=== PATIENT | female | born 1960 | race Caucasian/White ===

== ENCOUNTER 2023-09-25 18:50 | Emergency (ER) | payer OTHER, SELFPAY ==
[2023-09-25 18:54] VITALS: BP 133/88
[2023-09-25 19:31] VITALS: BP 145/89
[2023-09-25 19:38] LABS: % Basophils 0.2 % (0-2); % Eosinophils 0.5 % (0-6); % Immature Granulocytes 0.2 % (0-0.5); % Lymphocytes 20.4 % (20.5-51.1); % Monocytes 3.9 % (1.7-9.3); % Neutrophils 74.8 % (42.2-75.2); Absolute Eosinophils 0.1 10^3/uL (0-0.7); Absolute Lymphocytes 2.5 10^3/uL (1.2-3.4); Absolute Monocytes 0.5 10^3/uL (0.1-0.6); Absolute Neutrophils 9.3 10^3/uL (1.4-6.5); Hematocrit 41.3 % (37.0-47.0); Hemoglobin 14.6 g/dL (12.0-16.0); Mean Corp Hgb Conc. 35.4 g/dL (33.0-37.0); Mean Corpuscular Volume 87.7 fL (81.0-99.0); Mean Platelet Volume 10.5 fL (7.4-10.4); Nucleated Red Blood Cells % 0 %; Platelet Count 360 10^3/uL (130-400); Red Blood Cell Count 4.71 10^6/uL (4.20-5.40); Red Cell Dist. Width 11.9 % (11.5-14.5); White Blood Cell Count 12.4 10^3/uL (4.8-10.8)
--- NOTE | 2023-09-25 19:40 | ED.GENMED ---
History of Present Illness
General
Chief Complaint: Generalized Pain
Source: patient, records and spouse
Exam Limitations: none
Time Seen by Provider: 09/25/23 19:05
Nursing documentation reviewed up to this point in time: agreed with
Travel History
Have you had any contact with someone who has COVID-19?: No
Do you have any symptoms of coronavirus? Fever > 100 degrees, chills, cough, shortness of breath, sore throat, loss of taste or smell, muscle aches, or headache?: No
History of Present Illness
History of Present Illness:
63-year-old female with a past medical history as documented who presents to the emergency department coming by her for evaluation of multiple complaints�her chief complaint is upper back pain. Patient sara was admitted to this hospital
08/29/2023 until 09/20 with acute appendicitis�had laparoscopic appendectomy as well as a ventral hernia repair with Dr. Alegria on 08/29/2023. She was discharged on ciprofloxacin and Flagyl to complete an 8-day course and she completed this course as
prescribed. She says that during this recent admission she was having pain in her upper back that she was told was likely referred pain from intra-abdominal infection. She says that since leaving the hospital although her abdominal pain is
starting to improve she says that her back pain is worsening. She says pain is located in the scapular region worse on the left. She says it is a constant dull pain sometimes sharp and stabbing particular with certain movements. She says she has
had multiple associated symptoms�she still has some persistent postoperative abdominal pain. She has had some increasing shortness of breath she says since the operation. She says she has persistent nausea. She has had chills. She says that she
has noticed some mild dysuria. She says that she was seen by her primary physician who scheduled her for an outpatient CT abdomen/pelvis to make sure that she did not have any residual infection/postoperative complication�she says that she had this
done at [facility] recently but she did not hear about any results. She says with her symptoms worsening and no clear plan she came to the emergency room tonight.
Past History
Past History
ED Past Medical History: Fibromyalgia and Other (migraine/MS ); Negative IDDM
Social History
Tobacco: Non-smoker
Alcohol: None
Living: with family
Review of Systems
Review of Systems
All Other Systems: ROS reviewed and negative except as documented in HPI and ROS
Constitutional: Reports fatigue and chills; Denies fever
Respiratory: Reports trouble breathing; Denies cough
Cardiac: Denies chest pain, diaphoresis or palpitations
ABD/GI: Reports abdominal pain and nausea; Denies vomiting or diarrhea
: Reports dysuria; Denies frequency or flank pain
Musculoskeletal: Reports back pain; Denies neck pain
Neurological: Denies dizzy, headache, weakness or numbness
Phy Exam
Physical Exam
Physical Exam:
General: Awake, alert, oriented x3; no acute distress
Head: Normocephalic, atraumatic
Eyes: Conjunctiva normal, sclera anicteric
Throat: Airway intact, handling secretions
Neck: Trachea midline, supple without meningismus
Lungs: Clear to auscultation bilaterally, no wheezing, rales, rhonchi
Heart: Regular rate and rhythm, no murmurs, gallops, or rubs
Abd: Soft, non distended, mildly tender suprapubic region; well-healed laparoscopic incisions
Back: Patient has some reproducible tenderness left paraspinal region in the upper thoracic (intrascapular) region
Neuro: Cranial nerves grossly intact, speech fluid
Skin: no rash
Extremities: No edema in extremities, equal pulses in all extremities
Scores
Heart Failure Risk
Heart Failure Risk Score: Not Applicable
Heart Score for Chest Pain Patients
STEMI patient?: Not applicable
Withdrawal Assessment of Alcohol
Withdrawal Assessment Completed?: Not applicable
Course
Orders/Labs/Results
Orders:
Orders
09/25/23 19:06
Test Result ONCE
09/25/23 19:24
CMP [Comprehensive Metabolic Panel] Urgent
Complete Blood Count/With Diff Urgent
HCG, Serum Qualitative Screen Urgent
Lactic Acid Urgent
09/25/23 19:39
Electrocardiogram (*1) Urgent
Reason for Study: Shortness of Breath
EKG- Treatment ONCE
CR Chest - 2 Views Urgent
Comment:
Reason For Exam: scapular pain
09/25/23 19:48
HYDROmorphone [Dilaudid] 0.5 mg IV NOW STA
Ondansetron Injectable [Zofran] 4 mg IV NOW STA
09/25/23 20:25
Lipase Urgent
Troponin I Urgent
Urinalysis Reflex To Culture Urgent
Date Specimen was Collected: 09/25/23
Time Specimen was Collected: 20:18
Urine Microscopic Reflex Cult Urgent
Urine Culture Urgent
EDUARDO Source: U
Specimen Description:
Date Specimen was Collected: 09/25/23
Time Specimen was Collected: 20:18
09/25/23 20:54
CT Pe/abd/pel W Urgent
Reason For Exam: left scapular pain s/p appendectomy with abscess
Abnormal Lab Results
09/25/23 09/25/23
19:24 20:25
WBC 12.4 H 10^3/uL
(4.8-10.8)
MPV 10.5 H fL
(7.4-10.4)
Absolute Neuts (auto) 9.3 H 10^3/uL
(1.4-6.5)
Lymphocytes % 20.4 L %
(20.5-51.1)
Carbon Dioxide 21 L mmol/L
(22-30)
BUN 21 H mg/dl
(7-17)
Glucose 115 H mg/dl
(70-99)
Lactic Acid 2.1 H mmol/L
(0.7-2.0)
Calcium 10.5 H mg/dl
(8.4-10.2)
Ur Occult Blood Reflex Trace A
(Negative)
Leukocyte Esterase Rfl Trace A
(Negative)
Urine Bacteria (Reflex) Many A
(Negative)
09/25/23 19:24
09/25/23 19:24
Vital Signs
Initial and Last Documented VS:
Initial Vital Signs
Temp Pulse Resp BP Pulse Ox
36.1 C 74 24 133/88 98
09/25/23 18:54 09/25/23 18:54 09/25/23 18:54 09/25/23 18:54 09/25/23 18:54
Last Documented Vital Signs
Temp Pulse Resp BP Pulse Ox
36.1 C 59 18 122/82 95
09/25/23 18:54 09/25/23 22:00 09/25/23 22:00 09/25/23 22:00 09/25/23 22:00
MDM/Problems Addressed
Differential Diagnosis Includes:
Musculoskeletal back pain, pneumonia, pulmonary embolism, somewhat less likely be referred pain from intra-abdominal source with improving abdominal pain
MDM/Problems Addressed:
63-year-old female who was 3 weeks postop from laparoscopic appendectomy presents for evaluation of persistent left scapular pain. She has multiple other symptoms including persistent but improving abdominal discomforts, occasional chills, nausea
is also reporting some shortness of breath. She is mildly tachypneic but has otherwise normal vitals here. Physical exam as above. She apparently had outpatient CT abdomen/pelvis at [facility] to evaluate for any postoperative
infection/complication�will call to [facility] to try to obtain results. Will place an IV check labs including CBC, CMP, lipase. Check an hCG. Check urinalysis. Check EKG and troponin. Check a chest x-ray. Will treat pain and nausea.
Monitor closely reassess after the above. Pulmonary embolism in the differential diagnosis given her recent surgery although somewhat less likely�she says that the scapula pain actually preceded the surgery�d-dimer somewhat limited utility with
recent surgery; clinical suspicion for PE low at this point but would consider CTA if rest of workup nondiagnostic to completely rule this diagnosis out.
Labs reviewed: CBC shows slight leukocytosis at 12.4. Her CMP shows no clinically significant abnormalities. Troponin negative x 1. Call placed to [facility] but unfortunately they were unable to transmit results of CT after hours. Chest x-ray
reviewed by me shows no pneumonia or pneumothorax or other acute pathology. At this point I think she should be ruled out for PE we will proceed with CTA to rule this out. Will also CT her abdomen pelvis to rule out any postoperative collection.
Monitor closely reassess after the above.
CTA negative for pulmonary embolism or other acute pathology, CT of the abdomen pelvis no acute pathology noted. Urinalysis no signs of infection--shows some bacteria but many squamous cells suggesting contamination and no significant pyuria, no
nitrites. I had a long discussion with the patient that the findings�at this point patient with extensive workup for upper back pain negative for any emergent pathology as she does have reproducible tenderness I wonder if this may simply be
musculoskeletal pain. Will prescribe some pain control�advised to take Tylenol/Motrin first and will provide short course of opiates for pain control. Remaining symptoms could be from some persistent postoperative nausea and perhaps even some
deconditioning contributing to her dyspnea. She is focused on her urinary symptoms as well; urinalysis is essentially equivocal for infection she does have a slight leukocytosis and with symptoms cover with some antibiotics. Regardless she has
remained here with reassuring vital signs. I think she is stable for discharge at this point in time no clear indication for patient. Her symptoms have improved with treatment. She feels comfortable with this plan. Spoke to her about return
precautions, follow-up plan with her primary physician. All questions answered.
Chronic conditions affecting care:
MS
*Radiology
Radiology exam reviewed: radiology read reviewed
*Pulse Oximetry
Patient hypoxic: no
*Critical Care Note
Total Time (30-74mins, 75-104mins- exclusive of procedures): Not Applicable
Data Reviewed
Review of Other/Old Records Reveals: Labs, Records, Operative Reports and Discharge Summary
Source: patient, records and spouse
Patient Management
Social determinants of health affecting care: Strong social support
ED Attending Note
-
Portions of this chart may have been created with voice recognition software.� Occasional wrong word or��sound alike� substitutions may have occurred due to the inherent limitations of voice recognition software.
Discharge Plan
Departure
Patient Disposition: Home (Routine Discharge)
Date of Disposition: 09/25/23
Time of Disposition: 22:36
Patient with high blood pressure during this ER visit?: No
Discharge Problem:
Back pain, UTI (urinary tract infection)
Instructions: Urinary Tract Infection, Adult (DC), Upper Back Pain ED
Prescriptions:
New
nitrofurantoin monohyd/m-cryst [Macrobid] 100 mg capsule
100 mg PO Q12H 5 Days Qty: 10 0RF
hydromorphone [Dilaudid] 2 mg tablet
2 mg PO Q6H PRN (Reason: Pain) Qty: 14 0RF
No Action
donepezil 5 mg Tablet
5 mg PO HS
Hold Instructions: Resume on 09/11/23. DO NOT TAKE THIS MEDICATION WHILE YOU ARE TAKING CIPROFLOXACIN ANTIBIOTICS. DISCUSS WITH YOUR PRIMARY CARE PHYSICIAN REGARDING IF AND WHEN TO RESUME THIS MEDICATION.
Patient Comments:
08/29/2023, patient states that although this medication was filled on 01/25/2023 for a 90-day supply, she only started taking this medication about 5 weeks ago.
diltiazem HCl [DILT-XR] 120 mg Capsule,Ext.Rel 24h Degradable
120 mg PO HS
Hold Instructions: Resume on 09/04/23. Resume on 09/04/23. Resume only after discussing with your primary care physician about when to resume this medication.
rizatriptan 10 mg Tablet
10 mg PO .ASDIRECTD
Rx Instructions:
08/29/2023, take 1 tab at onset of headache; if no relief may repeat 1 tab after at least 2 hrs; max = 3 tabs/24 hr.
ascorbic acid (vitamin C) [Vitamin C] 500 mg Tablet
500 mg PO DAILY
Excedrin Migraine 250-250-65 mg Tablet
2 tab PO DAILYPRN PRN (Reason: migraine)
Hold Instructions: Resume on 09/14/23. Review with your primary care provider regarding when you should resume this medication.
vitamin D3-vitamin K2
1 tab PO DAILY
Referrals:
Domniick Aldana, [Family Provider] - Follow up in 2-3 days
Activity Restrictions/Additional Instructions:
Thank you for visiting the Emergency Department at [facility].
1. Please schedule a follow up appointment as directed. Call first thing tomorrow morning to make an appointment.
2. If indicated, please take your medications as instructed and indicated on discharge paperwork.
3. If any of your symptoms do not improve, or persist, or become more severe within 6-12 hours, please return to the emergency department for further care.
4. Please return to the emergency department if you develop a headache, neck pain/stiffness, fever greater than 100.4F, chest pain, shortness of breath, persistent nausea, vomiting, slurred speech, difficulty walking, numbness/tingling, weakness,
signs of infection or any other symptoms that are worrisome to you.
Please call [phone] if you have any questions.
Interventions
Interventions:
*Risk Screen - Suicide Last Done: 09/25/23 18:54
*Neglect/Abuse Screening Last Done: 09/25/23 18:54
[2023-09-25 19:52] LABS: Lactic Acid 2.1 mmol/L (0.7-2.0)
[2023-09-25 19:55] LABS: HCG, Serum Qualitative Screen Negative
[2023-09-25 19:57] LABS: ALT (SGPT) 25 U/L (0-35); AST (SGOT) 29 U/L (14-36); Albumin 4.6 g/dl (3.5-5.0); Alkaline Phosphatase 61 U/L (38-126); Blood Urea Nitrogen 21 mg/dl (7-17); Calcium 10.5 mg/dl (8.4-10.2); Carbon Dioxide 21 mmol/L (22-30); Chloride 103 mmol/L (98-107); Glucose 115 mg/dl (70-99); Potassium 4.2 mmol/L (3.5-5.1); Sodium 139 mmol/L (135-145); Total Protein 7.4 g/dl (6.3-8.2); eGFR > 60.00
[2023-09-25 20:00] VITALS: BP 146/77
[2023-09-25] MEDS: ZOFRAN 4 MG IV (20:20)
[2023-09-25] MEDS: DILAUDID 0.5 MG IV (20:20)
[2023-09-25 20:34] LABS: Urine Albumin Negative (Neg - Trace); Urine Bilirubin Negative (Negative); Urine Character Clear (Clear); Urine Color Yellow; Urine Glucose Negative (Negative); Urine Ketone Negative (Negative); Urine Leukocyte Trace (Negative); Urine Nitrite Negative (Negative); Urine Occult Blood Trace (Negative); Urine Specific Gravity 1.025 (<1.030); Urine Urobilinogen Negative (Neg - 1+)
[2023-09-25 20:41] LABS: Urine Squamous Cell 21-25 /LPF (Few)
[2023-09-25 20:42] LABS: Urine Bacteria Many (Negative); Urine Calcium Oxalate Crystals Present; Urine Red Blood Cell 0-2 /HPF (0-2)
[2023-09-25 20:57] LABS: Troponin I < 0.012 ng/ml
[2023-09-25 20:59] LABS: Lipase 126 U/L (23-300)
[2023-09-25 21:51] VITALS: BP 125/77
[2023-09-25 22:00] VITALS: BP 122/82
[2023-09-25 22:50] VITALS: BP 134/82
[2023-09-25] MEDS: ZOFRAN ODT (ORALLY DISINTEGRATING) 4 MG PO (23:37)
== END 2023-09-26 00:07 | disposition home or self-care (01) ==
LOC: EMR 18:50
PROVIDERS: Emergency Medicine; EMERGENCY PHYSICIAN Emergency Medicine; FAMILY PHYSICIAN Family Medicine
DX: N39.0 Urinary tract infection, site not specified (principal); M54.9 Dorsalgia, unspecified
CPT/HCPCS: 99285; 96374; 96375; 71046; 71275; 74177; 80053; 81003; 81015; 83605; 83690; 84484; 84703; 85025; 87086; 93005; Q9967

== ENCOUNTER 2024-05-14 06:49 | Inpatient (IN) | payer OTHER, SELFPAY ==
[2024-05-13] VITALS (12 sets, daily range): BP systolic 139–170; BP diastolic 78–93; BMI 24.3; BMI 23.8
--- NOTE | 2024-05-13 16:16 | ED.GENMED ---
History of Present Illness
General
Chief Complaint: Headache
Source: patient and family
Exam Limitations: none
Time Seen by Provider: 05/13/24 15:26
History of Present Illness
History of Present Illness:
64-year-old female sudden onset of disequilibrium lightheadedness at about 9 AM in bed. She then tried to call her but was unable to speak and had difficulty with words for 2 hours. That has resolved. She transiently had some shortness of
breath with this but stated it might have been from her being anxious. She denies chest pain no unusual severe headache. Symptoms have essentially resolved at this time. History of MS. Never had the symptoms with her MS
Past History
Past History
ED Past Medical History: Fibromyalgia and Other (migraine/MS ); Negative IDDM
Social History
Tobacco: Non-smoker
Alcohol: None
Living: with family
Phy Exam
Physical Exam
Physical Exam:
GENERAL: Alert and oriented in no apparent distress
EYE: Orbits normal.
NECK: Supple, no carotid bruit
ENT: Pharynx without erythema
CARDIAC: Regular rate and rhythm without any obvious murmurs.
LUNGS: Clear breath sounds,normal
ABDOMEN: Soft, without focal tenderness or distention
NEUROLOGICAL: Alert and oriented , speech normal. Cranial nerves II through XII intact. Pqtrgt-en-gqic normal. No drift. Good lower extremity strength. [id number] normal.
SKIN: Warm and dry, no rash or lesion, no discoloration, skin intact.
MUSCULOSKELETAL: No edema,no deformity.Good color
PSYCH: Normal and appropriate interaction.
Course
Orders/Labs/Results
Orders:
Orders
05/13/24 14:44
Electrocardiogram (*1) Urgent
Reason for Study: Chest Pain
EKG- Treatment ONCE
05/13/24 Dinner
Cholesterol Lowering
At Your Request: Full Participation
Does patient need a safe tray?: No
Cholesterol Lowering: Sodium, 2 Gram
05/13/24 16:08
CT Head W/o Iv Contrast Urgent
Comment:
Reason For Exam: Disequilibrium/transient aphasia
Cardiac Monitoring- Treatment ONCE
IV Insert/Care/Rem.- Treatment PRN
Pulse Ox/cont/shift [RESP] Stat
Quantity: 1
05/13/24 16:15
Basic Metabolic Panel Urgent
Complete Blood Count/With Diff Urgent
05/13/24 18:22
Admit/Transfer Patient As Directed
Co-Sign Provider:
Level of Care: Observation services
Assign to:: Telemetry
Physician / Group: tierney siegel
Diagnosis: dysEquilibrium, expressive aphasia concern CVA/TIA
Reason for Telemetry: CVA/TIA
Date to Stop Telemetry: 05/16/24
Time to Stop Telemetry: 11:00
Reason for Hospitalization: dysEquilibrium, expressive aphasia concern CVA/TIA
Code Status As Directed
Resuscitation Status: Full Code
05/13/24 18:26
PRN Pain Medication Management As Directed
May give lesser potent ordered pain med per pt: Yes
preference::
Protocol:: Medication orders for pain may be administered in a
manner that supports deferring to patient preference
when the pt is:
- Requesting an ordered lesser potent pain medication.
Least to most potent pain medications are defined
as: acetaminophen < NSAID < tramadol < opioids
(morphine, oxycodone, hydromorphone).
- Requesting a lesser dose of the same medication IF
ORDERED.
- Requesting a less intrusive route of administration
if both routes are prescribed by the provider (PO <
IV).
05/13/24 18:29
NEUROLOGY CONSULT Routine
Consulting Provider: Ruben Scott
Was physician already notified: Yes
Reason for consult: Expressive aphasia, disequilibrium
05/13/24 20:22
Acetaminophen [Tylenol] 650 mg PO Q4HPRN PRN
Calcium 200mg(Ca. Carb. 500mg) [Tums Chewable Tablet] 200 mg PO BIDPRN PRN
05/13/24 20:22
Activity As Directed
Activity Level: As Tolerated
Orthostatic Vital Signs As Directed
Orthostatic VS Frequency: Daily
Pneumatic Compression Sleeves As Directed
Type: Knee high
Vital Signs As Directed
Frequency: Per unit guidelines
Ot Eval And Treat Routine
Pt Eval And Treat Routine
Activity Level: As Tolerated
DX Deep Vein Thrombosis Video Routine
05/13/24 22:00
Diltiazem Extended Release [Cardizem Cd] 120 mg PO HS
05/14/24 06:00
Echo 2D MMode Color/Doppler IN AM
Reason for Study: cva tia
Basic Metabolic Panel IN AM
Cardiovascular Evaluation IN AM
Complete Blood Count/With Diff IN AM
Hgba1c [Glycohemoglobin (HgbA1c)] IN AM
Brain W/O & With Contrast MR [MR Brain W/o & With Contrast] IN AM
Comment:
Reason For Exam: expressive aphasia hx ms
OK for patient to be off Cardiac Monitoring for MRI: Yes
Recent pill cam endoscopy?: No
Pacemaker/Defibrillator?: No
MR Cervical Spine Without & W IN AM
Comment:
Reason For Exam: Disequilibrium, history MS
OK for patient to be off Cardiac Monitoring for MRI: Yes
Recent pill cam endoscopy?: No
Pacemaker/Defibrillator?: No
05/14/24 08:00
Ascorbic Acid [Vitamin C] 500 mg PO DAILY
Cholecalciferol (Vitamin D3) [VITAMIN D3 (cholecalciferol)] 50 mcg PO DAILY
Valsartan [Diovan] 80 mg PO DAILY
05/16/24 11:00
DC Protocol for Telemetry ONCE
Abnormal Lab Results
05/13/24
16:15
Abs Immat Gran (auto) 0.1 H 10^3/uL
(0-0.05)
Absolute Neuts (auto) 8.2 H 10^3/uL
(1.4-6.5)
Immature Gran % 0.6 H %
(0-0.5)
Neutrophils % 80.5 H %
(42.2-75.2)
Lymphocytes % 14.5 L %
(20.5-51.1)
Glucose 111 H mg/dl
(70-99)
Calcium 10.7 H mg/dl
(8.4-10.2)
05/13/24 16:15
05/13/24 16:15
Vital Signs
Initial and Last Documented VS:
Initial Vital Signs
Temp Pulse Resp BP Pulse Ox
97.7 F 73 18 170/93 99
05/13/24 14:52 05/13/24 14:52 05/13/24 14:52 05/13/24 14:52 05/13/24 14:52
Last Documented Vital Signs
Temp Pulse Resp BP Pulse Ox
97.9 F 63 18 162/91 96
05/13/24 20:35 05/13/24 20:35 05/13/24 20:35 05/13/24 20:35 05/13/24 20:35
MDM/Problems Addressed
Differential Diagnosis Includes:
Patient with prolonged disequilibrium and 2 hours of expressive aphasia by history. History of MS. Neurologic exam stable. Workup in progress.
*Pulse Oximetry
Patient hypoxic: no
*EKG
Interpreted by ED Provider?: Yes
Interpretation: normal
Comparison EKG: no comparison EKG present
Heart Rate: 66
Rate: normal
Rhythm: sinus
Toutle: normal axis
Interval: normal interval
QRS Pattern: normal QRS
Ischemia: no ischemia
*Critical Care Note
Total Time (30-74mins, 75-104mins- exclusive of procedures): Not Applicable
Data Reviewed
Review of Other/Old Records Reveals: Labs, Records and Testing
ED Attending Note
-
Portions of this chart may have been created with voice recognition software.� Occasional wrong word or��sound alike� substitutions may have occurred due to the inherent limitations of voice recognition software.
Discharge Plan
Departure
Patient Disposition: Admit
Date of Disposition: 05/13/24
Time of Disposition: 17:53
Presentation/result/management discussed w/ accepting MD/DO: Neurology
Discharge Problem:
Disequilibrium/expressive aphasia, History of MS
Interventions
Interventions:
*Risk Screen - Suicide Last Done: 05/13/24 15:26
*General Assessment Last Done: 05/13/24 15:26
*Neglect/Abuse Screening Last Done: 05/13/24 15:26
*ED COVID-19 Vaccine History Last Done: 05/13/24 21:08
*Nursing Disposition Last Done: 05/13/24 20:19
ED- Neurological Assessment Last Done: 05/13/24 15:26
Discharge Date and Time
Discharge Date/Time: 05/13/24 20:19
[2024-05-13 16:23] LABS: % Basophils 0.4 % (0-2); % Eosinophils 0.2 % (0-6); % Immature Granulocytes 0.6 % (0-0.5); % Lymphocytes 14.5 % (20.5-51.1); % Monocytes 3.8 % (1.7-9.3); % Neutrophils 80.5 % (42.2-75.2); Absolute Immature Granulocytes 0.1 10^3/uL (0-0.05); Absolute Lymphocytes 1.5 10^3/uL (1.2-3.4); Absolute Monocytes 0.4 10^3/uL (0.1-0.6); Absolute Neutrophils 8.2 10^3/uL (1.4-6.5); Mean Corp Hgb Conc. 35.7 g/dL (33.0-37.0); Mean Corpuscular Hgb 30.1 pg (27.0-31.0); Mean Corpuscular Volume 84.3 fL (81.0-99.0); Mean Platelet Volume 10.4 fL (7.4-10.4); Nucleated Red Blood Cells % 0 %; Platelet Count 376 10^3/uL (130-400); Red Blood Cell Count 4.98 10^6/uL (4.20-5.40); White Blood Cell Count 10.2 10^3/uL (4.8-10.8)
[2024-05-13 16:39] LABS: Blood Urea Nitrogen 16 mg/dl (7-17); Calcium 10.7 mg/dl (8.4-10.2); Carbon Dioxide 23 mmol/L (22-30); Chloride 105 mmol/L (98-107); Estimated Creatinine Clearance 82 ml/min; Glucose 111 mg/dl (70-99); Potassium 4.7 mmol/L (3.5-5.1); Sodium 145 mmol/L (135-145); eGFR > 60.00
--- NOTE | 2024-05-13 18:10 | HPS.HSE ---
Addendum entered and electronically signed by Tal Wong MD 05/13/24 18:33:
Add on : MRI Brain and Cx spine w/wo IV contrast
Addendum entered and electronically signed by Tal Wong MD 05/13/24 18:29:
check ortho VSS
Original Note:
Family Physician
-
Family Physician: Dominick Aldana
Chief Complaint
-
loss balance lightheadedness
History of Present Illness
HPI
64F HX MS/ Migraine , Fibromyalgia pw abrupt onset of loss balance lightheadedness at about 9 AM in bed.
- associate with difficult to speak and had difficulty finding words for 2 hours- it has resolved.
- report transient SoB
- HX MS but never had the symptoms with her MS
ROS
denies chest pain no unusual severe headache.
Medical History
Past Medical History
Past Medical History: Reports Other (Fibromyalgia and Other (migraine/MS ))
Past Surgical History: Reports None
Social History
Tobacco: Former Smoker (> 40 pack years total. She quit on Day.)
Alcohol: None
Drug: None
Family History
Family History: Not pertinent
Allergies / Home Medications
Allergies reflects when Allergies were last updated in [facility].
Home Medications with original date entered in [facility]
Allergy/Medication List:
Allergies
Allergy/AdvReac Type Severity Reaction Status Date / Time
Cephalosporins Allergy Unknown Verified 05/13/24 14:51
penicillin G Allergy Unknown Verified 05/13/24 14:51
Penicillins Allergy Unknown Verified 05/13/24 14:51
prochlorperazine Allergy Unknown Verified 05/13/24 14:51
[From Compazine]
Home Medications
ascorbic acid (vitamin C) 500 mg tablet (Vitamin C) 500 mg PO DAILY Supplement 08/29/23
diltiazem HCl 120 mg capsule,extended release 24 hr, controlled (DILT-XR) 120 mg PO HS Blood Pressure 08/29/23
calcium carbonate (Tums) 200 mg PO BIDPRN PRN stomach issues 05/13/24
cholecalciferol (vitamin D3) 50 mcg (2,000 unit) tablet (Vitamin D3) 50 mcg PO DAILY 05/13/24
omega 9-lnx-liv-fish oil 1,000 mg (120 mg-180 mg) capsule (Fish Oil) 1 cap PO DAILY 05/13/24
valsartan 80 mg tablet 80 mg PO DAILY 05/13/24
Review of Systems
-
Constitutional: Reports No Symptoms
EENT: Reports No Symptoms
Respiratory: Reports No Symptoms
Cardiac: Reports No Symptoms
Abdomen/GI: Reports No Symptoms
: Reports No Symptoms
Musculoskeletal: Reports No Symptoms
Skin: Reports No Symptoms
Neurological: Reports Dizzy
Endocrine: Reports No Symptoms
Hematologic/Lymphatic: Reports No Symptoms
Psych: Reports No Symptoms
Physical Exam
Vital Signs
Vital Signs
Temp Pulse Resp BP Pulse Ox
97.7 F 62 17 157/87 97
05/13/24 14:52 05/13/24 17:15 05/13/24 17:15 05/13/24 17:00 05/13/24 17:15
Physical Exam
General: Well Developed, Well Nourished and No Apparent Distress
HEENT: NormoCephalic, Moist mucous membranes and Atraumatic
Respiratory: Clear
Cardiac: S1/S2 and Regular Rhythm; No Murmur or Rub
GI: Soft, Non Tender, Non Distended and Normal Bowel Sounds; No Organomegaly
Rectal: Deferred by Provider
Musculoskeletal: No Clubbing, No Cyanosis and No Edema
Skin: No Rash
Neuro: AO x 3 and Nonfocal/grossly intact
Laboratory Results
-
05/13/24 16:15
05/13/24 16:15
Data Reviewed
-
CT Scan: Report Reviewed by me
Lab Data: Labs Reviewed by me
Old Records: Reviewed
Impression/Plan
-
Reviewed VS: afebrile BP 155/87 HR 62 RR 17 POx 97
Data
unremarkable CBC
unremarkable CMP
Ca 10.7
EKG
NORMAL SINUS RHYTHM
NORMAL ECG
WHEN COMPARED WITH ECG OF 25-SEP-2023 20:16,
NO SIGNIFICANT CHANGE WAS FOUND
Confirmed by MD CHRIS, QUAN Monroy ([id number]) on 05/13/2024 4:17:58 PM
HCT: 1 cm calcified right frontal meningioma Mild diffuse cortical and cerebellar atrophy
Prior hospitalist admission: Date of Admission: 08/29/23 - Date of Discharge: 08/31/23
ASSESSMENT & PLAN
Evaluation for transient difficult to speak and had difficulty finding words for 2 hour
R/O TIA/CVA vs. MS flare
HX Brain stem bleed per patient
HX hypertriglyceridemia
- NEG HCT for acute ICH
- start baby ASA
- Brain MRI in AM
- ECHO
- lipids
- A1 C
- Neuro consult
Benign Hypertension
- Stable.
- cont. PO Diltiazem
Multiple Sclerosis
Recent HX Lt optic neuritis
HX MS 13 yrs ago POS MRI and Tx with high dose steroids
- Stable. Patient notes that she has been off of maintenance medications for years.
- She takes occasional steroid courses for acute symptoms, but none in some time.
- Follow for any changes.
- She follows with Dr Leanna Cosby ( [facility])
HCT POS 1 cm calcified right frontal meningioma
DVT Px: SCD
Code: Full
Obs TLM
--- NOTE | 2024-05-13 19:41 | CON.NEURO4 ---
Consultation - Neurology 4
-
CONSULTING PHYSICIAN: Ruben Scott MD(Neurology)
REFERRING PHYSICIAN: Hospitalist
DICTATED BY: Ruben Scott MD
DATE/TIME OF REQUEST: 05/13/2024
DATE/TIME OF CONSULTATION: 05/13/2024
Reason for Consultation: Headaches
History of Present Illness:
This is a 64 year old right handed female who has presented to the hospital with (chief complaint) of headaches lightheaded ness and speech impediment. She gives a h/o MS(not on medication) stopped Copaxone, fibromyalgia, anxiety d/o, migraines
who had been in her USOH till this morning.
She had sudden onset of lightheadedness at 9 AM while in bed. She tried to call her but was unable to speak and had difficulty finding words for 2 hours. That has resolved. She transiently had some shortness of breath with this but
stated it might have been from her being anxious. She says her head feels heavy and tight and has light sensitivity.
She also states Cardiology informed her in the past that she has valvular heart disease and arrhythmia but no pain or palpitations now
She denies chest pain. Symptoms have essentially resolved at this time. History of MS. Never had the symptoms with her MS. Blurred vision OS. Left sided numbness and shooting pain down her spine. No heat intolerance.
At the time of my exam pat has a headache.
Past Medical History: As above
Surgical History: NC
Family History: NC
Social History: lives at home with family quit smoking
Allergies: PCN, Cephalosporin, Compazine
Home Medications: Addendum
Review of Symptoms:
Patient denies any fever, headache, chest pain, shortness of breath, GI or symptoms.
�Per the HPI.�All systems are reviewed negative except above.
�-
Vital Signs:
The patient has a Temp 36.5 C Pulse 62 Resp 17 BP 157/87 PulseOx 97
Physical Exam:
The patient is afebrile, heart sounds S1 and S2 are (regular / irregular), and chest is clear to auscultation bilaterally.
- If not clear, describe.
Neurologic Examination:
The patient is awake, alert and oriented x 3. She) is able to follow commands and answer questions appropriately. Speech is fluent without aphasia or dysarthria.
On cranial nerve assessment, pupils are 3 mm bilateral, round and reactive to light and accommodation. Visual walls are full. Extraocular movements are intact. Facial sensations are intact and bilaterally symmetrical, there is no facial asymmetry.
Hearing is intact bilaterally to normal conversation volume. Tongue palate and uvula are midline. Sternocleidomastoid strengths are full bilaterally.
Motor strengths are 5/5 bilateral upper and lower extremities on medical research [place] scale. There is no drift or involuntary movement noted.
Deep tendon reflexes are 2+ bilateral upper and lower extremities and Babinski is absent bilaterally.
Sensations of pain, touch, temperature and vibration are intact and bilaterally symmetrical. There was no extinction noted on double simultaneous stimulation. Coordination is intact by finger to nose bilaterally. Rombergs Negative GAit WNL
Lab Results: See addendum
Neuro Imaging: CT head: Minimal atrophy. Minimal white matter changes. Normal ventricles
Impression:
(Mrs.) MELANI SMITH is a 64 year old F who has presented to the hospital with (symptoms/chief complaint) of headaches lightheadedness and slurred speech that has resolved
Differentials for the patient's presentation include:
1. Migraine
2. TIA
3. MS exacerbation
4. Anxiety d/o
Patient has the following risk factors for their symptoms:
IV Tenecteplase/IAT candidacy
Recommendations:
1. MRI Brain with/without Pérez
2. MRI C-Spine with/without Pérez
3. IV Depakote 500mg x1
4. Amitriptyline
5. Ecasa 81
6. B12
Discussed patient care with: Hospitalist
Allergies
-
Allergies
Allergy/AdvReac Type Severity Reaction Status Date / Time
Cephalosporins Allergy Unknown Verified 05/13/24 14:51
penicillin G Allergy Unknown Verified 05/13/24 14:51
Penicillins Allergy Unknown Verified 05/13/24 14:51
prochlorperazine Allergy Unknown Verified 05/13/24 14:51
[From Compazine]
Vital Signs and Labs
-
Vital Signs and Labs:
Vital Signs
Temp Pulse Resp BP Pulse Ox
36.5 C 62 17 157/87 97
05/13/24 14:52 05/13/24 17:15 05/13/24 17:15 05/13/24 17:00 05/13/24 17:15
Lab Results
05/13/24 16:15
05/13/24 16:15
Sodium 145 mmol/L (135-145) 05/13/24 16:15
Potassium 4.7 mmol/L (3.5-5.1) 05/13/24 16:15
BUN 16 mg/dl (7-17) 05/13/24 16:15
Glucose 111 mg/dl (70-99) H 05/13/24 16:15
Calcium 10.7 mg/dl (8.4-10.2) H 05/13/24 16:15
Medications
-
Home Medications
�Medication �Instructions �Recorded
ascorbic acid (vitamin C) 500 mg 500 mg PO DAILY Supplement 08/29/23
tablet (Vitamin C)
diltiazem HCl 120 mg 120 mg PO HS Blood Pressure 08/29/23
capsule,extended release 24 hr,
controlled (DILT-XR)
calcium carbonate (Tums) 200 mg PO BIDPRN PRN stomach issues 05/13/24
cholecalciferol (vitamin D3) 50 50 mcg PO DAILY 05/13/24
mcg (2,000 unit) tablet (Vitamin
D3)
omega 9-vae-gam-fish oil 1,000 mg 1 cap PO DAILY 05/13/24
(120 mg-180 mg) capsule (Fish Oil)
valsartan 80 mg tablet 80 mg PO DAILY 05/13/24
--- NOTE | 2024-05-13 20:44 | PTCARENOTE ---
Pt admitted to 410-2 from ED. Spouse and daughter at bedside. AAOx3, ROMERO. pt c/o 03/06 headache located at temples. bp elevated (162/91 on admit), will re check. Pt ordered amitriptyline but refusing to take due to risk for anxiety as this is listed
as a possible side effect. Pt given tylenol and ice pack for head as requested. Call mcgrath within reach.
[2024-05-13] MEDS: CARDIZEM CD 120 MG PO (21:00)
[2024-05-13] MEDS: TYLENOL 650 MG PO (21:03)
[2024-05-14] VITALS (8 sets, daily range): BP systolic 112–168; BP diastolic 70–100; PULSE 53–84; O2SAT 98
[2024-05-14 01:47] LABS: Vitamin B12 318 pg/ml (239-931)
[2024-05-14 08:00] LABS: % Basophils 0.2 % (0-2); % Eosinophils 1.1 % (0-6); % Immature Granulocytes 0.4 % (0-0.5); % Lymphocytes 26.9 % (20.5-51.1); % Neutrophils 64.4 % (42.2-75.2); Absolute Eosinophils 0.1 10^3/uL (0-0.7); Absolute Lymphocytes 2.3 10^3/uL (1.2-3.4); Absolute Monocytes 0.6 10^3/uL (0.1-0.6); Absolute Neutrophils 5.4 10^3/uL (1.4-6.5); Hematocrit 40.7 % (37.0-47.0); Hemoglobin 14.3 g/dL (12.0-16.0); Mean Corp Hgb Conc. 35.1 g/dL (33.0-37.0); Mean Corpuscular Hgb 29.7 pg (27.0-31.0); Mean Corpuscular Volume 84.4 fL (81.0-99.0); Mean Platelet Volume 10.1 fL (7.4-10.4); Nucleated Red Blood Cells % 0 %; Platelet Count 344 10^3/uL (130-400); Red Blood Cell Count 4.82 10^6/uL (4.20-5.40); Red Cell Dist. Width 11.9 % (11.5-14.5); White Blood Cell Count 8.4 10^3/uL (4.8-10.8)
[2024-05-14 08:27] LABS: Blood Urea Nitrogen 15 mg/dl (7-17); Calcium 10.2 mg/dl (8.4-10.2); Carbon Dioxide 24 mmol/L (22-30); Chloride 105 mmol/L (98-107); Estimated Creatinine Clearance 82 ml/min; Glucose 101 mg/dl (70-99); HDL Cholesterol 46 mg/dl; LDL Cholesterol, Calculated 123 mg/dl; Potassium 4.6 mmol/L (3.5-5.1); Sodium 141 mmol/L (135-145); Total Cholesterol 202 mg/dl (50-199); Triglyceride 167 mg/dl (10-149); Very Low Density Lipoprotein 33 mg/dl (0-30); eGFR > 60.00
[2024-05-14] MEDS: DIOVAN 80 MG PO (08:30)
[2024-05-14] MEDS: VITAMIN C 500 MG PO (08:30)
[2024-05-14] MEDS: VITAMIN D3 (cholecalciferol) 50 MCG PO (08:30)
[2024-05-14 09:18] LABS: Hepatitis C Antibody Negative (Negative)
[2024-05-14 09:29] LABS: Glycohemoglobin (HgbA1c) 5.4 % (4.0-5.6)
--- NOTE | 2024-05-14 09:55 | W.PN.HOSP.TC ---
Today's Communication/Plan
-
Will order
IVF
IV PPI
PRN IV Dilaudid & IV Zofran
Stool sample
Urine sample
Liver function test
Lipase
Consult GI and f/w recommendations.
Assessment / Plan
Assessment / Plan
Physical Exam
General: Well Developed, Well Nourished and No Apparent Distress, in discomfort from nausea
HEENT: NormoCephalic, Moist mucous membranes and Atraumatic
Respiratory: Clear
Cardiac: S1/S2 and Regular Rhythm; No Murmur or Rub
GI: Soft, mild epigastric Tenderness, also right lower side. Normal Bowel Sounds; No Organomegaly
Rectal: no bleeding
Musculoskeletal: No Clubbing, No Cyanosis and No Edema
Skin: No Rash
Neuro: AO x 3 and followed commands
Psych: calm, pleasant.
# An episode of nausea, dizziness with transient difficulty to speak, finding words for 2 hour
R/O TIA/CVA vs. MS flare
MRI studies did not show active disease
I d/w neurologist, no active disease
Probably Gastroenteritis, gastritis, will also rule out UTI
Will do supportive care with IVF, IV PPI, IV Dilaudid with IV Zofran
Will try to obtain urine and stool specimen
Will order liver function test
Also order Lipase
Will ask GI to evaluate
Hold Aspirin with hx of gastritis
#Benign Hypertension
- Her blood pressure reading are acceptable. I will adjust her medications if necessary. Discomfort can also elevate her blood pressure
- cont. PO Diltiazem & Valsartan
Multiple Sclerosis
Recent HX Lt optic neuritis
HX MS 13 yrs ago POS MRI and Tx with high dose steroids
- Patient notes that she has been off of maintenance medications for years.
- She takes occasional steroid courses for acute symptoms, but none in some time.
- Follow for any changes.
- She follows with Dr Leanna Cosby ( [facility])
HCT POS 1 cm calcified right frontal meningioma
DVT Px: SCD
Total time spent to see the patient, examine the patient on the floor, review data and lab results, discuss treatment plan with patient, nursing staff around 55 minutes
Anticipated Discharge: 24 - 48 hours
Subjective/Interval History
-
Date of Service: May 14, 2024
Complains of nausea, epigastric discomfort
Objective Data
-
Labs:
Laboratory Results
05/14/24
07:39
WBC 8.4
Hgb 14.3
Hct 40.7
Plt Count 344
Sodium 141
Potassium 4.6
Chloride 105
Carbon Dioxide 24
BUN 15
Creatinine 0.7
Glucose 101 H
Calcium 10.2
Vital Signs:
Vital Signs
Temp Pulse Resp BP Pulse Ox
98.3 F 62 12 122/80 96
05/14/24 07:25 05/14/24 08:30 05/14/24 07:25 05/14/24 08:30 05/14/24 07:25
I&O
05/13/24 05/14/24 05/15/24
06:59 06:59 06:59
Intake Total 0 / 0
Balance 0 / 0
[2024-05-14] MEDS: TUMS CHEWABLE TABLET 200 MG PO (10:24)
--- NOTE | 2024-05-14 12:18 | CON.GI ---
Addendum entered and electronically signed by Eva Curtis DO 05/14/24 15:09:
Patient seen and examined independently of ARTURO. I agree with her note with my additions below.
Maribel is a 64-year-old female with untreated MS, fibromyalgia, anxiety and migraines who was recently at [facility] for treatment of hypertension. GI is being asked to see her for epigastric pain nausea and regurgitation. She came to the hospital
because of headache, lightheadedness, difficulty with speech on 05/13/2024 and was seen by neurology and underwent brain MRI.
Neurology is differential included a TIA, migraine, MS exacerbation and anxiety disorder.
Currently she is lying flat with an ice pack over her head and has just received Dilaudid for both the headache and the abdominal pain. She states the left upper abdominal pain is gnawing in character and started last when she was at [facility]. She says it is constant roughly 6 out of 10. Does not radiate. Is not exacerbated by anything but does improve if she holds pressure over the area. There is some associated nausea with decreased appetite. Also states if she tries to eat
or drink she gets significant acidic regurgitation which is new over the past 3 weeks. She is not on any acid medication as an outpatient. She did have an EGD back in 2019 at [facility] that was subjectively negative. Normally she moves her
bowels every other day but yesterday had 5 pasty brown stools. She has chronic intermittent dysphagia to liquids and solids and sounds more like oropharyngeal dysphagia feels like she has to swallow hard to get things down. She does take Excedrin
Migraine on a regular basis. Not on a PPI.
On exam she is not tender on palpation. Her bowel sounds are hypoactive although she did just received Dilaudid. She has no extremity edema and no rash.
#Epigastric gnawing sensation with acidic regurgitation -- etiology PUD vs gastritis vs gastroparesis vs MS involvement neuropathy vs esophagitis
-- start ppi (started today, 05/14/24)
-- zofran for nausea
-- no pain with palpation and normal LFTs
-- will get an UGI series tomorrow am
-- avoid NSAIDs - takes excedrin 2-3 times a week
Original Note:
Consultation
-
Date/Time Consultation Requested: 05/14/24 1200
Date/Time Consultation Performed: 05/14/24 1220
Requesting Provider: Alber Pires MD
Performing Provider: ARTURO Espino
Reason for Consultation: epigastric pain
Medical History
Chief Complaint / HPI
Chief Complaint: nausea, epigastric pain, difficulty with speech on admission
History of Present Illness:
Pt is a 64yo presents with hx MS, fibromyalgia, anxiety, migraines with admission in August with acute appendicitis with lap appe and drainage of abscess with repair of umbilical hernia. She has had some RLQ pain and back pain since that time.
She then developed HTN and 'hugs' with her MS with feeling of tightness and chest pain. She was seen at [place] several days prior to admission with treatment of HTN. she pw presents to 05/13 with headache, lightheadedness, and
difficultly with speech. She has been seen by neurology with completed MRI brain with noted 10mm meningioma in right paramedian and frontal region and DDD on cervial spine with etiology of speech difficulty from migraine, TIA, MS vs anxiety.
Asked to see as she also has some complaints of epigastric pain with increased belching.
She otherwise admits to occasional dysphagia, GERD, nausea and even small volume of emesis of water she had ingested. She complaints of epigastric pain but also some chronic RLQ pain since her surgery in August. She denies issue with
constipation, bloating or fullness but did have diarrhea prior to admission without rectal bleeding. Hx EGD prior to covid with ? gastritis and 'redness in stomach', Colonoscopy 5 + years ago with polyps. She denies NSAID use. She also relates hx
pelvic floor dysfunction with current physical therapy.
Past Medical History
Past Medical History: Fibromyalgia, Psychiatric (anxiety) and Other (MS, migraines )
Past Surgical History: Appendectomy (with abscess with drainage 08/2023 ) and Other (umbilical hernia repair 08/2023 )
Social History
Tobacco: Former Smoker
Alcohol: None
Drug: Marijuana
Personal:
Living: With Family
Employment: Retired
Family History
Family History: Other (mother with hx SIBO)
Allergies / Home Medications
Allergy/AdvReac Type Severity Reaction Status Date / Time
Cephalosporins Allergy Unknown Verified 05/13/24 14:51
penicillin G Allergy Unknown Verified 05/13/24 14:51
Penicillins Allergy Unknown Verified 05/13/24 14:51
prochlorperazine Allergy Unknown Verified 05/13/24 14:51
[From Compazine]
�Medication �Instructions �Recorded
ascorbic acid (vitamin C) 500 mg 500 mg PO DAILY Supplement 08/29/23
tablet (Vitamin C)
diltiazem HCl 120 mg 120 mg PO HS Blood Pressure 08/29/23
capsule,extended release 24 hr,
controlled (DILT-XR)
calcium carbonate (Tums) 200 mg PO BIDPRN PRN stomach issues 05/13/24
cholecalciferol (vitamin D3) 50 50 mcg PO DAILY Supplement 05/13/24
mcg (2,000 unit) tablet (Vitamin
D3)
omega 1-wlg-cdl-fish oil 1,000 mg 1 cap PO DAILY High Cholesterol 05/13/24
(120 mg-180 mg) capsule (Fish Oil)
valsartan 80 mg tablet 80 mg PO DAILY Blood Pressure 05/13/24
Review of Systems
-
History Source: Patient and Family
Constitutional: Reports Other (sweats )
EENT: Reports No Symptoms
Respiratory: Reports Trouble Breathing
Cardiac: Reports Chest Pain (with 'hugs' at [place])
Abdomen/GI: Reports Abdominal Pain, Nausea, Vomiting and Diarrhea
: Reports Frequency
Musculoskeletal: Reports Other (weakness with MS)
Skin: Reports No Symptoms
Neurological: Reports Weakness
Endocrine: Reports No Symptoms
Hematologic/Lymphatic: Reports No Symptoms
Vital Signs
Temp Pulse Resp BP Pulse Ox
97.6 F 65 16 156/82 99
05/14/24 11:10 05/14/24 11:10 05/14/24 11:10 05/14/24 11:10 05/14/24 11:10
Physical Exam
Exam
General: Well Developed, Well Nourished and No Apparent Distress
HEENT: Normocephalic and Anicteric
Respiratory: Clear
Cardiac: Regular Rhythm
GI: Soft, Non Distended and Tender (epigastric tenderness )
Musculoskeletal: No Clubbing and No Cyanosis
Skin: Warm and Dry
Neuro: Awake, Alert and AO x 3
Psych: Calm
Results
WBC 8.4 10^3/uL (4.8-10.8) 05/14/24 07:39
Hgb 14.3 g/dL (12.0-16.0) 05/14/24 07:39
Hct 40.7 % (37.0-47.0) 05/14/24 07:39
MCV 84.4 fL (81.0-99.0) 05/14/24 07:39
Plt Count 344 10^3/uL (130-400) 05/14/24 07:39
Absolute Neuts (auto) 5.4 10^3/uL (1.4-6.5) 05/14/24 07:39
Sodium 141 mmol/L (135-145) 05/14/24 07:39
Potassium 4.6 mmol/L (3.5-5.1) 05/14/24 07:39
Chloride 105 mmol/L (98-107) 05/14/24 07:39
Carbon Dioxide 24 mmol/L (22-30) 05/14/24 07:39
BUN 15 mg/dl (7-17) 05/14/24 07:39
Creatinine 0.7 mg/dL (0.6-1.0) 05/14/24 07:39
Calcium 10.2 mg/dl (8.4-10.2) 05/14/24 07:39
Total Bilirubin Cancelled 05/14/24 11:52
AST Cancelled 05/14/24 11:52
ALT Cancelled 05/14/24 11:52
Alkaline Phosphatase Cancelled 05/14/24 11:52
Hepatitis C Antibody Negative (Negative) 05/14/24 07:39
Diagnostic Image Results:
Prior GI Procedures:
EGD: EGD prior to covid with ? gastritis and 'redness in stomach'
Colonoscopy: 5 + years ago with polyps. [facility]
Assessment / Plan
-
Pt is a 64yo presents with hx MS, fibromyalgia, anxiety, migraines with admission in August with acute appendicitis with lap appe and drainage of abscess with repair of umbilical hernia. She has had some RLQ pain and back pain since that time.
She then developed HTN and 'hugs' with her MS with feeling of tightness and chest pain. She was seen at [facility] [place] several days prior to admission with treatment of HTN. she now presents to 05/13 with headache, lightheadedness, and
difficultly with speech. She has been seen by neurology with completed MRI brain with noted 10mm meningioma in right paramedian and frontal region and DDD on cervical spine with etiology of speech difficulty from migraine, TIA, MS vs anxiety.
Asked to see as she also has some complaints of epigastric pain with increased belching.
-epigastric pain with belching
-nausea
-headaches with dizziness with speech difficulty on admission
-recent admission to [facility] with HTN and labile BP and 'hugs' with chest pain with hx MS
-ongoing RLQ and back pain since surgery in August
-frequent urination
-diarrhea prior to admission
other medical problems:
-meningioma noted on MR brain
-hx appe with drainage of abscess/umbilical hernia repair 08/2023
-fibromyalgia
-anxiety
-migraines
PLAN:
etiology of epigastric pain related to MS 'hugs' vs gastritis vs other
will review with Dr.. Curtis for EGD vs consider UGI as patient was noted with recent neurologic issue
no recently completed imaging with normal LFT's and lipase can consider CT
cont diet as tolerated
NSAID avoidance
s/p 1 dose of PPI without improvement and declined famotidine
stool cx pending with recent diarrhea
-
-
Thank you for consultation and allowing me to participate in the patient's care. Please call the sanitation truck driver GI physician during the after hours with any questions or concerns.
[2024-05-14] MEDS: NSS 1000 IV (12:22)
[2024-05-14] MEDS: NSS (PRESERVATIVE FREE) 10 ML IV (12:39)
[2024-05-14] MEDS: PROTONIX IV 40 MG IV (12:40)
[2024-05-14] MEDS: ZOFRAN 4 MG IV ×2 (12:40→18:44)
[2024-05-14] MEDS: DILAUDID 0.5 MG IV ×2 (12:41→18:43)
[2024-05-14 12:46] LABS: Urine Albumin Negative (Neg - Trace); Urine Bilirubin Negative (Negative); Urine Character Clear (Clear); Urine Color Yellow; Urine Glucose Negative (Negative); Urine Ketone Negative (Negative); Urine Leukocyte Negative (Negative); Urine Nitrite Negative (Negative); Urine Occult Blood Negative (Negative); Urine Urobilinogen Negative (Neg - 1+)
[2024-05-14 12:48] LABS: ALT (SGPT) 19 U/L (0-35); AST (SGOT) 21 U/L (14-36); Albumin 4.6 g/dl (3.5-5.0); Alkaline Phosphatase 70 U/L (38-126); Direct Bilirubin 0.2 mg/dl (0.0-0.4); Total Protein 7.1 g/dl (6.3-8.2)
[2024-05-14 13:33] LABS: Lipase 95 U/L (23-300)
--- NOTE | 2024-05-14 17:09 | CM ---
CM met with Maribel today to provide AD and complete IA. Maribel lives with her SO/ (unclear, as she stated both) in a 2 story home with 2 entry steps. Bed and bath are on the 2nd floor. 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
PT/OT evals completed with recommendation for home care services.
Plan: CM to follow to discuss home care services and determine if there are other needs for which Maribel could use resources.
Pharmacy: [facility] [place]
PCP: Dr. Aldana
[2024-05-14] MEDS: CARDIZEM CD 120 MG PO (21:03)
--- NOTE | 2024-05-14 21:44 | W.PN.NEURO.1 ---
Today's Communication / Plan
-
GI evaluation.
Stop NIHSS assessment
Pat will follow up with her private Neurologist as OP
Neurology to sign off
Neuro Assessment/Plan
Assessment
64 yr. old lady with h/o migraines, multiple sclerosis in remission who refused MS therapy. MRI brain reveals white matter changes bilaterally with most disease supratentorial and minimal disease infratentorial. MRI C-Spine reveals DJD without white
matter lesions
Plan
Pat refuses MS therapy and migraine therapy. She has h/o marijuana use
Subjective/Objective
Subjective Data
Date of Service: May 14, 2024
Pat c/o abd pain. Has h/o appendectomy for appendicitis with abscess. Also had hernia repair.
Objective Data
Vital Signs
Temp Pulse Resp BP Pulse Ox
36.4 C 62 18 116/71 96
05/14/24 19:44 05/14/24 21:03 05/14/24 19:44 05/14/24 21:03 05/14/24 19:44
Lab Results
05/14/24 07:39
05/14/24 07:39
Sodium 141 mmol/L (135-145) 05/14/24 07:39
Potassium 4.6 mmol/L (3.5-5.1) 05/14/24 07:39
BUN 15 mg/dl (7-17) 05/14/24 07:39
Glucose 101 mg/dl (70-99) H 05/14/24 07:39
Calcium 10.2 mg/dl (8.4-10.2) 05/14/24 07:39
LDL Cholesterol, Calc 123 mg/dl 05/14/24 07:39
Vitamin B12 318 pg/ml (239-931) 05/13/24 16:15
Patient Allergies
Cephalosporins Allergy (Verified 05/13/24 14:51)
Unknown
penicillin G Allergy (Verified 05/13/24 14:51)
Unknown
Penicillins Allergy (Verified 05/13/24 14:51)
Unknown
prochlorperazine [From Compazine] Allergy (Verified 05/13/24 14:51)
Unknown
Physical Exam
-
General: Well Developed, Well Nourished and Comfortable
Eyes: Able to visualize OU, Unremarkable, Round OU, [place] Conjunctivae and No Ptosis
HEENT: Normocephalic, Atraumatic, Anicteric and Moist Mucous Membranes
Neck: No Bruits Bilaterally and Full Range of Motion
Respiratory: Clear to Auscultation
Cardiac: Regular Rhythm and No Murmur
GI: Normal Bowel Sounds
Skin: Unremarkable
Extremities: No Clubbing, No Cyanosis and No Edema
Psych: Anxious
Extended Neurological Exam
Mood & Affect: Mood Unremarkable and Anxious
Attention Span & Concentration: Awake, Alert, No Difficulty with 2 Step Request and No Problem with Right/Left Differentiation
Memory: Unremarkable, Able to Recall, Recalls Objects and Recalls Short Term
Tremor: Hand Tremor Absent and Head Tremor Absent
Involuntary Movement: None
Speech: Quality Unremarkable and Quantity Unremarkable
Cranial Nerve II: Left Eye: Pupillary Reactivity Unremarkable, Pupillary Size Unremarkable and Visual Mcgregor Grossly Intact
Cranial Nerve II: Right Eye: Pupillary Reactivity Unremarkable, Pupillary Size Unremarkable and Visual Mcgregor Grossly Intact
Cranial Nerves III, IV, : Extraocular Movement: Extraocular Movement Full in all Directions, No Ptosis and Grossly Intact
Cranial Nerve V: Facial Sensation: Facial Sensation Unremarkable to Cold and Intact to Light Touch
Cranial Nerve VII: Facial Symmetry: Normal Facial Symmetry
Cranial Nerve VIII: Hearing: Unremarkable Hearing to Normal Conversational Volume
Cranial Nerves IX, X: Palate Movement: Palate Elevation Symmetric
Cranial Nerve XI: Shoulder Shrug: Unremarkable
Muscle Strength, Overall: Full Throughout
Muscle Bulk & Tone: Bulk Unremarkable and Tone Unremarkable
Pronator Drift: No Drift in Upper Extremities and No Drift in Lower Extremities
Deep Tendon Reflexes: Trace Throughout
Cold Sensation: Unremarkable
Vibration Sensation: Unremarkable
Touch Sensation: Unremarkable
Coordination: Dghqzd-[id number]-chquez Testing Unremarkable
Babinski Sign: Absent Bilaterally
Gait & Station: Up from Seated Without Problem, Up from Lying with Difficulty and Romberg Test Negative
Modified [place] Score (MRS)
-
Modified [place] Scale (mRS): No significant disability. Able to carry out usual activities.
Score: 1
Data Reviewed
-
MRI Head: Report Reviewed and Image Reviewed
MRI Cervical Spine: Report Reviewed and Image Reviewed
[2024-05-15] VITALS (7 sets, daily range): BP systolic 120–156; BP diastolic 66–97; PULSE 54–77
[2024-05-15] MEDS: NSS 1000 IV (00:39)
--- NOTE | 2024-05-15 03:05 | DOWNTIME ---
There was a [employer] Downtime on 05/15/2024 from 0100 to 05/15/2024 at 0300. Downtime documentation of patient's care, including medication administrations, has been reconciled in the electronic record per guidelines. Refer to the
patient's paper chart under the miscellaneous tab to see printed paper medication records and downtime forms.
[2024-05-15 07:33] LABS: Hematocrit 39.9 % (37.0-47.0); Hemoglobin 13.7 g/dL (12.0-16.0); Mean Corp Hgb Conc. 34.3 g/dL (33.0-37.0); Mean Corpuscular Hgb 30.5 pg (27.0-31.0); Mean Corpuscular Volume 88.9 fL (81.0-99.0); Mean Platelet Volume 9.9 fL (7.4-10.4); Platelet Count 305 10^3/uL (130-400); Red Blood Cell Count 4.49 10^6/uL (4.20-5.40); Red Cell Dist. Width 12.2 % (11.5-14.5); White Blood Cell Count 10.3 10^3/uL (4.8-10.8)
[2024-05-15 08:12] LABS: ALT (SGPT) 18 U/L (0-35); AST (SGOT) 19 U/L (14-36); Albumin 4.2 g/dl (3.5-5.0); Alkaline Phosphatase 64 U/L (38-126); Blood Urea Nitrogen 19 mg/dl (7-17); Calcium 9.6 mg/dl (8.4-10.2); Carbon Dioxide 27 mmol/L (22-30); Chloride 105 mmol/L (98-107); Estimated Creatinine Clearance 64 ml/min; Glucose 99 mg/dl (70-99); Potassium 4.7 mmol/L (3.5-5.1); Sodium 143 mmol/L (135-145); Total Protein 6.4 g/dl (6.3-8.2); eGFR > 60.00
[2024-05-15] MEDS: PROTONIX IV 40 MG IV (08:13)
[2024-05-15] MEDS: NSS (PRESERVATIVE FREE) 10 ML IV (08:13)
[2024-05-15] MEDS: DILAUDID 0.5 MG IV (08:22)
[2024-05-15] MEDS: ZOFRAN 4 MG IV (08:23)
--- NOTE | 2024-05-15 09:35 | W.PN.HOSP.TC ---
Today's Communication/Plan
-
c/w supportive care
IV Dilaudid and Zofran for Migraine
PRN Fioricet
CT abdomen
Assessment / Plan
Assessment / Plan
Physical Exam
General: Well Developed, Well Nourished and No Apparent Distress, in discomfort from nausea
HEENT: NormoCephalic, Moist mucous membranes and Atraumatic
Respiratory: Clear
Cardiac: S1/S2 and Regular Rhythm; No Murmur or Rub
GI: Soft, mild epigastric Tenderness, also right lower side. Normal Bowel Sounds; No Organomegaly
Rectal: no bleeding
Musculoskeletal: No Clubbing, No Cyanosis and No Edema
Skin: No Rash
Neuro: AO x 3 and followed commands
Psych: calm, pleasant.
# Migraine attack
Recurrent with visual changes
Per pt, she responds well to Dilaudid and Zofran in past, wants to try them first.
Will add PRN Fioricet in past
# An episode of nausea, dizziness with transient difficulty to speak, finding words for 2 hour, seems to be c/w Migraine
MRI studies ( without contrast- pt intolerant to contrast) did not show active disease
I d/w neurologist, no active disease
# Also symptoms of nausea,epigastric discomfort
Probably Gastroenteritis, gastritis,
Urine is clean
LFT is normal. Lipase is normal
CBC is normal UTI
c/w supportive care with IVF, IV PPI, IV Dilaudid with IV Zofran
Will ask GI to evaluate
Hold Aspirin with hx of gastritis
#Benign Hypertension
- Her blood pressure reading are acceptable. I will adjust her medications if necessary. Discomfort can also elevate her blood pressure
- cont. PO Diltiazem & Valsartan
Multiple Sclerosis
Recent HX Lt optic neuritis
HX MS 13 yrs ago POS MRI and Tx with high dose steroids
- Patient notes that she has been off of maintenance medications for years.
- She takes occasional steroid courses for acute symptoms, but none in some time.
- Follow for any changes.
- She follows with Dr Leanna Cosby ( [facility]) . I updated her over the phone.
HCT POS 1 cm calcified right frontal meningioma
DVT Px: SCD
Total time spent to see the patient, examine the patient on the floor, review data and lab results, discuss treatment plan with patient, nursing staff around 55 minutes
Anticipated Discharge: Within 24 hours
Subjective/Interval History
-
Date of Service: May 15, 2024
She has migraine this morning
No chest pain
Objective Data
-
Labs:
Laboratory Results
05/15/24
07:14
WBC 10.3
Hgb 13.7
Hct 39.9
Plt Count 305
Sodium 143
Potassium 4.7
Chloride 105
Carbon Dioxide 27
BUN 19 H
Creatinine 0.9
Glucose 99
Calcium 9.6
Total Bilirubin 1.0
AST 19
ALT 18
Alkaline Phosphatase 64
Vital Signs:
Vital Signs
Temp Pulse Resp BP Pulse Ox
98.1 F 58 14 137/82 96
05/15/24 07:00 05/15/24 07:00 05/15/24 07:00 05/15/24 07:00 05/15/24 07:00
I&O
05/14/24 05/15/24 05/16/24
06:59 06:59 06:59
Intake Total 0 / 0 240 / 240
Output Total 400 / 400
Balance 0 / 0 -160 / -160
[2024-05-15] MEDS: OMNIPAQUE 50 ML PO (09:54)
--- NOTE | 2024-05-15 12:03 | W.PN.GI.CBS2 ---
Today's Communication / Plan
-
-- awaiting imaging
Assessment / Plan
-
Pt is a 64yo presents with hx MS, fibromyalgia, anxiety, migraines with admission in August with acute appendicitis with lap appe and drainage of abscess with repair of umbilical hernia. She has had some RLQ pain and back pain since that time.
She then developed HTN and 'hugs' with her MS with feeling of tightness and chest pain. She was seen at [facility] several days prior to admission with treatment of HTN. she now presents to 05/13 with headache, lightheadedness, and
difficultly with speech. She has been seen by neurology with completed MRI brain with noted 10mm meningioma in right paramedian and frontal region and DDD on cervical spine with etiology of speech difficulty from migraine, TIA, MS vs anxiety.
Asked to see as she also has some complaints of epigastric pain with increased belching.
-epigastric pain with belching
-nausea
-headaches with dizziness with speech difficulty on admission
-recent admission to [facility] with HTN and labile BP and 'hugs' with chest pain with hx MS
-ongoing RLQ and back pain since surgery in August
-frequent urination
-diarrhea prior to admission
other medical problems:
-meningioma noted on MR brain
-hx appe with drainage of abscess/umbilical hernia repair 08/2023
-fibromyalgia
-anxiety
-migraines
PLAN:
etiology of epigastric pain related to MS 'hugs' vs gastritis vs other
will review with Dr.. Curtis for EGD vs consider UGI as patient was noted with recent neurologic issue
no recently completed imaging with normal LFT's and lipase can consider CT
cont diet as tolerated
NSAID avoidance
s/p 1 dose of PPI without improvement and declined famotidine
stool cx pending with recent diarrhea
05/15/24
#Epigastric gnawing sensation with acidic regurgitation -- some improvement after starting ppi. etiology PUD vs gastritis vs gastroparesis vs MS involvement neuropathy vs esophagitis
-- start ppi (started, 05/14/24)
-- zofran for nausea
-- no pain with palpation and normal LFTs
-- awaiting CT
-- avoid NSAIDs - takes excedrin 2-3 times a week
Total Time Spent with Patient (in minutes): 15
Subjective
Subjective
Date of Service: May 15, 2024
Patient states she has central vision loss that occurs during a migraine. Hospitalist aware. Her epigastric discomfort did improve last night but not resolved. She was able to eat. Said it returned this morning. No significant bowel movements.
Objective
Data Reviewed
Laboratory Data:
Laboratory Results
05/15/24 07:14
05/15/24 07:14
Laboratory Results
Total Bilirubin 1.0 mg/dl (0.2-1.3) 05/15/24 07:14
AST 19 U/L (14-36) 05/15/24 07:14
ALT 18 U/L (0-35) 05/15/24 07:14
Alkaline Phosphatase 64 U/L (38-126) 05/15/24 07:14
Lipase Cancelled 05/14/24 12:19
Vital Signs and I&O:
Vital Signs
Temp Pulse Resp BP Pulse Ox
98 F 54 20 156/95 98
05/15/24 11:24 05/15/24 11:24 05/15/24 11:24 05/15/24 11:24 05/15/24 11:24
I&O
05/14/24 05/15/24 05/16/24
06:59 06:59 06:59
Intake Total 0 / 0 240 / 240
Output Total 400 / 400
Balance 0 / 0 -160 / -160
Physical Exam
Physical Exam
HEENT: Anicteric
Cardiology: Normal Sinus Rhythm
GI: Soft and Non Tender
Extremities: No Edema
Neuro: Non Focal
--- NOTE | 2024-05-15 12:57 | CM ---
CM attempted to see Maribel earlier today, however she was off the unit. Her sister was in the room at the time of my visit and brought up concerns about test results and is concerned about infection and also stated that Maribel has lost her vision
today. CM to notify ELLIOTT Scott of concerns voiced by Maribel's sister.
Plan: CM will continue to follow to coordinate discharge needs as indicated by continued hospitalization and identified needs.
[2024-05-15] MEDS: VITAMIN D3 (cholecalciferol) 50 MCG PO (17:35)
[2024-05-15] MEDS: DIOVAN 80 MG PO (17:36)
[2024-05-15] MEDS: VITAMIN C 500 MG PO (17:36)
[2024-05-15] MEDS: CARDIZEM CD 120 MG PO (21:43)
[2024-05-16] VITALS (8 sets, daily range): BP systolic 115–155; BP diastolic 68–88; PULSE 59–61; O2SAT 97–98
[2024-05-16] MEDS: NSS (PRESERVATIVE FREE) 10 ML IV (08:30)
[2024-05-16] MEDS: VITAMIN D3 (cholecalciferol) 50 MCG PO (08:30)
[2024-05-16] MEDS: VITAMIN C 500 MG PO (08:30)
[2024-05-16] MEDS: PROTONIX IV 40 MG IV (08:31)
[2024-05-16] MEDS: DIOVAN 80 MG PO (08:38)
--- NOTE | 2024-05-16 09:32 | W.PN.GI.CBS2 ---
Today's Communication / Plan
-
-- N.p.o. after midnight for EGD tomorrow
Assessment / Plan
-
Pt is a 64yo presents with hx MS, fibromyalgia, anxiety, migraines with admission in August with acute appendicitis with lap appe and drainage of abscess with repair of umbilical hernia. She has had some RLQ pain and back pain since that time.
She then developed HTN and 'hugs' with her MS with feeling of tightness and chest pain. She was seen at [place] several days prior to admission with treatment of HTN. she now presents to 05/13 with headache, lightheadedness, and
difficultly with speech. She has been seen by neurology with completed MRI brain with noted 10mm meningioma in right paramedian and frontal region and DDD on cervical spine with etiology of speech difficulty from migraine, TIA, MS vs anxiety.
Asked to see as she also has some complaints of epigastric pain with increased belching.
-epigastric pain with belching
-nausea
-headaches with dizziness with speech difficulty on admission
-recent admission to [place] with HTN and labile BP and 'hugs' with chest pain with hx MS
-ongoing RLQ and back pain since surgery in August
-frequent urination
-diarrhea prior to admission
other medical problems:
-meningioma noted on MR brain
-hx appe with drainage of abscess/umbilical hernia repair 08/2023
-fibromyalgia
-anxiety
-migraines
PLAN:
etiology of epigastric pain related to MS 'hugs' vs gastritis vs other
will review with Dr.. Curtis for EGD vs consider UGI as patient was noted with recent neurologic issue
no recently completed imaging with normal LFT's and lipase can consider CT
cont diet as tolerated
NSAID avoidance
s/p 1 dose of PPI without improvement and declined famotidine
stool cx pending with recent diarrhea
05/15/24
#Epigastric gnawing sensation with acidic regurgitation -- some improvement after starting ppi. etiology PUD vs gastritis vs gastroparesis vs MS involvement neuropathy vs esophagitis
-- start ppi (started, 05/14/24)
-- zofran for nausea
-- no pain with palpation and normal LFTs
-- awaiting CT
-- avoid NSAIDs - takes excedrin 2-3 times a week
05/16/24 -CT abdomen was unrevealing for any source for her symptoms
-- Only 10% improvement after starting PPI
-- Will proceed to EGD tomorrow although somewhat low yield.
-- Questionable dysmotility considering her urge to swallow hard to get liquids down -if EGD is unrevealing consider outpatient esophageal manometry and pH impedance testing
- -NPO after midnight
Total Time Spent with Patient (in minutes): 15
Subjective
Subjective
Date of Service: May 16, 2024
Patient states 10% improvement from yesterday. Still has improvement with pressure in the epigastric area. Still has acidic regurgitation. Tolerated to have a bagel this morning. Had a brown soft bowel movement this morning
Objective
Data Reviewed
Laboratory Data:
Laboratory Results
05/15/24 07:14
05/15/24 07:14
Laboratory Results
Total Bilirubin 1.0 mg/dl (0.2-1.3) 05/15/24 07:14
AST 19 U/L (14-36) 05/15/24 07:14
ALT 18 U/L (0-35) 05/15/24 07:14
Alkaline Phosphatase 64 U/L (38-126) 05/15/24 07:14
Lipase Cancelled 05/14/24 12:19
Vital Signs and I&O:
Vital Signs
Temp Pulse Resp BP Pulse Ox
97.6 F 54 18 136/78 94
05/16/24 07:35 05/16/24 07:35 05/16/24 07:35 05/16/24 08:38 05/16/24 07:35
I&O
05/15/24 05/16/24 05/17/24
06:59 06:59 06:59
Intake Total 240 / 240 960 / 960
Output Total 400 / 400
Balance -160 / -160 960 / 960
Physical Exam
Physical Exam
HEENT: Anicteric
Cardiology: Normal Sinus Rhythm
GI: Soft and Non Tender
Extremities: No Edema
Neuro: Non Focal
--- NOTE | 2024-05-16 09:36 | W.PN.HOSP.TC ---
Today's Communication/Plan
-
Plan for GD on Monday
c/w PRN Dilaudid and Zofran
Assessment / Plan
Assessment / Plan
Physical Exam
General: Well Developed, Well Nourished and No Apparent Distress, in discomfort from nausea
HEENT: NormoCephalic, Moist mucous membranes and Atraumatic
Respiratory: Clear
Cardiac: S1/S2 and Regular Rhythm; No Murmur or Rub
GI: Soft, mild epigastric Tenderness, also right lower side. Normal Bowel Sounds; No Organomegaly
Rectal: no bleeding
Musculoskeletal: No Clubbing, No Cyanosis and No Edema
Skin: No Rash
Neuro: AO x 3 and followed commands
Psych: calm, pleasant.
# Epigastric discomfort
Probably Gastroenteritis, gastritis,
Urine is clean
LFT is normal. Lipase is normal
CBC is normal UTI
CT abdomen and pelvis no active disease.
s/p supportive care with IVF, IV PPI, IV Dilaudid with IV Zofran
No Aspirin with hx of gastritis
d/w GI today, will do EGD Monday
Appreciate help
# Migraine attack
Recurrent with visual changes
Per pt, she responds well to Dilaudid and Zofran in past.
# An episode of nausea, dizziness with transient difficulty to speak, finding words for 2 hour, seems to be c/w Migraine
MRI studies ( without contrast- pt intolerant to contrast) did not show active disease
I d/w neurologist, no active disease
#Benign Hypertension
- Her blood pressure reading are acceptable. I will adjust her medications if necessary. Discomfort can also elevate her blood pressure
- cont. PO Diltiazem & Valsartan
Multiple Sclerosis
Recent HX Lt optic neuritis
HX MS 13 yrs ago POS MRI and Tx with high dose steroids
- Patient notes that she has been off of maintenance medications for years.
- She takes occasional steroid courses for acute symptoms, but none in some time.
- Follow for any changes.
- She follows with Dr Leanna Cosby ( [facility]) . I updated her over the phone.
HCT POS 1 cm calcified right frontal meningioma
DVT Px: SCD
Total time spent to see the patient, examine the patient on the floor, review data and lab results, discuss treatment plan with patient, nursing staff around 55 minutes
Anticipated Discharge: 24 - 48 hours
Subjective/Interval History
-
Date of Service: May 16, 2024
No chest pain
No sob
Objective Data
-
Vital Signs:
Vital Signs
Temp Pulse Resp BP Pulse Ox
97.6 F 54 18 136/78 94
05/16/24 07:35 05/16/24 07:35 05/16/24 07:35 05/16/24 08:38 05/16/24 07:35
I&O
05/15/24 05/16/24 05/17/24
06:59 06:59 06:59
Intake Total 240 / 240 960 / 960
Output Total 400 / 400
Balance -160 / -160 960 / 960
[2024-05-16] MEDS: ZOFRAN 4 MG IV (10:26)
[2024-05-16] MEDS: CARDIZEM CD 120 MG PO (21:21)
[2024-05-17] VITALS (11 sets, daily range): BP systolic 96–142; BP diastolic 65–79
[2024-05-17] MEDS: NSS (PRESERVATIVE FREE) 10 ML IV (07:59)
[2024-05-17] MEDS: PROTONIX IV 40 MG IV (08:00)
[2024-05-17] MEDS: DIOVAN 80 MG PO (10:08)
[2024-05-17] MEDS: VITAMIN D3 (cholecalciferol) 50 MCG PO (10:08)
[2024-05-17] MEDS: VITAMIN C 500 MG PO (10:08)
--- NOTE | 2024-05-17 12:16 | W.PN.HOSP.TC ---
Today's Communication/Plan
-
Trial of meclizine
Chest x ray
Assessment / Plan
Assessment / Plan
Physical Exam
General: Well Developed, Well Nourished and No Apparent Distress, in discomfort from nausea
HEENT: NormoCephalic, Moist mucous membranes and Atraumatic
Respiratory: Clear
Cardiac: S1/S2 and Regular Rhythm; No Murmur or Rub
GI: Soft, mild epigastric Tenderness, also right lower side. Normal Bowel Sounds; No Organomegaly
Rectal: no bleeding
Musculoskeletal: No Clubbing, No Cyanosis and No Edema
Skin: No Rash
Neuro: AO x 3 and followed commands
Psych: calm, pleasant.
# Epigastric discomfort
s/p EGD that did not show an etiology. GI felt possible central component to her nausea.
Urine is clean
LFT is normal. Lipase is normal
CBC is normal UTI
CT abdomen and pelvis no active disease.
s/p supportive care with IVF, IV PPI, IV Dilaudid with IV Zofran
No Aspirin with hx of gastritis
I d/w pt, she will try Meclizine
Appreciate help
# Patient reported that breathing deeply gives her dizziness
CT A/P did not show problems in her lung bases other than some mild dependent subsegmental atelectasis, will do chest x ray 2 views to take a look at her lungs. No hypoxia
# Migraine attack
Recurrent with visual changes
Per pt, she responds well to Dilaudid and Zofran in past.
# An episode of nausea, dizziness with transient difficulty to speak, finding words for 2 hour, seems to be c/w Migraine
MRI studies ( without contrast- pt intolerant to contrast) did not show active disease
I d/w neurologist, no active disease
#Benign Hypertension
- Her blood pressure reading are acceptable. I will adjust her medications if necessary. Discomfort can also elevate her blood pressure
- cont. PO Diltiazem & Valsartan
Multiple Sclerosis
Recent HX Lt optic neuritis
HX MS 13 yrs ago POS MRI and Tx with high dose steroids
- Patient notes that she has been off of maintenance medications for years.
- She takes occasional steroid courses for acute symptoms, but none in some time.
- Follow for any changes.
- She follows with Dr Leanna Cosby ( [facility]) . I updated her over the phone.
HCT POS 1 cm calcified right frontal meningioma
DVT Px: SCD
Total time spent to see the patient, examine the patient on the floor, review data and lab results, discuss treatment plan with patient, nursing staff around 55 minutes
Anticipated Discharge: Within 24 hours
Subjective/Interval History
-
Date of Service: May 17, 2024
No chest pain
Still dizzy upon standing
Objective Data
-
Vital Signs:
Vital Signs
Temp Pulse Resp BP Pulse Ox
98.1 F 65 16 141/73 98
05/17/24 11:30 05/17/24 11:30 05/17/24 11:30 05/17/24 11:30 05/17/24 11:30
I&O
05/16/24 05/17/24 05/18/24
06:59 06:59 06:59
Intake Total 960 / 960 960 / 960 50 / 50
Balance 960 / 960 960 / 960 50 / 50
[2024-05-17] MEDS: ANTIVERT 12.5 MG PO (13:08)
--- NOTE | 2024-05-17 15:37 | PTCARENOTE ---
Received patient this am AAOx3. Pt NPO for EGD. Pt complained of epigastric discomfort. IV Protonix given as ordered. Report given to GI Unit and Patient sent to GI. 0930 Received patient from GI S/P Endoscopy. VSS AAOX3. Pt tolerated diet.
Made patient comfortable. Cont to assess patient status.
[2024-05-17] MEDS: ANTIVERT 25 MG PO (18:47)
[2024-05-17] MEDS: CARDIZEM CD 120 MG PO (21:25)
[2024-05-17] MEDS: ZOFRAN 4 MG IV (23:36)
[2024-05-17] MEDS: DILAUDID 0.5 MG IV (23:37)
[2024-05-18 03:30] VITALS: BP 97/64
[2024-05-18 07:15] VITALS: BP 122/61
[2024-05-18] MEDS: PROTONIX IV 40 MG IV (08:41)
[2024-05-18] MEDS: NSS (PRESERVATIVE FREE) 10 ML IV (08:41)
[2024-05-18] MEDS: VITAMIN D3 (cholecalciferol) 50 MCG PO (08:42)
[2024-05-18] MEDS: VITAMIN C 500 MG PO (08:42)
[2024-05-18] MEDS: ANTIVERT 25 MG PO (08:42)
[2024-05-18] MEDS: DIOVAN 80 MG PO (08:42)
--- NOTE | 2024-05-18 08:51 | W.PN.HOSP.TC ---
Today's Communication/Plan
-
Discharge
Assessment / Plan
Assessment / Plan
Physical Exam
General: Well Developed, Well Nourished and No Apparent Distress, in discomfort from nausea
HEENT: NormoCephalic, Moist mucous membranes and Atraumatic
Respiratory: Clear
Cardiac: S1/S2 and Regular Rhythm; No Murmur or Rub
GI: Soft, mild epigastric Tenderness, also right lower side. Normal Bowel Sounds; No Organomegaly
Rectal: no bleeding
Musculoskeletal: No Clubbing, No Cyanosis and No Edema
Skin: No Rash
Neuro: AO x 3 and followed commands
Psych: calm, pleasant.
# Epigastric discomfort, Dizziness, nausea
Possible started as gastroenteritis that triggered vertigo, her symptoms now c/w benign positional vertigo after ruling out other diagnoses.
Brain images did not show acute findings
s/p EGD that did not show an etiology. GI felt possible central component to her nausea.
Urine is clean
LFT is normal. Lipase is normal
CBC is normal UTI
CT abdomen and pelvis no active disease.
s/p supportive care with IVF, IV PPI, IV Dilaudid with IV Zofran
No Aspirin with hx of gastritis
I d/w pt, Trial of meclizine seemed to help slightly. Will recommend to do 3 day course treatment then as needed, she will make a sooner appointment with her neurologist.
No fever
No leukocytosis
Blood culture is clean
Chest x ray , no active disease, no hypoxia
No orthostatic hypotension
Seen by neurology and GI, appreciate help.
# Migraine attack
Recurrent with visual changes
She take Ubrelvy at home
Per pt, she responds well to Dilaudid and Zofran in past.
#Benign Hypertension
- Her blood pressure reading are acceptable. I did not need to make adjustments.
- cont. PO Diltiazem & Valsartan
Multiple Sclerosis
Recent HX Lt optic neuritis
HX MS 13 yrs ago POS MRI and Tx with high dose steroids
- Patient notes that she has been off of maintenance medications for years.
- She takes occasional steroid courses for acute symptoms, but none in some time.
- She follows with Dr Leanna Cosby ( [facility]) . I updated her over the phone.
HCT POS 1 cm calcified right frontal meningioma
DVT Px: SCD
Total discharge time spent to see the patient, examine the patient on the floor, review data and lab results, discuss discharge plan with patient, nursing staff around 65 minutes
Anticipated Discharge: Today
Subjective/Interval History
-
Date of Service: May 18, 2024
She is feeling better
less dizzy
Eating slightly better today
Objective Data
-
Vital Signs:
Vital Signs
Temp Pulse Resp BP Pulse Ox
97.9 F 54 16 122/61 99
05/18/24 07:15 05/18/24 07:15 05/18/24 07:15 05/18/24 07:15 05/18/24 07:15
I&O
05/17/24 05/18/24 05/19/24
06:59 06:59 06:59
Intake Total 960 / 960 890 / 890
Balance 960 / 960 890 / 890
--- NOTE | 2024-05-18 09:33 | W.PN.GI.CBS2 ---
Today's Communication / Plan
-
Please see assessment and plan for details.
Assessment / Plan
-
1. Nausea/abdominal pain: Likely some central component to her symptoms, with otherwise negative CT scan and endoscopy with only mild erythema. At this point has been tolerating diet with no significant symptoms. Would continue PPI daily for now,
follow-up on pathology results. She is okay to DC from GI standpoint. Will sign off for now, please go back with any further questions.
Subjective
Subjective
Date of Service: May 18, 2024
Patient feeling okay, no significant GI symptoms, overall feels improved.
Objective
Data Reviewed
Laboratory Data:
Laboratory Results
05/15/24 07:14
05/15/24 07:14
Laboratory Results
Total Bilirubin 1.0 mg/dl (0.2-1.3) 05/15/24 07:14
AST 19 U/L (14-36) 05/15/24 07:14
ALT 18 U/L (0-35) 05/15/24 07:14
Alkaline Phosphatase 64 U/L (38-126) 05/15/24 07:14
Lipase Cancelled 05/14/24 12:19
Vital Signs and I&O:
Vital Signs
Temp Pulse Resp BP Pulse Ox
97.9 F 54 16 122/61 99
05/18/24 07:15 05/18/24 07:15 05/18/24 07:15 05/18/24 07:15 05/18/24 07:15
I&O
05/17/24 05/18/24 05/19/24
06:59 06:59 06:59
Intake Total 960 / 960 890 / 890
Balance 960 / 960 890 / 890
Physical Exam
Physical Exam
General: NAD
Abdomen: normal bowel sounds, soft, no tenderness, no masses or bruits, no ascites
--- NOTE | 2024-05-18 09:52 | CM ---
Patient with Hx MS with Dx Epigastric discomfort/Dizziness/nausea, Migraine attack. PT recommends HH. OT; home no needs.
Spoke with patient who was preparing for d/c. The patient states she is no longer having any visual problems and feels ready for d/c home today. Offered VN for PT or script for outpatient PT and patient declined both, saying she prefers to follow
up with her doctors first. A family member will provide transport home today.
Plan home today.
[2024-05-18 11:20] VITALS: BP 95/63
--- NOTE | 2024-05-18 11:30 | W.DCSUMMARY ---
Discharge Summary
Discharge Data
Date of Admission: 05/14/24
Date of Discharge: 05/18/24
-
Pending Results: No
Hospital Course
64 years old female who presented with history of headaches, visual disturbances and speech disturbances. Patient also reported epigastric discomfort with nausea. She reported history of diarrhea at home. Patient has history of multiple sclerosis
and was not on specific medications at the time of presentation. She was evaluated by neurologist. She had imaging studies including MRI of the brain that did not show acute findings. Neurology recommended treatment for migraine. Patient wanted
to try Dilaudid and Zofran because they worked for her symptoms in the past and was not comfortable starting the new medications. Patient wanted to discuss that with her primary neurologist. Headaches improved but she continued to have
gastrointestinal symptoms. She was evaluated by gastroenterology. Scan of the abdomen and pelvis did not show acute findings. She underwent upper endoscopy that showed mild erythema but no source of discomfort was found. Motion Graphics Designer
recommended to take Protonix. Patient did not have fever, leukocytosis. Liver function test and lipase were normal. Blood culture did not show any growth. She did not have signs of active infection. She did not have active diarrhea in the
hospital. She did not have orthostatic hypotension. She was noted to have dizziness especially upon movement. Benign positional vertigo was suspected. She was started on meclizine with good improvement. She was advised to continue meclizine and
follow-up with her neurologist. She did not have hearing impairment. She did not have vomiting. Patient tolerated diet. She remained hemodynamically stable. Primary neurologist Dr. Cosby was updated. Patient was discharged home to follow-up
with her doctors in a stable condition.
Discharge Plan
-
Patient Disposition: Home (Routine Discharge)
Discharge Diagnosis/Procedures: You presented with vertigo, visual changes and gastrointestinal symptoms. You are seen by neurologist and callisthenics instructor. You had imaging studies and blood work. You had upper GI endoscopy. Your symptoms
improved with supportive care for symptomatic treatment. You received meclizine, Protonix, Dilaudid and Zofran. No source of infection found. Please follow-up with your primary care doctor and the primary neurologist. Use meclizine 3 times a day
for 3 days then as needed. Use Protonix for one month.
Use Dilaudid and Zofran only as needed.
-Vertigo/likely benign positional vertigo
-Migraine
-Multiple sclerosis
-Primary hypertension
Diet: As tolerated
Referrals:
Leanna Cosby MD [Non-Admitting Privileges] - in two to four weeks
Dominick Aldana DO [Family Provider] - in one to two weeks
Yfn Najera DO [Active] - in one month
Prescriptions:
New
meclizine 25 mg Tablet
25 mg PO Q8 Qty: 20 0RF
pantoprazole [Protonix] 40 mg tablet,delayed release (DR/EC)
40 mg PO DAILY Qty: 30 0RF
hydromorphone [Dilaudid] 2 mg tablet
2 mg PO Q6H PRN (Reason: severe pain) Qty: 10 0RF
ondansetron HCl 4 mg tablet
4 mg PO Q8H PRN (Reason: nausea and vomiting) Qty: 10 0RF
Continued
diltiazem HCl [DILT-XR] 120 mg Capsule,Ext.Rel 24h Degradable
120 mg PO HS
ascorbic acid (vitamin C) [Vitamin C] 500 mg Tablet
500 mg PO DAILY
valsartan 80 mg Tablet
80 mg PO DAILY
calcium carbonate [Tums] 200 mg calcium (500 mg) Tablet,Chewable
200 mg PO BIDPRN PRN (Reason: stomach issues)
cholecalciferol (vitamin D3) [Vitamin D3] 50 mcg (2,000 unit) Tablet
50 mcg PO DAILY
omega 1-dnz-nwe-fish oil [Fish Oil] 1,000 (120-180) mg Capsule
1 cap PO DAILY
Discharge Orders:
Discharge Patient (As Directed); Ordered 05/18/24
Ordered By: Alber Pires
Discharge Date and Time
Discharge Date/Time: 05/18/24 12:21
Print Language: [place] ISLANDER
== END 2024-05-18 12:21 | disposition home or self-care (01) | DRG 149 ==
LOC: 4 EAST ACU 06:49
PROVIDERS: Clinical Nurse Specialist Family Health; Internal Medicine Gastroenterology; ADMITTING PHYSICIAN Internal Medicine; ATTENDING PHYSICIAN Internal Medicine; CONSULT PHYSICIAN Psychiatry & Neurology Neurology; EMERGENCY PHYSICIAN Emergency Medicine; FAMILY PHYSICIAN Family Medicine; OTHER PHYSICIAN Internal Medicine
PROC: 0DB78ZX Excision of Stomach, Pylorus, Via Natural or Artificial Opening Endoscopic, Diagnostic (ICD-10-PCS; 2024-05-17)
DX: H81.10 Benign paroxysmal vertigo, unspecified ear (principal); G43.909 Migraine, unspecified, not intractable, without status migrainosus; K31.89 Other diseases of stomach and duodenum; I10 Essential (primary) hypertension; G35 Multiple sclerosis; D32.0 Benign neoplasm of cerebral meninges; F41.9 Anxiety disorder, unspecified; K21.9 Gastro-esophageal reflux disease without esophagitis; M79.7 Fibromyalgia; Z87.891 Personal history of nicotine dependence; Z88.0 Allergy status to penicillin; Z88.1 Allergy status to other antibiotic agents; Z79.899 Other long term (current) drug therapy
CPT/HCPCS: 88305; 70450; 70551; 71046; 72141; 74177; 80048; 80053; 80061; 81003; 82248; 82607; 83036; 83690; 85025; 85027; 86803; 87040; 87045; 87046; 87070; 87427; 88342; 93005; 93306; 97163; 97167; 97530; 97535; 99285; 99406; Q9967

== ENCOUNTER 2024-07-27 11:19 | Emergency (ER) | payer OTHER, SELFPAY ==
[2024-07-27 11:23] VITALS: BP 114/72
--- NOTE | 2024-07-27 12:10 | ED.GENMED ---
History of Present Illness
General
Chief Complaint: Fall
Source: patient
Exam Limitations: none
Time Seen by Provider: 07/27/24 11:36
Nursing documentation reviewed up to this point in time: agreed with
History of Present Illness
History of Present Illness:
64-year-old female presenting to the emergency department today with concerns of right groin pain right knee and foot pain after a fall 1 week ago. Ongoing discomfort since has been able to ambulate denies numbness weakness any head pain neck pain
or any head trauma.
Past History
Past History
ED Past Medical History: Fibromyalgia and Other (migraine/MS ); Negative IDDM
Social History
Tobacco: Non-smoker
Alcohol: None
Living: with family
Review of Systems
Review of Systems
Allergies reviewed?: Yes
All Other Systems: ROS reviewed and negative except as documented in HPI and ROS
Phy Exam
Physical Exam
Physical Exam:
GENERAL: Alert , in no apparent distress
EYE: pupils equal and reactive
NECK: Supple, no significant adenopathy.
ENT: o/p clr, mmm.
CARDIAC: Regular rate and rhythm .
LUNGS: Clear breath sounds bilaterally, no acute respiratory distress, no wheezes/rales/rhonchi
ABDOMEN: Soft, without focal tenderness, no r/g, no cvat
NEUROLOGICAL: Alert and oriented, no focal neuro deficits
SKIN: Warm and dry, skin intact.
MUSCULOSKELETAL: Increased discomfort with abduction of the right hip mild pain below the right anterior knee and the top of the foot at the forefoot no edema, well perfused.
PSYCH: Normal and appropriate interaction.
Course
Orders/Labs/Results
Orders:
Orders
07/27/24 12:00
CR Foot - Right Min 3 Views Urgent
Comment:
Reason For Exam: foot pain after fall
CR Knee- Right 4 Or More View* Urgent
Comment:
Reason For Exam: knee pain
07/27/24 13:58
Isaiah Wrap Right-Treatment ONCE
07/27/24 14:01
Lyme Progressive Urgent
Vital Signs
Initial and Last Documented VS:
Initial Vital Signs
Temp Pulse Resp BP Pulse Ox
97.8 F 62 18 114/72 98
07/27/24 11:23 07/27/24 11:23 07/27/24 11:23 07/27/24 11:23 07/27/24 11:23
Last Documented Vital Signs
Temp Pulse Resp BP Pulse Ox
97.8 F 62 18 114/72 98
07/27/24 11:23 07/27/24 11:23 07/27/24 11:23 07/27/24 11:23 07/27/24 11:23
MDM/Problems Addressed
MDM/Problems Addressed:
64-year-old female presenting to the emergency department with right groin and right knee and right foot pain after a fall 1 week ago. Here she has some reproducible pain to those areas. X-rays without evidence of acute abnormalities likely soft
tissue injuries otherwise stable for discharge return precautions given. Patient did request a Lyme test that she has had some vague fatigue over the past few months. Lyme test was sent but otherwise will follow-up with the primary care doctor for
ongoing assessment of this.
*Critical Care Note
Total Time (30-74mins, 75-104mins- exclusive of procedures): Not Applicable
ED Attending Note
-
Portions of this chart may have been created with voice recognition software.� Occasional wrong word or��sound alike� substitutions may have occurred due to the inherent limitations of voice recognition software.
Discharge Plan
Departure
Patient Disposition: Home (Routine Discharge)
Date of Disposition: 07/27/24
Time of Disposition: 14:19
Patient with high blood pressure during this ER visit?: No
Condition: Good
Covid-19: Not Applicable
Discharge Problem:
Sprain and strain
Instructions: Preventing falls in adults
Prescriptions:
New
meloxicam 15 mg tablet
15 mg PO DAILY Qty: 14 0RF
No Action
diltiazem HCl [DILT-XR] 120 mg Capsule,Ext.Rel 24h Degradable
120 mg PO HS
ascorbic acid (vitamin C) [Vitamin C] 500 mg Tablet
500 mg PO DAILY
valsartan 80 mg Tablet
80 mg PO DAILY
calcium carbonate [Tums] 200 mg calcium (500 mg) Tablet,Chewable
200 mg PO BIDPRN PRN (Reason: stomach issues)
cholecalciferol (vitamin D3) [Vitamin D3] 50 mcg (2,000 unit) Tablet
50 mcg PO DAILY
omega 1-fle-rwa-fish oil [Fish Oil] 1,000 (120-180) mg Capsule
1 cap PO DAILY
meclizine 25 mg Tablet
25 mg PO Q8 Qty: 20 0RF
pantoprazole [Protonix] 40 mg tablet,delayed release (DR/EC)
40 mg PO DAILY Qty: 30 0RF
hydromorphone [Dilaudid] 2 mg tablet
2 mg PO Q6H PRN (Reason: severe pain) Qty: 10 0RF
ondansetron HCl 4 mg tablet
4 mg PO Q8H PRN (Reason: nausea and vomiting) Qty: 10 0RF
Referrals:
Dominick Aldana DO [Family Provider] -
Activity Restrictions/Additional Instructions:
You came to the emergency department today with concerns of right sided discomfort. Here you had x-rays without emergent findings. Please take meloxicam once daily and follow-up closely with your primary care doctor. Return to the emergency
department any worsening, new or concerning symptoms.
Interventions
Interventions:
*Risk Screen - Suicide Last Done: 07/27/24 11:23
*General Assessment Last Done: 07/27/24 11:23
ED- Fall Risk Assessment Last Done: 07/27/24 11:28
*ED COVID-19 Vaccine History Last Done: 07/27/24 11:23
ED-Musculoskeletal Assessment Last Done: 07/27/24 11:28
ED- Neurological Assessment Last Done: 07/27/24 11:28
Discharge Date and Time
Print Language: ANGUILLAN
[2024-07-29 15:40] LABS: Lyme Antibody Screen, EIA Negative (Negative)
== END 2024-07-27 14:56 | disposition home or self-care (01) ==
LOC: EMR 11:19
PROVIDERS: Physician Assistant; EMERGENCY PHYSICIAN Student in an Organized Health Care Education/Training Program; FAMILY PHYSICIAN Family Medicine
DX: S83.91XA Sprain of unspecified site of right knee, initial encounter (principal); S93.601A Unspecified sprain of right foot, initial encounter; W19.XXXA Unspecified fall, initial encounter; R53.83 Other fatigue; M79.7 Fibromyalgia; G35 Multiple sclerosis; G43.909 Migraine, unspecified, not intractable, without status migrainosus
CPT/HCPCS: 99283; 73564; 73630; 86618

== ENCOUNTER 2024-08-28 10:08 | Emergency (ER) | payer OTHER, SELFPAY ==
[2024-08-28 10:11] VITALS: BP 146/93
--- NOTE | 2024-08-28 11:26 | ED.GENMED ---
History of Present Illness
General
Chief Complaint: Musculo-Skeletal Complaint
Time Seen by Provider: 08/28/24 11:17
History of Present Illness
History of Present Illness:
TIME OF INITIAL ENCOUNTER: 11:30 AM
HPI: Patient presents due to neck pain. This started 2 days ago while she was watching TV overnight. The pain is more so in the posterior lateral aspect of the right side of the neck however is now radiating up to the head. She googled her
symptoms and was concerned 'of a blood clot'. She states that she had an episode of aphasia in the past that was unexplained.
EXAM:
GENERAL: Well appearing but appears somewhat uncomfortable
NECK: There is no midline tenderness however there is markedly decreased active range of motion into extension and rotation at the cervical spine, there is moderate to severe paraspinal tenderness; there is no tenderness or pain at the anterolateral
neck
HEENT: Moist oral mucosa
NEUROLOGIC: Excellent strength all extremities, no obvious coordination deficits, no dysarthria, NIHSS equals 0
PSYCHIATRIC: Appropriate mental status, normal insight and judgement
EXTREMITIES: Nontender, no edema, moves all extremities equally
SKIN: No rash, no lesions
NUMBER AND COMPLEXITY OF PROBLEMS ADDRESSED AT THE ENCOUNTER
� Chronic conditions affecting care: MS, history of calcified meningioma, records also indicate that she had been on Copaxone which was stopped and she also has a history of fibromyalgia as well as migraine
� Acute Exacerbation and/or Progression of Chronic Illness: This is an acute problem
� Differential Diagnosis includes: Cervical strain, trapezius strain, migraine headache, tension headache, no evidence for CVA based or 'blood clot' on physical examination
AMOUNT AND/OR COMPLEXITY OF DATA TO BE REVIEWED AND ANALYZED
� I performed an independent evaluation of and my interpretation is:
EKG:
CT:
X-rays:
Laboratory Studies:
Other:
� Review of other/old records: MRI of the C-spine April 2024 showed no focal demyelinating plaque but degenerative disc disease was noted. The patient was admitted in April 2024 with 'headaches visual disturbances and
speech disturbance'
� Clinical information was obtained by an independent historian: I spoke to at bedside
� Prescriptions/Medications Considered but not given: The patient has tried baclofen without success�will hold off on any further 'muscle relaxants'
� Further testing considered but not performed: No indication for imaging at this time as there has been no direct trauma and no CVA type of symptoms
RISK OF COMPLICATIONS AND/OR MORBIDITY OR MORTALITY OF PATIENT MANAGEMENT
� Social determinants of health affecting care: Lives at home
� Discussion with other providers:
� Escalation of care including admission/observation vs risk of discharge considered: I had long discussion with patient upon arrival regarding her request for narcotic use. We ultimately did agree to give a one-time dose of IV
Dilaudid as this has helped her in the past. I have also given her Toradol.
ANY OTHER UPDATES:
2 PM: I reassessed patient�she overall feels improved after IV meds given. She requests prescription for Toradol in addition to the Dilaudid orally. I also strongly recommended nonmedication type of analgesia including moist heating pads.
Past History
Past History
ED Past Medical History: Fibromyalgia and Other (migraine/MS ); Negative IDDM
Social History
Tobacco: Non-smoker
Alcohol: None
Living: with family
Phy Exam
Physical Exam
Physical Exam:
See HPI
Course
Orders/Labs/Results
Orders:
Orders
08/28/24 12:18
HYDROmorphone [Dilaudid] 1 mg IV NOW STA
Ketorolac [Toradol] 15 mg IV NOW STA
Ondansetron Injectable [Zofran] 4 mg IV NOW STA
Vital Signs
Initial and Last Documented VS:
Initial Vital Signs
Temp Pulse Resp BP Pulse Ox
36.4 C 80 18 146/93 100
08/28/24 10:11 08/28/24 10:11 08/28/24 10:11 08/28/24 10:11 08/28/24 10:11
Last Documented Vital Signs
Temp Pulse Resp BP Pulse Ox
36.4 C 80 16 140/72 99
08/28/24 10:11 08/28/24 13:22 08/28/24 13:22 08/28/24 13:22 08/28/24 13:22
*Critical Care Note
Total Time (30-74mins, 75-104mins- exclusive of procedures): Not Applicable
ED Attending Note
-
Portions of this chart may have been created with voice recognition software.� Occasional wrong word or��sound alike� substitutions may have occurred due to the inherent limitations of voice recognition software.
Discharge Plan
Departure
Patient Disposition: Home (Routine Discharge)
Date of Disposition: 08/28/24
Time of Disposition: 13:43
Patient with high blood pressure during this ER visit?: Yes
Discharge Problem:
Cervical paraspinal muscle spasm
Instructions: Muscle Strain (DC)
Prescriptions:
New
ketorolac 10 mg tablet
10 mg PO Q8H PRN (Reason: Pain) Qty: 12 0RF
Rx Instructions:
maximum total duration of 5 days from all oral, intranasal, or parenteral formulations
hydromorphone [Dilaudid] 2 mg tablet
2 mg PO Q12H PRN (Reason: Pain) Qty: 14 0RF
No Action
diltiazem HCl [DILT-XR] 120 mg Capsule,Ext.Rel 24h Degradable
120 mg PO HS
ascorbic acid (vitamin C) [Vitamin C] 500 mg Tablet
500 mg PO DAILY
valsartan 80 mg Tablet
80 mg PO DAILY
calcium carbonate [Tums] 200 mg calcium (500 mg) Tablet,Chewable
200 mg PO BIDPRN PRN (Reason: stomach issues)
cholecalciferol (vitamin D3) [Vitamin D3] 50 mcg (2,000 unit) Tablet
50 mcg PO DAILY
omega 8-svl-ryl-fish oil [Fish Oil] 1,000 (120-180) mg Capsule
1 cap PO DAILY
meclizine 25 mg Tablet
25 mg PO Q8 Qty: 20 0RF
pantoprazole [Protonix] 40 mg tablet,delayed release (DR/EC)
40 mg PO DAILY Qty: 30 0RF
hydromorphone [Dilaudid] 2 mg tablet
2 mg PO Q6H PRN (Reason: severe pain) Qty: 10 0RF
ondansetron HCl 4 mg tablet
4 mg PO Q8H PRN (Reason: nausea and vomiting) Qty: 10 0RF
meloxicam 15 mg tablet
15 mg PO DAILY Qty: 14 0RF
Referrals:
Dominick Aldana, [Family Provider] -
Activity Restrictions/Additional Instructions:
I am sending the prescriptions to the [facility] pharmacy at [address] in [place]. I am sending a prescription for Toradol (an NSAID) as well as the Dilaudid. If you take Dilaudid I recommend to take something like MiraLAX now prevent constipation.
Try to limit the use of narcotics. I strongly recommend heating pad as well preferably a moist heating pad. If you are unable to get the Toradol filled, I recommend 3-4 utvo-omu-kxszaft ibuprofen (Motrin) every 8 hours with food for a few days
instead�you cannot take ibuprofen and Toradol at the same time. Return here if worse.
Interventions
Interventions:
*Risk Screen - Suicide Last Done: 08/28/24 10:11
*General Assessment Last Done: 08/28/24 10:11
*Neglect/Abuse Screening Last Done: 08/28/24 10:11
ED- Fall Risk Assessment Last Done: 08/28/24 10:57
*Nursing Disposition Last Done: 08/28/24 13:48
ED-Musculoskeletal Assessment Last Done: 08/28/24 10:57
Discharge Date and Time
Print Language: [place]
[2024-08-28] MEDS: ZOFRAN 4 MG IV (12:49)
[2024-08-28] MEDS: DILAUDID 1 MG IV (12:49)
[2024-08-28] MEDS: TORADOL 15 MG IV (12:50)
[2024-08-28 13:22] VITALS: BP 140/72
== END 2024-08-28 16:04 | disposition home or self-care (01) ==
LOC: EMR 10:08
PROVIDERS: EMERGENCY PHYSICIAN Emergency Medicine; FAMILY PHYSICIAN Family Medicine
DX: M54.2 Cervicalgia (principal); M62.838 Other muscle spasm; R51.9 Headache, unspecified; R03.0 Elevated blood-pressure reading, without diagnosis of hypertension; M50.30 Other cervical disc degeneration, unspecified cervical region; M79.7 Fibromyalgia; G35 Multiple sclerosis; Z88.3 Allergy status to other anti-infective agents; Z88.0 Allergy status to penicillin; Z88.8 Allergy status to other drugs, medicaments and biological substances
CPT/HCPCS: 99284; 96374; 96375 ×2

== ENCOUNTER 2024-10-04 18:09 | Emergency (ER) | payer OTHER, SELFPAY ==
[2024-10-04 18:11] VITALS: BP 171/100
--- NOTE | 2024-10-04 19:07 | ED.GENMED ---
History of Present Illness
General
Chief Complaint: Musculo-Skeletal Complaint
Source: patient
Exam Limitations: none
Time Seen by Provider: 10/04/24 18:55
History of Present Illness
History of Present Illness:
See MDM
Past History
Past History
ED Past Medical History: Fibromyalgia and Other (migraine/MS ); Negative IDDM
ED Past Surgical History: Appendectomy
Social History
Tobacco: Non-smoker
Alcohol: None
Living: with family
Phy Exam
Physical Exam
Physical Exam:
See MDM
Course
Orders/Labs/Results
Orders:
Orders
10/04/24 19:05
0.9% Sodium Chloride 1000 ml [Nss] 1,000 ml IV BOLUS
HYDROmorphone [Dilaudid] 1 mg IV NOW STA
Ondansetron Injectable [Zofran] 4 mg IV NOW STA
10/04/24 19:06
CT Abd/pelvis W Iv Cont Urgent
Comment:
Reason For Exam: back pain, lower mid abd pain
10/04/24 20:07
Complete Blood Count/With Diff Urgent
Comprehensive Metabolic Panel Urgent
Lipase Urgent
10/04/24 20:48
Urinalysis Reflex To Culture Urgent
Date Specimen was Collected: 10/04/24
Time Specimen was Collected: 20:42
10/04/24 22:26
diazePAM [Valium Injection] 5 mg IV NOW STA
Abnormal Lab Results
10/04/24
20:07
Absolute Monos (auto) 0.7 H 10^3/uL
(0.1-0.6)
Glucose 101 H mg/dl
(70-99)
10/04/24 20:07
10/04/24 20:07
Vital Signs
Initial and Last Documented VS:
Initial Vital Signs
Temp Pulse Resp BP Pulse Ox
98.1 F 81 16 171/100 100
10/04/24 18:11 10/04/24 18:11 10/04/24 18:11 10/04/24 18:11 10/04/24 18:11
Last Documented Vital Signs
Temp Pulse Resp BP Pulse Ox
97.4 F 60 20 122/85 98
10/04/24 20:10 10/04/24 20:10 10/04/24 20:10 10/04/24 20:10 10/04/24 20:10
MDM/Problems Addressed
Differential Diagnosis Includes:
HPI and MDM Narrative:
64-year-old female presenting with multiple complaints. Her biggest issue is mid left-sided back pain. Patient believes this is referred pain. She states she had similar back pain last year and was diagnosed with a ruptured appendicitis. Patient
noted the back pain a few days ago but denies any increase of heavy lifting. She has pain medicine and muscle relaxants at home and they are not helping. Patient also complains of lower abdominal bloating and pain. Patient states she has had
these issues ever since her appendicitis. She was placed on vaginal Valium and was supposed to be doing her vaginal exercises. The exercises and the Valium have decreased her urinary incontinence. She stopped both of these few months ago.
Patient now has recurrence of the bloating and trouble holding her urine. However, in regards to the back pain, she denies radiation down her legs or rectal numbness.
Patient also complains of trouble swallowing. She states she had trouble swallowing last night. This has since resolved. She is unsure if this could be an MS flare.
Given her multitude of complaints and her prior history, will obtain CT abdomen/pelvis. Patient is mildly dry. Will give IV fluids. She is protecting her airway and swallowing her secretions. Will give IV fluids and dose of Dilaudid.
Physical exam
General: Mildly uncomfortable in bed.
HEENT: protecting airway. Dry mucous membranes. Swallowing without difficulty
Neck: supple
CV: No evidence of cyanosis. Regular rate and rhythm
Resp: No accessory muscle use
Abd: Non-distended. Very mild suprapubic tenderness. No rebound
Back: Tenderness to palpation of left parathoracic muscle spasm. No rash or midline tenderness
Extremities: No deformities. No leg edema or tenderness
Neuro: alert. Moving all 4 extremities
Psych: Normal affect
Skin: Intact
Problems Addressed including Acute and Chronic Conditions affecting care:
1. Back pain
Acuity: acute
Prognosis: stable
Details: Will give dose of Dilaudid since treatment at home is not helping. Will obtain CT abdomen/pelvis given her prior history
2. Dehydration
Acuity: acute
Prognosis: stable
Details: Will give IV fluids
3. Abdominal pain
Acuity: acute
Prognosis: stable
Details: CT pending. Will obtain urinalysis as well
Updates
CT negative for acute pathology. I did discuss constipation. Patient still having pain despite Dilaudid. Given that her symptoms are likely narrow down to muscle spasm, patient given dose of IV Valium
After prolonged observation, patient feeling much better. She is ambulating on her own and feels comfortable going home
Differential Diagnosis (but not limited to): Urinary tract, pyelonephritis, muscle spasm
Testing considered: EKG
Drug therapy (if applicable): OTC meds, please see d/c instruction regarding Rx drugs
Amount and/or Complexity of Data Reviewed
Clinical info obtained from: Patient
External data reviewed: Prior records indicate history of appendicitis requiring appendectomy. At that time, patient was having similar back pain
Labs I independently reviewed (but not limited to): WBC normal
Radiology: The CT scan was personally and independently reviewed. In addition, official CT report reviewed.
Pulse Ox: not hypoxic
EKG independently reviewed: N/A
Periodontist: N/A
Critical Care: N/A
Risk of Complication:
Social Determinants of health: Good social support
Discussed with other providers: N/A
Escalation of Care includes Admit/Obs: After being observed in the Emergency Department, pt stable for discharge.
Occasional wrong word or 'sound a like' substitutions may have occurred due to the inherent limitations of voice recognition software. Read the chart carefully and recognize, using context, where substitutions have occurred.
*Critical Care Note
Total Time (30-74mins, 75-104mins- exclusive of procedures): Not Applicable
ED Attending Note
-
Portions of this chart may have been created with voice recognition software.� Occasional wrong word or��sound alike� substitutions may have occurred due to the inherent limitations of voice recognition software.
Discharge Plan
Departure
Patient Disposition: Home (Routine Discharge)
Date of Disposition: 10/04/24
Time of Disposition: 23:46
Patient with high blood pressure during this ER visit?: No
Discharge Problem:
Muscle spasm of back
Instructions: Back Pain
Prescriptions:
No Action
diltiazem HCl [DILT-XR] 120 mg Capsule,Ext.Rel 24h Degradable
120 mg PO HS
ascorbic acid (vitamin C) [Vitamin C] 500 mg Tablet
500 mg PO DAILY
valsartan 80 mg Tablet
80 mg PO DAILY
calcium carbonate [Tums] 200 mg calcium (500 mg) Tablet,Chewable
200 mg PO BIDPRN PRN (Reason: stomach issues)
cholecalciferol (vitamin D3) [Vitamin D3] 50 mcg (2,000 unit) Tablet
50 mcg PO DAILY
omega 7-ynm-xyl-fish oil [Fish Oil] 1,000 (120-180) mg Capsule
1 cap PO DAILY
meclizine 25 mg Tablet
25 mg PO Q8 Qty: 20 0RF
pantoprazole [Protonix] 40 mg tablet,delayed release (DR/EC)
40 mg PO DAILY Qty: 30 0RF
hydromorphone [Dilaudid] 2 mg tablet
2 mg PO Q6H PRN (Reason: severe pain) Qty: 10 0RF
ondansetron HCl 4 mg tablet
4 mg PO Q8H PRN (Reason: nausea and vomiting) Qty: 10 0RF
meloxicam 15 mg tablet
15 mg PO DAILY Qty: 14 0RF
ketorolac 10 mg tablet
10 mg PO Q8H PRN (Reason: Pain) Qty: 12 0RF
Rx Instructions:
maximum total duration of 5 days from all oral, intranasal, or parenteral formulations
hydromorphone [Dilaudid] 2 mg tablet
2 mg PO Q12H PRN (Reason: Pain) Qty: 14 0RF
hydromorphone [Dilaudid] 2 mg tablet
2 mg PO Q6H PRN (Reason: Pain) 3 Days Qty: 6 0RF
hydromorphone [Dilaudid] 4 mg tablet
2 mg PO Q6H PRN (Reason: Pain) 3 Days Qty: 4 0RF
Referrals:
UNKNOWN - PT DOES,NOT KNOW [Family Provider] -
Activity Restrictions/Additional Instructions:
Please return for any worsening symptoms.
You may return at any time if you have further concerns.
Please follow up with your doctor at the first available appointment, preferably this week.
Thank you for choosing [facility].
Interventions
Interventions:
*Risk Screen - Suicide Last Done: 10/04/24 18:11
*General Assessment Last Done: 10/04/24 20:33
*Neglect/Abuse Screening Last Done: 10/04/24 18:11
ED- Fall Risk Assessment Last Done: 10/04/24 20:34
*ED COVID-19 Vaccine History Last Done: 10/04/24 20:33
ED-Musculoskeletal Assessment Last Done: 10/04/24 20:31
Discharge Date and Time
Print Language: KAZAKH
[2024-10-04 20:10] VITALS: BP 122/85
[2024-10-04] MEDS: DILAUDID 1 MG IV (20:16)
[2024-10-04] MEDS: ZOFRAN 4 MG IV (20:17)
[2024-10-04] MEDS: NSS 1000 IV (20:17)
[2024-10-04 20:20] LABS: % Basophils 0.3 % (0-2); % Eosinophils 1.9 % (0-6); % Immature Granulocytes 0.4 % (0-0.5); % Lymphocytes 31.4 % (20.5-51.1); % Monocytes 7.2 % (1.7-9.3); % Neutrophils 58.8 % (42.2-75.2); Absolute Eosinophils 0.2 10^3/uL (0-0.7); Absolute Lymphocytes 3.1 10^3/uL (1.2-3.4); Absolute Monocytes 0.7 10^3/uL (0.1-0.6); Absolute Neutrophils 5.7 10^3/uL (1.4-6.5); Hematocrit 39.6 % (37.0-47.0); Mean Corp Hgb Conc. 35.4 g/dL (33.0-37.0); Mean Corpuscular Hgb 30.2 pg (27.0-31.0); Mean Corpuscular Volume 85.3 fL (81.0-99.0); Mean Platelet Volume 9.9 fL (7.4-10.4); Nucleated Red Blood Cells % 0 %; Platelet Count 315 10^3/uL (130-400); Red Blood Cell Count 4.64 10^6/uL (4.20-5.40); Red Cell Dist. Width 12.2 % (11.5-14.5); White Blood Cell Count 9.7 10^3/uL (4.8-10.8)
[2024-10-04 20:50] LABS: ALT (SGPT) 24 U/L (0-35); AST (SGOT) 26 U/L (14-36); Albumin 4.5 g/dl (3.5-5.0); Alkaline Phosphatase 72 U/L (38-126); Blood Urea Nitrogen 17 mg/dl (7-17); Calcium 9.9 mg/dl (8.4-10.2); Carbon Dioxide 25 mmol/L (22-30); Chloride 103 mmol/L (98-107); Glucose 101 mg/dl (70-99); Lipase 126 U/L (23-300); Potassium 4.6 mmol/L (3.5-5.1); Sodium 136 mmol/L (135-145); Total Bilirubin 0.5 mg/dl (0.2-1.3); Total Protein 7.1 g/dl (6.3-8.2); eGFR > 60.00
[2024-10-04 21:14] LABS: Urine Albumin Negative (Neg - Trace); Urine Bilirubin Negative (Negative); Urine Character Clear (Clear); Urine Color Yellow; Urine Glucose Negative (Negative); Urine Ketone Negative (Negative); Urine Leukocyte Negative (Negative); Urine Nitrite Negative (Negative); Urine Occult Blood Negative (Negative); Urine Specific Gravity 1.015 (<1.030); Urine Urobilinogen Negative (Neg - 1+)
[2024-10-04] MEDS: VALIUM INJECTION 5 MG IV (22:31)
[2024-10-05 00:13] VITALS: BP 148/87
== END 2024-10-05 00:16 | disposition home or self-care (01) ==
LOC: EMR 18:09
PROVIDERS: EMERGENCY PHYSICIAN Student in an Organized Health Care Education/Training Program
DX: M62.830 Muscle spasm of back (principal)
CPT/HCPCS: 99285; 96374; 96375 ×2; 96361; 74177; 80053; 81003; 83690; 85025; Q9967

== ENCOUNTER 2024-11-21 16:48 | Emergency (ER) | payer OTHER, SELFPAY ==
[2024-11-21 16:53] VITALS: BP 186/107
[2024-11-21 17:20] LABS: % Basophils 0.4 % (0-2); % Eosinophils 1.4 % (0-6); % Immature Granulocytes 0.4 % (0-0.5); % Lymphocytes 31.8 % (20.5-51.1); % Monocytes 7.3 % (1.7-9.3); % Neutrophils 58.7 % (42.2-75.2); Absolute Eosinophils 0.1 10^3/uL (0-0.7); Absolute Monocytes 0.7 10^3/uL (0.1-0.6); Absolute Neutrophils 5.6 10^3/uL (1.4-6.5); Hematocrit 41.3 % (37.0-47.0); Hemoglobin 14.5 g/dL (12.0-16.0); Mean Corp Hgb Conc. 35.1 g/dL (33.0-37.0); Mean Corpuscular Hgb 30.1 pg (27.0-31.0); Mean Corpuscular Volume 85.9 fL (81.0-99.0); Mean Platelet Volume 9.5 fL (7.4-10.4); Nucleated Red Blood Cells % 0 %; Platelet Count 359 10^3/uL (130-400); Red Blood Cell Count 4.81 10^6/uL (4.20-5.40); White Blood Cell Count 9.6 10^3/uL (4.8-10.8)
[2024-11-21 17:37] LABS: ALT (SGPT) 22 U/L (0-35); AST (SGOT) 22 U/L (14-36); Albumin 5.1 g/dl (3.5-5.0); Alkaline Phosphatase 81 U/L (38-126); Blood Urea Nitrogen 18 mg/dl (7-17); Calcium 10.3 mg/dl (8.4-10.2); Carbon Dioxide 26 mmol/L (22-30); Chloride 105 mmol/L (98-107); Glucose 95 mg/dl (70-99); Potassium 4.2 mmol/L (3.5-5.1); Sodium 141 mmol/L (135-145); Total Bilirubin 0.9 mg/dl (0.2-1.3); Total Protein 7.8 g/dl (6.3-8.2); eGFR > 60.00
[2024-11-21 17:38] LABS: Lipase 130 U/L (23-300)
[2024-11-21 17:45] LABS: Troponin I 0.014 ng/ml
[2024-11-21 18:34] VITALS: BP 143/93
[2024-11-21 18:39] VITALS: BMI 24.8
--- NOTE | 2024-11-21 19:26 | ED.GENMED ---
History of Present Illness
General
Chief Complaint: Blood Pressure Problem
Time Seen by Provider: 11/21/24 18:41
History of Present Illness
History of Present Illness:
64-year-old female presents to the emergency department for evaluation of frequent headaches and elevated blood pressures. She is also concerned that she may have a hiatal hernia due to increasing indigestion and acid reflux. She also notes she
has been constipated for the past 2 weeks. Blood pressure was reportedly greater than 200/100 at home, she is on 80 mg of valsartan and 120 mg of long-acting diltiazem daily. She has been compliant with her medications. She reports that she takes
her blood pressure several times daily. In regards to her GI symptoms she is planning to see gastroenterology as an outpatient in 2 weeks.
Past History
Past History
ED Past Medical History: Fibromyalgia and Other (migraine/MS ); Negative IDDM
ED Past Surgical History: Appendectomy
Social History
Tobacco: Non-smoker
Alcohol: None
Living: with family
Review of Systems
Review of Systems
Allergies reviewed?: Yes
All Other Systems: ROS reviewed and negative except as documented in HPI and ROS
Phy Exam
Physical Exam
Physical Exam:
GEN: Well appearing, NAD, WDWN
HEENT: Oral mucosa moist, no scleral icterus
Cardiac: Regular rate and rhythm, no murmurs
Lung: No respiratory distress, no tachypnea, lungs clear to auscultation bilaterally
Abdomen: Soft, mild suprapubic tenderness, no rigidity
MSK: No gross deformity or injuries
Skin: Good color, no pallor or jaundice, no rashes
Neuro: AO x3, moves all extremities freely
Psych: Calm, cooperative
Course
Orders/Labs/Results
Orders:
Orders
11/21/24 16:59
EKG [Electrocardiogram (*1)] Urgent
Reason for Study: Hypertension, Benign
11/21/24 17:00
EKG- Treatment ONCE
11/21/24 17:11
Complete Blood Count/With Diff Urgent
Comprehensive Metabolic Panel Urgent
Lipase Urgent
Troponin I Urgent
11/21/24 18:54
CR Chest - 2 Views Urgent
Comment:
Reason For Exam: chest pain
11/21/24 19:39
Magnesium Citrate [Citroma] 300 ml .ROUTE .STK-MED ONE
11/21/24 19:53
Magnesium Citrate [Citroma] 300 ml PO ONCE ONE
Abnormal Lab Results
11/21/24
17:11
Absolute Monos (auto) 0.7 H 10^3/uL
(0.1-0.6)
BUN 18 H mg/dl
(7-17)
Calcium 10.3 H mg/dl
(8.4-10.2)
Albumin 5.1 H g/dl
(3.5-5.0)
11/21/24 17:11
11/21/24 17:11
Vital Signs
Initial and Last Documented VS:
Initial Vital Signs
Temp Pulse Resp BP Pulse Ox
98.2 F 93 18 186/107 98
11/21/24 16:53 11/21/24 16:53 11/21/24 16:53 11/21/24 16:53 11/21/24 16:53
Last Documented Vital Signs
Temp Pulse Resp BP Pulse Ox
98.2 F 66 17 143/93 98
11/21/24 16:53 11/21/24 18:35 11/21/24 18:35 11/21/24 18:34 11/21/24 20:37
MDM/Problems Addressed
MDM/Problems Addressed:
Patient has a myriad of complaints, most notably she is quite fixated on her blood pressure. While she is hypertensive in the emergency department it did gradually downtrend without being medicated. Certainly given the reports of persistently
elevated blood pressure readings for greater than 2 weeks it would be reasonable to titrate her BP meds thus we will have her start doubling her dose of valsartan but maintaining the same dose of diltiazem. She was also provided with magnesium
citrate for her constipation as she has not had bowel movements in quite a long time and has failed essentially all [id number]-[id number] medications. She has no signs of bowel obstruction on exam or by history. She will follow-up as an outpatient with
GI regarding her GERD symptoms
*Critical Care Note
Total Time (30-74mins, 75-104mins- exclusive of procedures): Not Applicable
ED Attending Note
-
Portions of this chart may have been created with voice recognition software.� Occasional wrong word or��sound alike� substitutions may have occurred due to the inherent limitations of voice recognition software.
Discharge Plan
Departure
Patient Disposition: Home (Routine Discharge)
Date of Disposition: 11/21/24
Time of Disposition: 19:26
Patient with high blood pressure during this ER visit?: No
Discharge Problem:
Gastroesophageal reflux
Instructions: Acid Reflux, Adult and Adolescent ED, Soft diet
Prescriptions:
New
pantoprazole 40 mg tablet,delayed release (DR/EC)
40 mg PO DAILY 14 Days Qty: 14 0RF
sucralfate [Carafate] 100 mg/mL suspension
10 ml PO AC Qty: 200 0RF
No Action
diltiazem HCl [DILT-XR] 120 mg Capsule,Ext.Rel 24h Degradable
120 mg PO HS
ascorbic acid (vitamin C) [Vitamin C] 500 mg Tablet
500 mg PO DAILY
valsartan 80 mg Tablet
80 mg PO DAILY
calcium carbonate [Tums] 200 mg calcium (500 mg) Tablet,Chewable
200 mg PO BIDPRN PRN (Reason: stomach issues)
cholecalciferol (vitamin D3) [Vitamin D3] 50 mcg (2,000 unit) Tablet
50 mcg PO DAILY
omega [id number]-fish oil [Fish Oil] 1,000 (120-180) mg Capsule
1 cap PO DAILY
meclizine 25 mg Tablet
25 mg PO Q8 Qty: 20 0RF
pantoprazole [Protonix] 40 mg tablet,delayed release (DR/EC)
40 mg PO DAILY Qty: 30 0RF
hydromorphone [Dilaudid] 2 mg tablet
2 mg PO Q6H PRN (Reason: severe pain) Qty: 10 0RF
ondansetron HCl 4 mg tablet
4 mg PO Q8H PRN (Reason: nausea and vomiting) Qty: 10 0RF
meloxicam 15 mg tablet
15 mg PO DAILY Qty: 14 0RF
ketorolac 10 mg tablet
10 mg PO Q8H PRN (Reason: Pain) Qty: 12 0RF
Rx Instructions:
maximum total duration of 5 days from all oral, intranasal, or parenteral formulations
hydromorphone [Dilaudid] 2 mg tablet
2 mg PO Q12H PRN (Reason: Pain) Qty: 14 0RF
hydromorphone [Dilaudid] 2 mg tablet
2 mg PO Q6H PRN (Reason: Pain) 3 Days Qty: 6 0RF
hydromorphone [Dilaudid] 4 mg tablet
2 mg PO Q6H PRN (Reason: Pain) 3 Days Qty: 4 0RF
Referrals:
Dominick Aldana DO [Family Provider] -
Activity Restrictions/Additional Instructions:
Contacted primary care physician to discuss adjustments to your blood pressure regimen
Increase your valsartan to 160mg once daily (two pills)
Increase fluids while using magnesium citrate
Soft diet for 3-5 days
Interventions
Interventions:
*Risk Screen - Suicide Last Done: 11/21/24 16:53
*General Assessment Last Done: 11/21/24 16:53
*Neglect/Abuse Screening Last Done: 11/21/24 20:37
*ED- Fall Risk Assessment Last Done: 11/21/24 20:37
*ED COVID-19 Vaccine History Last Done: 11/21/24 16:53
*Nursing Disposition Last Done: 11/21/24 20:37
ED- Cardiac Assessment Last Done: 11/21/24 19:51
ED- Neurological Assessment Last Done: 11/21/24 19:51
ED- Pulmonary Assessment Last Done: 11/21/24 19:51
Discharge Date and Time
Discharge Date/Time: 11/21/24 20:25
Print Language: WELSH
[2024-11-21] MEDS: CITROMA 300 ML PO (19:53)
== END 2024-11-21 20:25 | disposition home or self-care (01) ==
LOC: EMR 16:48
PROVIDERS: Student in an Organized Health Care Education/Training Program; EMERGENCY PHYSICIAN Emergency Medicine; FAMILY PHYSICIAN Family Medicine
DX: K21.9 Gastro-esophageal reflux disease without esophagitis (principal); I10 Essential (primary) hypertension; K59.00 Constipation, unspecified; Z79.899 Other long term (current) drug therapy
CPT/HCPCS: 99285; 71046; 80053; 83690; 84484; 85025; 93005

== ENCOUNTER 2025-04-11 02:13 | Inpatient (IN) | payer MEDICARE, OTHER, SELFPAY ==
[2025-04-10 19:27] VITALS: BP 108/69
[2025-04-10 20:01] LABS: Urine Character Clear (Clear)
[2025-04-10 20:03] LABS: Hematocrit 37.2 % (37.0-47.0); Hemoglobin 12.7 g/dL (12.0-16.0); Mean Corp Hgb Conc. 34.1 g/dL (33.0-37.0); Mean Corpuscular Volume 88.2 fL (81.0-99.0); Nucleated Red Blood Cells % 0 %; Platelet Count 340 10^3/uL (130-400); Red Cell Dist. Width 12.2 % (11.5-14.5)
[2025-04-10 20:12] LABS: Urine Squamous Cell 21-25 /LPF (Few)
[2025-04-10 20:22] LABS: ALT (SGPT) 17 U/L (0-35); AST (SGOT) 20 U/L (14-36); Albumin 5.0 g/dl (3.5-5.0); Alkaline Phosphatase 54 U/L (38-126); Blood Urea Nitrogen 29 mg/dl (7-17); Calcium 10.2 mg/dl (8.4-10.2); Carbon Dioxide 25 mmol/L (22-30); Chloride 104 mmol/L (98-107); Glucose 105 mg/dl (70-99); Potassium 4.3 mmol/L (3.5-5.1); Sodium 138 mmol/L (135-145); Total Protein 7.5 g/dl (6.3-8.2); eGFR 55.76
[2025-04-10 20:35] LABS: Troponin I < 0.012 ng/ml
[2025-04-11] VITALS (10 sets, daily range): BP systolic 106–149; BP diastolic 66–90; PULSE 64–88; BMI 24.2; BMI 23.8
--- NOTE | 2025-04-11 00:56 | ED.GENMED ---
History of Present Illness
General
Chief Complaint: Fall
Source: patient
Exam Limitations: none
Time Seen by Provider: 04/11/25 00:08
Nursing documentation reviewed up to this point in time: agreed with
History of Present Illness
History of Present Illness:
see MDM
Past History
Past History
ED Past Medical History: Fibromyalgia and Other (migraine/MS ); Negative IDDM
ED Past Surgical History: Appendectomy
Social History
Tobacco: Non-smoker
Alcohol: None
Living: with family
Review of Systems
Review of Systems
Allergies reviewed?: Yes
All Other Systems: Not applicable
Phy Exam
Physical Exam
Physical Exam:
GENERAL: Alert , in no apparent distress, comfortable at rest
HEAD: NCAT
NECK: no midline tenderness, active ROM intact, no paraspinal muscle tenderness;
CARDIAC: Regular rate and rhythm, no edema
LUNGS: Clear breath sounds bilaterally, no acute respiratory distress, no wheezes/rales/rhonchi
ABDOMEN: Soft, without focal tenderness, no r/g, no cvat, normal bowel sounds, nondistended
RECTAL: slightly weak tone but present; sensation was intact;
BLADDER SCAN NORMAL 1 ML PVR
NEUROLOGICAL: Alert and oriented, no focal neuro deficits, CN intact, 5/5 UE strength 4+ LLE strenght, 5/5 RLE strength; hyperreflexic 3+ b/l UE;, sensation intact, ambulation on own, seems a little off balance when she turns
SKIN: Warm and dry,
back: R cva tenderness
PSYCH: Normal and appropriate interaction.
Course
Orders/Labs/Results
Orders:
Orders
04/10/25 19:43
Electrocardiogram (*1) Urgent
Reason for Study: Other
Other Reason for Exam: Respiratory Distress
EKG- Treatment ONCE
04/10/25 19:47
Complete Blood Count/With Diff Urgent
Troponin I Urgent
04/10/25 19:50
Comprehensive Metabolic Panel Urgent
Urinalysis Reflex To Culture Urgent
Date Specimen was Collected: 04/10/25
Time Specimen was Collected: 19:44
Urine Microscopic Reflex Cult Urgent
Urine Culture Urgent
EDUARDO Source: U
Specimen Description:
Date Specimen was Collected: 04/10/25
Time Specimen was Collected: 19:44
04/10/25 20:[address] [CT Head W/o Iv Contrast] Urgent
Comment:
Reason For Exam: dizziness
04/11/25 00:48
CT Abd/pel Without Iv Or Oral Urgent
Comment: pt refused iv contrast
Reason For Exam: R flank pain, uti
0.9% Sodium Chloride 1000 ml [Nss] 1,000 ml IV BOLUS
04/11/25 00:53
LevoFLOXacin 750 MG/150 ML [Levaquin] 750 mg in 150 ml IV NOW
04/11/25 01:30
Lactic Acid Urgent
Blood Culture Q30M
EDUARDO Source: Blood/Venous
Specimen Description:
Blood Culture Q30M
EDUARDO Source: Blood/Venous
Specimen Description:
04/11/25 01:45
Acetaminophen [Tylenol] 650 mg PO NOW STA
Metoclopramide [Reglan] 10 mg IV NOW STA
04/11/25 01:50
Admit/Transfer Patient As Directed
Co-Sign Provider:
Level of Care: Inpatient admission
Assign to:: Medical/Surgical
Physician / Group: Yuan
Diagnosis: UTI
Reason for Hospitalization: weakness
Expected length of stay greater than two midnights?: Yes
ELOS- Estimated Length of Stay in days: 2
I certify the patient meets the requirements for IP care: Yes
PRN Pain Medication Management As Directed
May give lesser potent ordered pain med per pt: Yes
preference::
Protocol:: Medication orders for pain may be administered in a
manner that supports deferring to patient preference
when the pt is:
- Requesting an ordered lesser potent pain medication.
Least to most potent pain medications are defined
as: acetaminophen < NSAID < tramadol < opioids
(morphine, oxycodone, hydromorphone).
- Requesting a lesser dose of the same medication IF
ORDERED.
- Requesting a less intrusive route of administration
if both routes are prescribed by the provider (PO <
IV).
04/11/25 01:52
Code Status As Directed
Resuscitation Status: Full Code
04/11/25 02:18
Acetaminophen [Tylenol] 650 mg PO Q4HPRN PRN
Bisacodyl [Dulcolax] 10 mg RECTAL [id number] PRN
Docusate W/Senna [Senokot-S] 1 tablet PO BIDPRN PRN
Meclizine [Antivert] 25 mg PO Q8HPRN PRN
Metoclopramide [Reglan] 10 mg IV Q6HPRN PRN
Polyethylene Glycol Powder [Miralax] 17 grams PO DAILYPRN PRN
Tizanidine [Zanaflex] 4 mg PO HS PRN
04/11/25 02:18
Consult Notification Routine
Specialty to Notify: Neurology
NEUROLOGY CONSULT Routine
Consulting Provider: Roberto Puentes
Was physician already notified: No
Reason for consult: multiple sensory and motor complaints, ms exacerbation
MR Cervical Spine Without Routine
Comment:
Reason For Exam: eval ms lesions
Recent pill cam endoscopy?: No
MRI Brain [MR Brain Without Contrast] Routine
Comment:
Reason For Exam: eval MS plaques
Recent pill cam endoscopy?: No
Activity As Directed
Activity Level: With Assistance
Orthostatic Vital Signs As Directed
Orthostatic VS Frequency: Daily
Vital Signs As Directed
Frequency: Per unit guidelines
Pt Eval And Treat Routine
Activity Level: With Assistance
DX Deep Vein Thrombosis Video Routine
04/11/25 05:39
Basic Metabolic Panel IN AM
Cardiovascular Evaluation IN AM
Complete Blood Count/No Diff IN AM
ESR [Erythrocyte Sed Rate] IN AM
Magnesium IN AM
TSH IN AM
Vitamin B12 IN AM
04/11/25 Breakfast
Regular
At Your Request: Full Participation
04/11/25 08:00
Hydrochlorothiazide [Oretic] 12.5 mg PO DAILY
Valsartan [Diovan] 160 mg PO BID
04/11/25 18:00
Enoxaparin Sodium [Lovenox] 40 mg SC QPM
04/11/25 22:00
Diltiazem Extended Release [Cardizem Cd] 120 mg PO HS
04/12/25 01:00
LevoFLOXacin 750 MG/150 ML [Levaquin] 750 mg in 150 ml IV Q24H
Abnormal Lab Results
04/10/25 04/10/25
19:47 19:50
Absolute Monos (auto) 0.9 H 10^3/uL
(0.1-0.6)
BUN 29 H mg/dl
(7-17)
Creatinine 1.1 H mg/dL
(0.6-1.0)
Glucose 105 H mg/dl
(70-99)
Ur Occult Blood Reflex 1+ A
(Negative)
Urine Nitrite (Reflex) Positive A
(Negative)
Urine Bilirubin 3+ A
(Negative)
Urine Urobilinogen 3+ A
(Neg - 1+)
Urine RBC 3-6 A /HPF
(0-2)
Urine WBC (Reflex) 11-15 A /HPF
(0-5)
Urine Bacteria (Reflex) Many A
(Negative)
Urine Albumin (Reflex) 3+ A
(Neg - Trace)
04/10/25 19:47
04/10/25 19:50
Vital Signs
Initial and Last Documented VS:
Initial Vital Signs
Temp Pulse Resp BP Pulse Ox
36.5 C 76 16 108/69 95
04/10/25 19:27 04/10/25 19:27 04/10/25 19:27 04/10/25 19:27 04/10/25 19:27
Last Documented Vital Signs
Temp Pulse Resp BP Pulse Ox
36.5 C 55 18 124/82 98
04/10/25 19:27 04/11/25 00:17 04/11/25 00:17 04/11/25 03:35 04/11/25 03:34
MDM/Problems Addressed
Differential Diagnosis Includes:
see MDM
MDM/Problems Addressed:
Note:
CHIEF COMPLAINT(S)
- Frequent falls, worsening over the past month
- Weakness and dizziness
- Urinary tract infection with burning sensation
- Headache described as a tight sensation inside the head
- Nausea and vomiting
HISTORY OF PRESENT ILLNESS
The patient is a 65-year-old female with a long-standing history of multiple sclerosis (MS) for approximately 45 years. She reports frequent falls over the past month, describing increasing weakness and dizziness. She notes that her legs become
weak, leading her to fall, particularly at home where she can wait it out for a minute before being able to get up. This is an exacerbation of her usual MS symptoms, though the falls have become more frequent in the last month.
The patient also reports a sensation that feels like her brain is being squeezed, associated with difficulties in speaking, remembering, and driving, which have worsened over the last two days but started deteriorating about a month ago.
Additionally, the patient has been experiencing nausea and vomiting for about a year.
For the past three weeks, she has had burning during urination, which led to a diagnosis of a urinary tract infection (UTI). Her UTI symptoms seemed to improve with antibiotics prescribed by her family doctor over the phone, but more severe symptoms
returned two days ago, prompting her current visit. She is currently on a second course of antibiotics.
PAST MEDICAL AND SURGICAL HISTORY
- Multiple sclerosis for approximately 45 years
- Appendectomy approximately eight months ago with pneumonia due to ruptured appendix
CHRONIC MEDICAL CONDITIONS SIGNIFICANTLY AFFECTING CARE
- Multiple sclerosis
- Hypertension, previously reported as high
MEDICATIONS
- Metoprolol (antihypertensive medication, dosage discussed by patient but not explicitly stated)
- Valsartan (antihypertensive medication, dosage discussed by patient but not explicitly stated)
- Recent antibiotics for UTI (exact type and dosage are unclear)
REVIEW OF SYSTEMS
- Neurological: Frequent falls, weakness, dizziness, described as feeling like fainting, headache with pressure-like sensation
- Genitourinary: Burning sensation during urination; feeling of incomplete emptying
- Gastrointestinal: Nausea and vomiting
- Musculoskeletal: Weakness noted in arms and legs
PHYSICAL EXAM
- Neurological: Weakness observed in legs; difficulty speaking; potential cranial nerve involvement suggested by dizziness on movement
- Genitourinary: Patient reports difficulty in feeling the need to urinate and burning sensation; bladder retention suspected
- Nursing notes reviewed and vital signs reviewed.
PROBLEM LIST
- Acute: Worsening MS symptoms, UTI, possible kidney involvement, possible kidney stone
- Chronic: Multiple sclerosis, Hypertension
PLAN
- Continue antibiotic treatment for UTI after reassessment of current prescription efficacy
- Belief is that steroids may be needed for MS exacerbation
- Consideration for hospital admission for continued observation and treatment, potential need for neuro consult
- Perform a computed tomography scan to rule out kidney stone
- Administer intravenous antibiotics and take blood cultures
- Obtain previous MRI records to assess for MS flare and involve neurology consult if needed
The Differential Diagnosis includes, in no particular order and is not limited to:
- Multiple Sclerosis exacerbation
- Urinary tract infection
- Renal colic due to kidney stones
- Vestibular neuritis or other causes of inner ear dizziness
- Medication side effects
- Orthostatic hypotension
- Cervical spinal stenosis
- Neurogenic bladder secondary to MS
- Stroke, given sudden onset neurological symptoms
- Complex regional pain syndrome impacting sensation and movement
65 y/o F
complex case
MS untreated
was on meds years ago but stopped
has neurologist judi
recent falls, weak legs, weak arms
had outpatient MRIs last week at outpatient center without results
also with UTI 3 weeks ago,leroy hubbard in macrobid by PCP
completed course, thoguht she was bettter but now the past 3 days dysuria, dec frequency, R back pain
no fever/vomiting but chills
worsening falling episdoes which brought her here
she is slightly weak 4+ LLE compared to RLE
rectal tone is present
she is not retaining
do not think cauda equina
concern she probably has spinal lesions from MS and needs treatment; will need to obtain MRI results from last week but at this hour, cannot
she also has UTI and failed macrobid and was placed back on macrobid
she has R flank tendneress
will ctap to r/o obstructive uropathy, eval pyelo
due to allergies, wlil treat with levaquin
cultures ordered
*Pulse Oximetry
SaO2: 98
Oxygen Mode of Delivery: Room air
Patient hypoxic: no (98)
*Critical Care Note
Total Time (30-74mins, 75-104mins- exclusive of procedures): Not Applicable
ED Attending Note
-
Portions of this chart may have been created with voice recognition software.� Occasional wrong word or��sound alike� substitutions may have occurred due to the inherent limitations of voice recognition software.
Discharge Plan
Departure
Patient Disposition: Admit
Date of Disposition: 04/11/25
Time of Disposition: 00:54
Admit to: Med/Surg
Presentation/result/management discussed w/ accepting MD/DO: Hospitalist
Condition: Fair
Covid-19: Not Applicable
Discharge Problem:
UTI (urinary tract infection), Failure of outpatient treatment, Falls, Multiple sclerosis
Interventions
Interventions:
*Risk Screen - Suicide Last Done: 04/10/25 19:26
*General Assessment Last Done: 04/10/25 19:27
*Neglect/Abuse Screening Last Done: 04/10/25 19:27
*ED- Fall Risk Assessment Last Done: 04/10/25 19:27
*ED COVID-19 Vaccine History Last Done: 04/10/25 19:27
*Nursing Disposition Last Done: 04/11/25 04:03
ED-Musculoskeletal Assessment Last Done: 04/11/25 00:13
ED- Neurological Assessment Last Done: 04/11/25 00:13
ED-Skin Assessment Last Done: 04/11/25 00:13
--- NOTE | 2025-04-11 01:12 | HPS.HSE ---
Family Physician
-
Family Physician: Dominick Aldana
Chief Complaint
-
Fall
History of Present Illness
This is a 65-year-old female with past medical history notable for hypertension, GERD, MS, migraine headache presenting to the emergency department following a fall at home.
Patient reported that she was walking up a flight of stairs when she became very dizzy and then fell because her legs gave way. She said that it felt that there was numbness in her lower extremities as well as tingling. She felt a sensation of
being about to pass out but she did not. She lowered herself to the ground and then EMS was called. There was no loss of consciousness she denied having any palpitations. She denied any nausea vomiting diaphoresis chest pain etc. Denies any
prior syncopal episodes.
She reports she is been having ongoing treatment for urinary tract infection. She reports severe dysuria when urinating impulsively without urination. She reports frequency and incontinence. She was on nitrofurantoin about 3 weeks ago for similar
symptoms. Appeared to improve only to return with more severity recently for which she has again started on nitrofurantoin with Pyridium as needed. She denies flank pain. She denies having fevers or chills.
Patient reports that over the last several weeks she has had multiple neurological symptoms including headache, numbness tingling in her bilateral upper extremities and now more recently numbness tingling in the lower extremities as well as
weakness and intermittent falls where legs does give way. She states that she stopped taking medications multiple sclerosis several years ago because she felt they were not effective. He had a recent MRI of the C-spine to investigate lesions. She
denies any new medications otherwise. She denies having any fevers or chills. She denies flank pain.
She reports persistent bilateral squeezing headaches without any exacerbating or relieving factors. She reports intermittent episodes of vertigo when she looks horizontally but also dizziness with any tilting of the head/neck. Denies diplopia.
Reports more recent difficulties with memory stating he has intermittent difficulty with recollection during talking which makes conversation difficult but denies expressive aphasia or dysarthria.
Patient has a history of hypertension but denies prior history of CVA or hyperlipidemia
In the emergency department she was afebrile, blood pressure was 110/70 with a pulse of 55 and she was satting 98% on room air. ECG shows a normal sinus rhythm at a rate of [address] or T wave changes.
Troponin was negative. CBC was unremarkable, electrolytes BUN and creatinine were in the normal range. UA was positive but contaminated. CT of the head shows a stable hemangioma compared to prior no acute intracranial process.
Medical History
Past Medical History
Past Medical History: Reports HTN and Other (Fibromyalgia and Other (migraine/MS ))
Additional Past Medical History:
Multiple sclerosis
Past Surgical History: Reports Appendectomy and Other (Umbilical hernia repair)
Social History
Tobacco: Former Smoker (> 40 pack years total. She quit on Day.)
Alcohol: None
Drug: None
Family History
Family History: Not pertinent
Allergies / Home Medications
Allergies reflects when Allergies were last updated in [facility].
Home Medications with original date entered in [facility]
Allergy/Medication List:
Allergies
Allergy/AdvReac Type Severity Reaction Status Date / Time
Cephalosporins Allergy Unknown Verified 05/13/24 14:51
penicillin G Allergy Unknown Verified 05/13/24 14:51
Penicillins Allergy Unknown Verified 05/13/24 14:51
prochlorperazine Allergy Unknown Verified 05/13/24 14:51
[From Compazine]
Home Medications
ascorbic acid (vitamin C) 500 mg tablet (Vitamin C) 500 mg PO DAILY Supplement 08/29/23
diltiazem HCl 120 mg capsule,extended release 24 hr, controlled (DILT-XR) 120 mg PO HS Blood Pressure 08/29/23
valsartan 80 mg tablet 80 mg PO twice daily
Hydrochlorothiazide 12.5 mg tablet, 12.5 mg p.o. daily
Tizanidine 4 mg tablets, 4 mg p.o. at bedtime as needed for spasm
Review of Systems
-
Constitutional: Reports No Symptoms
EENT: Reports No Symptoms
Respiratory: Reports No Symptoms
Cardiac: Reports No Symptoms
Abdomen/GI: Reports No Symptoms
: Reports Dysuria, Frequency and Incontinence
Musculoskeletal: Reports No Symptoms
Skin: Reports No Symptoms
Neurological: Reports Dizzy, Headache, Weakness and Numbness
Endocrine: Reports No Symptoms
Hematologic/Lymphatic: Reports No Symptoms
Psych: Reports No Symptoms
Physical Exam
Vital Signs
Vital Signs
Temp Pulse Resp BP Pulse Ox
97.7 F 55 18 108/69 98
04/10/25 19:27 04/11/25 00:17 04/11/25 00:17 04/10/25 19:27 04/11/25 00:58
Physical Exam
General: Well Developed, Well Nourished and No Apparent Distress
HEENT: NormoCephalic, Moist mucous membranes and Atraumatic
Respiratory: Clear
Cardiac: S1/S2 and Regular Rhythm; No Murmur or Rub
GI: Soft, Non Tender, Non Distended and Normal Bowel Sounds; No Organomegaly
Rectal: Deferred by Provider
Musculoskeletal: No Clubbing, No Cyanosis and No Edema
Skin: No Rash
Neuro: AO x 3 and Nonfocal/grossly intact
Hematologic/Lymphatic: No Lymphadenopathy
Psych: Calm
Laboratory Results
-
04/10/25 19:47
04/10/25 19:50
Laboratory Results
Total Bilirubin 1.1 mg/dl (0.2-1.3) 04/10/25 19:50
AST 20 U/L (14-36) 04/10/25 19:50
ALT 17 U/L (0-35) 04/10/25 19:50
Alkaline Phosphatase 54 U/L (38-126) 04/10/25 19:50
Troponin I < 0.012 ng/ml 04/10/25 19:47
Data Reviewed
-
CT Scan: Report Reviewed by me
Medical Tests (Nuc Med, Echo, EKG etc): Image Personally Visualized and interpreted
Lab Data: Labs Reviewed by me
Old Records: Reviewed
Impression/Plan
-
IMPRESSION:
65-year-old with history of multiple sclerosis presenting to the emergency department with dysuria, incontinence, frequency, headache, bilateral paresthesias and numbness in the upper and lower extremities as well as weakness in the lower extremity
on history. She also reports headache, memory difficulty as well as dizziness/vertigo without nausea vomiting. She has had episodes of treatment for dysuria with nitrofurantoin x 2 over the last 3 weeks. She is currently on nitrofurantoin with
persistent dysuria. Stopped disease modifying medications for MS several years ago. CT of the head is negative. She is nonseptic appearing, UA is positive but appears contaminated.
PLAN:
Neuro -suspect possible MS exacerbation given multi focal deficits with sensory deficits in the upper and lower extremities, weakness in the lower extremity, dizziness/vertigo. 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
exacerbated by a urinary tract infection. CT of the head is nonacute and neurological exam shows no focal deficits.
- Admit to MedSurg
- Check inflammatory panel
- MRI brain and C-spine
- Neurochecks every 6
- Check TSH, B12 and folate
- Neurology consultation
- PT consult
Dizziness -possibly related to MS versus peripheral vertigo/M�ni�re's. No hearing difficulties and no tinnitus
- MRI as above
- prn meclziine
- antemetics and pain control
UTI -frequency, incontinence and dysuria, failure of outpatient nitrofurantoin
- UA appears contaminated, sending for a urine culture
- We will continue with IV Levaquin for now
- Continue Pyridium as needed
HTN
- continue valsartan, hctz and dilitazem
- orthostatics
DVT PPX - lovenox sq
Code status - Full Code
[2025-04-11] MEDS: NSS 1000 IV (01:26)
[2025-04-11] MEDS: LEVAQUIN 150 IV (01:37)
[2025-04-11] MEDS: TYLENOL 650 MG PO ×2 (02:09→20:08)
[2025-04-11 05:58] LABS: Hematocrit 35.4 % (37.0-47.0); Hemoglobin 12.1 g/dL (12.0-16.0); Mean Corp Hgb Conc. 34.2 g/dL (33.0-37.0); Mean Corpuscular Volume 88.1 fL (81.0-99.0); Platelet Count 278 10^3/uL (130-400); Red Cell Dist. Width 12.3 % (11.5-14.5)
[2025-04-11 06:19] LABS: Blood Urea Nitrogen 24 mg/dl (7-17); Calcium 8.8 mg/dl (8.4-10.2); Carbon Dioxide 25 mmol/L (22-30); Chloride 108 mmol/L (98-107); Estimated Creatinine Clearance 63 ml/min; Glucose 96 mg/dl (70-99); HDL Cholesterol 42 mg/dl; LDL Cholesterol, Calculated 104 mg/dl; Magnesium 2.0 mg/dl (1.6-2.3); Potassium 4.3 mmol/L (3.5-5.1); Sodium 140 mmol/L (135-145); Very Low Density Lipoprotein 17 mg/dl (0-30); eGFR > 60.00
[2025-04-11 06:49] LABS: TSH 1.20 uIU/ml (0.47-4.68)
[2025-04-11 07:09] LABS: Vitamin B12 338 pg/ml (239-931)
[2025-04-11] MEDS: DIOVAN 160 MG PO ×2 (08:28→20:09)
[2025-04-11] MEDS: ORETIC 12.5 MG PO (08:28)
--- NOTE | 2025-04-11 08:33 | CON.NEURO4 ---
Documented by User: Dawn Kunz NP 04/11/25 11:00
Consultation - Neurology 4
-
CONSULTING PHYSICIAN: Roberto Puentes MD
REFERRING PHYSICIAN: Hospitalists/Dr. Bolden
DICTATED BY: ARTURO Sharif
DATE/TIME OF REQUEST: 04/11/25
DATE/TIME OF CONSULTATION: 04/11/25
Reason for Consultation: Weakness, falls
History of Present Illness:
This is a 65-year-old right-handed female who has presented to the hospital with report of dizziness, bilateral leg weakness, and falls. Patient has been evaluated by our inpatient Neurology service several times in the past.
From my previous evaluation on 08/30/23:
''This is a 63-year-old right-handed female with a PMH of multiple sclerosis, migraine with aura, and HTN who has presented to the hospital on 08/28/23 with report of abrupt onset abdominal pain starting on 08/27/23. She was found to have acute
perforated appendicitis and umbilical hernia and she underwent laparoscopic appendectomy, drainage of intraabdominal abscess, and primary repair of umbilical hernia on 08/29/23. Patient has a history of MS and migraine with aura and is currently
followed by neurology Dr. Leanna Cosby in [place]. She has been evaluated by our Neurology service Dr. Puentes once in the past in 2013.
From previous evaluation by Dr. Puentes on 11/06/13:
'The patient is a 53-year-old, right-handed woman, who presented to the[facility] today with a self-reported MS exacerbation. The patient's history of
MS fifteen years ago, with symptoms which are currently unclear. The patient
reportedly was experiencing symptoms, which may have not gait dysfunction at
that time. Subsequently, she was provided with Copaxone, Avonex and then has
discontinued the use of medications for the last 8 months, due to skin
concerns. The patient has also been exposed to steroids, the last treatment of
which was two years ago.
Prior to presentation at the hospital today, the patient has been evaluated by
Dr. Raghav Barfield at [facility], Department of
Neurology. He first evaluated the patient several months ago, and re-evaluated
the patient one day ago. The patient was being described by that multiple
sclerosis subspecialist as her having a diffuse form of multiple sclerosis.
Instead, he was suggesting that her pain syndrome was most likely not
secondary to MS in that other etiologies may be playing a role. The patient
also is being described as having greater difficulty in the last four weeks
with gait. However, there is no suggested opinion by Dr. Barfield regarding the
patient's need for a change in her prior treatment of gait. The patient also
describes herself as self catheterizing beginning approximately four years
ago.
The patient reports that she has had a great difficulty with gait in the last
24 hours prompting her to present to the hospital's emergency department. The
hospital emergency departments attending contacted the patient's usual (not
subspecialist) neurologist who suggested that the patient receive a g of Solu-
Medrol to treat a presumed exacerbation.
The patient also reports that she has been experiencing significant headaches
and has been experiencing one currently, which is inducing photophobia.'
Patient reports that prior to her abdominal pain starting on 08/27/23, she was experiencing a RUQ right eye visual disturbance which she describes as a white lightning bolt. Patient endorses a history of migraine with aura starting about 20 years
ago. She has a migraine about every other week associated with visual aura and photo/phonophobia and occasional nausea. Typically her aura presents as a 'hole' in her vision, marbling of her vision, or lightning bolt flashes. Her aura typically
occurs in her left eye. She takes Excedrin migraine for her headaches which usually relieves her symptoms. She was recently prescribed rizatriptan and rimegepant for migraine, she has only tried rizatriptan once so far and reports it was effective.
She has refused daily migraine preventative medications thus far as she does not like to take medications.
She reports that she stopped disease-modifying treatment for MS about 4-5 years ago because she cannot tell a difference between when she is on it and when she stops it, and she would prefer not to take daily medications. Her last MS flare was about
1.5 years ago in the summer and was associated with bilateral leg weakness and left eye vision blurring. She was treated with IV steroids at that time and her symptoms resolved. She ambulates without an assistive device. Her last [facility] MRI imaging was
about two years ago and she notes that she has a stable meningioma. She does endorse several years progressive memory issues. She was started on Aricept for this about one month ago. She reports that it has become so significant that she can't even
read a book due to not being able to remember what happens in the previous chapters.
Currently, she denies any headache, but she is still rarely seeing a white lightning bolt flash in her right eye RUQ. She also endorses mild right eye 'strain' with lateral gaze, but denies any overt eye pain. l She denies any dizziness, vision
loss, nausea, speech/swallow difficulty, weakness, chest pain, palpitations, and shortness of breath. She does report mild surgical site abdominal pain in addition to chronic nightly numbness and an 'itching' sensation in bilateral toes.''
From most recent evaluation by Neurology Dr. Leanna Cosby on 02/27/25:
'The patient presents for an MS follow-up.
She has been experiencing pain in both arms, extending from the shoulder to the fingers, accompanied by numbness. This has been ongoing for the past 6 weeks and occurs regardless of her activity, including driving. She reports a loss of sensation in
her fingers, even when pinched, but still experiences pain. She has not sought physical therapy for this issue. Additionally, she reports frequent falls due to weakness in her left leg, which she believes may be exacerbated by heat exposure. She
spends a significant amount of time outdoors with animals. She describes a sensation of electric shocks throughout her body, particularly in the mornings, and is unsure if this is related to her neck positioning. Fatigue is a significant concern, as
she finds it difficult to get out of bed in the morning and often falls asleep if she sits down for 15 minutes in the afternoon. Her sleep is disrupted by frequent urination at night. She has been taking Valium to help her sleep and manage anxiety,
but only sparingly, having taken it twice in the last month. She reports feeling well upon waking, without any drowsiness. She has not started taking Lexapro.
She has been monitoring her blood pressure at home since her medication was changed. She has noticed that taking Valium the night before significantly lowers her blood pressure, with readings as low as 98/67. However, she has only taken Valium twice
in the past month. Her blood pressure readings have been inconsistent, with a reading of 156/95 at night and 141/85 in the morning. I reviewed her blood pressure roots and they actually do not seem to correlate with Valium usage. Low blood pressure
in the morning seems to correlate with low blood pressure at night regardless of whether she took the Valium.
Constipation has been an issue for several months, with infrequent bowel movements. She has been seeing Dr. Donavon Ng for this issue and has undergone a biopsy, which ruled out cancer. She was prescribed pantoprazole and Linzess but has not
taken them due to concerns about side effects. Instead, she has been taking natural supplements, which have improved her symptoms. She was informed by the health department that she tested positive for Campylobacter and was advised to see her doctor
immediately. She is interested in starting fenbendazole next week and has previously taken ivermectin.'
Today (04/11/25): Patient reports that she has been on antibiotics for a urinary tract infection for several weeks and her dysuria and urgency are still persistent. She completed MRI cervical spine w/ and w/o contrast as an outpatient on 04/08/25 for
her ongoing bilateral leg weakness, bilateral arm numbness, and shock-like sensations, the results of which were unremarkable. Patient notes that she has continued to fall and hit her head yesterday, prompting her to come to the ER for evaluation.
She notes that when she turns her head left or right she developed a dizzy sensation instantly that she describes as spinning. This started 6-8 weeks ago but has become more intense and frequent. She also notes that her left lower extremity keeps
'giving out' on her, although both legs feel weak still. When she falls it can be in any direction. She also notes a 'cramp' sensation in her head that feels different than her typical migraine. She notes that it feels like her brain in being
squeezed in a vice. She reports photophobia but notes that has been chronically daily for years. She has been taking Excedrin for her head discomfort with no relief. She has nausea associated with the dizzy sensation only. She also notes severe
brain fog and word finding difficulty. CT head was obtained on arrival in the ER and is negative for any acute abnormalities.
Past Medical History: Multiple sclerosis, fibromyalgia, migraine with aura, HTN, cognitive impairment, renal calculi, 'leaky heart valve'
Surgical History: Appendectomy, umbilical hernia repair, tonsillectomy
Family History: Reviewed and noncontributory.
Social History: Former smoker. Denies alcohol and illicit drug use.
Allergies: Cephalosporins, ketorolac, penicillins, prochlorperazine.
Home Medications: See below.
Review of Symptoms:
Patient denies any fever, headache, chest pain, shortness of breath, GI or symptoms.
�Per the HPI.�All systems are reviewed negative except above.
Physical Exam:
The patient is afebrile, abdomen is nondistended, breathing is unlabored, skin is warm and dry, no edema.
NIH Stroke Scale:
I performed the NIH stroke scale on the patient on 04/11/25 at 0850 The patient scored 0 points on the NIH stroke scale assessment.
Neurologic Examination:
The patient is awake, alert and oriented x 3. She is able to follow commands and answer questions appropriately. There is no aphasia or dysarthria. On cranial nerve assessment, pupils are 3 mm bilateral, round and reactive to light and
accommodation. Visual mcgregor are full. Extraocular movements are intact. Facial sensations are intact and bilaterally symmetrical, there is no facial asymmetry. Hearing is intact bilaterally to normal conversation volume. Tongue palate and uvula are
midline. Sternocleidomastoid strengths are full bilaterally. Motor strengths are 5/5 bilateral upper and lower extremities on medical research [place] scale. There is no drift or involuntary movement noted. Deep tendon reflexes are 2+ bilateral
upper and lower extremities and Babinski is absent bilaterally. There was no extinction noted on double simultaneous stimulation. Coordination is intact by finger to nose bilaterally.
Lab Results: See below.
Neuro Imaging:
1. 04/10/25: No acute intracranial abnormality.
2. CTA Head/Neck 04/11/25: No acute intracranial abnormality. Unchanged 10 mm calcified meningioma along the right frontal lobe. No large vessel occlusions or dissections. No aneurysms. Moderate mixed plaque within both carotid bulbs and proximal
ICAs. No significant stenosis appreciated.
Differentials for the patient's presentation include:
1. Increased weakness and dizziness; uncertain etiology, possibilities include metabolic disturbance in the setting of UTI, intractable migraine with aura, vs less likely structural brain abnormality.
2. CTA head/neck is negative for significant stenosis and dissection.
3. Vitamin B12 deficiency.
4. History of multiple sclerosis, not on DMT.
Patient has the following risk factors for their symptoms: UTI, hx migraine with aura, MS
Recommendations:
-CTA head/neck obtained/reviewed.
-MRI brain w/ and w/o contrast pending. No role for repeat Cervical spine MRI given last imaging was 3 days ago and was normal.
-PT evaluations.
-Provide rizatriptan 10mg, metoclopramide 10mg x1 for headache.
-Vitamin B12 level is low at 338, initiate cyanocobalamin 1000mcg PO daily.
-Continue home vitamin D3 50mcg PO daily.
-DVT prophylaxis.
-Follow-up with Dr. Cosby as an outpatient.
Discussed patient care with: Dr. Puentes, the patient
Vital Signs and Labs
-
Vital Signs and Labs:
Vital Signs
Temp Pulse Resp BP Pulse Ox
97.7 F 68 16 107/68 98
04/11/25 08:26 04/11/25 08:26 04/11/25 08:26 04/11/25 08:22 04/11/25 08:24
Lab Results
04/11/25 05:39
04/11/25 05:39
Sodium 140 mmol/L (135-145) 04/11/25 05:39
Potassium 4.3 mmol/L (3.5-5.1) 04/11/25 05:39
BUN 24 mg/dl (7-17) H 04/11/25 05:39
Glucose 96 mg/dl (70-99) 04/11/25 05:39
Calcium 8.8 mg/dl (8.4-10.2) 04/11/25 05:39
LDL Cholesterol, Calc 104 mg/dl 04/11/25 05:39
Vitamin B12 338 pg/ml (239-931) 04/11/25 05:39
Medications
-
Medications:
Generic Name Dose Route Start Last Admin
Trade Name Freq PRN Reason Stop Dose Admin
Acetaminophen 650 mg 04/11/25 02:18
Acetaminophen 325 Mg Tablet PO 05/09/25 02:17
Q4HPRN PRN
mild pain/CALDWELL/temp> 100.4F
Bisacodyl 10 mg 04/11/25 02:18
Bisacodyl 10 Mg Rectal Suppository RECTAL 05/09/25 02:17
[id number] PRN
constipation
Cholecalciferol 50 mcg 04/11/25 09:00
Cholecalciferol (Vitamin D3) 50 Mcg Tablet (2,000 Units) PO 05/09/25 08:59
DAILY RHONDA
Cyanocobalamin 1,000 mcg 04/11/25 09:00
Cyanocobalamin 1,000 Mcg Tablet PO 05/09/25 08:59
DAILY RHONDA
Diltiazem HCl 120 mg 04/11/25 22:00
Diltiazem 120 Mg Extended Release (24 H) Capsule PO 05/09/25 21:59
HS RHONDA
Enoxaparin Sodium 40 mg 04/11/25 18:00
Enoxaparin Sodium 40 Mg/0.4 Ml Syringe SC 05/09/25 17:59
QPM RHONDA
Hydrochlorothiazide 12.5 mg 04/11/25 08:00 04/11/25 08:28
Hydrochlorothiazide 12.5 Mg Tablet PO 05/09/25 07:59 12.5 mg
DAILY RHONDA Administration
Levofloxacin/Dextrose 750 mg in 150 mls @ 100 mls/hr 04/12/25 01:00
Levaquin IV
Q24H RHONDA
Meclizine HCl 25 mg 04/11/25 02:18
Meclizine 25 Mg Tablet PO 05/09/25 02:17
Q8HPRN PRN
dizziness
Metoclopramide HCl 10 mg 04/11/25 02:18
Metoclopramide 10 Mg/2 Ml Vial IV 05/09/25 02:17
Q6HPRN PRN
nausea
Polyethylene Glycol 17 grams 04/11/25 02:18
Polyethylene Glycol Powder 17 Grams Packet PO 05/09/25 02:17
DAILYPRN PRN
constipation
Senna/Docusate Sodium 1 tablet 04/11/25 02:18
Docusate W/Senna (April-Colace) Tablet PO 05/09/25 02:17
BIDPRN PRN
constipation
Tizanidine HCl 4 mg 04/11/25 02:18
Tizanidine 4 Mg Tablet PO 05/09/25 02:17
HS PRN
spasm
Valsartan 160 mg 04/11/25 08:00 04/11/25 08:28
Valsartan 160 Mg Tablet PO 05/09/25 07:59 160 mg
BID RHONDA Administration
NIH Stroke Score
Subsequent NIH Scale
Date of Subsequent NIH Scale: 04/11/25
Time of Subsequent NIH Scale: 08:50
NIH Stroke Score
Level of Consciousness: 0 - Alert
LOC Questions: 0-Answers both correctly
LOC Commands: 0-Performs both correctly
Best Horizontal Gaze: 0-Normal
Visual Mcgregor: 0=Normal, no visual loss
Facial Palsy: 0=Normal, symmetrical
Motor - Right Arm: 0=No drift 10 seconds
Motor - Left Arm: 0=No drift 10 seconds
Motor - Right Le-No drift 5 seconds
Motor - Left Le-No drift 5 seconds
Limb Ataxia: 0-Absent
Sensation: 0-Normal
Best Language: 0-No aphasia
Dysarthria: 0-Normal
Extinction and Inattention: 0-No abnormality
NIH Total Score:: 0

Documented by User: Roberto Puentes MD 04/11/25 11:07
NIH Stroke Score
NIH Stroke Score
NIH Total Score:: 0
[2025-04-11] MEDS: VITAMIN B-12 1000 MCG PO (09:52)
[2025-04-11] MEDS: MAXALT MLT (ORALLY DISINTEGRATING) 10 MG PO (09:52)
[2025-04-11] MEDS: VITAMIN D3 (cholecalciferol) 50 MCG PO (09:52)
[2025-04-11] MEDS: REGLAN 10 MG IV (09:59)
--- NOTE | 2025-04-11 11:24 | CM ---
Patient seen bedside w/ significant other in the ED. Initial assessment completed. Patient is a 65-year-old female with past medical history notable for hypertension, GERD, MS, migraine headache presenting to the emergency department following a
fall at home.
Patient resides w/ sig other in a 2STH, 2 steps to enter. Full flight to the second floor where bed and bath are located. Patient is independent w/ ambulation. Patient has a RW, cane and w/c when her MS flares up and uses devices as support.
Independent w/ ADLs. No SNF/HC hx reported. 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
Address, point of contact and insurance verified
PCP: Dominick Aldnaa
Pharmacy: [facility]
Discussed w/ therapy, will rec OP PT for balance, patient has been having multiple falls at home due to her MS. Patient receptive to OP PT, stating that her neurologist gave a referral for it. Discussed w/ hospitalist, will poss d/c today w/ script.
Plan: Home w/ OP PT
--- NOTE | 2025-04-11 14:23 | W.PN.UPDATE ---
Update Note
Progress Note Update
Patient feels somewhat better although headache still persist. Also complaining of urinary symptoms, and has obvious suprapubic tenderness.
Follow-up MRI brain with and without contrast.
PT eval
Rizatriptan
Patient refusing Reglan
Follow-up cultures, urine
Can continue fluoroquinolone for now due to allergy to cephalosporin, penicillins
[2025-04-11] MEDS: ZOFRAN 4 MG IV ×2 (15:48→20:36)
[2025-04-11] MEDS: TUMS CHEWABLE TABLET 200 MG PO (20:08)
[2025-04-11] MEDS: CARDIZEM CD 120 MG PO (20:10)
[2025-04-11] MEDS: NSS (PRESERVATIVE FREE) 10 ML IV (22:26)
[2025-04-11] MEDS: PROTONIX IV 40 MG IV (22:26)
[2025-04-11] MEDS: DILAUDID 0.25 MG IV (22:26)
[2025-04-12] MEDS: LEVAQUIN 150 IV (01:11)
--- NOTE | 2025-04-12 01:30 | W.PN.UPDATE ---
Update Note
Progress Note Update
Pt reports 10/10 abdominal pain with nausea and reflux. Upon assessment patient restless in pain, hypoactive bowel sound, VSS. Rx additional 4mg IV Zofran, 0.25mg IV dilaudid x1, IV protonix.
[2025-04-12 07:05] VITALS: BP 102/60
[2025-04-12] MEDS: NSS (PRESERVATIVE FREE) 10 ML IV (07:44)
[2025-04-12] MEDS: TYLENOL PO (07:45)
[2025-04-12] MEDS: PROTONIX IV 40 MG IV (07:45)
[2025-04-12] MEDS: VITAMIN D3 (cholecalciferol) 50 MCG PO (07:45)
[2025-04-12] MEDS: VITAMIN B-12 1000 MCG PO (07:45)
[2025-04-12 07:53] LABS: Hematocrit 37.6 % (37.0-47.0); Hemoglobin 12.7 g/dL (12.0-16.0); Mean Corp Hgb Conc. 33.8 g/dL (33.0-37.0); Mean Corpuscular Volume 88.1 fL (81.0-99.0); Platelet Count 320 10^3/uL (130-400); Red Cell Dist. Width 12.3 % (11.5-14.5)
[2025-04-12] MEDS: DIOVAN 160 MG PO (08:24)
[2025-04-12] MEDS: ORETIC 12.5 MG PO (08:24)
[2025-04-12] MEDS: TYLENOL 650 MG PO (08:24)
[2025-04-12] MEDS: ZOFRAN 4 MG IV ×2 (08:30→15:26)
[2025-04-12 08:47] LABS: ALT (SGPT) 14 U/L (0-35); AST (SGOT) 17 U/L (14-36); Albumin 4.4 g/dl (3.5-5.0); Alkaline Phosphatase 52 U/L (38-126); Blood Urea Nitrogen 16 mg/dl (7-17); Calcium 9.9 mg/dl (8.4-10.2); Carbon Dioxide 26 mmol/L (22-30); Chloride 105 mmol/L (98-107); Estimated Creatinine Clearance 63 ml/min; Glucose 98 mg/dl (70-99); Magnesium 1.9 mg/dl (1.6-2.3); Potassium 4.4 mmol/L (3.5-5.1); Sodium 141 mmol/L (135-145); Total Protein 6.8 g/dl (6.3-8.2); eGFR > 60.00
[2025-04-12] MEDS: DILAUDID 0.25 MG IV ×2 (09:08→15:26)
[2025-04-12 11:36] VITALS: BP 105/69; BP 111/72; BP 96/68; PULSE 62; PULSE 63
--- NOTE | 2025-04-12 13:11 | W.PN.HOSP.TC ---
Addendum entered and electronically signed by Rashaun Ptee MD 04/12/25 15:00:
[id number]
Original Note:
Today's Communication/Plan
-
F/u Neuro outpt
Assessment / Plan
Assessment / Plan
Physical Exam
General: Well Developed, Well Nourished and Anxious
HEENT: NormoCephalic, Moist mucous membranes and Atraumatic
Respiratory: Clear
Cardiac: S1/S2 and Regular Rhythm; No Murmur or Rub
GI: Soft, Non Tender, Non Distended and Normal Bowel Sounds; No Organomegaly
Rectal: Deferred by Provider
Musculoskeletal: No Clubbing, No Cyanosis and No Edema
Skin: No Rash
Neuro: AO x 3 and Nonfocal/grossly intact
Hematologic/Lymphatic: No Lymphadenopathy
Psych: Calm
65-year-old with history of multiple sclerosis presenting to the emergency department with dysuria, incontinence, frequency, headache, bilateral paresthesias and numbness in the upper and lower extremities as well as weakness in the lower extremity
on history. She also reports headache, memory difficulty as well as dizziness/vertigo without nausea vomiting. She has had episodes of treatment for dysuria with nitrofurantoin x 2 over the last 3 weeks. She is currently on nitrofurantoin with
persistent dysuria. Stopped disease modifying medications for MS several years ago. CT of the head is negative. She is nonseptic appearing, UA is positive but appears contaminated.
PLAN:
Dizziness -suspect possible MS exacerbation given multi focal deficits with sensory deficits in the upper and lower extremities, weakness in the lower extremity, dizziness/vertigo
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
-MR Brain nonacute and neurological exam shows no focal deficits.
-rizatriptan 10mg
- patient cannot tolerate reglan
-cyanocobalamin 1000mcg PO daily
-Continue home vitamin D3 50mcg PO daily.
-UCx negative
#Abdominal pain
-ct a/p negative for acute pathology
-i suspect level of MS and anxiety
-pain control
-abd non distended, non tender
HTN
- continue valsartan, hctz and dilitazem
- orthostatics
DVT PPX - lovenox sq
Code status - Full Code
More than 30 minutes spent in discharge including
Final examination of the patient
Summarizing hospital stay
Instructions for continuing care to all relevant caregivers
Preparation of discharge records, prescriptions, and referral forms
Total time spent (in minutes): 36
Anticipated Discharge: Today
Subjective/Interval History
-
Date of Service: April 12, 2025
abdominal pain, non specific - states worse with reglan and then PPI; abd non tender and non distended
Objective Data
-
Labs:
Laboratory Results
04/12/25
07:09
WBC 7.3
Hgb 12.7
Hct 37.6
Plt Count 320
Sodium 141
Potassium 4.4
Chloride 105
Carbon Dioxide 26
BUN 16
Creatinine 0.9
Glucose 98
Calcium 9.9
Total Bilirubin 1.1
AST 17
ALT 14
Alkaline Phosphatase 52
Vital Signs:
Vital Signs
Temp Pulse Resp BP Pulse Ox
98.3 F 61 16 102/60 97
04/12/25 07:05 04/12/25 07:05 04/12/25 07:05 04/12/25 07:05 04/12/25 07:05
Review of Systems
-
History Source: Patient
All other systems: Not reviewed unless documented
Data Reviewed
-
CT Scan: Report Reviewed by me
MRI: Report Reviewed by me
Labs: Labs Reviewed by me
--- NOTE | 2025-04-12 14:18 | W.PN.NEURO.1 ---
Today's Communication / Plan
-
stable for discharge
Neuro Assessment/Plan
Assessment
brain MRI w/o and w/ contrast imgs rev'd, no stroke. white matter lesions consistent with chronic MS, per report appears stable. no enhancement
CTA head/neck no LVO, no significant stenosis
Performed OMT cervical region, afterwards patient reports dizziness improved, headache persisting 04/06.
Multiple sclerosis not on DMT, follows with neurologist Dr Cosby
stable for discharge
Subjective/Objective
Subjective Data
Date of Service: April 12, 2025
headache 04/06. dizziness with lateral gaze either direction or cervical rotation.
abdominal pain.
Objective Data
Vital Signs
Temp Pulse Resp BP Pulse Ox
36.8 C 61 16 102/60 97
04/12/25 07:05 04/12/25 07:05 04/12/25 07:05 04/12/25 07:05 04/12/25 07:05
Lab Results
04/12/25 07:09
04/12/25 07:09
Sodium 141 mmol/L (135-145) 04/12/25 07:09
Potassium 4.4 mmol/L (3.5-5.1) 04/12/25 07:09
BUN 16 mg/dl (7-17) 04/12/25 07:09
Glucose 98 mg/dl (70-99) 04/12/25 07:09
Calcium 9.9 mg/dl (8.4-10.2) 04/12/25 07:09
LDL Cholesterol, Calc 104 mg/dl 04/11/25 05:39
Vitamin B12 338 pg/ml (239-931) 04/11/25 05:39
Patient Allergies
Cephalosporins Allergy (Verified 04/10/25 19:26)
Unknown
ketorolac (From Toradol) Allergy (Verified 04/10/25 19:26)
Nausea / Vomiting
penicillin G Allergy (Verified 04/10/25 19:26)
Unknown
Penicillins Allergy (Verified 04/10/25 19:26)
Unknown
prochlorperazine (From Compazine) Allergy (Verified 04/11/25 22:25)
causes Anxiety. Patient refuses to take.
Physical Exam
-
AAOx3, speech clear, language intact
VFF, EOMI, face symmetric
full strength b/l UE/LE
cervical rotation decreased to the left
palpated left C3 and right C5 sublxation
[2025-04-12 15:13] VITALS: BP 102/72
--- NOTE | 2025-04-12 15:32 | W.DS.TRANS ---
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
-
Discharge Instructions:
Discharge Diagnosis/Procedures migraine with aura
Diet Low Cholesterol,Low Fat
Blood Work cbc and cmp in 1 week with pcp
Others Tests as per neurology outpt
Instructions:
Stand-Alone Forms:
Changes to Home Medications: Yes
Discharge Medications:
DC Medications w/original date entered in [employer]
omega 2-jnk-cwr-fish oil 1,000 mg (120 mg-180 mg) capsule (Fish Oil) 1 cap PO DAILY High Cholesterol 05/13/24
Dayana 1 cap PO DAILY Supplement 04/11/25
diltiazem HCl 120 mg capsule,extended release 24 hr 120 mg PO DAILY Blood Pressure 04/11/25
hydrochlorothiazide 12.5 mg tablet 12.5 mg PO DAILY Blood Pressure 04/11/25
lysine 1,000 mg tablet 1,000 mg PO DAILY Supplement 04/11/25
magnesium oxide 400 mg PO DAILY Supplement 04/11/25
slippery elm bark 400 mg capsule 400 mg PO DAILY Supplement 04/11/25
tizanidine 4 mg tablet 4 mg PO Q6HPRN PRN spasms 04/11/25
valsartan 160 mg tablet 160 mg PO BID Blood Pressure 04/11/25
vitamin D3 125 mcg (5,000 unit)-vitamin K2 100 mcg capsule 1 cap PO DAILY Supplement 04/11/25
cyanocobalamin (vitamin B-12) 1,000 mcg tablet (Vitamin B-12) 1,000 mcg PO DAILY 30 days #30 tabs 04/12/25
nitrofurantoin macrocrystal 100 mg capsule 100 mg PO BID #1 cap 04/12/25
Home Medication Changes
cyanocobalamin (vitamin B-12) 1,000 mcg tablet (Vitamin B-12) 1,000 mcg PO DAILY 30 days #30 tabs 04/12/25
Pending Results: No
== END 2025-04-12 17:49 | disposition home or self-care (01) | DRG 60 ==
LOC: 4 EAST ACU 02:13
PROVIDERS: Physician Assistant; Student in an Organized Health Care Education/Training Program; ADMITTING PHYSICIAN Internal Medicine; ATTENDING PHYSICIAN Internal Medicine; CONSULT PHYSICIAN Psychiatry & Neurology Neurology; EMERGENCY PHYSICIAN Student in an Organized Health Care Education/Training Program; FAMILY PHYSICIAN Family Medicine
DX: G35 Multiple sclerosis (principal); G43.109 Migraine with aura, not intractable, without status migrainosus; F41.9 Anxiety disorder, unspecified; W19.XXXA Unspecified fall, initial encounter; K21.9 Gastro-esophageal reflux disease without esophagitis; I10 Essential (primary) hypertension; Z87.891 Personal history of nicotine dependence; Z88.1 Allergy status to other antibiotic agents; Z88.0 Allergy status to penicillin; I95.1 Orthostatic hypotension; K59.00 Constipation, unspecified; M79.7 Fibromyalgia; Z90.49 Acquired absence of other specified parts of digestive tract
CPT/HCPCS: 70450; 70496; 70498; 70551; 74176; 80048; 80053; 80061; 81003; 81015; 82607; 83605; 83735; 84443; 84484; 85025; 85027; 85652; 87040; 87086; 93005; 96365; 97163; 99285; Q9967

== ENCOUNTER 2025-05-05 20:54 | Inpatient (IN) | payer MEDICARE, OTHER, SELFPAY ==
[2025-05-02] MEDS: ZOFRAN 4 MG IV ×2 (10:33→14:09)
--- NOTE | 2025-05-02 10:33 | ED.GENMED ---
History of Present Illness
General
Chief Complaint: Abdominal Symptoms
Source: patient
Exam Limitations: none
Time Seen by Provider: 05/02/25 09:58
Nursing documentation reviewed up to this point in time: agreed with
History of Present Illness
History of Present Illness:
Patient with history of multiple sclerosis, recently discharged in the hospital after being treated for abdominal pain and back pain, presents to ED secondary to worsening abdominal pain and left mid back pain over the past 24 hours. Denies fever
or chills. Denies vomiting, although with nausea sensation. Denies diarrhea. Denies weakness. Denies urinary or bowel incontinence. Denies new trauma. Patient was evaluated by her primary neurologist Dr. Cosby, yesterday, who felt that some
of her symptoms were related to her medications. Patient was recommended to obtain MRI as an outpatient.
Past History
Past History
ED Past Medical History: Fibromyalgia and Other (migraine/MS ); Negative IDDM
ED Past Surgical History: Appendectomy
Social History
Tobacco: Non-smoker
Alcohol: None
Living: with family
Review of Systems
Review of Systems
Allergies reviewed?: Yes
All Other Systems: ROS reviewed and negative except as documented in HPI and ROS
Constitutional: Reports no symptoms
Respiratory: Reports no symptoms
Cardiac: Reports no symptoms
ABD/GI: Reports abdominal pain and nausea; Denies vomiting
Musculoskeletal: Reports back pain
Skin: Reports no symptoms
Neurological: Reports no symptoms; Denies dizzy, headache or weakness
Phy Exam
Physical Exam
Physical Exam:
Physical Exam
General: mild painful distress, not acutely ill. afebrile
Head: nc/at. eomi
Neck: supple. normal range of motion.
Heart: s1/s2 regular rate and rhythm
Lungs: no acute respiratory distress. clear bilaterally
Abdomen: normal bowel sounds. not tender. no distention
Back: no midline tenderness
Neuro: alert and oriented x 3. no focal neurological deficits
Skin: no rash
Psychiatric: well kept. interactive and cooperative
Extremities: no edema. no calf tenderness.
Course
Orders/Labs/Results
Orders:
Orders
05/02/25 Breakfast
Clear Liquid
05/02/25 10:23
HYDROmorphone [Dilaudid] 1 mg IV NOW STA
Ondansetron Injectable [Zofran] 4 mg IV NOW STA
05/02/25 10:24
Electrocardiogram (*1) Urgent
Reason for Study: QTc Monitoring
EKG- Treatment ONCE
0.9% Sodium Chloride 500 ml [Nss] 500 ml IV BOLUS
05/02/25 10:31
Complete Blood Count/With Diff Urgent
Comprehensive Metabolic Panel Urgent
Lipase Urgent
05/02/25 11:29
Urinalysis Reflex To Culture Urgent
Date Specimen was Collected: 05/02/25
Time Specimen was Collected: 11:05
US Abdomen Complete/Upper Urgent
Comment:
Reason For Exam: abd pain with elevated LFTs
05/02/25 13:24
HYDROmorphone [Dilaudid] 0.5 mg IV NOW STA
05/02/25 14:00
HYDROmorphone [Dilaudid] 0.5 mg IV NOW STA
Ondansetron Injectable [Zofran] 4 mg IV NOW STA
05/02/25 14:45
STOOL [C difficile Antigen & Toxins] Urgent
EDUARDO Source: Feces/Stool
Specimen Description:
Stool Culture Urgent
EDUARDO Source: Feces/Stool
Specimen Description:
Stool For WBC Urgent
EDUARDO Source: Feces/Stool
Specimen Description:
Famotidine [Pepcid] 20 mg IV NOW STA
05/02/25 14:49
diazePAM [Valium Injection] 2 mg IV NOW STA
05/02/25 15:05
GASTROINTESTINAL CONSULT Routine
Consulting Provider: Eva Curtis
Was physician already notified: Yes
05/02/25 15:10
Admit/Transfer Patient As Directed
Co-Sign Provider:
Level of Care: Observation services
Assign to:: Medical/Surgical
Physician / Group: Neisha
Diagnosis: Abdominal Pain
05/02/25 15:11
PRN Pain Medication Management As Directed
May give lesser potent ordered pain med per pt: Yes
preference::
Protocol:: Medication orders for pain may be administered in a
manner that supports deferring to patient preference
when the pt is:
- Requesting an ordered lesser potent pain medication.
Least to most potent pain medications are defined
as: acetaminophen < NSAID < tramadol < opioids
(morphine, oxycodone, hydromorphone).
- Requesting a lesser dose of the same medication IF
ORDERED.
- Requesting a less intrusive route of administration
if both routes are prescribed by the provider (PO <
IV).
05/02/25 15:13
Code Status As Directed
Resuscitation Status: Full Code
05/02/25 15:14
CT Abd/pel W Iv And Oral Contr Urgent
Comment:
Reason For Exam: Epoigastric Abdominal Pain, Leukocytosis
Iohexol [Omnipaque] See Protocol PO NOW STA
05/02/25 20:24
0.9% Sodium Chloride 1000 ml [Nss] 1,000 ml IV 100 mls/hr
Acetaminophen [Tylenol] 650 mg PO Q4HPRN PRN
Diltiazem Extended Release [Cardizem Cd] 120 mg PO QPM
Famotidine [Pepcid] 20 mg IV Q12
HYDROmorphone [Dilaudid] 0.5 mg IV Q3HPRN PRN
Ondansetron Injectable [Zofran] 4 mg IV Q6HPRN PRN
Valsartan [Diovan] 160 mg PO BID
diazePAM [Valium Injection] 2 mg IV Q6HPRN PRN
05/02/25 20:24
Activity As Directed
Activity Level: Out of Bed-Early Mobility
With Assistance
I&O [Intake/ Output] As Directed
Frequency: q12h
Pneumatic Compression Sleeves As Directed
Type: Knee high
Vital Signs As Directed
Frequency: Per unit guidelines
Weight As Directed
Frequency: Daily
DX Deep Vein Thrombosis Video Routine
Abnormal Lab Results
05/02/25 05/02/25
10:31 11:29
WBC 16.2 H 10^3/uL
(4.8-10.8)
Abs Immat Gran (auto) 0.1 H 10^3/uL
(0-0.05)
Absolute Neuts (auto) 12.7 H 10^3/uL
(1.4-6.5)
Absolute Monos (auto) 1.1 H 10^3/uL
(0.1-0.6)
Neutrophils % 78.4 H %
(42.2-75.2)
Lymphocytes % 14.0 L %
(20.5-51.1)
Carbon Dioxide 18 L mmol/L
(22-30)
BUN 25 H mg/dl
(7-17)
Glucose 120 H mg/dl
(70-99)
Calcium 11.2 H mg/dl
(8.4-10.2)
Total Bilirubin 1.4 H mg/dl
(0.2-1.3)
Total Protein 8.3 H g/dl
(6.3-8.2)
Albumin 5.3 H g/dl
(3.5-5.0)
Urine Ketones 1+ A
(Negative)
05/02/25 10:31
05/02/25 10:31
Vital Signs
Initial and Last Documented VS:
Initial Vital Signs
Temp Pulse Resp Pulse Ox
97.5 F 98 24 100
05/02/25 09:52 05/02/25 09:52 05/02/25 09:52 05/02/25 09:52
Last Documented Vital Signs
Temp Pulse Resp BP Pulse Ox
97.9 F 65 20 139/81 98
05/04/25 07:50 05/04/25 07:50 05/04/25 07:50 05/04/25 07:50 05/03/25 23:47
MDM/Problems Addressed
MDM/Problems Addressed:
Fatty infiltration noted on US abdomen, which patient is aware of. Patient reports having received unremarkable upper endoscopy in October 2024 with GI physician at [facility]. Patient had been recommended to obtain HIDA scan as an outpatient.
Discussed with on-call GI physician, Dr. Curtis, who does not feel that repeat upper endoscopy will be helpful at this time. However, does agree with that patient may benefit from obtaining HIDA scan with [facility]. Patient to be reassessed afterwards.
Patient with ongoing, recurrent abdominal pain, requiring additional pain medication. Secondary to narcotics administered, unable to obtain HIDA scan at this time. As such, patient will be admitted to the hospital service for further evaluation
and treatment, including symptomatic treatment, along with consideration to obtain HIDA scan as an inpatient.
*Pulse Oximetry
SaO2: 100
Oxygen Mode of Delivery: Room air
Patient hypoxic: no
*EKG
Interpreted by ED Provider?: Yes
EKG Intrepretation Date: 05/02/25
Heart Rate: 69
Rate: normal
Rhythm: sinus
Nicholls: normal axis
Interval: normal interval
*Critical Care Note
Total Time (30-74mins, 75-104mins- exclusive of procedures): Not Applicable
ED Attending Note
-
Portions of this chart may have been created with voice recognition software.� Occasional wrong word or��sound alike� substitutions may have occurred due to the inherent limitations of voice recognition software.
Discharge Plan
Departure
Patient Disposition: Admit
Date of Disposition: 05/02/25
Time of Disposition: 14:02
Admit to: Med/Surg
Presentation/result/management discussed w/ accepting MD/DO: Hospitalist
Discharge Problem:
Intractable abdominal pain
Interventions
Interventions:
*Risk Screen - Suicide Last Done: 05/02/25 09:52
*General Assessment Last Done: 05/02/25 10:30
*Neglect/Abuse Screening Last Done: 05/02/25 09:52
*ED COVID-19 Vaccine History Last Done: 05/02/25 10:30
*Nursing Disposition Last Done: 05/02/25 20:19
IE-Rmnynq-Xhpkejkphw Assessment Last Done: 05/02/25 10:30
Discharge Date and Time
Discharge Date/Time: 05/02/25 20:19
[2025-05-02] MEDS: NSS 500 IV (10:34)
[2025-05-02] MEDS: DILAUDID 1 MG IV (10:34)
[2025-05-02 10:38] LABS: Hematocrit 41.8 % (37.0-47.0); Hemoglobin 14.8 g/dL (12.0-16.0); Mean Corp Hgb Conc. 35.4 g/dL (33.0-37.0); Mean Corpuscular Volume 86.2 fL (81.0-99.0); Nucleated Red Blood Cells % 0 %; Platelet Count 398 10^3/uL (130-400); Red Cell Dist. Width 12.1 % (11.5-14.5)
[2025-05-02 11:00] VITALS: BP 124/83
[2025-05-02 11:09] LABS: AST (SGOT) 22 U/L (14-36); Albumin 5.3 g/dl (3.5-5.0); Alkaline Phosphatase 68 U/L (38-126); Blood Urea Nitrogen 25 mg/dl (7-17); Calcium 11.2 mg/dl (8.4-10.2); Carbon Dioxide 18 mmol/L (22-30); Chloride 106 mmol/L (98-107); Glucose 120 mg/dl (70-99); Lipase 146 U/L (23-300); Potassium 4.5 mmol/L (3.5-5.1); Sodium 138 mmol/L (135-145); Total Protein 8.3 g/dl (6.3-8.2); eGFR > 60.00
[2025-05-02 11:31] LABS: ALT (SGPT) 21 U/L (0-35)
[2025-05-02 12:04] LABS: Urine Character Clear (Clear)
[2025-05-02 13:00] VITALS: BP 135/80
[2025-05-02] MEDS: DILAUDID 0.5 MG IV ×2 (13:28→14:08)
[2025-05-02 14:00] VITALS: BP 130/68
--- NOTE | 2025-05-02 14:10 | HPS.HSE ---
Addendum entered and electronically signed by Juwan Driver MD 05/02/25 18:25:
This is an addendum to H&P written by Miladys Espinoza on 05/02/2025. �Patient seen and examined independently with PA.
65-year-old female past medical history of multiple sclerosis, fibromyalgia, anxiety, hypertension, appendicitis status post laparoscopic appendectomy and drainage of abscess with repair of umbilical hernia in August 2023, presenting for worsening
epigastric/right upper quadrant abdominal pain and left mid back pain. �No fevers or chills. �Has nausea but no vomiting. �No diarrhea. 15 pound weight loss.� Patient seen by her primary neurologist Dr. Cosby.
Patient was recently admitted from 04/11 to 04/12 for dizziness and vomiting, intermittent dysuria, headache and abdominal pain attributed to multiple sclerosis and migraine. �CT abdomen pelvis at that time was unremarkable.
She underwent EGD in October or 2024 at [place] which only showed gastric erythema.�
She was previously admitted in April 2024 for epigastric pain attributed to gastritis versus gastroparesis versus ulcer and started on Protonix.
Vital signs normal.
Labs show leukocytosis.
Abdominal ultrasound shows no acute intra-abdominal process. �Increased hepatic echogenicity most consistent with mild fatty infiltration.
Unclear etiology of symptoms could be gastritis/PUD vs other causes such as biliary dyskinesia.� Patient refusing Protonix so giving Pepcid. Dilaudid for pain. GI was consulted. HIDA scan to be considered although cannot be performed inpatient.
Check CT abdomen pelvis with IV and oral contrast since last scan done without contrast.�
Original Note:
Family Physician
-
Family Physician: Dominick Aldana
Chief Complaint
-
Abdominal Pain
History of Present Illness
Patient is a 65 y/o female past medical history of multiple sclerosis, fibromyalgia and hypertension who presents with abdominal pain. Patient reports several prior episodes of abdominal pain but state this is the most severe episode. She
describes severe epigastric and right upper quadrant pain. She reports associated nausea with increased belching with sometimes sour taste in her mouth. She denies any vomiting. She reports diarrhea that started last night which she describes as
mostly liquids that is yellow in color. She denies any bloody diarrhea. She denies any fevers. Reviewed upper endoscopy from [facility] 2024 with moderate erythematous gastric mucosa.
Medical History
Past Medical History
Past Medical History: Reports Other
Additional Past Medical History:
Multiple Sclerosis
Fibromyalgia
Anxiety
Hypertension
Past Surgical History: Reports Other
Additional Past Surgical History:
Appendectomy with Drainage Intraabdominal Abscess
Umbilical Hernia Repair with [facility]
Social History
Tobacco: Former Smoker
Alcohol: None
Drug: Other (Denies Marijuana use)
Family History
Family History: Not pertinent
Allergies / Home Medications
Allergies reflects when Allergies were last updated in [employer].
Home Medications with original date entered in [employer]
Allergy/Medication List:
Allergies
Allergy/AdvReac Type Severity Reaction Status Date / Time
ketorolac (From Toradol) Allergy Nausea / Verified 05/02/25 09:56
Vomiting
penicillin G Allergy Unknown - Verified 05/02/25 14:18
as a child
prochlorperazine (From Allergy causes Verified 05/02/25 09:56
Compazine) Anxiety.
Patient
refuses to
take.
Home Medications
Dayana 1 cap PO DAILY Supplement 04/11/25
diltiazem HCl 120 mg capsule,extended release 24 hr 120 mg PO QPM Blood Pressure 04/11/25
hydrochlorothiazide 12.5 mg tablet 12.5 mg PO DAILY Blood Pressure 04/11/25
lysine 1,000 mg tablet 1,000 mg PO DAILY Supplement 04/11/25
magnesium oxide 400 mg PO DAILY Supplement 04/11/25
slippery elm bark 400 mg capsule 400 mg PO DAILY Supplement 04/11/25
tizanidine 4 mg tablet 4 mg PO Q6HPRN PRN spasms 04/11/25
valsartan 160 mg tablet 160 mg PO BID Blood Pressure 04/11/25
vitamin D3 125 mcg (5,000 unit)-vitamin K2 100 mcg capsule 1 cap PO DAILY Supplement 04/11/25
cyanocobalamin (vitamin B-12) 1,000 mcg tablet (Vitamin B-12) 1,000 mcg PO DAILY 30 days #30 tabs 04/12/25
[place] 1,800 mg PO DAILY 05/02/25
Tocotrienol 125 mg PO DAILY 05/02/25
ascorbic acid (vitamin C) 500 mg tablet (Vitamin C) 500 mg PO DAILY 05/02/25
ascorbic acid 30 mg-collagen, hydrolyzed 833.3 mg tablet (Collagen Skin Renewal) 1 tab PO DAILY 05/02/25
calcium carbonate (Tums) 200 mg PO BIDPRN PRN gerd 05/02/25
coQ10 (ubiquinol) 100 mg capsule 100 mg PO DAILY 05/02/25
diazepam 10 mg tablet (Valium) 10 mg PO DAILYPRN PRN anxiety 05/02/25
marshmallow root 480 mg capsule 960 mg PO DAILY 05/02/25
ondansetron 4 mg disintegrating tablet 4 mg PO Q8HPRN PRN nausea and vomiting 05/02/25
turmeric 400 mg capsule 400 mg PO DAILY 05/02/25
Review of Systems
-
History Source: Patient
A 12 point ROS was completed and negative except as noted: Yes
Constitutional: Denies Fever
Respiratory: Denies Cough or Trouble Breathing
Cardiac: Denies Chest Pain or Palpitations
Abdomen/GI: Reports See HPI
Physical Exam
Vital Signs
Vital Signs
Temp Pulse Resp BP Pulse Ox
97.5 F 74 16 135/80 98
05/02/25 09:52 05/02/25 13:00 05/02/25 13:00 05/02/25 13:00 05/02/25 13:00
Physical Exam
General: Well Developed, Well Nourished and Pain
HEENT: NormoCephalic, Anicteric and Atraumatic
Respiratory: Clear and Non Labored Respirations
Cardiac: S1/S2 and Regular Rhythm
GI: Soft and Tender (Epigastric and Right Upper Quadrant)
Rectal: Deferred by Provider
Musculoskeletal: No Clubbing, No Cyanosis and No Edema
Skin: Warm and Dry
Neuro: Awake, Alert, Oriented and Nonfocal/grossly intact
Psych: Anxious
Laboratory Results
-
05/02/25 10:31
05/02/25 10:31
Laboratory Results
Total Bilirubin 1.4 mg/dl (0.2-1.3) H 05/02/25 10:31
AST 22 U/L (14-36) 05/02/25 10:31
ALT 21 U/L (0-35) 05/02/25 10:31
Alkaline Phosphatase 68 U/L (38-126) 05/02/25 10:31
Lipase 146 U/L (23-300) 05/02/25 10:31
Data Reviewed
-
Ultrasound: Report Reviewed by me
Lab Data: Labs Reviewed by me
Old Records: Reviewed
Impression/Plan
-
Abdominal Pain, unclear etiology possible component of gastritis
-Consult GI
-Patient refused trail of Protonix, but agreeable to Pepcid - Start Pepcid 20mg IV q12h
-Prior CT scan was without contrast - Check Abd/Pelvis CT with IV and Oral Contrast
-Allow clear liquids
Essential Hypertension
-Hold HCTZ
-Continue diltiazem and valsartan
Multiple Sclerosis
-Patient follows with Dr. Cosby with [facility]
Anxiety
-Continue Valium PRN
DVT proph: SCDs
Code Status: Full Code
[2025-05-02] MEDS: VALIUM INJECTION 2 MG IV (14:58)
[2025-05-02] MEDS: PEPCID 20 MG IV (14:58)
[2025-05-02] MEDS: OMNIPAQUE 50 ML PO (15:22)
--- NOTE | 2025-05-02 15:53 | CON.GI ---
Addendum entered and electronically signed by Eva Curtis DO 05/02/25 18:36:
Patient seen and examined independently of the [employer]UMP[employer]ER. I agree with her note with my additions below
Maribel is a 65-year-old female with history of MS, fibromyalgia, anxiety, chronic back pain and spasms who takes Tizanidine. Sounds like she has multiple sensitivities with various medications. She comes in with progressive worsening of epigastric
pain that she describes as squeezing over the last month. Nothing specific exacerbates it. Not affected by food, movement. It coexist with significant nausea but no vomiting. When it is significant she feels like her mouth gets exceptionally
dry. She also has chronic back pain and spasms with regular use of Tizanidine. States she is lost about 12 pounds in the past 3 weeks. No significant dysphagia to liquids or solids more of a sensation of dry mouth where she cannot swallow it
down. She does have some constipation and passing small balls of stool however prior to admission last night she had loose greenish-yellow stool. There was also question of an MS flare recently and she has had them in the past were she has had to
be in a wheelchair as well as visual changes. She does take Excedrin and no significant NSAIDs.
She is somewhat vague with her timeline but it sounds like she had similar symptoms in the spring and last year. Here at [place] she had an endoscopy inpatient with Dr. Negron in April 2024 was unremarkable. More recently in December 2024 she
had an endoscopy and a colonoscopy with Dr. Ng in [place]. Sounds like some mild gastritis and she was prescribed a PPI which she would not take. She has a list of medications that she has sensitivities to. Patient is asking about pain
medication regimen feels her abdominal pain was 10 out of 10 prior to admission.
Objectively her white count was 16.2, total bilirubin 1.3 otherwise normal LFTs and lipase. Ultrasound with no findings to explain her pain. CT scan was done without IV or oral contrast back on December 10, 2024 when she was here with right flank
pain and dizziness that did not show any concerning findings.
# Epigastric pain -unclear etiology -musculoskeletal versus medication induced versus ischemic versus constipation versus small bowel pathology
-- Patient has had 2 endoscopies within the last 12 months with no revealing findings, also lipase normal
-- Agree with better imaging with IV and oral contrast
-- On exam she did not have any significant pain when palpating her spine
-- The tizanidine has significant dry mouth features of more than 50% as a side effect which may be contributing to some of her symptoms
-- Patient is unwilling to take a PPI because she read the side effect profile but will take an H2 katelyn
-- Her outpatient GI suggested HIDA scan, but will see what the CT scan shows first
-- Will likely need bowel regimen in the setting of [id number] narcotics
-- Clear liquids
Original Note:
Consultation
-
Date/Time Consultation Requested: 05/02/25 1500
Date/Time Consultation Performed: 05/02/25 1545
Requesting Provider: Miladys Mejia PA-C
Performing Provider: ARTURO Espino, Eva Curtis DO
Reason for Consultation: abdominal pain
Medical History
Chief Complaint / HPI
History of Present Illness:
Pt is a 65yo presents with onset of with hx MS, fibromyalgia, anxiety, migraines with admission in 2023 with acute appendicitis with lap appe and drainage of abscess with repair of umbilical hernia. She was seen then in 04/2024 with HTN,
headache, speech problems and noted epigastric pain with belching with Excedrin use She has stable CT and EGD with recommended PPI and possible central component of symptoms with also neuro symptoms. She states she has had chronic GI issues for
several years. She did seek outpatient last spring with Dr. Ng and completed EGD and colonoscopy that she recalls erythema in stomach and normal colon. After that was completed she had ? Campylobacter. She related in February she had 2 UTI
with antibiotic use but did not recall what medication she took. In March she was hospitalized as she was concerned for sepsis with dizziness, vertigo, vomiting, with concern for MS exacerbation. She was given Reglan and PPI and felt that
exacerbated her symptoms. She was discharged but now presents with multiple complaint with migratory back pain, epigastric pain worse with dry mouth, nausea, fogginess and belching. Abdominal pain was 10/10 prior to admission. Better with
Dilaudid and no change with movement, BM's or eating. On admission noted with WBC 16,200, bili 1.4 with otherwise normal LFT's and lipase. US with fatty liver renal cyst no other findings.
In addition to above she also admits to regular use Tizanidine, Excedrin 1-2 weekly and multiple supplement. She did also recently start HCTZ and was concerned for side effects and would like to stop. She does have some dysphagia with
liquids and feeling of golf ball in abdomen. + 12 lbs wt loss in 3 weeks. She did have hx constipation with passing hard ball like stools in past but had now had yellow stool prior to admission. She was also concern for MS flare with she can get
with symptoms that have led to decreased mobility and visual changes with need for steroids in past.
.
Past Medical History
Past Medical History: HTN, Psychiatric (anxiety ) and Other (MS, fibromyalgia)
Past Surgical History: Appendectomy (with drainage of abdominal abscess) and Other (umbilical hernia with mesh )
Social History
Tobacco: Non-Smoker
Alcohol: None
Drug: None
Personal:
Living: With Family
Employment: Employed
Family History
Family History: Other (mother with hx SIBO)
Allergies / Home Medications
Allergy/AdvReac Type Severity Reaction Status Date / Time
ketorolac (From Toradol) Allergy Nausea / Verified 05/02/25 09:56
Vomiting
penicillin G Allergy Unknown - Verified 05/02/25 14:18
as a child
prochlorperazine (From Allergy causes Verified 05/02/25 09:56
Compazine) Anxiety.
Patient
refuses to
take.
�Medication �Instructions �Recorded
Dayana 1 cap PO DAILY Supplement 04/11/25
diltiazem HCl 120 mg 120 mg PO QPM Blood Pressure 08/15/25
capsule,extended release 24 hr
hydrochlorothiazide 12.5 mg tablet 12.5 mg PO DAILY Blood Pressure 04/11/25
lysine 1,000 mg tablet 1,000 mg PO DAILY Supplement 04/11/25
magnesium oxide 400 mg PO DAILY Supplement 04/11/25
slippery elm bark 400 mg capsule 400 mg PO DAILY Supplement 04/11/25
tizanidine 4 mg tablet 4 mg PO Q6HPRN PRN spasms 04/11/25
valsartan 160 mg tablet 160 mg PO BID Blood Pressure 04/11/25
vitamin D3 125 mcg (5,000 1 cap PO DAILY Supplement 04/11/25
unit)-vitamin K2 100 mcg capsule
cyanocobalamin (vitamin B-12) 1,000 mcg PO DAILY 30 days #30 tabs 04/12/25
1,000 mcg tablet (Vitamin B-12)
[place] 1,800 mg PO DAILY 05/02/25
Tocotrienol 125 mg PO DAILY 05/02/25
ascorbic acid (vitamin C) 500 mg 500 mg PO DAILY 05/02/25
tablet (Vitamin C)
ascorbic acid 30 mg-collagen, 1 tab PO DAILY 05/02/25
hydrolyzed 833.3 mg tablet
(Collagen Skin Renewal)
calcium carbonate (Tums) 200 mg PO BIDPRN PRN gerd 05/02/25
coQ10 (ubiquinol) 100 mg capsule 100 mg PO DAILY 05/02/25
diazepam 10 mg tablet (Valium) 10 mg PO DAILYPRN PRN anxiety 05/02/25
marshmallow root 480 mg capsule 960 mg PO DAILY 05/02/25
ondansetron 4 mg disintegrating 4 mg PO Q8HPRN PRN nausea and 05/02/25
tablet vomiting
turmeric 400 mg capsule 400 mg PO DAILY 05/02/25
Review of Systems
-
History Source: Patient and Family
Constitutional: Reports Weight Loss and Fatigue
EENT: Reports Other (dry mouth )
Abdomen/GI: Reports Abdominal Pain, Nausea, Diarrhea, Constipated and Other (dysphagia )
: Reports Other (recent UTI)
Musculoskeletal: Reports No Symptoms
Neurological: Reports Dizzy, Headache and Weakness
Endocrine: Reports No Symptoms
Hematologic/Lymphatic: Reports No Symptoms
Vital Signs
Temp Pulse Resp BP Pulse Ox
97.5 F 74 16 135/80 98
05/02/25 09:52 05/02/25 13:00 05/02/25 13:00 05/02/25 13:00 05/02/25 13:00
Physical Exam
Exam
General: Other (in distress with pain )
HEENT: Normocephalic
Respiratory: Clear
Cardiac: Regular Rhythm
GI: Soft, Non Distended and Tender (epigastric pain )
Musculoskeletal: No Clubbing and No Cyanosis
Skin: Warm and Dry
Neuro: Awake, Alert and AO x 3
Psych: Other (anxious but cooperative with pain )
Results
WBC 16.2 10^3/uL (4.8-10.8) H 05/02/25 10:31
Hgb 14.8 g/dL (12.0-16.0) 05/02/25 10:31
Hct 41.8 % (37.0-47.0) 05/02/25 10:31
MCV 86.2 fL (81.0-99.0) 05/02/25 10:31
Plt Count 398 10^3/uL (130-400) 05/02/25 10:31
Absolute Neuts (auto) 12.7 10^3/uL (1.4-6.5) H 05/02/25 10:31
Sodium 138 mmol/L (135-145) 05/02/25 10:31
Potassium 4.5 mmol/L (3.5-5.1) 05/02/25 10:31
Chloride 106 mmol/L (98-107) 05/02/25 10:31
Carbon Dioxide 18 mmol/L (22-30) L 05/02/25 10:31
BUN 25 mg/dl (7-17) H 05/02/25 10:31
Creatinine 0.8 mg/dL (0.6-1.0) 05/02/25 10:31
Calcium 11.2 mg/dl (8.4-10.2) H 05/02/25 10:31
Total Bilirubin 1.4 mg/dl (0.2-1.3) H 05/02/25 10:31
AST 22 U/L (14-36) 05/02/25 10:
ALT 21 U/L (0-35) 05/02/25 10:
Alkaline Phosphatase 68 U/L (38-126) 05/02/25 10:31
Lipase 146 U/L (23-300) 05/02/25 10:31
Diagnostic Image Results:
05/02/25 US abdomen
1. No acute intra-abdominal process identified sonographically.
2. Increased hepatic echogenicity most consistent with mild fatty infiltration.
3. Small right renal cyst without suspicious features.
04/11/25 CT Abd/pel Without Iv Or Oral
1. No acute findings.
2. Incidental findings detailed above -- Mild multilevel disc disease within the lumbar spine.
10/04/24 CT Abd/pelvis W Iv Cont
No CT evidence for an acute process in the abdomen or pelvis. Moderate volume colonic stool.
05/15/24 CT Abd/pel W Iv And Oral Contr
No acute abnormality throughout the abdomen and pelvis.
Subcentimeter low-attenuation right lobe hepatic lesion too small to characterize, unchanged.
Small simple right renal cysts.
Prior appendectomy.
No intestinal obstruction, free air or gross focal pericolonic inflammatory changes.
Prior GI Procedures:
EGD:[facility] 04/2024 - Normal esophagus.
- Erythematous mucosa in the antrum. Biopsied.
- Normal examined duodenum.
bx non specific inflammation, neg H pylori
EGD 12/2024 Dr. Ng- erythema stomach per patient
Colonoscopy: 12/2024 with recalls as normal per patient
Assessment / Plan
-
Pt is a 65yo presents with onset of with hx MS, fibromyalgia, anxiety, migraines with admission in 2023 with acute appendicitis with lap appe and drainage of abscess with repair of umbilical hernia. She was seen then in 04/2024 with HTN,
headache, speech problems and noted epigastric pain with belching with Excedrin use She has stable CT and EGD with recommended PPI and possible central component of symptoms with also neuro symptoms. She states she has had chronic GI issues for
several years. She did seek outpatient last spring with Dr. Ng and completed EGD and colonoscopy that she recalls erythema in stomach and normal colon. After that was completed she had ? Campylobacter. She related in February she had 2 UTI
with antibiotic use but did not recall what medication she took. In March she was hospitalized as she was concerned for sepsis with dizziness, vertigo, vomiting, with concern for MS exacerbation. She was given Reglan and PPI and felt that
exacerbated her symptoms. She was discharged but now presents with multiple complaint with migratory back pain, epigastric pain worse with dry mouth, nausea, fogginess and belching. Abdominal pain was 10/10 prior to admission. Better with
Dilaudid and no change with movement, BM's or eating. On admission noted with WBC 16,200, bili 1.4 with otherwise normal LFT's and lipase. US with fatty liver renal cyst no other findings. In addition to above she also admits to regular use
Tizanidine, Excedrin 1-2 weekly and multiple supplement. She did also recently start HCTZ and was concerned for side effects and would like to stop. She does have some dysphagia with liquids and feeling of golf ball in abdomen. + 12 lbs wt loss in
3 weeks. She did have hx constipation with passing hard ball like stools in past but had now had yellow stool prior to admission. She was also concern for MS flare with she can get with symptoms that have led to decreased mobility and visual
changes with need for steroids in past.
-epigastric pain/belching
-migratory back pain
-dry mouth
-yellow looser stool
-
-leukocytosis
-recent UTI
- hx Campylobacter
other medical problems:
-MS
-hx appe with drainage of abscess/umbilical hernia repair 08/2023
-fibromyalgia
-anxiety
-migraines
PLAN:
etiology of symptoms unclear with multiple GI complaint - abdominal pain, dry mouth, belching, nausea, change in stools, along with neurologic symptoms
possible med side effect with dry mouth-- Tizanidine has 49 % risk of dry mouth along with multiple other symptoms with withdrawal
pt on multiple supplement and side effects difficult to track
plan for repeat CT with IV and oral contrast to exclude other pathology
US stable
check stools studies with recent abx use and prior campylobacter
pain control per hospitalist- reviewed risk of high dose narcotics with patient and resp depression etc
avoid Reglan and Protonix as pt states severe worsening symptoms last admission
pt was agreeable to pepcid
diet as tolerated
update family at bedside
-
-
Thank you for consultation and allowing me to participate in the patient's care. Please call the information technology project manager GI physician during the after hours with any questions or concerns.
[2025-05-02 16:00] VITALS: BP 119/73
--- NOTE | 2025-05-02 18:19 | CM ---
CM reviewed chart and met with pt bedside in ED. Lives with SO in 2 story home, 2 [address], full flight of steps to second floor BR/BA.
Independent in ADLs, personal care and ambulation at baseline, uses RW or cane, has WC for MS flares.
NDIAYE reviewed and signed.
No hx VN or SNF, has script for OP PT/OT but has not scheduled it yet.
PCP: Dominick Aldana
Pharmacy: [facility] [address]
CM will continue to follow for any discharge planning needs.
[2025-05-02 18:54] VITALS: BMI 22.6
[2025-05-02 20:39] VITALS: BP 135/84
[2025-05-02] MEDS: CARDIZEM CD 120 MG PO (21:19)
[2025-05-02] MEDS: PEPCID 40 MG PO (21:19)
[2025-05-02] MEDS: DIOVAN 160 MG PO (21:19)
[2025-05-02] MEDS: NSS 1000 IV (21:20)
[2025-05-02 21:21] VITALS: BMI 22.9
[2025-05-02 23:07] VITALS: BP 137/76
--- NOTE | 2025-05-03 02:40 | PTCARENOTE ---
Patient arrived to unit from ED on stretcher at 2019. Patient ambulated to bed without assist-gait steady. Pt reports hx falls related to MS flares. Pt placed on fall precautions; notified to ring prior to ambulating, AAOx3-Pt is agreeable to this.
Pt reports 4 loose stools yesterday, and 2 loose stools today; placed on enhanced precautions. VSS, NSS @ 100ml/hr started. Notified on plan of care, call mcgrath within reach, bed in lowest position and locked. Pt reports no further needs at this
time.
[2025-05-03 06:00] VITALS: BMI 22.5
[2025-05-03] MEDS: NSS 1000 IV ×2 (06:26→17:47)
[2025-05-03] MEDS: DILAUDID 0.5 MG IV (06:40)
[2025-05-03] MEDS: ZOFRAN 4 MG IV ×2 (06:42→21:12)
[2025-05-03 07:50] VITALS: BP 138/77
--- NOTE | 2025-05-03 08:01 | PTCARENOTE ---
At 0615, pt notified this RN of sudden abdominal discomfort. Pt stated 'the pain feels like a knot in my stomach'. Upon palpation, abd was tight, no palpable mass, but pulsatile sensation coming from midline of abdomen was felt. Patient also
reported increased need to have a BM, patient had a liquid & brown stool. Pt denied worsening of pain with palpation nor tenderness. Nonetheless, patient reported pain was increasing and requested analgesia. See MAR. Patient currently restless,
reports worsening pain. Hand-off report performed with dayshift RN and patient. in room and updated on change. Bed in lowest position and locked, call mcgrath within reach.
--- NOTE | 2025-05-03 08:07 | W.PN.HOSP.TC ---
Today's Communication/Plan
-
See plan
Assessment / Plan
Assessment / Plan
Physical Exam
General: Well Developed, Well Nourished and Pain
HEENT: NormoCephalic, Anicteric and Atraumatic
Respiratory: Clear and Non Labored Respirations
Cardiac: S1/S2 and Regular Rhythm
GI: Soft and Tender (Epigastric and Right Upper Quadrant)
Rectal: Deferred by Provider
Musculoskeletal: No Clubbing, No Cyanosis and No Edema
Skin: Warm and Dry
Neuro: Awake, Alert, Oriented and Nonfocal/grossly intact
Psych: Anxious
Assessment/Plan
65-year-old female with past medical history of multiple sclerosis, fibromyalgia, anxiety, hypertension and appendicitis status post laparoscopic appendectomy and drainage of abscess with repair of umbilical hernia in August 2023, presented for
worsening epigastric/right upper quadrant abdominal pain and left mid back pain. No fevers or chills. Had nausea but no vomiting. No diarrhea. 15 pound weight loss. Patient was seen by her primary neurologist Dr. Cosby. Patient was recently
admitted from 04/11/25 to 04/12/25 for dizziness and vomiting, intermittent dysuria, headache and abdominal pain attributed to multiple sclerosis and migraine. CT abdomen pelvis at that time was unremarkable. She underwent EGD in October or 2024 at
[place] which only showed gastric erythema. She was previously admitted in April 2024 for epigastric pain attributed to gastritis versus gastroparesis versus ulcer and started on Protonix. Vital signs normal. Labs show leukocytosis. Abdominal
ultrasound shows no acute intra-abdominal process. Increased hepatic echogenicity most consistent with mild fatty infiltration. Unclear etiology of symptoms could be gastritis/PUD vs other causes such as biliary dyskinesia. Patient initially
refused Protonix so got Pepcid. Dilaudid for pain. GI was consulted. HIDA scan to be considered although cannot be performed inpatient. Checked CT abdomen pelvis with IV and oral contrast since last scan done without contrast.
Epigastric pain/belching
Migratory back pain
Abdominal Pain, unclear etiology possible component of gastritis
Severe Stomach Distension
-Consult GI
-Patient has had 2 endoscopies within the last 12 months with no revealing findings, also lipase normal
-Abd/Pelvis CT with IV and Oral Contrast -- results noted
-Ultrasound results noted
-Patient initially got NG tube, but then later did not want it, so it was stopped
-No evidence of complete obstruction -- contrast was seen in x-ray further down in the GI tract
-Allow clear liquids
-Bowel regimen in the setting or narcotic pain meds
-Patient declined PPI, so do Pepcid instead
-HIDA scan on 05/05 or 05/06
-Possible EGD on 05/05
-Based on my discussion with Dr. Curtis of GI, possibly a spine/back source? Check MRI of the T and L spine. No need for MRI abdomen at this time, and myself, surgeon Dr. Mcarthur and supervisor international reservations Dr. Curtis are all in agreement with this that no
MRI abdomen needed at this time.
-No AAA on ultrasound and CT
Dry Mouth
-Possibly from Tizanidine
Essential Hypertension
-Hold HCTZ
-Continue diltiazem and valsartan
Multiple Sclerosis
-Patient follows with Dr. Cosby with [facility]
Fibromyalgia
History of appendicitis status post laparoscopic appendectomy and drainage of abscess with repair of umbilical hernia in August 2023
Anxiety
-Continue Valium PRN
DVT prophylaxis: SCDs. Lovenox.
Code Status: Full Code
On 05/03/25, I spoke extensively with patient, patient's and patient's daughter, inside patient's room. I answered all of their questions and concerns to satisfaction. I communicated extensively with supervisor international reservations and surgeon as well.
Anticipated Discharge: > 48 hours
Subjective/Interval History
-
Date of Service: May 03, 2025
Patient was seen and examined. She continued to report abdominal pain.
Objective Data
-
Labs:
Laboratory Results
05/03/25
06:00
WBC Pending
Hgb Pending
Hct Pending
Plt Count Pending
Sodium Pending
Potassium Pending
Chloride Pending
Carbon Dioxide Pending
BUN Pending
Creatinine Pending
Glucose Pending
Calcium Pending
Vital Signs:
Vital Signs
Temp Pulse Resp BP Pulse Ox
97.9 F 69 20 137/76 98
05/02/25 23:07 05/02/25 23:07 05/02/25 23:07 05/02/25 23:07 05/02/25 23:07
I&O
05/02/25 05/03/25 05/04/25
06:59 06:59 06:59
Intake Total 1480 / 1480
Balance 1480 / 1480
[2025-05-03 09:03] LABS: Hematocrit 37.3 % (37.0-47.0); Hemoglobin 12.9 g/dL (12.0-16.0); Mean Corp Hgb Conc. 34.6 g/dL (33.0-37.0); Mean Corpuscular Volume 86.5 fL (81.0-99.0); Platelet Count 349 10^3/uL (130-400); Red Cell Dist. Width 12.3 % (11.5-14.5)
[2025-05-03] MEDS: FLUSH (NSS) 2 FLUSH IV ×2 (09:03→10:36)
[2025-05-03] MEDS: VALIUM INJECTION 2 MG IV (09:03)
[2025-05-03] MEDS: PEPCID 40 MG PO (09:22)
[2025-05-03] MEDS: DIOVAN 160 MG PO ×2 (09:22→19:54)
[2025-05-03] MEDS: DILAUDID 0.25 MG IV (09:23)
--- NOTE | 2025-05-03 09:33 | W.PN.GI.CBS2 ---
Addendum entered and electronically signed by Eva Curtis DO 05/03/25 14:34:
I have spent almost 2 hours with this patient today
X-ray revealed the NG tube in her stomach and contrast through the colon
Her pain is out of proportion to what I am seeing on imaging and I think the anxiety level is exceptional -I gave her 4 mg of IV Valium with no change
Her daughter is at her bedside trying to distract her
She is complaining significantly about the NG tube -surgery will take it out as we discussed
I did ask surgery to come see her because of the amount of pain she is describing
Will take out her NG tube today since she is not obstructed
Likely for HIDA scan Monday or Monday
She had a recent EGD still highly unlikely any finding in her duodenum that would have caused the gastric distention -more likely motility related and she refuses any medications that could potentially help her motility and she is on significant
narcotics which are making things worse
Likely EGD on Monday but will see how she does
Original Note:
Today's Communication / Plan
-
-- NG tube placed at bedside with gastric contents in suction container
-- Check abdominal x-ray to ensure contrast is moving through
-- EGD on Monday
-- Needs pantoprazole IV twice daily
Assessment / Plan
-
Pt is a 65yo presents with onset of with hx MS, fibromyalgia, anxiety, migraines with admission in 2023 with acute appendicitis with lap appe and drainage of abscess with repair of umbilical hernia. She was seen then in 04/2024 with HTN,
headache, speech problems and noted epigastric pain with belching with Excedrin use She has stable CT and EGD with recommended PPI and possible central component of symptoms with also neuro symptoms. She states she has had chronic GI issues for
several years. She did seek outpatient last spring with Dr. Ng and completed EGD and colonoscopy that she recalls erythema in stomach and normal colon. After that was completed she had ? Campylobacter. She related in February she had 2 UTI
with antibiotic use but did not recall what medication she took. In March she was hospitalized as she was concerned for sepsis with dizziness, vertigo, vomiting, with concern for MS exacerbation. She was given Reglan and PPI and felt that
exacerbated her symptoms. She was discharged but now presents with multiple complaint with migratory back pain, epigastric pain worse with dry mouth, nausea, fogginess and belching. Abdominal pain was 10/10 prior to admission. Better with
Dilaudid and no change with movement, BM's or eating. On admission noted with WBC 16,200, bili 1.4 with otherwise normal LFT's and lipase. US with fatty liver renal cyst no other findings. In addition to above she also admits to regular use
Tizanidine, Excedrin 1-2 weekly and multiple supplement. She did also recently start HCTZ and was concerned for side effects and would like to stop. She does have some dysphagia with liquids and feeling of golf ball in abdomen. + 12 lbs wt loss in
3 weeks. She did have hx constipation with passing hard ball like stools in past but had now had yellow stool prior to admission. She was also concern for MS flare with she can get with symptoms that have led to decreased mobility and visual
changes with need for steroids in past.
-epigastric pain/belching
-migratory back pain
-dry mouth
-yellow looser stool
-
-leukocytosis
-recent UTI
- hx Campylobacter
other medical problems:
-MS
-hx appe with drainage of abscess/umbilical hernia repair 08/2023
-fibromyalgia
-anxiety
-migraines
05/02/2025 CT abdomen pelvis with IV and oral contrast,--- hepatic steatosis, gallbladder, bile ducts, pancreas, spleen and adrenals are normal, moderate calcific atherosclerotic plaque in the abdominal aorta with no aneurysm, no lymphadenopathy,
severe distention of the stomach with no abnormal gastric wall thickening or evidence of obstructing soft tissue mass. No abnormal distention or wall thickening in the duodenum or jejunum.
# Epigastric pain -
Severe gastric distention on CT scan, no small bowel distention -gastric outlet obstruction, ulcer, dysmotility
Needs NG tube for decompression and eventual EGD
Reviewed imaging and discussed with radiology. Minimal contrast in the small bowel
NG tube placed at bedside with return of gastric contents in suction container
Will check abdominal x-ray to see if contrast is moving into the small bowel
Patient did have a bowel movement this morning so she is not completely obstructed she also does not have any vomiting
Would highly recommend twice daily PPI IV now that she has an NG tube
Stool studies sent this morning
Pain control
etiology of symptoms unclear with multiple GI complaint - abdominal pain, dry mouth, belching, nausea, change in stools, along with neurologic symptoms
possible med side effect with dry mouth-- Tizanidine has 49 % risk of dry mouth along with multiple other symptoms with withdrawal
pt on multiple supplement and side effects difficult to track
US stable
pain control per hospitalist- reviewed risk of high dose narcotics with patient and resp depression etc
avoid Reglan and Protonix as pt states severe worsening symptoms last admission
pt was agreeable to pepcid
update family at bedside
Subjective
Subjective
Date of Service: May 03, 2025
Patient was relatively pain-free last night then woke up this morning with worsening pain requiring significant amount of Dilaudid. Had diarrhea this morning
Objective
Data Reviewed
Laboratory Data:
Laboratory Results
05/03/25 08:32
Laboratory Results
Magnesium Cancelled 05/03/25 08:16
Total Bilirubin 1.4 mg/dl (0.2-1.3) H 05/02/25 10:31
AST 22 U/L (14-36) 05/02/25 10:31
ALT 21 U/L (0-35) 05/02/25 10:31
Alkaline Phosphatase 68 U/L (38-126) 05/02/25 10:31
Lipase 146 U/L (23-300) 05/02/25 10:31
Vital Signs and I&O:
Vital Signs
Temp Pulse Resp BP Pulse Ox
98.1 F 70 20 138/77 100
05/03/25 07:50 05/03/25 07:50 05/03/25 07:50 05/03/25 07:50 05/03/25 07:50
I&O
05/02/25 05/03/25 05/04/25
06:59 06:59 06:59
Intake Total 1480 / 1480
Balance 1480 / 1480
Physical Exam
Physical Exam
HEENT: Anicteric
GI: Soft, Tender and Normal Bowel Sounds (Decreased)
Extremities: No Edema
Neuro: Non Focal
[2025-05-03 09:39] LABS: Blood Urea Nitrogen 13 mg/dl (7-17); Calcium 10.4 mg/dl (8.4-10.2); Carbon Dioxide 23 mmol/L (22-30); Chloride 109 mmol/L (98-107); Estimated Creatinine Clearance 71 ml/min; Glucose 99 mg/dl (70-99); Magnesium 2.1 mg/dl (1.6-2.3); Potassium 4.3 mmol/L (3.5-5.1); Sodium 142 mmol/L (135-145); eGFR > 60.00
[2025-05-03] MEDS: DILAUDID 1 MG IV (10:35)
[2025-05-03] MEDS: NSS (PRESERVATIVE FREE) 10 ML IV (10:54)
--- NOTE | 2025-05-03 13:06 | CON.GS ---
Addendum entered and electronically signed by Rufus Mcarthur MD 05/03/25 14:26:
I saw and examined the patient independently.
The Grocery Clerk Marking's note was reviewed and I agree with the note, assessment and plan except where noted below.
Comment: This is a 65-year-old female with a history of MS, anxiety, laparoscopic appendectomy with primary local hernia repair for perforated appendicitis in [address] Alegria who presents with ongoing intermittent epigastric pain as described
below, so far workup has been largely negative.
No acute surgical intervention warranted at this time.
Could consider rare pathologies such as biliary dyskinesia or sphincter of Oddi dysfunction. Will plan for an outpatient HIDA scan with EF.
In the meantime the patient's pain has improved and she is willing to have the NG be removed and started on a PPI as well as clears, which I think is reasonable given her x-ray shows resolution of her stomach bubble and passage of contrast into the
colon.
Remainder of care per GI and primary.
Surgery will sign off for now, please call with any questions or concerns.
Original Note:
Medical History
-
Chief Complaint: epigastric pain
History of Present Illness:
Ms Fitzpatrick is a 65 yo female with a h/o MS, anxiety and laparoscopic appendectomy with primary umbilical hernia repair August 29, 2023 ([facility]) for perforated appendicitis who presents with ongoing intermittent epigastric pain. She notes this
discomfort began very infrequently around the time of her appendectomy and has gradually increased in frequency and now become more persistent. She notes associated nausea with belching. Episodes have not been associated with food or fatty meals.
She feels a 'golf ball' sized pain in her epigastrium with throbbing and pressure sensation during episodes. She notes that she has had some constipation recently, passing hard pellets of stool but denies acholic or tarry stools. As of late, she has
passed one soft to loose BM a day. She denies vomiting, hematemesis or hematochezia. She denies fevers and chills.
Last year she does note an episode of norovirus and Campylobacter with self limiting symptoms. Prior EGD in April of 2024 in work up for similar pain to this episode with erythematous mucosa in the antrum. Another EGD as well as colonoscopy was
preformed with Dr Ng in October which she notes had similar findings in the stomach with no significant abnormal findings in the colon. Of note, she was given PPI x1 IV dose on a prior admission and felt it exacerbated her pain at that time. She
has refused PPI's since that time d/t concerns for side effects. She expresses a lot of anxiety with taking new meds in general given concerns regarding side effects.
Past Medical History
Past Medical History: HTN, Psychiatric (anxiety) and Other (fibromyalgia, ms, migraine)
Past Surgical History: Appendectomy (with primary UHR 08/2023)
Social History
Tobacco: Former Smoker
Alcohol: None
Living: With Family
Family History
Family History: Reviewed & Not Pertinent
Allergies / Home Medications
Allergy/AdvReac Type Severity Reaction Status Date / Time
ketorolac (From Toradol) Allergy Nausea / Verified 05/02/25 09:56
Vomiting
penicillin G Allergy Unknown - Verified 05/02/25 14:18
as a child
prochlorperazine (From Allergy causes Verified 05/02/25 09:56
Compazine) Anxiety.
Patient
refuses to
take.
�Medication �Instructions �Recorded �Confirmed �Type
Dayana 1 cap PO DAILY Supplement 04/11/25 05/02/25 History
diltiazem HCl 120 mg 120 mg PO QPM Blood Pressure 04/11/25 05/02/25 History
capsule,extended release 24 hr
hydrochlorothiazide 12.5 mg tablet 12.5 mg PO DAILY Blood Pressure 04/11/25 05/02/25 History
lysine 1,000 mg tablet 1,000 mg PO DAILY Supplement 04/11/25 05/02/25 History
magnesium oxide 400 mg PO DAILY Supplement 04/11/25 05/02/25 History
slippery elm bark 400 mg capsule 400 mg PO DAILY Supplement 04/11/25 05/02/25 History
tizanidine 4 mg tablet 4 mg PO Q6HPRN PRN spasms 04/11/25 05/02/25 History
valsartan 160 mg tablet 160 mg PO BID Blood Pressure 04/11/25 05/02/25 History
vitamin D3 125 mcg (5,000 1 cap PO DAILY Supplement 04/11/25 05/02/25 History
unit)-vitamin K2 100 mcg capsule
cyanocobalamin (vitamin B-12) 1,000 mcg PO DAILY 30 days #30 tabs 04/12/25 05/02/25 Rx
1,000 mcg tablet (Vitamin B-12)
[place] 1,800 mg PO DAILY 05/02/25 05/02/25 History
Tocotrienol 125 mg PO DAILY 05/02/25 05/02/25 History
ascorbic acid (vitamin C) 500 mg 500 mg PO DAILY 05/02/25 05/02/25 History
tablet (Vitamin C)
ascorbic acid 30 mg-collagen, 1 tab PO DAILY 05/02/25 05/02/25 History
hydrolyzed 833.3 mg tablet
(Collagen Skin Renewal)
calcium carbonate (Tums) 200 mg PO BIDPRN PRN gerd 05/02/25 05/02/25 History
coQ10 (ubiquinol) 100 mg capsule 100 mg PO DAILY 05/02/25 05/02/25 History
diazepam 10 mg tablet (Valium) 10 mg PO DAILYPRN PRN anxiety 05/02/25 05/02/25 History
marshmallow root 480 mg capsule 960 mg PO DAILY 05/02/25 05/02/25 History
ondansetron 4 mg disintegrating 4 mg PO Q8HPRN PRN nausea and 05/02/25 05/02/25 History
tablet vomiting
turmeric 400 mg capsule 400 mg PO DAILY 05/02/25 05/02/25 History
Review of Systems
-
History Source: Patient and Family
All other systems: Negative unless noted
A 10 point review of systems was completed, and was negative except as per HPI.
Physical Exam
Vital Signs
Temp Pulse Resp BP Pulse Ox
98.1 F 70 20 138/77 100
05/03/25 07:50 05/03/25 07:50 05/03/25 07:50 05/03/25 07:50 05/03/25 07:50
05/02/25 05/03/25 05/04/25
06:59 06:59 06:59
Actual Weight 67.222 kg
Body Mass Index (BMI) 22.5
Lab Results
05/03/25 08:32
05/03/25 08:32
WBC 8.1 10^3/uL (4.8-10.8) 05/03/25 08:32
Hgb 12.9 g/dL (12.0-16.0) 05/03/25 08:32
Hct 37.3 % (37.0-47.0) 05/03/25 08:32
Plt Count 349 10^3/uL (130-400) 05/03/25 08:32
Abs Immat Gran (auto) 0.1 10^3/uL (0-0.05) H 05/02/25 10:31
Neutrophils % 78.4 % (42.2-75.2) H 05/02/25 10:31
Physical Exam
General: No Apparent Distress and Pain; Negative Comfortable
HEENT: Normocephalic and Moist Mucous Membranes
Respiratory: Non Labored Respirations
GI: Soft, Non Distended and Tender (RUQ and epigastrium)
Skin: Warm and Dry
Neuro: Awake, Alert and AO x 3
Psych: Calm
Data Reviewed
-
CT Scan: Image Personally Visualized and interpreted, Report Reviewed by me, Discussed with Physician, Discussed with Patient and Discussed with Family
Ultrasound: Image Personally Visualized and interpreted, Report Reviewed by me, Discussed with Physician, Discussed with Patient and Discussed with Family
Labs: Labs Reviewed by me, Discussed with Physician, Discussed with Patient and Discussed with Family
Old Records: Reviewed
Assessment / Plan
-
65 yo female with h/o appendectomy 08/2024, MS, anxiety and HTN presenting with recurrent epigastric pain with nausea s/p EGD x2 (May 21 and November 19 with erythematous tissue present, otherwise benign)
US imaging without gallstones, gallbladder distended with fluid without evidence of acute cholecystitis or acute gallbladder pathology, mild hepatic steatosis noted. CT imaging with gastric distention, mild hepatic steatosis diverticulosis without
diverticulitis. No hernias. Unobstructed, as follow up XR demonstrates passage of PO contrast into colon since initial Ct imaging yesterday. NGT placed today for approximately 600ml of blood tinged gastric contents. ?gastroparesis vs gastritis. Does
have oral Dilaudid at home but denies recent use. Stool studies pending. Tender to the RUQ and epigastrium on exam. Nondistended. Afebrile. VSS. Mild leukocytosis on presentation which has since resolved. Bilirubin mildly elevated to 1.4,
transaminases and alk phos normal.
Undergoing GI work up with tentative EGD on Monday. Unclear etiology of symptoms.
Plan:
NGT/Diet as per GI
Declining PPI initially, but may be open to trying it
If GI work up negative, would plan HIDA with [facility] as outpatient to r/o biliary dyskinesia
Surgery to follow peripherally, please call with question's/concerns
[2025-05-03] MEDS: DILAUDID IV ×2 (13:30)
[2025-05-03] MEDS: FLUSH (NSS) IV (13:31)
--- NOTE | 2025-05-03 14:48 | PTCARENOTE ---
Dilaudid 1mg Nilay for pt c/o ngt discomfort. At bedside pt tomas want her hgt out. Dt. Mcarthur at bedside and agreed that she could have it taken out. So Dilaudid never given and wasted with other RN. NGT removed for pt's request. Order
obtained. Will cont to monitor.
--- NOTE | 2025-05-03 14:51 | PTCARENOTE ---
Pt has also refused to take the Protonix Iv medication as well
--- NOTE | 2025-05-03 14:52 | PTCARENOTE ---
I believe the Dilaudid that was given to pt at 10:35 was accidentally wasted in the [facility] instead of the one at 13:30. The one at 10:35 was given that morning. The 13/:30 one was drawn up and then wasted because the pt was then getting the NGT
removed. Will cont to monitor.
[2025-05-03 15:49] VITALS: BP 150/79
[2025-05-03] MEDS: CARDIZEM CD 120 MG PO (17:46)
[2025-05-03] MEDS: VALIUM INJECTION 4 MG IV (19:54)
[2025-05-03] MEDS: LOVENOX SC (20:43)
[2025-05-03 23:02] VITALS: BP 145/82
[2025-05-04] MEDS: NSS 1000 IV (03:25)
[2025-05-04] MEDS: DILAUDID 1 MG IV ×2 (05:54→09:26)
[2025-05-04] MEDS: ZOFRAN 4 MG IV (05:58)
[2025-05-04 06:00] VITALS: BMI 22.8
[2025-05-04] MEDS: PEPCID 40 MG PO (07:01)
[2025-05-04 07:38] LABS: Hematocrit 35.3 % (37.0-47.0); Hemoglobin 12.3 g/dL (12.0-16.0); Mean Corp Hgb Conc. 34.8 g/dL (33.0-37.0); Mean Corpuscular Volume 88.5 fL (81.0-99.0); Platelet Count 334 10^3/uL (130-400); Red Cell Dist. Width 12.2 % (11.5-14.5)
[2025-05-04 07:50] VITALS: BP 139/81
[2025-05-04 08:06] LABS: ALT (SGPT) 16 U/L (0-35); AST (SGOT) 19 U/L (14-36); Albumin 4.3 g/dl (3.5-5.0); Alkaline Phosphatase 51 U/L (38-126); Blood Urea Nitrogen 11 mg/dl (7-17); Calcium 9.7 mg/dl (8.4-10.2); Carbon Dioxide 23 mmol/L (22-30); Chloride 110 mmol/L (98-107); Estimated Creatinine Clearance 71 ml/min; Glucose 90 mg/dl (70-99); Potassium 3.8 mmol/L (3.5-5.1); Sodium 141 mmol/L (135-145); Total Protein 6.7 g/dl (6.3-8.2); eGFR > 60.00
--- NOTE | 2025-05-04 08:30 | PTCARENOTE ---
Earlier this am pt started to c/o of abd pain. When arrived pt was in a full blown rocking herself on bed bod thriving in abd pain.. It appears that she has also a panic attack emotional issue at the time Pt medicated with Diilaudid 1mg
and Vallum, 4mg dose. Pt shortly thereafter was called for her MRI of back. Pt sent down for that. Will cont to monitor.
--- NOTE | 2025-05-04 08:32 | W.PN.HOSP.TC ---
Today's Communication/Plan
-
EGD tomorrow
See plan
Assessment / Plan
Assessment / Plan
Physical Exam
General: Not in acute distress
HEENT: Normocephalic
Respiratory: Clear to Auscultation Bilaterally
Cardiac: S1/S2 and Regular Rhythm
GI: Soft and Tender (Epigastric and Right Upper Quadrant)
Musculoskeletal: No Cyanosis and No Edema
Skin: Warm and Dry
Neuro: Awake, Alert, Oriented and Nonfocal/grossly intact
Psych: Anxious
Assessment/Plan
65-year-old female with past medical history of multiple sclerosis, fibromyalgia, anxiety, hypertension and appendicitis status post laparoscopic appendectomy and drainage of abscess with repair of umbilical hernia in August 2023, presented for
worsening epigastric/right upper quadrant abdominal pain and left mid back pain. No fevers or chills. Had nausea but no vomiting. No diarrhea. 15 pound weight loss. Patient was seen by her primary neurologist Dr. Cosby. Patient was recently
admitted from 04/11/25 to 04/12/25 for dizziness and vomiting, intermittent dysuria, headache and abdominal pain attributed to multiple sclerosis and migraine. CT abdomen pelvis at that time was unremarkable. She underwent EGD in October or 2024 at
[place] which only showed gastric erythema. She was previously admitted in April 2024 for epigastric pain attributed to gastritis versus gastroparesis versus ulcer and started on Protonix. Vital signs normal. Labs show leukocytosis. Abdominal
ultrasound shows no acute intra-abdominal process. Increased hepatic echogenicity most consistent with mild fatty infiltration. Unclear etiology of symptoms could be gastritis/PUD vs other causes such as biliary dyskinesia. Patient initially
refused Protonix so got Pepcid. Dilaudid for pain. GI was consulted. HIDA scan to be considered although cannot be performed inpatient. Checked CT abdomen pelvis with IV and oral contrast since last scan done without contrast.
Epigastric pain/belching
Migratory back pain
Abdominal Pain, unclear etiology possible component of gastritis
Severe Stomach Distension
Severe gastrointestinal dysmotility, potentially from patient's Multiple Sclerosis, but right now from around the clock narcotics
-Consult GI
-Patient has had 2 endoscopies within the last 12 months with no revealing findings, also lipase normal
-Abd/Pelvis CT with IV and Oral Contrast -- results noted
-Ultrasound results noted
-Patient initially got NG tube, but then later did not want it, so it was stopped
-No evidence of complete obstruction -- contrast was seen in x-ray further down in the GI tract
-Allow clear liquids
-Patient refused to take Reglan
-Enema on 05/04/25
-Bowel regimen in the setting or narcotic pain meds
-Patient declined PPI, so doing Pepcid instead
-Possible HIDA scan on 05/05 or 05/06 if EGD is negative
-EGD on 05/05/25
-Follow stool studies
-Based on my discussion with Dr. Curtis of GI, possibly a spine/back source? Check MRI of the T and L spine. No need for MRI abdomen at this time, and myself, surgeon Dr. Mcarthur and barrel lathe operator Dr. Curtis are all in agreement with this that no
MRI abdomen needed at this time: results of MRI T and L spine do not reveal an etiology of patient's abdominal pain
-No AAA on ultrasound and CT
Dry Mouth
-Possibly from Tizanidine
-Patient says it is only associated with her episodes of abdominal pain, and then the dry mouth goes away on the pain goes away
Essential Hypertension
-Hold HCTZ
-Continue diltiazem and valsartan
Multiple Sclerosis
-Patient follows with Dr. Cosby with [facility]
Fibromyalgia
History of appendicitis status post laparoscopic appendectomy and drainage of abscess with repair of umbilical hernia in August 2023
Anxiety
-Continue Valium PRN
DVT prophylaxis: SCDs. Lovenox.
Code Status: Full Code
On 05/03/25, I spoke extensively with patient, patient's and patient's daughter, inside patient's room. I answered all of their questions and concerns to satisfaction. I communicated extensively with barrel lathe operator and surgeon as well.
Anticipated Discharge: > 48 hours
Subjective/Interval History
-
Date of Service: May 04, 2025
Patient was seen and examined. She reported continued abdominal pain episodes and dry mouth during those episodes. Also some loose stool, according to her.
Objective Data
-
Labs:
Laboratory Results
05/04/25
06:36
WBC 8.4
Hgb 12.3
Hct 35.3 L
Plt Count 334
Sodium 141
Potassium 3.8
Chloride 110 H
Carbon Dioxide 23
BUN 11
Creatinine 0.8
Glucose 90
Calcium 9.7
Total Bilirubin 1.4 H
AST 19
ALT 16
Alkaline Phosphatase 51
Vital Signs:
Vital Signs
Temp Pulse Resp BP Pulse Ox
98.5 F 70 17 145/82 98
05/03/25 23:02 05/03/25 23:02 05/03/25 23:02 05/03/25 23:02 05/03/25 23:47
I&O
05/03/25 05/04/25 05/05/25
06:59 06:59 06:59
Intake Total 1480 / 1480 2400 / 2400
Balance 1480 / 1480 2400 / 2400
[2025-05-04 09:04] LABS: GGTP 13 U/L (12-43)
[2025-05-04 09:07] LABS: INR 1.11; PT 14.6 Sec (11.4-14.6)
[2025-05-04] MEDS: DIOVAN 160 MG PO ×2 (09:23→20:09)
[2025-05-04] MEDS: VALIUM INJECTION 4 MG IV (09:25)
[2025-05-04] MEDS: FLUSH (NSS) 2 FLUSH IV ×2 (09:27→18:16)
[2025-05-04 09:49] LABS: LDH 150 U/L (120-246)
--- NOTE | 2025-05-04 12:27 | W.PN.GI.CBS2 ---
Today's Communication / Plan
-
Bisacodyl x 1, enema, EGD tomorrow, diet as tolerated
Assessment / Plan
-
Pt is a 65yo presents with onset of with hx MS, fibromyalgia, anxiety, migraines with admission in 2023 with acute appendicitis with lap appe and drainage of abscess with repair of umbilical hernia. She was seen then in 04/2024 with HTN,
headache, speech problems and noted epigastric pain with belching with Excedrin use She has stable CT and EGD with recommended PPI and possible central component of symptoms with also neuro symptoms. She states she has had chronic GI issues for
several years. She did seek outpatient last spring with Dr. Ng and completed EGD and colonoscopy that she recalls erythema in stomach and normal colon. After that was completed she had ? Campylobacter. She related in February she had 2 UTI
with antibiotic use but did not recall what medication she took. In March she was hospitalized as she was concerned for sepsis with dizziness, vertigo, vomiting, with concern for MS exacerbation. She was given Reglan and PPI and felt that
exacerbated her symptoms. She was discharged but now presents with multiple complaint with migratory back pain, epigastric pain worse with dry mouth, nausea, fogginess and belching. Abdominal pain was 10/10 prior to admission. Better with
Dilaudid and no change with movement, BM's or eating. On admission noted with WBC 16,200, bili 1.4 with otherwise normal LFT's and lipase. US with fatty liver renal cyst no other findings. In addition to above she also admits to regular use
Tizanidine, Excedrin 1-2 weekly and multiple supplement. She did also recently start HCTZ and was concerned for side effects and would like to stop. She does have some dysphagia with liquids and feeling of golf ball in abdomen. + 12 lbs wt loss in
3 weeks. She did have hx constipation with passing hard ball like stools in past but had now had yellow stool prior to admission. She was also concern for MS flare with she can get with symptoms that have led to decreased mobility and visual
changes with need for steroids in past.
-epigastric pain/belching
-migratory back pain
-dry mouth
-yellow looser stool
-
-leukocytosis
-recent UTI
- hx Campylobacter
other medical problems:
-MS
-hx appe with drainage of abscess/umbilical hernia repair 08/2023
-fibromyalgia
-anxiety
-migraines
05/02/2025 CT abdomen pelvis with IV and oral contrast,--- hepatic steatosis, gallbladder, bile ducts, pancreas, spleen and adrenals are normal, moderate calcific atherosclerotic plaque in the abdominal aorta with no aneurysm, no lymphadenopathy,
severe distention of the stomach with no abnormal gastric wall thickening or evidence of obstructing soft tissue mass. No abnormal distention or wall thickening in the duodenum or jejunum.
# Epigastric pain -
Severe gastric distention on CT scan, no small bowel distention -gastric outlet obstruction, ulcer, dysmotility
Overall, her pain is out of proportion to what we are seeing. I do think there is a anxiety component here
She did have significant distention of her stomach. She is not obstructed. I do think she has severe dysmotility, potentially from her MS but right now from around the clock narcotics
We will proceed to endoscopy tomorrow
I think she would benefit from a motility drug but she refuses to take Reglan
Patient states she will take a Dulcolax but if she gets crampy she wants to have the Dilaudid available
We will give her an enema today
Appreciate surgery seeing her
Potential HIDA if negative but I think biliary dyskinesia is less likely
Patient refusing PPI only on once daily famotidine
Stool studies pending, overall patient sounds more on the constipation side and takes a natural remedy to help her go to the bathroom called CHELY
etiology of symptoms unclear with multiple GI complaint - abdominal pain, dry mouth, belching, nausea, change in stools, along with neurologic symptoms
possible med side effect with dry mouth-- Tizanidine has 49 % risk of dry mouth along with multiple other symptoms with withdrawal
pt on multiple supplement and side effects difficult to track
I reviewed multiple images including the MRIs she had on her back today
Subjective
Subjective
Date of Service: May 04, 2025
Patient continues to have morning time supraumbilical pain with a sensation of a knot that only occurs in the morning. Had a small loose stool this morning
Objective
Data Reviewed
Laboratory Data:
Laboratory Results
05/04/25 06:36
05/04/25 06:36
Laboratory Results
PT 14.6 Sec (11.4-14.6) 05/04/25 08:49
INR 1.11 05/04/25 08:49
Magnesium 2.1 mg/dl (1.6-2.3) 05/03/25 08:32
Total Bilirubin 1.4 mg/dl (0.2-1.3) H 05/04/25 06:36
AST 19 U/L (14-36) 05/04/25 06:36
ALT 16 U/L (0-35) 05/04/25 06:36
Alkaline Phosphatase 51 U/L (38-126) 05/04/25 06:36
Lipase 146 U/L (23-300) 05/02/25 10:31
Vital Signs and I&O:
Vital Signs
Temp Pulse Resp BP Pulse Ox
97.9 F 65 20 139/81 100
05/04/25 07:50 05/04/25 07:50 05/04/25 07:50 05/04/25 07:50 05/04/25 08:30
I&O
05/03/25 05/04/25 05/05/25
06:59 06:59 06:59
Intake Total 1480 / 1480 2400 / 2400
Balance 1480 / 1480 2400 / 2400
Physical Exam
Physical Exam
HEENT: Anicteric
GI: Soft and Non Distended
Extremities: No Edema
Neuro: Non Focal
[2025-05-04] MEDS: DULCOLAX 10 MG PO (12:35)
--- NOTE | 2025-05-04 15:30 | PTCARENOTE ---
Pt given tap water enema without difficulty. Instructions provided prior to enema. Will con to monitor.
[2025-05-04 15:40] VITALS: BP 140/78
[2025-05-04] MEDS: LOVENOX 40 MG SC (18:14)
[2025-05-04] MEDS: PROTONIX IV 40 MG IV (18:15)
[2025-05-04] MEDS: NSS (PRESERVATIVE FREE) 10 ML IV (18:15)
[2025-05-04] MEDS: LOVENOX SC (18:20)
[2025-05-04] MEDS: CARDIZEM CD 120 MG PO (21:48)
[2025-05-04 23:33] VITALS: BP 120/77
[2025-05-05] VITALS (9 sets, daily range): BP systolic 107–140; BP diastolic 61–80; BMI 22.4
--- NOTE | 2025-05-05 02:31 | W.PN.UPDATE ---
Update Note
Progress Note Update
pt states last wed her cardizem was increased to 120mg po bid by her style advisor. Will order. Pt vital signs stable
--- NOTE | 2025-05-05 07:19 | PTCARENOTE ---
C. Diff negative on stool sample. Able to come off enhanced isolation precaution per Dawn Broussard, Infection Prevention.
[2025-05-05 07:37] LABS: Hematocrit 35.1 % (37.0-47.0); Hemoglobin 12.3 g/dL (12.0-16.0); Mean Corp Hgb Conc. 35.0 g/dL (33.0-37.0); Mean Corpuscular Volume 88.2 fL (81.0-99.0); Platelet Count 299 10^3/uL (130-400); Red Cell Dist. Width 12.0 % (11.5-14.5)
[2025-05-05 08:02] LABS: Blood Urea Nitrogen 11 mg/dl (7-17); Calcium 9.6 mg/dl (8.4-10.2); Carbon Dioxide 24 mmol/L (22-30); Chloride 107 mmol/L (98-107); Estimated Creatinine Clearance 71 ml/min; Glucose 75 mg/dl (70-99); Potassium 4.2 mmol/L (3.5-5.1); Sodium 140 mmol/L (135-145); eGFR > 60.00
[2025-05-05] MEDS: SUBLIMAZE 50 MCG IV (09:07)
--- NOTE | 2025-05-05 09:20 | W.PN.HOSP.TC ---
Today's Communication/Plan
-
See plan
Assessment / Plan
Assessment / Plan
Physical Exam
General: Not in acute distress
HEENT: Normocephalic
Respiratory: Clear to Auscultation Bilaterally
Cardiac: S1/S2 and Regular Rhythm
GI: Soft and Tender (Epigastric and Right Upper Quadrant)
Musculoskeletal: No Cyanosis and No Edema
Skin: Warm and Dry
Neuro: Awake, Alert, Oriented and Nonfocal/grossly intact
Psych: Anxious
Assessment/Plan
65-year-old female with past medical history of multiple sclerosis, fibromyalgia, anxiety, hypertension and appendicitis status post laparoscopic appendectomy and drainage of abscess with repair of umbilical hernia in August 2023, presented for
worsening epigastric/right upper quadrant abdominal pain and left mid back pain. No fevers or chills. Had nausea but no vomiting. No diarrhea. 15 pound weight loss. Patient was seen by her primary neurologist Dr. Cosby. Patient was recently
admitted from 04/11/25 to 04/12/25 for dizziness and vomiting, intermittent dysuria, headache and abdominal pain attributed to multiple sclerosis and migraine. CT abdomen pelvis at that time was unremarkable. She underwent EGD in October or 2024 at
[facility] which only showed gastric erythema. She was previously admitted in April 2024 for epigastric pain attributed to gastritis versus gastroparesis versus ulcer and started on Protonix. Vital signs normal. Labs show leukocytosis. Abdominal
ultrasound shows no acute intra-abdominal process. Increased hepatic echogenicity most consistent with mild fatty infiltration. Unclear etiology of symptoms could be gastritis/PUD vs other causes such as biliary dyskinesia. Patient initially
refused Protonix so got Pepcid. Dilaudid for pain. GI was consulted. HIDA scan to be considered although cannot be performed inpatient. Checked CT abdomen pelvis with IV and oral contrast since last scan done without contrast.

Epigastric pain/belching
Migratory back pain
Abdominal Pain
Severe Stomach Distension
Severe gastrointestinal dysmotility, potentially from patient's Multiple Sclerosis vs. narcotics vs. other
Small hiatal hernia -- on EGD 05/05/25
LA Grade A esophagitis -- on EGD 05/05/25
Bilious gastric fluid -- on EGD 05/05/25
Bile gastritis, characterized by congestion (edema), erosions and erythema (Biopsied) -- on EGD 05/05/25
Moderately tight pylorus (but able to maneuver through) on EGD 05/05/25
-Patient has had 2 endoscopies within the last 12 months with no revealing findings, also lipase normal
-Abd/Pelvis CT with IV and Oral Contrast -- results noted
-Ultrasound results noted
-Patient initially got NG tube, but then later did not want it, so it was stopped
-No evidence of complete obstruction -- contrast was seen in x-ray further down in the GI tract
-Allow Full Liquids
-Patient refused to take Reglan
-Enema on 05/04/25
-Bowel regimen in the setting or narcotic pain meds
-EGD on 05/05/25 with findings above
-Continue PPI and Carafate ACHS
-Medication changes: stopped patient's Diltiazem, narcotic pain medications
-Per GI: consider outpatient gastric emptying study (off narcotics and no zofran for 72hrs). If patient has gastroparesis, would move forward with endoFLIP of the pylorus if still tight consider dilation vs other. (at [facility],
EndoFLIP is not done)
-Follow stool studies
-Based on my discussion with Dr. Curtis of GI, possibly a spine/back source? Check MRI of the T and L spine. No need for MRI abdomen at this time, and myself, surgeon Dr. Mcarthur and oiler bander Dr. Curtis are all in agreement with this that no
MRI abdomen needed at this time: results of MRI T and L spine do not reveal an etiology of patient's abdominal pain
-No AAA on ultrasound and CT
Dry Mouth
-Possibly from Tizanidine
-Patient says it is only associated with her episodes of abdominal pain, and then the dry mouth goes away on the pain goes away
Essential Hypertension
-Hold HCTZ
-Continue Valsartan
-Patient requested cardiology consult given that outpatient director of curriculum and instruction manages her blood pressure medications and we are stopping Diltiazem as above
-Appreciate cardiology
Multiple Sclerosis
-Patient follows with Dr. Cosby with [facility]
Fibromyalgia
History of appendicitis status post laparoscopic appendectomy and drainage of abscess with repair of umbilical hernia in August 2023
Anxiety
-Continue Valium PRN
DVT prophylaxis: SCDs. Lovenox.
Code Status: Full Code
On 05/03/25, I spoke extensively with patient, patient's and patient's daughter, inside patient's room. I answered all of their questions and concerns to satisfaction. I communicated extensively with oiler bander and surgeon as well.
On 05/05/25, I spoke extensively with patient, patient's , inside patient's room. I answered all of their questions and concerns to satisfaction.
Total time spent on caring for patient today, including but not limited to chart review, communicating with specialists, seeing and examining patient, speaking with patient and her , was 60 minutes.
Anticipated Discharge: 24 - 48 hours
Subjective/Interval History
-
Date of Service: May 05, 2025
Patient was seen and examined. She reported her abdominal pain is better, but worried about having abdominal pain again.
Objective Data
-
Labs:
Laboratory Results
05/05/25
07:11
WBC 7.5
Hgb 12.3
Hct 35.1 L
Plt Count 299
Sodium 140
Potassium 4.2
Chloride 107
Carbon Dioxide 24
BUN 11
Creatinine 0.8
Glucose 75
Calcium 9.6
Vital Signs:
Vital Signs
Temp Pulse Resp BP Pulse Ox
97.1 F 63 20 122/73 97
05/05/25 08:50 05/05/25 09:15 05/05/25 09:15 05/05/25 09:15 05/05/25 09:15
I&O
05/04/25 05/05/25 05/06/25
06:59 06:59 06:59
Intake Total 2400 / 2400 1540 / 1540
Balance 2400 / 2400 1540 / 1540
[2025-05-05] MEDS: DIOVAN 160 MG PO ×2 (10:12→20:35)
[2025-05-05] MEDS: PROTONIX IV 40 MG IV (10:13)
[2025-05-05] MEDS: NSS (PRESERVATIVE FREE) 10 ML IV (10:13)
[2025-05-05] MEDS: CARDIZEM CD PO (11:34)
--- NOTE | 2025-05-05 11:36 | CON.CAR ---
Addendum entered and electronically signed by Justin Garibay MD 05/05/25 16:20:
I saw and examined the patient.
The PASTE WORKER's note was reviewed and I agree with the note.
Comment: 65-year-old female (known to Dr. Tha Doe, her primary creative project manager), with hypertension, moderate aortic regurgitation, multiple sclerosis, fibromyalgia, and anxiety who presented to the emergency department on 05/02/2025 with a chief
complaint of abdominal pain.
- cont valsartan
- monitor BPs
- her symptoms did not necessarily improve off of HCTZ could retry in future
Original Note:
Consultation
Consultation Request
Date/Time Consultation Requested: 05/05/2025 11:30
Date/Time Consultation Performed: 05/05/2025 11:35
Requesting Provider: Dr. Daily
Performing Provider: ARTURO Jj for Dr. Garibay
Reason for Consultation: BP management
Medical History
-
Chief Complaint: Abdominal pain
History of Present Illness:
Maribel Fitzpatrick is a 65-year-old female (known to Dr. Tha Doe, her primary creative project manager), with hypertension, moderate aortic regurgitation, multiple sclerosis, fibromyalgia, and anxiety who presented to the emergency department on 05/02/2025 with
a chief complaint of abdominal pain. She described it as severe epigastric and right upper quadrant pain. She had associated nausea and belching with a sour taste in her mouth. Prior to arrival, she had diarrhea. She was seen by GI. CT scan revealed
severe distention of the stomach without obstruction. She had an endoscopic today. It revealed a small hiatal hernia and diffuse moderate inflammation likely from bile gastritis. She is not interested in a motility agent. The plan is to avoid slow
motility agents including narcotics and calcium channel blockers (she is on diltiazem 120 mg twice daily). She denies chest pain and shortness of breath.
She recently saw her creative project manager. Her HCTZ was stopped due to muscle cramps and back pain. When it was stopped her diltiazem was increased from 120 mg daily to 120 mg twice daily.
Past Medical History
Past Medical History: HTN, Valvular Disease (Aortic regurgitation), Psychiatric (Anxiety) and Other (MS)
Past Surgical History: Appendectomy
Social History
Tobacco: Former Smoker
Alcohol: None
Drug: None
Personal:
Living: With Family
Family History
Family History: Reviewed & Not Pertinent
Allergies / Home Medications
Allergy/AdvReac Type Severity Reaction Status Date / Time
ketorolac (From Toradol) Allergy Nausea / Verified 05/02/25 09:56
Vomiting
penicillin G Allergy Unknown - Verified 05/02/25 14:18
as a child
prochlorperazine (From Allergy causes Verified 05/02/25 09:56
Compazine) Anxiety.
Patient
refuses to
take.
�Medication �Instructions �Recorded �Confirmed �Type
Dayana 1 cap PO DAILY Supplement 04/11/25 05/02/25 History
diltiazem HCl 120 mg 120 mg PO DAILY Blood Pressure 04/11/25 05/03/25 History
capsule,extended release 24 hr
lysine 1,000 mg tablet 1,000 mg PO DAILY Supplement 04/11/25 05/02/25 History
magnesium oxide 400 mg PO DAILY Supplement 04/11/25 05/02/25 History
slippery elm bark 400 mg capsule 400 mg PO DAILY Supplement 04/11/25 05/02/25 History
tizanidine 4 mg tablet 4 mg PO Q6HPRN PRN spasms 04/11/25 05/02/25 History
valsartan 160 mg tablet 160 mg PO BID Blood Pressure 04/11/25 05/02/25 History
vitamin D3 125 mcg (5,000 1 cap PO DAILY Supplement 04/11/25 05/02/25 History
unit)-vitamin K2 100 mcg capsule
cyanocobalamin (vitamin B-12) 1,000 mcg PO DAILY 30 days #30 tabs 04/12/25 05/02/25 Rx
1,000 mcg tablet (Vitamin B-12)
[place] 1,800 mg PO DAILY 05/02/25 05/02/25 History
Tocotrienol 125 mg PO DAILY 05/02/25 05/02/25 History
ascorbic acid (vitamin C) 500 mg 500 mg PO DAILY 05/02/25 05/02/25 History
tablet (Vitamin C)
ascorbic acid 30 mg-collagen, 1 tab PO DAILY 05/02/25 05/02/25 History
hydrolyzed 833.3 mg tablet
(Collagen Skin Renewal)
calcium carbonate (Tums) 200 mg PO BIDPRN PRN gerd 05/02/25 05/02/25 History
coQ10 (ubiquinol) 100 mg capsule 100 mg PO DAILY 05/02/25 05/02/25 History
diazepam 10 mg tablet (Valium) 10 mg PO DAILYPRN PRN anxiety 05/02/25 05/02/25 History
marshmallow root 480 mg capsule 960 mg PO DAILY 05/02/25 05/02/25 History
ondansetron 4 mg disintegrating 4 mg PO Q8HPRN PRN nausea and 05/02/25 05/02/25 History
tablet vomiting
turmeric 400 mg capsule 400 mg PO DAILY 05/02/25 05/02/25 History
Review of Systems
-
History Source: Patient
All other systems: Negative unless noted
Constitutional: Fatigue
EENT: No Symptoms
Respiratory: No Symptoms
Cardiac: No Symptoms
Abdomen/GI: Abdominal Pain and Nausea
: No Symptoms
Musculoskeletal: No Symptoms
Skin: No Symptoms
Neurological: Weakness
Endocrine: No Symptoms
Hematologic/Lymphatic: No Symptoms
Physical Exam
Vital Signs
Temp Pulse Resp BP Pulse Ox
97.7 F 61 15 121/78 95
05/05/25 09:30 05/05/25 09:30 05/05/25 09:30 05/05/25 09:30 05/05/25 09:30
Lab Results
05/05/25 07:11
05/05/25 07:11
Physical Exam
General: Well Developed, Well Nourished, No Apparent Distress and Comfortable
HEENT: Normocephalic, Anicteric and Moist Mucous Membranes
Respiratory: Clear and Non Labored Respirations
Cardiac: S1/S2 and Regular Rhythm
Breast: Deferred by me
GI: Soft, Non Tender, Non Distended and Normal Bowel Sounds
Rectal: Deferred by Provider
Genito-urinary: No Costovertebral Tender
Musculoskeletal: No Clubbing, No Cyanosis and No Edema
Skin: Warm and Dry
Neuro: AO x 3
Hematologic/Lymphatic: No Lymphadenopathy
Psych: Calm
Impression / Plan
-
I/P: 65F with hypertension, moderate aortic regurgitation, multiple sclerosis, fibromyalgia, and anxiety who presented to the emergency department on 05/02/2025 with a chief complaint of abdominal pain.
Primary creative project manager: Dr. Tha Doe, records have been requested
Epigastric pain
-Endo 05/05/2025: Bile gastritis. Recommended stopping slow motility agents (narcotics, CCB, etc.).
Hypertension
- Diltiazem 120 mg p.o. twice daily to be stopped to enhance gastric motility
- Valsartan 160 mg twice daily - BP stable on this, continue
- Intolerances: HCTZ caused muscle cramps
Aortic regurgitation, moderate in 2023
Multiple sclerosis, follows with Dr. Cosby, not currently on any medical therapy
Fibromyalgia
Anxiety, on diazepam as needed
Data Reviewed
-
EKG: Report Reviewed by me
Labs: Labs Reviewed by me
Old Records: Reviewed
[2025-05-05] MEDS: CARAFATE SUSPENSION 1 GM PO ×3 (11:50→22:19)
--- NOTE | 2025-05-05 15:20 | CM ---
Reviewed the chart notes. The patient's diet is full liquid. CM continues to be available to patient/family and is monitoring medical plan for needs at discharge.
Plan: Discharge to home when medically stable. No needs anticipated.
[2025-05-05] MEDS: MYLICON 80 MG PO (20:38)
[2025-05-06 06:00] VITALS: BMI 22.4
[2025-05-06 06:41] LABS: Hematocrit 34.1 % (37.0-47.0); Hemoglobin 12.0 g/dL (12.0-16.0); Mean Corp Hgb Conc. 35.2 g/dL (33.0-37.0); Mean Corpuscular Volume 87.4 fL (81.0-99.0); Platelet Count 293 10^3/uL (130-400); Red Cell Dist. Width 11.9 % (11.5-14.5)
[2025-05-06 07:00] VITALS: BP 148/91
[2025-05-06 07:36] LABS: Blood Urea Nitrogen 15 mg/dl (7-17); Calcium 9.7 mg/dl (8.4-10.2); Carbon Dioxide 27 mmol/L (22-30); Chloride 108 mmol/L (98-107); Estimated Creatinine Clearance 81 ml/min; Glucose 95 mg/dl (70-99); Magnesium 2.1 mg/dl (1.6-2.3); Potassium 4.1 mmol/L (3.5-5.1); Sodium 139 mmol/L (135-145); eGFR > 60.00
--- NOTE | 2025-05-06 07:53 | W.PN.HOSP.TC ---
Today's Communication/Plan
-
Severe pain and anxiety episodes persist
Valium and Gabapentin
See plan
Assessment / Plan
Assessment / Plan
Physical Exam
General: Not in acute distress
HEENT: Normocephalic
Respiratory: Clear to Auscultation Bilaterally
Cardiac: S1/S2 and Regular Rhythm
GI: Soft and Tender (Epigastric and Right Upper Quadrant)
Musculoskeletal: No Cyanosis and No Edema
Skin: Warm and Dry
Neuro: Awake, Alert, Oriented and Nonfocal/grossly intact
Psych: Anxious
Assessment/Plan
65-year-old female with past medical history of multiple sclerosis, fibromyalgia, anxiety, hypertension and appendicitis status post laparoscopic appendectomy and drainage of abscess with repair of umbilical hernia in August 2023, presented for
worsening epigastric/right upper quadrant abdominal pain and left mid back pain. No fevers or chills. Had nausea but no vomiting. No diarrhea. 15 pound weight loss. Patient was seen by her primary neurologist Dr. Cosby. Patient was recently
admitted from 04/11/25 to 04/12/25 for dizziness and vomiting, intermittent dysuria, headache and abdominal pain attributed to multiple sclerosis and migraine. CT abdomen pelvis at that time was unremarkable. She underwent EGD in October or 2024 at
[facility] which only showed gastric erythema. She was previously admitted in April 2024 for epigastric pain attributed to gastritis versus gastroparesis versus ulcer and started on Protonix. Vital signs normal. Labs show leukocytosis. Abdominal
ultrasound shows no acute intra-abdominal process. Increased hepatic echogenicity most consistent with mild fatty infiltration. Unclear etiology of symptoms could be gastritis/PUD vs other causes such as biliary dyskinesia. Patient initially
refused Protonix so got Pepcid. Dilaudid for pain. GI was consulted. HIDA scan to be considered although cannot be performed inpatient. Checked CT abdomen pelvis with IV and oral contrast since last scan done without contrast.

Epigastric pain/belching
Migratory back pain
Abdominal Pain
Severe Stomach Distension
Severe gastrointestinal dysmotility, potentially from patient's Multiple Sclerosis vs. narcotics vs. other
Small hiatal hernia -- on EGD 05/05/25
LA Grade A esophagitis -- on EGD 05/05/25
Bilious gastric fluid -- on EGD 05/05/25
Bile gastritis, characterized by congestion (edema), erosions and erythema (Biopsied) -- on EGD 05/05/25
Moderately tight pylorus (but able to maneuver through) on EGD 05/05/25
-Patient has had 2 endoscopies within the last 12 months with no revealing findings, also lipase normal
-Abd/Pelvis CT with IV and Oral Contrast -- results noted
-Ultrasound results noted
-Patient initially got NG tube, but then later did not want it, so it was stopped
-No evidence of complete obstruction -- contrast was seen in x-ray further down in the GI tract
-Diet advanced to Low Residue Diet
-Patient refused to take Reglan
-Enema on 05/04/25
-Bowel regimen in the setting or narcotic pain meds
-EGD on 05/05/25 with findings above
-Continue PPI and Carafate ACHS
-Medication changes: stopped patient's Diltiazem, narcotic pain medications
-Per GI: consider outpatient gastric emptying study (off narcotics and no zofran for 72hrs). If patient has gastroparesis, would move forward with endoFLIP of the pylorus if still tight consider dilation vs other. (at [facility],
EndoFLIP is not done)
-Follow stool studies, including Ova and Parasites study
-Given pain out of proportion for findings, add porphyria testing; appreciate hematology
-Appreciate GI
-Based on my discussion with Dr. Curtis of GI, possibly a spine/back source? Check MRI of the T and L spine. No need for MRI abdomen at this time, and myself, surgeon Dr. Mcarthur and sap bw developer Dr. Curtis are all in agreement with this that no
MRI abdomen needed at this time: results of MRI T and L spine do not reveal an etiology of patient's abdominal pain
-No AAA on ultrasound and CT
-Unable to do HIDA as [facility] is OP testing
Dry Mouth
-Possibly from Tizanidine
-Patient says it is only associated with her episodes of abdominal pain, and then the dry mouth goes away on the pain goes away
Essential Hypertension
-Hold HCTZ
-Continue Valsartan only for now, which cardiology confirmed
-Patient requested cardiology consult given that outpatient spinning machine operator manages her blood pressure medications and we are stopping Diltiazem as above
-Appreciate cardiology
-Blood pressure and heart rate were high on 05/06/25 given patient's significant anxiety -- improved with Valium
Multiple Sclerosis
-Patient follows with Dr. Cosby with [facility]
Fibromyalgia
-Consulted psychiatry given patient's significant pain and anxiety
-Recommendation is for Valium and Gabapentin, both of which have been started
History of appendicitis status post laparoscopic appendectomy and drainage of abscess with repair of umbilical hernia in August 2023
Anxiety
-Continue Valium PRN -- per psychiatry, patient can take up to 15 mg per day of Valium, 3 mg ativan; appreciate psychiatry
DVT prophylaxis: SCDs. Lovenox.
Code Status: Full Code
On 05/03/25, I spoke extensively with patient, patient's and patient's daughter, inside patient's room. I answered all of their questions and concerns to satisfaction. I communicated extensively with sap bw developer and surgeon as well.
On 05/05/25, I spoke extensively with patient, patient's , inside patient's room. I answered all of their questions and concerns to satisfaction.
Total time spent on caring for patient today, including but not limited to chart review, communicating with specialists, seeing and examining patient, placing orders, documentation and speaking with patient was 55 minutes.
Anticipated Discharge: 24 - 48 hours
Subjective/Interval History
-
Date of Service: May 06, 2025
Patient was seen and examined. She had episodes of significant anxiety and abdominal pain today.
Objective Data
-
Labs:
Laboratory Results
05/06/25
06:24
WBC 7.3
Hgb 12.0
Hct 34.1 L
Plt Count 293
Sodium 139
Potassium 4.1
Chloride 108 H
Carbon Dioxide 27
BUN 15
Creatinine 0.7
Glucose 95
Calcium 9.7
Vital Signs:
Vital Signs
Temp Pulse Resp BP Pulse Ox
98.4 F 53 16 115/61 97
05/05/25 23:28 05/05/25 23:28 05/05/25 23:28 05/05/25 23:28 05/05/25 23:28
I&O
05/05/25 05/06/25 05/07/25
06:59 06:59 06:59
Intake Total 1540 / 1540 440 / 440
Balance 1540 / 1540 440 / 440
[2025-05-06] MEDS: CARAFATE SUSPENSION 1 GM PO ×4 (08:33→21:01)
[2025-05-06] MEDS: DIOVAN 160 MG PO ×2 (08:33→20:54)
[2025-05-06] MEDS: MYLICON 80 MG PO (08:42)
[2025-05-06] MEDS: NSS (PRESERVATIVE FREE) IV (09:45)
[2025-05-06] MEDS: PROTONIX IV IV (09:45)
[2025-05-06] MEDS: PROTONIX 40 MG PO (10:08)
[2025-05-06] MEDS: ULTRAM 50 MG PO (10:13)
[2025-05-06] MEDS: ATIVAN 0.5 MG PO (12:17)
--- NOTE | 2025-05-06 12:47 | W.PN.CD ---
Today's Communication / Plan
-
- Continue Valsartan 160 mg twice daily; blood pressure is fairly controlled.
- No further cardiac recommendations at this time; outpatient follow-up with primary Sales Relationship Manager.
Impression / Plan
-
I/P: 65F with hypertension, moderate aortic regurgitation, multiple sclerosis, fibromyalgia, and anxiety who presented to the emergency department on 05/02/2025 with a chief complaint of abdominal pain.
Primary sap basis architect: Dr. Tha Doe
Epigastric pain
-Endo 05/05/2025: Bile gastritis. Recommended stopping slow motility agents (narcotics, CCB, etc.).
-Management as per primary Hospitalist team.
Hypertension
- Diltiazem 120 mg p.o. twice daily to be stopped to enhance gastric motility
- Continue Valsartan 160 mg twice daily; blood pressure is fairly controlled.
- Intolerances: HCTZ caused muscle cramps
Aortic regurgitation, moderate in 2023
- Outpatient follow-up with primary Sales Relationship Manager.
Multiple sclerosis, follows with Dr. Cosby, not currently on any medical therapy
Fibromyalgia
Anxiety, on diazepam as needed
Physical Exam
Vital Signs/Labs
Vital Signs
Temp Pulse Resp BP Pulse Ox
98.2 F 64 18 148/91 99
05/06/25 07:00 05/06/25 08:33 05/06/25 07:00 05/06/25 08:33 05/06/25 07:00
05/05/25 05/06/25 05/07/25
06:59 06:59 06:59
Actual Weight 66.95 kg 66.723 kg
05/06/25 06:24
05/06/25 06:24
PT 14.6 Sec (11.4-14.6) 05/04/25 08:49
INR 1.11 05/04/25 08:49
Magnesium 2.1 mg/dl (1.6-2.3) 05/06/25 06:24
Physical Exam
Constitutional: No acute distress and Comfortable
EENT: Anicteric
Cardiovascular: Rhythm & rate is regular, Pedal edema is absent, Systolic murmur absent and S1S2 is normal
Respiratory: Respiratory effort normal and Lungs clear to auscul.
GI: Soft
Neuro/Psych: AO x 3
Other: Skin (Warm, dry, intact)
Data Reviewed
-
Date of Service: May 06, 2025
EKG: Report Reviewed by me
Echo: Report Reviewed by me (Sinus rhythm 2023: Normal LVEF; moderate AR.)
Medical Tests (PFT, Pathology etc): Discussed with Physician (Primary Hospitalist) and Discussed with Patient
Labs: Labs Reviewed by me
--- NOTE | 2025-05-06 14:32 | W.PN.GI.CBS2 ---
Addendum entered and electronically signed by Lorene Lima MD 05/06/25 19:36:
I saw and examined the patient.
The MILKING SYSTEM INSTALLER's note was reviewed and I agree with the note.
Patient continues to have intermittent epigastric abdominal pain radiating to the back. Evaluated by psych today. Started on Valium/gabapentin. Unable to do a HIDA inpatient with [facility] as per radiology.
plan
Continue pain management as per medical team/psych
Will continue PPI/Carafate
Patient declines Reglan with increased symptoms in the past
Will recommend neurology evaluation -possible component of MS flareup/autonomic involvement
Patient also would like to speak to general surgery again tomorrow
If abdominal pain persist will get CTA to check GI vasculature
Patient needs outpatient Endoflip versus gastric emptying study
Discussed with patient/patient's family her symptoms can be multifactorial-considering her history of MS/adverse reaction with medication/component of IBS etc.
Will follow
Original Note:
Today's Communication / Plan
-
pt continued with cyclical pain severe with rocking in bed unclear - pain out of proporition for finding
psych and hospitalist try to work on pain regiment -- trying to avoid narcotics with concern for motility issues just
s/p Valium and Gabapentin -just given-- pt also given lorazepam, PPI, simethicone, Carafate, and changed off CCB
pt declines Reglan with increased symptoms in past
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
s/p CT, EGD, spinal imaging , recent MRI brain
s/p bowel regiment
will add porphyria testing as pain out of proportion for findings
s/p surgical eval
unable to do hida as [facility] is OP testing
consider OP endoflip--Susanna Issa, Stephen Jarquin, Erick Rosa, Radha Pack-- providers -- list given to spouse
possible med side effect with dry mouth-- Tizanidine has 49 % risk of dry mouth which pt now off
family updated
Assessment / Plan
-
Pt is a 65yo presents with onset of with hx MS, fibromyalgia, anxiety, migraines with admission in 2023 with acute appendicitis with lap appe and drainage of abscess with repair of umbilical hernia. She was seen then in 04/2024 with HTN,
headache, speech problems and noted epigastric pain with belching with Excedrin use She has stable CT and EGD with recommended PPI and possible central component of symptoms with also neuro symptoms. She states she has had chronic GI issues for
several years. She did seek outpatient last spring with Dr. Ng and completed EGD and colonoscopy that she recalls erythema in stomach and normal colon. After that was completed she had ? Campylobacter. She related in February she had 2 UTI
with antibiotic use but did not recall what medication she took. In March she was hospitalized as she was concerned for sepsis with dizziness, vertigo, vomiting, with concern for MS exacerbation. She was given Reglan and PPI and felt that
exacerbated her symptoms. She was discharged but now presents with multiple complaint with migratory back pain, epigastric pain worse with dry mouth, nausea, fogginess and belching. Abdominal pain was 10/10 prior to admission. Better with
Dilaudid and no change with movement, BM's or eating. On admission noted with WBC 16,200, bili 1.4 with otherwise normal LFT's and lipase. US with fatty liver renal cyst no other findings. In addition to above she also admits to regular use
Tizanidine, Excedrin 1-2 weekly and multiple supplement. She did also recently start HCTZ and was concerned for side effects and would like to stop. She does have some dysphagia with liquids and feeling of golf ball in abdomen. + 12 lbs wt loss in
3 weeks. She did have hx constipation with passing hard ball like stools in past but had now had yellow stool prior to admission. She was also concern for MS flare with she can get with symptoms that have led to decreased mobility and visual
changes with need for steroids in past.
05/02/2025 CT abdomen pelvis with IV and oral contrast,--- hepatic steatosis, gallbladder, bile ducts, pancreas, spleen and adrenals are normal, moderate calcific atherosclerotic plaque in the abdominal aorta with no aneurysm, no lymphadenopathy,
Severe distention of the stomach with no abnormal gastric wall thickening or evidence of obstructing soft tissue mass. No abnormal distention or wall thickening in the duodenum or jejunum.
05/05/25 EGD
- Small hiatal hernia.
- LA Grade A esophagitis with no bleeding likely from the NGTube.
- Bilious gastric fluid. Fluid removed.
- Bile gastritis, characterized by congestion (edema), erosions and
erythema. Biopsied.
- The pylorus was moderately tight but able to maneuver through.
Normal examined duodenum.
bx pending
-severe cyclical abdominal pain
-belching
-tight pylorus on EGD
-gastric distention on CT with tight Pylorus on Ct
-migratory back pain
-dry mouth
-yellow looser stool on admission then constipation
-leukocytosis
-recent UTI
- hx Campylobacter
-farm animal exposure
other medical problems:
-MS
-hx appe with drainage of abscess/umbilical hernia repair 08/2023
-fibromyalgia
-anxiety
-migraines
PLAN:
pt continued with cyclical pain severe with rocking in bed unclear - pain out of proporition for finding
psych and hospitalist try to work on pain regiment -- trying to avoid narcotics with concern for motility issues just
s/p Valium and Gabapentin -just given-- pt also given lorazepam, PPI, simethicone, Carafate, and changed off CCB
pt declines Reglan with increased symptoms in past
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
s/p CT, EGD, spinal imaging , recent MRI brain
s/p bowel regiment
will add porphyria testing as pain out of proportion for findings
s/p surgical eval
unable to do hida as [facility] is OP testing
consider OP endoflip--Susanna Issa, Stephen Jarquin, Erick Rosa, Radha Pack-- providers -- list given to spouse
possible med side effect with dry mouth-- Tizanidine has 49 % risk of dry mouth which pt now off
Subjective
Subjective
Date of Service: May 06, 2025
still with cyclical periods of pain --now severe with recurrent rocking in bed -- 05/05 brown loose stools x 2 but needed enema-- no vomiting
Objective
Data Reviewed
Laboratory Data:
Laboratory Results
05/06/25 06:24
05/06/25 06:24
Laboratory Results
PT 14.6 Sec (11.4-14.6) 05/04/25 08:49
INR 1.11 05/04/25 08:49
Magnesium 2.1 mg/dl (1.6-2.3) 05/06/25 06:24
Total Bilirubin 1.4 mg/dl (0.2-1.3) H 05/04/25 06:36
AST 19 U/L (14-36) 05/04/25 06:36
ALT 16 U/L (0-35) 05/04/25 06:36
Alkaline Phosphatase 51 U/L (38-126) 05/04/25 06:36
Lipase 146 U/L (23-300) 05/02/25 10:31
Vital Signs and I&O:
Vital Signs
Temp Pulse Resp BP Pulse Ox
98.2 F 64 18 148/91 99
05/06/25 07:00 05/06/25 08:33 05/06/25 07:00 05/06/25 08:33 05/06/25 07:00
I&O
05/05/25 05/06/25 05/07/25
06:59 06:59 06:59
Intake Total 1540 / 1540 440 / 440
Balance 1540 / 1540 440 / 440
Physical Exam
Physical Exam
HEENT: Anicteric and Moist mucous membranes
Cardiology: Normal Sinus Rhythm
Pulmonary: Clear
GI: Soft, Non Distended and Other (no guarding or rebound )
Extremities: No Edema
Neuro: Other (+ anxious wtih severe pain and rocking in bed )
--- NOTE | 2025-05-06 14:52 | CS.PSYCHR ---
Consult Summary - Psychiatry
-
pt seen by me today for anxiety and severe abdominal pain
65 yo woman with history of MS, fibromyalgia, s.p ruptured appendicits August 2023, admitted for abdominal pain. States this has been going on since her appendectomy, comes and goes, but when it is bad (like now) she can barely stand it. Does not
want narcotics, though can tolerate diluadid. Says benzos help, cannot understand why she cannot get more when no one is going much for her pain.
Investigations have shown gastritis and esophagits with not much else. Had MRI spine without obvious source.
[place] with , supportive, has close relationship with children and other family.
Past psychiatric history: seen for treatment when going through first divorce. Mother has history of cryptogenic abdominal pain as well, was helped when bacterial overgrowth treated (per mother). MS has led to periods of vision loss and inability to
walk, but has recovered.
On exam pt lying in bed, eyes closed, rubbing abdomen at times. Upset that she has to wait to see doctors, that she is in pain and RNs cannot do anything while waiting for doctor. Has been told that there is a GI test that she might need that is not
done here; will go wherever it takes to get answers. Denies wish to , except when pain is bad. 'I have a great life.' No signs of psychosis, no cognitive impairment. Very much wants to be in control, does not want any medication that makes her
feel loopy.
Impression: adjustment disorder with mixed features, chronic pain due to ?MS.
Would trial gabapentin 100 tid to start, can advance to 200 mg tid or even 300 tid to see if effective control of pain. Continue using benzos, either valium or ativan (shortage0 should be able to take po or IV. While in pain would not try to limit
doses too much--can take up to 15 mg per day of Valium, 3 mg ativan.
If titration of gabapentin not tolerated, can trial cymbalta 20 daily.
[2025-05-06 15:00] VITALS: BP 179/121
[2025-05-06 15:38] VITALS: BP 182/102
[2025-05-06] MEDS: VALIUM 5 MG PO ×2 (16:07→21:01)
[2025-05-06] MEDS: NEURONTIN 100 MG PO ×2 (16:07→21:00)
--- NOTE | 2025-05-06 16:23 | CM ---
Reviewed the chart notes. CM continues to be available to patient/family and is monitoring medical plan for needs at discharge.
Plan: Discharge to home when medically stable. No anticipated needs identified at this time.
[2025-05-06 16:46] VITALS: BP 132/100
[2025-05-06] MEDS: LOVENOX SC (18:23)
[2025-05-06 23:41] VITALS: BP 106/64
[2025-05-07 07:09] LABS: Hematocrit 34.7 % (37.0-47.0); Hemoglobin 12.3 g/dL (12.0-16.0); Mean Corp Hgb Conc. 35.4 g/dL (33.0-37.0); Mean Corpuscular Volume 87.0 fL (81.0-99.0); Platelet Count 321 10^3/uL (130-400); Red Cell Dist. Width 12.2 % (11.5-14.5)
[2025-05-07 07:25] LABS: Blood Urea Nitrogen 16 mg/dl (7-17); Calcium 9.9 mg/dl (8.4-10.2); Carbon Dioxide 28 mmol/L (22-30); Chloride 109 mmol/L (98-107); Estimated Creatinine Clearance 71 ml/min; Glucose 94 mg/dl (70-99); Potassium 4.1 mmol/L (3.5-5.1); Sodium 141 mmol/L (135-145); eGFR > 60.00
--- NOTE | 2025-05-07 07:28 | W.PN.HOSP.TC ---
Today's Communication/Plan
-
Appears to be doing better today, was eating pancakes
Hopefully will continue to do better and be ready for discharge tomorrow
Assessment / Plan
Assessment / Plan
Physical Exam
General: Not in acute distress
HEENT: Normocephalic
Respiratory: Clear to Auscultation Bilaterally
Cardiac: S1/S2 and Regular Rhythm
GI: Soft and Tender (Epigastric and Right Upper Quadrant)
Musculoskeletal: No Cyanosis and No Edema
Skin: Warm and Dry
Neuro: Awake, Alert, Oriented and Nonfocal/grossly intact
Psych: Anxious
Assessment/Plan
65-year-old female with past medical history of multiple sclerosis, fibromyalgia, anxiety, hypertension and appendicitis status post laparoscopic appendectomy and drainage of abscess with repair of umbilical hernia in August 2023, presented for
worsening epigastric/right upper quadrant abdominal pain and left mid back pain. No fevers or chills. Had nausea but no vomiting. No diarrhea. 15 pound weight loss. Patient was seen by her primary neurologist Dr. Cosby. Patient was recently
admitted from 04/11/25 to 04/12/25 for dizziness and vomiting, intermittent dysuria, headache and abdominal pain attributed to multiple sclerosis and migraine. CT abdomen pelvis at that time was unremarkable. She underwent EGD in October or 2024 at
[facility] which only showed gastric erythema. She was previously admitted in April 2024 for epigastric pain attributed to gastritis versus gastroparesis versus ulcer and started on Protonix. Vital signs normal. Labs show leukocytosis. Abdominal
ultrasound shows no acute intra-abdominal process. Increased hepatic echogenicity most consistent with mild fatty infiltration. Unclear etiology of symptoms could be gastritis/PUD vs other causes such as biliary dyskinesia. Patient initially
refused Protonix so got Pepcid. Dilaudid for pain. GI was consulted. HIDA scan to be considered although cannot be performed inpatient. Checked CT abdomen pelvis with IV and oral contrast since last scan done without contrast.

Epigastric pain/belching
Migratory back pain
Abdominal Pain
Severe Stomach Distension
Severe gastrointestinal dysmotility, potentially from patient's Multiple Sclerosis vs. narcotics vs. other
Small hiatal hernia -- on EGD 05/05/25
LA Grade A esophagitis -- on EGD 05/05/25
Bilious gastric fluid -- on EGD 05/05/25
Bile gastritis, characterized by congestion (edema), erosions and erythema (Biopsied) -- on EGD 05/05/25
Moderately tight pylorus (but able to maneuver through) on EGD 05/05/25
-Patient has had 2 endoscopies within the last 12 months with no revealing findings, also lipase normal
-Abd/Pelvis CT with IV and Oral Contrast -- results noted
-Ultrasound results noted
-Patient initially got NG tube, but then later did not want it, so it was stopped
-No evidence of complete obstruction -- contrast was seen in x-ray further down in the GI tract
-Diet advanced to Low Residue Diet
-Patient refused to take Reglan
-Enema on 05/04/25
-Bowel regimen in the setting or narcotic pain meds
-EGD on 05/05/25 with findings above
-Continue PPI and Carafate ACHS
-Medication changes: stopped patient's Diltiazem, narcotic pain medications
-Per GI: consider outpatient gastric emptying study (off narcotics and no zofran for 72hrs). If patient has gastroparesis, would move forward with endoFLIP of the pylorus if still tight consider dilation vs other. (at [place],
EndoFLIP is not done)
-Follow stool studies, including Ova and Parasites study
-Given pain out of proportion for findings, add porphyria testing; communicated via [facility] [employer] on 05/07/[address] Becerril, and after my discussion with him, consult needed only if the porphyria test comes back positive
-Appreciate GI
-Based on my discussion with Dr. Curtis of GI, possibly a spine/back source? Check MRI of the T and L spine. No need for MRI abdomen at this time, and myself, surgeon Dr. Mcarthur and eyelet riveter Dr. Curtis are all in agreement with this that no
MRI abdomen needed at this time: results of MRI T and L spine do not reveal an etiology of patient's abdominal pain
-No AAA on ultrasound and CT
-Unable to do HIDA as [facility] is OP testing
-Appreciate neurology input on 05/07/25 regarding whether abdominal pain can be related to MS --> no concerns as per neurology, no MS concerns, abdominal gastric issues cannot be related to MS
-If worsening symptoms will consider CTA to check GI vasculature
Dry Mouth
-Possibly from Tizanidine
-Patient says it is only associated with her episodes of abdominal pain, and then the dry mouth goes away on the pain goes away
Essential Hypertension
-Stop HCTZ
-Continue Valsartan
-Propranolol added (can help with both anxiety and blood pressure)
-Patient requested cardiology consult given that outpatient coal tram driver manages her blood pressure medications and we are stopping Diltiazem as above
-Appreciate cardiology
-Blood pressure and heart rate were high on 05/06/25 given patient's significant anxiety -- improved with Valium
Multiple Sclerosis
-Patient follows with Dr. Cosby with [facility]
Fibromyalgia
-Consulted psychiatry given patient's significant pain and anxiety
-Recommendation is for Valium and Gabapentin, both of which have been started
-Appreciate psychiatry
History of appendicitis status post laparoscopic appendectomy and drainage of abscess with repair of umbilical hernia in August 2023
Anxiety
-Continue Valium PRN -- per psychiatry, patient can take up to 15 mg per day of Valium, 3 mg ativan; appreciate psychiatry
DVT prophylaxis: SCDs. Lovenox.
Code Status: Full Code
On 05/03/25, I spoke extensively with patient, patient's and patient's daughter, inside patient's room. I answered all of their questions and concerns to satisfaction. I communicated extensively with eyelet riveter and surgeon as well.
On 05/05/25, I spoke extensively with patient, patient's , inside patient's room. I answered all of their questions and concerns to satisfaction.
Anticipated Discharge: Within 24 hours
Subjective/Interval History
-
Date of Service: May 07, 2025
Patient was seen and examined. She reported her abdominal pain was better today, was eating pancakes.
Objective Data
-
Labs:
Laboratory Results
05/07/25
06:39
WBC 7.1
Hgb 12.3
Hct 34.7 L
Plt Count 321
Sodium 141
Potassium 4.1
Chloride 109 H
Carbon Dioxide 28
BUN 16
Creatinine 0.8
Glucose 94
Calcium 9.9
Vital Signs:
Vital Signs
Temp Pulse Resp BP Pulse Ox
98.2 F 74 16 106/64 98
05/06/25 23:41 05/06/25 23:41 05/06/25 23:41 05/06/25 23:41 05/07/25 01:54
I&O
05/06/25 05/07/25 05/08/25
06:59 06:59 06:59
Intake Total 440 / 440 1859
Balance 440 / 440 1859
[2025-05-07 08:16] VITALS: BP 118/78
--- NOTE | 2025-05-07 08:28 | W.PN.CD ---
Today's Communication / Plan
-
- Start Propranolol 20 mg BID and discontinue Diltiazem at discharge.
- Please callwith questions.
Impression / Plan
-
I/P: 65F with hypertension, moderate aortic regurgitation, multiple sclerosis, fibromyalgia, and anxiety who presented to the emergency department on 05/02/2025 with a chief complaint of abdominal pain.
Primary society editor: Dr. Tha Doe
Hypertension
- Elevated yesterday. Off Dilt and continued Valsartan. BP is well controlled now.
- Likely elevated due to adrenergic spike. Will add Propranolol to cope with that.
- Diltiazem 120 mg p.o. twice daily to be stopped to enhance gastric motility
- Continue Valsartan 160 mg twice daily; blood pressure is fairly controlled.
- Intolerances: HCTZ caused muscle cramps
Epigastric pain
-Endo 05/05/2025: Bile gastritis. Recommended stopping slow motility agents (narcotics, CCB, etc.).
-Management as per primary Hospitalist team.
Aortic regurgitation, moderate in 2023
- Outpatient follow-up with primary Senior Sales Operations Manager.
Multiple sclerosis, follows with Dr. Cosby, not currently on any medical therapy
Fibromyalgia
Anxiety, on diazepam as needed
Physical Exam
Vital Signs/Labs
Vital Signs
Temp Pulse Resp BP Pulse Ox
98.2 F 59 18 118/78 97
05/07/25 08:16 05/07/25 08:16 05/07/25 08:16 05/07/25 08:16 05/07/25 08:16
05/06/25 05/07/25 05/08/25
06:59 06:59 06:59
Actual Weight 66.723 kg
05/07/25 06:39
05/07/25 06:39
PT 14.6 Sec (11.4-14.6) 05/04/25 08:49
INR 1.11 05/04/25 08:49
Magnesium 2.1 mg/dl (1.6-2.3) 05/06/25 06:24
Physical Exam
Constitutional: No acute distress and Comfortable
EENT: Anicteric and Moist mucous membranes
Cardiovascular: Rhythm & rate is regular, Pedal edema is absent and JVD pressure is normal
Respiratory: Respiratory effort normal and Lungs clear to auscul.
Neuro/Psych: Alert, AO x 3 and Motor deficits absent
Data Reviewed
-
Date of Service: May 07, 2025
Medical Decision Making: Reviewed Test Results, Test Interpretation and Review of Case with other Provider
EKG: Tracing Personally Visualized and interpreted
Echo: Report Reviewed by me
X-Ray/CT/US/MRI/NUC/PET: Image Personally Visualized and interpreted
Labs: Labs Reviewed by me
Old Records: Reviewed
[2025-05-07] MEDS: PROTONIX 40 MG PO (08:37)
[2025-05-07] MEDS: NEURONTIN 100 MG PO ×3 (08:37→22:02)
[2025-05-07] MEDS: DIOVAN 160 MG PO ×2 (08:37→20:35)
[2025-05-07] MEDS: VALIUM 5 MG PO ×3 (08:37→22:02)
[2025-05-07] MEDS: CARAFATE SUSPENSION 1 GM PO ×4 (08:37→22:02)
--- NOTE | 2025-05-07 10:08 | CON.NEURO4 ---
Addendum entered and electronically signed by Roberto Puentes MD 05/07/25 13:23:
Studies reviewed.
I have personally examined the patient. I reviewed and agree with the QUALITY ASSURANCE ASSOCIATE's Note.
My addenda:
Awake, alert, interactive. No acute distress.
Speech intact.
Follows 2-step requests w/o difficulty. No tremor.
Extra-ocular movements grossly intact.
Facial movements full and symmetric. Hearing intact to normal conversational volume.
Normal UE movements bilaterally.
Neck: full ROM.
Chest: no dyspnea
Heart: no JVD
Ext: (-) Clubbing, (-) Cyanosis, (-) Edema
IMPRESSIONS/RECOMMENDATIONS:
Abrupt onset of abdominal discomfort
Unrelated to multiple sclerosis as multiple sclerosis is not associated with abdominal pain or GI sphincter dysfunction. It can be associated with bladder dysfunction and loss of bowel control, however, which are not present currently
No indication of need for further neurological evaluation, patient recently underwent neuroimaging which did not reveal additional issues
Provide medication for remediation of headache in the form of ondansetron or antiemetic with consideration for the use of rizatriptan in the future
Continue vitamin D replacement
D/W patient
All questions answered.
Patient should follow with her usual outpatient neurologist.
Original Note:
Consultation - Neurology 4
-
CONSULTING PHYSICIAN: Roberto Puentes MD
REFERRING PHYSICIAN: Hospitalists/Dr. Daily
DICTATED BY: ARTURO Sharif
DATE/TIME OF REQUEST: 05/07/25
DATE/TIME OF CONSULTATION: 05/07/25
Reason for Consultation: Weakness, swallowing difficulty
History of Present Illness:
This is a 65-year-old right-handed female who has presented to the hospital on 05/02/25 with report of severe abdominal pain. Patient has been reporting difficulty swallowing, prompting Neurology evaluation. She has been evaluated by our inpatient
Neurology service many times in the past and is followed by Neurology [facility] as an outpatient for multiple sclerosis.
From my previous inpatient evaluation on 04/11/25:
''From my previous evaluation on 08/30/23:
'This is a 63-year-old right-handed female with a PMH of multiple sclerosis, migraine with aura, and HTN who has presented to the hospital on 08/28/23 with report of abrupt onset abdominal pain starting on 08/27/23. She was found to have acute
perforated appendicitis and umbilical hernia and she underwent laparoscopic appendectomy, drainage of intraabdominal abscess, and primary repair of umbilical hernia on 08/29/23. Patient has a history of MS and migraine with aura and is currently
followed by neurology Dr. Leanna Cosby in [place]. She has been evaluated by our Neurology service Dr. Puentes once in the past in 2013.
From previous evaluation by Dr. Puentes on 11/06/13:
'The patient is a 53-year-old, right-handed woman, who presented to the""hospital today with a self-reported MS exacerbation. The patient's history of
MS fifteen years ago, with symptoms which are currently unclear. The patient
reportedly was experiencing symptoms, which may have not gait dysfunction at
that time. Subsequently, she was provided with Copaxone, Avonex and then has
discontinued the use of medications for the last 8 months, due to skin
concerns. The patient has also been exposed to steroids, the last treatment of
which was two years ago.
Prior to presentation at the hospital today, the patient has been evaluated by
Dr. Raghav Barfield at [facility], Department of
Neurology. He first evaluated the patient several months ago, and re-evaluated
the patient one day ago. The patient was being described by that multiple
sclerosis subspecialist as her having a diffuse form of multiple sclerosis.
Instead, he was suggesting that her pain syndrome was most likely not
secondary to MS in that other etiologies may be playing a role. The patient
also is being described as having greater difficulty in the last four weeks
with gait. However, there is no suggested opinion by Dr. Barfield regarding the
patient's need for a change in her prior treatment of gait. The patient also
describes herself as self catheterizing beginning approximately four years
ago.
The patient reports that she has had a great difficulty with gait in the last
24 hours prompting her to present to the hospital's emergency department. The
hospital emergency departments attending contacted the patient's usual (not
subspecialist) neurologist who suggested that the patient receive a g of Solu-
Medrol to treat a presumed exacerbation.
The patient also reports that she has been experiencing significant headaches
and has been experiencing one currently, which is inducing photophobia.'
Patient reports that prior to her abdominal pain starting on 08/27/23, she was experiencing a RUQ right eye visual disturbance which she describes as a white lightning bolt. Patient endorses a history of migraine with aura starting about 20 years
ago. She has a migraine about every other week associated with visual aura and photo/phonophobia and occasional nausea. Typically her aura presents as a 'hole' in her vision, marbling of her vision, or lightning bolt flashes. Her aura typically
occurs in her left eye. She takes Excedrin migraine for her headaches which usually relieves her symptoms. She was recently prescribed rizatriptan and rimegepant for migraine, she has only tried rizatriptan once so far and reports it was effective.
She has refused daily migraine preventative medications thus far as she does not like to take medications.
She reports that she stopped disease-modifying treatment for MS about 4-5 years ago because she cannot tell a difference between when she is on it and when she stops it, and she would prefer not to take daily medications. Her last MS flare was about
1.5 years ago in the summer and was associated with bilateral leg weakness and left eye vision blurring. She was treated with IV steroids at that time and her symptoms resolved. She ambulates without an assistive device. Her last [employer] MRI imaging was
about two years ago and she notes that she has a stable meningioma. She does endorse several years progressive memory issues. She was started on Aricept for this about one month ago. She reports that it has become so significant that she can't even
read a book due to not being able to remember what happens in the previous chapters.
Currently, she denies any headache, but she is still rarely seeing a white lightning bolt flash in her right eye RUQ. She also endorses mild right eye 'strain' with lateral gaze, but denies any overt eye pain. l She denies any dizziness, vision
loss, nausea, speech/swallow difficulty, weakness, chest pain, palpitations, and shortness of breath. She does report mild surgical site abdominal pain in addition to chronic nightly numbness and an 'itching' sensation in bilateral toes.''
From most recent evaluation by Neurology Dr. Leanna Cosby on 02/27/25:
'The patient presents for an MS follow-up.
She has been experiencing pain in both arms, extending from the shoulder to the fingers, accompanied by numbness. This has been ongoing for the past 6 weeks and occurs regardless of her activity, including driving. She reports a loss of sensation in
her fingers, even when pinched, but still experiences pain. She has not sought physical therapy for this issue. Additionally, she reports frequent falls due to weakness in her left leg, which she believes may be exacerbated by heat exposure. She
spends a significant amount of time outdoors with animals. She describes a sensation of electric shocks throughout her body, particularly in the mornings, and is unsure if this is related to her neck positioning. Fatigue is a significant concern, as
she finds it difficult to get out of bed in the morning and often falls asleep if she sits down for 15 minutes in the afternoon. Her sleep is disrupted by frequent urination at night. She has been taking Valium to help her sleep and manage anxiety,
but only sparingly, having taken it twice in the last month. She reports feeling well upon waking, without any drowsiness. She has not started taking Lexapro.
She has been monitoring her blood pressure at home since her medication was changed. She has noticed that taking Valium the night before significantly lowers her blood pressure, with readings as low as 98/67. However, she has only taken Valium twice
in the past month. Her blood pressure readings have been inconsistent, with a reading of 156/95 at night and 141/85 in the morning. I reviewed her blood pressure roots and they actually do not seem to correlate with Valium usage. Low blood pressure
in the morning seems to correlate with low blood pressure at night regardless of whether she took the Valium.
Constipation has been an issue for several months, with infrequent bowel movements. She has been seeing Dr. Donavon Ng for this issue and has undergone a biopsy, which ruled out cancer. She was prescribed pantoprazole and Linzess but has not
taken them due to concerns about side effects. Instead, she has been taking natural supplements, which have improved her symptoms. She was informed by the health department that she tested positive for Campylobacter and was advised to see her doctor
immediately. She is interested in starting fenbendazole next week and has previously taken ivermectin.'
Today (04/11/25): Patient reports that she has been on antibiotics for a urinary tract infection for several weeks and her dysuria and urgency are still persistent. She completed MRI cervical spine w/ and w/o contrast as an outpatient on 04/08/25 for
her ongoing bilateral leg weakness, bilateral arm numbness, and shock-like sensations, the results of which were unremarkable. Patient notes that she has continued to fall and hit her head yesterday, prompting her to come to the ER for evaluation.
She notes that when she turns her head left or right she developed a dizzy sensation instantly that she describes as spinning. This started 6-8 weeks ago but has become more intense and frequent. She also notes that her left lower extremity keeps
'giving out' on her, although both legs feel weak still. When she falls it can be in any direction. She also notes a 'cramp' sensation in her head that feels different than her typical migraine. She notes that it feels like her brain in being
squeezed in a vice. She reports photophobia but notes that has been chronically daily for years. She has been taking Excedrin for her head discomfort with no relief. She has nausea associated with the dizzy sensation only. She also notes severe
brain fog and word finding difficulty. CT head was obtained on arrival in the ER and is negative for any acute abnormalities.''
Today (05/07/25), patient notes that she is feeling mildly improved, she is in bed eating pancakes. Shes notes a general, whole body 2/10 pain, mild dizziness, and a 3/10 headache. She denies photo/phonophobia. She does notes that her esophageal
sphincter doesn't feel like it's working right and is worried that this is related to her multiple sclerosis. She denies any vision changes, speech difficulty, changes in bowel/bladder, and numbness.
Past Medical History: Multiple sclerosis, fibromyalgia, migraine with aura, HTN, cognitive impairment, renal calculi, 'leaky heart valve'
Surgical History: Appendectomy, umbilical hernia repair, tonsillectomy
Family History: Reviewed and noncontributory.
Social History: Former smoker. Denies alcohol and illicit drug use.
Allergies: Cephalosporins, ketorolac, penicillins, prochlorperazine.
Home Medications: See below.
Review of Symptoms:
Patient denies any fever, chest pain, shortness of breath, or symptoms.
�Per the HPI.�All systems are reviewed negative except above.
Physical Exam:
The patient is afebrile, abdomen is nondistended, breathing is unlabored, skin is warm and dry, no edema.
Neurologic Examination:
The patient is awake, alert and oriented x 3. She is able to follow commands and answer questions appropriately. There is no aphasia or dysarthria. On cranial nerve assessment, pupils are 3 mm bilateral, round and reactive to light and
accommodation. Visual walls are full. Extraocular movements are intact. Facial sensations are intact and bilaterally symmetrical, there is no facial asymmetry. Hearing is intact bilaterally to normal conversation volume. Tongue palate and uvula are
midline. Sternocleidomastoid strengths are full bilaterally. Motor strengths are 5/5 bilateral upper and lower extremities on medical research Ravia scale. There is no drift or involuntary movement noted. Deep tendon reflexes are 2+ bilateral
upper and lower extremities and Babinski is absent bilaterally. There was no extinction noted on double simultaneous stimulation. Coordination is intact by finger to nose bilaterally.
Lab Results: See below.
Neuro Imaging:
1. MRI brain 04/11/25: From my previous evaluation on 08/30/23: No acute infarct. Stable leukoaraiosis, suggestive of reported history of multiple sclerosis. Consider further evaluation/follow-up examination with intravenous contrast if indicated.
2. MRI Thoracic spine 05/04/25: No MRI evidence for an acute process in the thoracic spine or lumbar spine. Chronic mild degenerative changes of the thoracolumbar spine. Left posterior disc protrusion at T10-T11 causing mild to moderate left
neuroforaminal stenosis. Smaller disc bulges elsewhere in the thoracic spine and lumbar spine. Mild bilateral neuroforaminal stenoses from L1 through S1.
3. MRI Lumbar spine 05/04/25: No MRI evidence for an acute process in the thoracic spine or lumbar spine. Chronic mild degenerative changes of the thoracolumbar spine. Left posterior disc protrusion at T10-T11 causing mild to moderate left
neuroforaminal stenosis. Smaller disc bulges elsewhere in the thoracic spine and lumbar spine. Mild bilateral neuroforaminal stenoses from L1 through S1.
Differentials for the patient's presentation include:
1. No concern for a multiple sclerosis flare contributing to GI symptoms.
Recommendations:
-Do not see a role for further neurological imaging at this point.
-Provide ondansetron 4mg PRN for headache.
Discussed patient care with: Dr. Puentes, the patient
Vital Signs and Labs
-
Vital Signs and Labs:
Vital Signs
Temp Pulse Resp BP Pulse Ox
98.2 F 59 18 118/78 97
05/07/25 08:16 05/07/25 08:37 05/07/25 08:16 05/07/25 08:37 05/07/25 08:16
Lab Results
05/07/25 06:39
05/07/25 06:39
PT 14.6 Sec (11.4-14.6) 05/04/25 08:49
INR 1.11 05/04/25 08:49
Sodium 141 mmol/L (135-145) 05/07/25 06:39
Potassium 4.1 mmol/L (3.5-5.1) 05/07/25 06:39
BUN 16 mg/dl (7-17) 05/07/25 06:39
Glucose 94 mg/dl (70-99) 05/07/25 06:39
Calcium 9.9 mg/dl (8.4-10.2) 05/07/25 06:39
Medications
-
Active Medications
Generic Name Dose Route Start Last Admin
Trade Name Freq PRN Reason Stop Dose Admin
Acetaminophen 650 mg 05/02/25 20:24
Acetaminophen 325 Mg Tablet PO 05/30/25 20:23
Q4HPRN PRN
mild pain/ fever>100.5F
Diazepam 2 mg 05/06/25 11:54
Diazepam 10 Mg/2 Ml Inj IV 05/30/25 20:23
On Hold: 05/06/25 12:01 Q6HPRN PRN
anxiety
Diazepam 5 mg 05/06/25 15:46 05/07/25 08:37
Diazepam 5 Mg Tablet PO 06/03/25 15:45 5 mg
TIDPRN PRN Administration
anxiety
Enoxaparin Sodium 40 mg 05/03/25 20:00 05/06/25 18:23
Enoxaparin Sodium 40 Mg/0.4 Ml Syringe SC 05/31/25 19:59 Not Given
QPM RHONDA
Gabapentin 100 mg 05/06/25 16:00 05/07/25 08:37
Gabapentin 100 Mg Capsule PO 06/03/25 15:59 100 mg
TID RHONDA Administration
Hydromorphone HCl 1 mg 05/03/25 09:14 05/04/25 09:26
Hydromorphone 1 Mg/Ml Carpuject IV 05/17/25 09:13 1 mg
On Hold: 05/05/25 10:50 Q3HPRN PRN Administration
severe pain
Ondansetron HCl 4 mg 05/02/25 20:24 05/04/25 05:58
Ondansetron 4 Mg/2 Ml Vial IV 05/30/25 20:23 4 mg
On Hold: 05/05/25 10:50 Q6HPRN PRN Administration
NAUSEA/VOMITING
Pantoprazole Sodium 40 mg 05/06/25 10:00 05/07/25 08:37
Pantoprazole 40 Mg Delayed Release Tablet PO 06/03/25 09:59 40 mg
DAILY RHONDA Administration
Propranolol HCl 20 mg 05/07/25 09:00
Propranolol 20 Mg Regular Release Tablet PO 06/04/25 08:59
BID RHONDA
Simethicone 80 mg 05/05/25 20:25 05/06/25 08:42
Simethicone 80 Mg Chewable Tablet PO 06/02/25 20:24 80 mg
QIDPRN PRN Administration
gas pain/bloat
Sodium Chloride 0 flush 05/02/25 21:00 05/04/25 18:16
Sodium Chloride 0.9% (Flush) Syringe IV 05/30/25 20:59 2 flush
PER PROTOCOL RHONDA Administration
Sucralfate 1 gm 05/05/25 11:30 05/07/25 08:37
Sucralfate (Carafate) 1 Gm/10 Ml Cup PO 06/02/25 11:29 1 gm
ACHS RHONDA Administration
Tramadol HCl 50 mg 05/05/25 15:54 05/06/25 10:13
Tramadol Hcl 50 Mg Tablet PO 06/02/25 15:53 50 mg
Q6HPRN PRN Administration
mild to moderate pain
Valsartan 160 mg 05/02/25 20:24 05/07/25 08:37
Valsartan 160 Mg Tablet PO 05/30/25 20:23 160 mg
BID RHONDA Administration
Home Medications
�Medication �Instructions �Recorded
Dayana 1 cap PO DAILY Supplement 04/11/25
diltiazem HCl 120 mg 120 mg PO DAILY Blood Pressure 04/11/25
capsule,extended release 24 hr
lysine 1,000 mg tablet 1,000 mg PO DAILY Supplement 04/11/25
magnesium oxide 400 mg PO DAILY Supplement 04/11/25
slippery elm bark 400 mg capsule 400 mg PO DAILY Supplement 04/11/25
tizanidine 4 mg tablet 4 mg PO Q6HPRN PRN spasms 04/11/25
valsartan 160 mg tablet 160 mg PO BID Blood Pressure 04/11/25
vitamin D3 125 mcg (5,000 1 cap PO DAILY Supplement 04/11/25
unit)-vitamin K2 100 mcg capsule
cyanocobalamin (vitamin B-12) 1,000 mcg PO DAILY 30 days #30 tabs 04/12/25
1,000 mcg tablet (Vitamin B-12)
[place] 1,800 mg PO DAILY Supplement 05/02/25
Tocotrienol 125 mg PO DAILY Supplement 05/02/25
ascorbic acid (vitamin C) 500 mg 500 mg PO DAILY Supplement 05/02/25
tablet (Vitamin C)
ascorbic acid 30 mg-collagen, 1 tab PO DAILY Supplement 05/02/25
hydrolyzed 833.3 mg tablet
(Collagen Skin Renewal)
calcium carbonate (Tums) 200 mg PO BIDPRN PRN gerd 05/02/25
coQ10 (ubiquinol) 100 mg capsule 100 mg PO DAILY Supplement 05/02/25
diazepam 10 mg tablet (Valium) 10 mg PO DAILYPRN PRN anxiety 05/02/25
marshmallow root 480 mg capsule 960 mg PO DAILY Supplement 05/02/25
ondansetron 4 mg disintegrating 4 mg PO Q8HPRN PRN nausea and 05/02/25
tablet vomiting
turmeric 400 mg capsule 400 mg PO DAILY Supplement 05/02/25
[2025-05-07] MEDS: INDERAL 20 MG PO ×2 (10:52→20:26)
--- NOTE | 2025-05-07 12:00 | W.PN.UPDATE ---
Update Note
Progress Note Update
patient seen chart reviewed. discussed with nursing and dr johnson. daughter appeared as well at bedside. patient is feeling better today than yesterday. she apologized for being out of sorts yesterday. i told her that staff do not require her to be
charming and congenial....we understand she is feeling poorly. we talked about the hx of her ms. she is an amazingly active woman given her illness. 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 her four
kids all live on farms and she sees her eight grands regularly. this is a blessing for her. she feels the gabapentin helped so far. she discussed w me her fears about her memory. she believes prevagen helped but it has several warnings re MS. she
took aricept but did not feel it helps. urged discussion w her neurologist. she worries valium will increase her risk for dementia. reassured her that a few doses her and there will not. will see her tomorrow and follow to offer support. no med
changes made
--- NOTE | 2025-05-07 13:56 | CM ---
Reviewed the chart notes and spoke with the patient at the bedside. CM continues to be available to patient/family and is monitoring medical plan for needs at discharge.
Plan: Discharge to home when medically stable. No needs anticipated at this time.
[2025-05-07] MEDS: MYLICON 80 MG PO (15:03)
--- NOTE | 2025-05-07 15:18 | W.PN.GI.CBS2 ---
Today's Communication / Plan
-
Follow-up abdominal x-ray
continue current mx
Assessment / Plan
-
Pt is a 65yo presents with onset of with hx MS, fibromyalgia, anxiety, migraines with admission in 2023 with acute appendicitis with lap appe and drainage of abscess with repair of umbilical hernia. She was seen then in 04/2024 with HTN,
headache, speech problems and noted epigastric pain with belching with Excedrin use She has stable CT and EGD with recommended PPI and possible central component of symptoms with also neuro symptoms. She states she has had chronic GI issues for
several years. She did seek outpatient last spring with Dr. Ng and completed EGD and colonoscopy that she recalls erythema in stomach and normal colon. After that was completed she had ? Campylobacter. She related in February she had 2 UTI
with antibiotic use but did not recall what medication she took. In March she was hospitalized as she was concerned for sepsis with dizziness, vertigo, vomiting, with concern for MS exacerbation. She was given Reglan and PPI and felt that
exacerbated her symptoms. She was discharged but now presents with multiple complaint with migratory back pain, epigastric pain worse with dry mouth, nausea, fogginess and belching. Abdominal pain was 10/10 prior to admission. Better with
Dilaudid and no change with movement, BM's or eating. On admission noted with WBC 16,200, bili 1.4 with otherwise normal LFT's and lipase. US with fatty liver renal cyst no other findings. In addition to above she also admits to regular use
Tizanidine, Excedrin 1-2 weekly and multiple supplement. She did also recently start HCTZ and was concerned for side effects and would like to stop. She does have some dysphagia with liquids and feeling of golf ball in abdomen. + 12 lbs wt loss in
3 weeks. She did have hx constipation with passing hard ball like stools in past but had now had yellow stool prior to admission. She was also concern for MS flare with she can get with symptoms that have led to decreased mobility and visual
changes with need for steroids in past.
05/02/2025 CT abdomen pelvis with IV and oral contrast,--- hepatic steatosis, gallbladder, bile ducts, pancreas, spleen and adrenals are normal, moderate calcific atherosclerotic plaque in the abdominal aorta with no aneurysm, no lymphadenopathy,
Severe distention of the stomach with no abnormal gastric wall thickening or evidence of obstructing soft tissue mass. No abnormal distention or wall thickening in the duodenum or jejunum.
05/05/25 EGD
- Small hiatal hernia.
- LA Grade A esophagitis with no bleeding likely from the NGTube.
- Bilious gastric fluid. Fluid removed.
- Bile gastritis, characterized by congestion (edema), erosions and
erythema. Biopsied.
- The pylorus was moderately tight but able to maneuver through.
Normal examined duodenum.
bx pending
-severe cyclical abdominal pain
-belching
-tight pylorus on EGD
-gastric distention on CT with tight Pylorus on Ct
-migratory back pain
-dry mouth
-yellow looser stool on admission then constipation
-leukocytosis
-recent UTI
- hx Campylobacter
-farm animal exposure
other medical problems:
-MS
-hx appe with drainage of abscess/umbilical hernia repair 08/2023
-fibromyalgia
-anxiety
-migraines
PLAN:
Discussed with patient/patient's family her symptoms can be multifactorial-considering her history of MS/anxiety / adverse reaction with medication/component of IBS / gastroparesis etc.
Patient claims she is feeling somewhat better today. Ate pancake in the morning. Complaining of abdominal bloating. Will order abdominal x-ray
psych and hospitalist try to work on pain regiment -- trying to avoid narcotics with concern for motility issues started on Valium and Gabapentin
Continue PPI, simethicone, Carafate,
pt declines Reglan with increased symptoms in past
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
s/p CT, EGD, spinal imaging , recent MRI brain
porphyria testing was added
s/p surgical eval
unable to do hida / CCK as inpatient. Surgery recommend outpatient testing
s/p neuro eval - unlikley MS flare up
If worsening symptoms will consider CTA to check GI vasculature
consider OP endoflip at [place] --Susanna Issa, Stephen Jarquin, Erick Rosa, Radha Pack-- providers -- list given to spouse
Total Time Spent with Patient (in minutes): 35
Subjective
Subjective
Date of Service: May 07, 2025
Feeling somewhat better today. Ate pancakes in the morning. Denies any nausea or vomiting. Currently complaining of abdominal bloating after meals. No BMs
Objective
Data Reviewed
Laboratory Data:
Laboratory Results
05/07/25 06:39
05/07/25 06:39
Laboratory Results
PT 14.6 Sec (11.4-14.6) 05/04/25 08:49
INR 1.11 05/04/25 08:49
Magnesium 2.1 mg/dl (1.6-2.3) 05/06/25 06:24
Total Bilirubin 1.4 mg/dl (0.2-1.3) H 05/04/25 06:36
AST 19 U/L (14-36) 05/04/25 06:36
ALT 16 U/L (0-35) 05/04/25 06:36
Alkaline Phosphatase 51 U/L (38-126) 05/04/25 06:36
Lipase 146 U/L (23-300) 05/02/25 10:31
Vital Signs and I&O:
Vital Signs
Temp Pulse Resp BP Pulse Ox
98.2 F 66 18 114/77 97
05/07/25 08:16 05/07/25 10:52 05/07/25 08:16 05/07/25 10:52 05/07/25 08:16
I&O
05/06/25 05/07/25 05/08/25
06:59 06:59 06:59
Intake Total 440 / 440 1859
Output Total 300 / 300
Balance 440 / 440 1859 -300 / -300
Physical Exam
Physical Exam
GI: Soft, Distended (Mildly distended) and Tender (Diffuse nonspecific tenderness)
--- NOTE | 2025-05-07 16:05 | W.PN.GS2 ---
Today's Communication / Plan
-
Pls call with ?s
Assessment / Plan
-
65F with intractable epigastric/RUQ pain in setting of MS
AFVSS
Imaging notable for gastric distention
EGD notable for bile gastritis
No evidence of gallstones on any imaging study
Suspect her pain is related to gastroparesis. Other considerations include biliary dyskinesia, though this is less likely given lack of RUQ pain or temoporal connection to PO intake. Vagus nerve dysfunction could explain the xerostomia,
gastroparesis, and constipation, and this could be related to MS. Another possibility is abdominal migraine, she does have migraine headaches which are a/w both MS and abdominal migraine.
I advised pt and that the best next step is the GES rec'ed by GI as an outpt. If GES is dx'ed, treatment may help some of her symptoms. If the study is nondiagnostic, it is not unreasonable to pursue HIDA with [facility], though her symptoms aren't
c/w biliary dyskinesia. It seems there is global GI dysfunction and I suspect this is related to her underlying MS.
No recommendation for surgery at this time. Please call with questions.
Subjective Data
-
Date of Service: May 07, 2025
Pt continues with abd pain, somewhat improved after starting carafate. She asks if HIDA scan will be helpful. She asks if her hx of perforated appendicits and appendectomy could be contributing to her pelvic floor dysfunction, gastroparesis and
constipation. She also c/o xerostomia.
Objective Data
-
Intake and Output
05/06/25 05/07/25 05/08/25
06:59 06:59 06:59
Intake Total 440 / 440 1859
Output Total 300 / 300
Balance 440 / 440 1859 -300 / -300
Intake:
Oral fluids 440 / 440 1859
Output:
Urine, Voided 300 / 300
Other:
Number of approximated MODERATE 2 2
amounts of urine
Vital Signs
Temp Pulse Resp BP Pulse Ox
98.2 F 66 18 114/77 97
05/07/25 08:16 05/07/25 10:52 05/07/25 08:16 05/07/25 10:52 05/07/25 08:16
Lab Results
05/07/25 06:39
05/07/25 06:39
Calcium 9.9 mg/dl (8.4-10.2) 05/07/25 06:39
Magnesium 2.1 mg/dl (1.6-2.3) 05/06/25 06:24
Total Bilirubin 1.4 mg/dl (0.2-1.3) H 05/04/25 06:36
AST 19 U/L (14-36) 05/04/25 06:36
ALT 16 U/L (0-35) 05/04/25 06:36
Alkaline Phosphatase 51 U/L (38-126) 05/04/25 06:36
Total Protein 6.7 g/dl (6.3-8.2) 05/04/25 06:36
Albumin 4.3 g/dl (3.5-5.0) 05/04/25 06:36
Physical Exam
-
Gen: NAD
Abd: soft, ttp to LUQ and epigastrium
[2025-05-07 16:42] VITALS: BP 147/98
[2025-05-07] MEDS: LOVENOX SC (18:12)
[2025-05-07 23:29] VITALS: BP 136/80
[2025-05-08 06:00] VITALS: BMI 22.4
--- NOTE | 2025-05-08 07:31 | W.PN.HOSP.TC ---
Today's Communication/Plan
-
Doing better
Start bowel regimen for constipation
Anticipate will be ready for discharge tomorrow
Assessment / Plan
Assessment / Plan
Physical Exam
General: Not in acute distress
HEENT: Normocephalic
Respiratory: Clear to Auscultation Bilaterally
Cardiac: S1/S2 and Regular Rhythm
GI: Soft and Tender (Epigastric and Right Upper Quadrant)
Musculoskeletal: No Cyanosis and No Edema
Skin: Warm and Dry
Neuro: Awake, Alert, Oriented and Nonfocal/grossly intact
Psych: Anxious
Assessment/Plan
65-year-old female with past medical history of multiple sclerosis, fibromyalgia, anxiety, hypertension and appendicitis status post laparoscopic appendectomy and drainage of abscess with repair of umbilical hernia in August 2023, presented for
worsening epigastric/right upper quadrant abdominal pain and left mid back pain. No fevers or chills. Had nausea but no vomiting. No diarrhea. 15 pound weight loss. Patient was seen by her primary neurologist Dr. Cosby. Patient was recently
admitted from 04/11/25 to 04/12/25 for dizziness and vomiting, intermittent dysuria, headache and abdominal pain attributed to multiple sclerosis and migraine. CT abdomen pelvis at that time was unremarkable. She underwent EGD in October or 2024 at
[place] which only showed gastric erythema. She was previously admitted in April 2024 for epigastric pain attributed to gastritis versus gastroparesis versus ulcer and started on Protonix. Vital signs normal. Labs show leukocytosis. Abdominal
ultrasound shows no acute intra-abdominal process. Increased hepatic echogenicity most consistent with mild fatty infiltration. Unclear etiology of symptoms could be gastritis/PUD vs other causes such as biliary dyskinesia. Patient initially
refused Protonix so got Pepcid. Dilaudid for pain. GI was consulted. HIDA scan to be considered although cannot be performed inpatient. Checked CT abdomen pelvis with IV and oral contrast since last scan done without contrast.

Epigastric pain/belching
Migratory back pain
Abdominal Pain
Severe Stomach Distension
Severe gastrointestinal dysmotility, potentially from patient's Multiple Sclerosis vs. narcotics vs. other
Small hiatal hernia -- on EGD 05/05/25
LA Grade A esophagitis -- on EGD 05/05/25
Bilious gastric fluid -- on EGD 05/05/25
Bile gastritis, characterized by congestion (edema), erosions and erythema (Biopsied) -- on EGD 05/05/25
Moderately tight pylorus (but able to maneuver through) on EGD 05/05/25
-Patient has had 2 endoscopies within the last 12 months with no revealing findings, also lipase normal
-Abd/Pelvis CT with IV and Oral Contrast -- results noted
-Ultrasound results noted
-Patient initially got NG tube, but then later did not want it, so it was stopped
-No evidence of complete obstruction -- contrast was seen in x-ray further down in the GI tract
-Diet advanced to Low Residue Diet
-Patient refused to take Reglan
-Enema on 05/04/25
-Bowel regimen in the setting or narcotic pain meds
-EGD on 05/05/25 with findings above
-Continue PPI and Carafate ACHS
-Medication changes: stopped patient's Diltiazem, narcotic pain medications
-Per GI: consider outpatient gastric emptying study (off narcotics and no zofran for 72hrs). If patient has gastroparesis, would move forward with endoFLIP of the pylorus if still tight consider dilation vs other. (at [place],
EndoFLIP is not done)
-Follow stool studies, including Ova and Parasites study
-Given pain out of proportion for findings, add porphyria testing; communicated via [employer] on 05/07/[address] Becerril, and after my discussion with him, consult needed only if the porphyria test comes back positive
-Appreciate GI
-Based on my discussion with Dr. Curtis of GI, possibly a spine/back source? Check MRI of the T and L spine. No need for MRI abdomen at this time, and myself, surgeon Dr. Mcarthur and technical support associate Dr. Curtis are all in agreement with this that no
MRI abdomen needed at this time: results of MRI T and L spine do not reveal an etiology of patient's abdominal pain
-No AAA on ultrasound and CT
-Unable to do HIDA as [facility]CK is OP testing
-Appreciate neurology input on 05/07/25 regarding whether abdominal pain can be related to MS --> no concerns as per neurology, no MS concerns, abdominal gastric issues cannot be related to MS
-If worsening symptoms will consider CTA to check GI vasculature
Dry Mouth
-Possibly from Tizanidine
-Patient says it is only associated with her episodes of abdominal pain, and then the dry mouth goes away on the pain goes away
Constipation
-Continue Miralax
-Continue Senokot-S
Essential Hypertension
-Stop HCTZ
-Continue Valsartan
-Propranolol added (can help with both anxiety and blood pressure) -- continue at 20 mg BID -- at this dose it is less likely to cause bradycardia, but just prevents tachycardia
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
-Appreciate cardiology
-Blood pressure and heart rate were high on 05/06/25 given patient's significant anxiety -- improved with Valium
Multiple Sclerosis
-Patient follows with Dr. Cosby with [facility]
Fibromyalgia
-Consulted psychiatry given patient's significant pain and anxiety
-Recommendation is for Valium and Gabapentin, both of which have been started
-Appreciate psychiatry
History of appendicitis status post laparoscopic appendectomy and drainage of abscess with repair of umbilical hernia in August 2023
Anxiety
-Continue Valium PRN -- per psychiatry, patient can take up to 15 mg per day of Valium, 3 mg ativan; appreciate psychiatry
DVT prophylaxis: SCDs. Catrachitanox.
Code Status: Full Code
On 05/03/25, I spoke extensively with patient, patient's and patient's daughter, inside patient's room. I answered all of their questions and concerns to satisfaction. I communicated extensively with technical support associate and surgeon as well.
On 05/05/25, I spoke extensively with patient, patient's , inside patient's room. I answered all of their questions and concerns to satisfaction.
Anticipated Discharge: Within 24 hours
Subjective/Interval History
-
Date of Service: May 08, 2025
Patient was seen and examined. She was doing better today, pain is better.
Objective Data
-
Vital Signs:
Vital Signs
Temp Pulse Resp BP Pulse Ox
97.9 F 58 17 136/80 98
05/07/25 23:29 05/07/25 23:29 05/07/25 23:29 05/07/25 23:29 05/08/25 02:34
I&O
05/07/25 05/08/25 05/09/25
06:59 06:59 06:59
Intake Total 1859 / 1859 520 / 520
Output Total 300 / 300
Balance 1859 / 1859 220 / 220
[2025-05-08 08:09] VITALS: BP 111/71
[2025-05-08] MEDS: DIOVAN 160 MG PO ×2 (08:42→20:25)
[2025-05-08] MEDS: NEURONTIN 100 MG PO ×3 (08:42→22:02)
[2025-05-08] MEDS: SENOKOT-S 1 TABLET PO ×2 (08:42→20:26)
[2025-05-08] MEDS: CARAFATE SUSPENSION 1 GM PO ×2 (08:42→12:22)
[2025-05-08] MEDS: MIRALAX 17 GRAMS PO (08:42)
[2025-05-08] MEDS: VALIUM 5 MG PO ×3 (08:42→22:02)
[2025-05-08] MEDS: PROTONIX 40 MG PO (08:42)
[2025-05-08] MEDS: INDERAL 20 MG PO ×2 (08:43→20:27)
[2025-05-08 12:45] VITALS: BP 141/89; PULSE 64; O2SAT 98
[2025-05-08 12:55] LABS: Urine Character Clear (Clear)
[2025-05-08 13:17] VITALS: BP 141/89; PULSE 64; O2SAT 98
--- NOTE | 2025-05-08 13:54 | W.PN.UPDATE ---
Update Note
Progress Note Update
patient seen chart reviewed. discussed with nursing and with dr cook. ms walsh's mother in law this am. she is feeling regretful that she is unable to be with her family during this difficult time. discussed with her recent
recommendations from gi. she had some ? re diet recommended. from the chart it sounds as though low residue recommended. she is normally a very healthy eater...lots of fruits and veggies. suggested to her this will likely not be forever.
she does feel some relief from the gabapentin. feels some abdominal discomfort at this point but it has diminished since admission and she feels like she could live with current pain level. she is in some ways very eager to return home but also
apprehensive that the pain will recur and she will end up back here again.
she is aware that her workup will proceed after dc.
i did not make any changes in her psych meds. she did use valium x3 yesterday. valium not generally associated with slowing gastric emptying. she does use vallium at home on a prn basis for leg cramping.
will see her tomorrow. i understand she may be dc tomorrow.
[2025-05-08 14:16] LABS: Urine White Cell 0-2 /HPF (0-5)
--- NOTE | 2025-05-08 15:35 | CM ---
Reviewed the chart notes and spoke with the patient at the bedside. IMM reviewed. CM continues to be available to patient/family and is monitoring medical plan for needs at discharge.
Plan: Discharge to home when medically stable. No needs.
[2025-05-08 15:52] VITALS: BP 146/95
--- NOTE | 2025-05-08 16:11 | W.PN.GI.CBS2 ---
Today's Communication / Plan
-
Continue current treatment
Add bowel regimen
Assessment / Plan
-
Pt is a 65yo presents with onset of with hx MS, fibromyalgia, anxiety, migraines with admission in 2023 with acute appendicitis with lap appe and drainage of abscess with repair of umbilical hernia. She was seen then in 04/2024 with HTN,
headache, speech problems and noted epigastric pain with belching with Excedrin use She has stable CT and EGD with recommended PPI and possible central component of symptoms with also neuro symptoms. She states she has had chronic GI issues for
several years. She did seek outpatient last spring with Dr. Ng and completed EGD and colonoscopy that she recalls erythema in stomach and normal colon. After that was completed she had ? Campylobacter. She related in February she had 2 UTI
with antibiotic use but did not recall what medication she took. In March she was hospitalized as she was concerned for sepsis with dizziness, vertigo, vomiting, with concern for MS exacerbation. She was given Reglan and PPI and felt that
exacerbated her symptoms. She was discharged but now presents with multiple complaint with migratory back pain, epigastric pain worse with dry mouth, nausea, fogginess and belching. Abdominal pain was 10/10 prior to admission. Better with
Dilaudid and no change with movement, BM's or eating. On admission noted with WBC 16,200, bili 1.4 with otherwise normal LFT's and lipase. US with fatty liver renal cyst no other findings. In addition to above she also admits to regular use
Tizanidine, Excedrin 1-2 weekly and multiple supplement. She did also recently start HCTZ and was concerned for side effects and would like to stop. She does have some dysphagia with liquids and feeling of golf ball in abdomen. + 12 lbs wt loss in
3 weeks. She did have hx constipation with passing hard ball like stools in past but had now had yellow stool prior to admission. She was also concern for MS flare with she can get with symptoms that have led to decreased mobility and visual
changes with need for steroids in past.
05/02/2025 CT abdomen pelvis with IV and oral contrast,--- hepatic steatosis, gallbladder, bile ducts, pancreas, spleen and adrenals are normal, moderate calcific atherosclerotic plaque in the abdominal aorta with no aneurysm, no lymphadenopathy,
Severe distention of the stomach with no abnormal gastric wall thickening or evidence of obstructing soft tissue mass. No abnormal distention or wall thickening in the duodenum or jejunum.
05/05/25 EGD
- Small hiatal hernia.
- LA Grade A esophagitis with no bleeding likely from the NGTube.
- Bilious gastric fluid. Fluid removed.
- Bile gastritis, characterized by congestion (edema), erosions and
erythema. Biopsied.
- The pylorus was moderately tight but able to maneuver through.
Normal examined duodenum.
bx pending
-severe cyclical abdominal pain
-belching
-tight pylorus on EGD
-gastric distention on CT with tight Pylorus on Ct
-migratory back pain
-dry mouth
-yellow looser stool on admission then constipation
-leukocytosis
-recent UTI
- hx Campylobacter
-farm animal exposure
other medical problems:
-MS
-hx appe with drainage of abscess/umbilical hernia repair 08/2023
-fibromyalgia
-anxiety
-migraines
PLAN:
Discussed with patient/patient's family her symptoms can be multifactorial-considering her history of MS/anxiety / adverse reaction with medication/component of IBS / gastroparesis etc.
Patient claims she is feeling somewhat better today. Ate pancake in the morning. Complaining of abdominal bloating. Abdominal x-ray showing stool/air in the bowel without obstruction.
Will advised to start on bowel regimen. Will DC Carafate. Simethicone as needed for abdominal bloating
psych and hospitalist try to work on pain regiment -- trying to avoid narcotics with concern for motility issues started on Valium and Gabapentin . Clinical improvement of pain symptoms
Continue PPI, simethicone
pt declines Reglan with increased symptoms in past
stool studies neg w
s/p CT, EGD, spinal imaging , recent MRI brain
porphyria testing was added - pending
s/p surgical eval
unable to do hida / CCK as inpatient. Surgery recommend outpatient testing
s/p neuro eval - unlikely MS flare up
If worsening symptoms will consider CTA to check GI vasculature
consider OP endoflip at [facility] --Susanna Issa, Stephen Jarquin, Erick Rosa, Radha Pack-- providers -- list given to spouse
Patient expressed she would like to follow-up with Dr. Curtis as outpatient-message sent to the office
No further GI recommendation at this point. Outpatient follow-up. Will sign off
Total Time Spent with Patient (in minutes): 35
Subjective
Subjective
Date of Service: May 08, 2025
Tolerating diet now without any nausea or vomiting. Abdominal pain is better (stable around 3/10). Able to eat macaroni/cheese/pizza today. Complaining of some abdominal bloating. No BM
Objective
Data Reviewed
Laboratory Data:
Laboratory Results
05/07/25 06:39
05/07/25 06:39
Laboratory Results
PT 14.6 Sec (11.4-14.6) 05/04/25 08:49
INR 1.11 05/04/25 08:49
Magnesium 2.1 mg/dl (1.6-2.3) 05/06/25 06:24
Total Bilirubin 1.4 mg/dl (0.2-1.3) H 05/04/25 06:36
AST 19 U/L (14-36) 05/04/25 06:36
ALT 16 U/L (0-35) 05/04/25 06:36
Alkaline Phosphatase 51 U/L (38-126) 05/04/25 06:36
Lipase 146 U/L (23-300) 05/02/25 10:31
Vital Signs and I&O:
Vital Signs
Temp Pulse Resp BP Pulse Ox
98.1 F 87 18 146/95 96
05/08/25 15:52 05/08/25 15:52 05/08/25 15:52 05/08/25 15:52 05/08/25 15:52
I&O
05/07/25 05/08/25 05/09/25
06:59 06:59 06:59
Intake Total 1859 520 / 520
Output Total 300 / 300
Balance 1859 220 / 220
Physical Exam
Physical Exam
GI: Soft and Tender (Epigastric tenderness on deep palpation without rigidity or guarding)
[2025-05-08] MEDS: LOVENOX SC (17:55)
[2025-05-08] MEDS: MYLICON 80 MG PO (20:21)
[2025-05-08 23:30] VITALS: BP 129/80
[2025-05-09 07:55] VITALS: BP 121/76
[2025-05-09] MEDS: NEURONTIN 100 MG PO ×3 (08:50→20:26)
[2025-05-09] MEDS: PROTONIX 40 MG PO (08:50)
[2025-05-09] MEDS: DIOVAN 160 MG PO ×2 (08:50→20:43)
[2025-05-09] MEDS: VALIUM 5 MG PO (08:50)
[2025-05-09] MEDS: MIRALAX 17 GRAMS PO (08:50)
[2025-05-09] MEDS: INDERAL 20 MG PO ×2 (08:50→20:42)
[2025-05-09] MEDS: SENOKOT-S 1 TABLET PO ×2 (08:50→20:44)
--- NOTE | 2025-05-09 08:51 | W.PN.HOSP.TC ---
Today's Communication/Plan
-
Discharge today
Assessment / Plan
Assessment / Plan
Physical Exam
General: Not in acute distress
HEENT: Normocephalic
Respiratory: Clear to Auscultation Bilaterally
Cardiac: S1/S2 and Regular Rhythm
GI: Soft and Mild abdominal tenderness. Positive bowel sounds.
Musculoskeletal: No Cyanosis and No Edema
Skin: Warm and Dry
Neuro: Awake, Alert, Oriented and Nonfocal/grossly intact
Psych: Anxious
Assessment/Plan
65-year-old female with past medical history of multiple sclerosis, fibromyalgia, anxiety, hypertension and appendicitis status post laparoscopic appendectomy and drainage of abscess with repair of umbilical hernia in August 2023, presented for
worsening epigastric/right upper quadrant abdominal pain and left mid back pain. No fevers or chills. Had nausea but no vomiting. No diarrhea. 15 pound weight loss. Patient was seen by her primary neurologist Dr. Cosby. Patient was recently
admitted from 04/11/25 to 04/12/25 for dizziness and vomiting, intermittent dysuria, headache and abdominal pain attributed to multiple sclerosis and migraine. CT abdomen pelvis at that time was unremarkable. She underwent EGD in October or 2024 at
[facility] which only showed gastric erythema. She was previously admitted in April 2024 for epigastric pain attributed to gastritis versus gastroparesis versus ulcer and started on Protonix. Vital signs normal. Labs show leukocytosis. Abdominal
ultrasound shows no acute intra-abdominal process. Increased hepatic echogenicity most consistent with mild fatty infiltration. Unclear etiology of symptoms could be gastritis/PUD vs other causes such as biliary dyskinesia. Patient initially
refused Protonix so got Pepcid. Dilaudid for pain. GI was consulted. HIDA scan to be considered although cannot be performed inpatient. Checked CT abdomen pelvis with IV and oral contrast since last scan done without contrast.

Epigastric pain/belching
Migratory back pain
Abdominal Pain
Severe Stomach Distension
Severe gastrointestinal dysmotility, potentially from patient's Multiple Sclerosis vs. narcotics vs. other
Small hiatal hernia -- on EGD 05/05/25
LA Grade A esophagitis -- on EGD 05/05/25
Bilious gastric fluid -- on EGD 05/05/25
Bile gastritis, characterized by congestion (edema), erosions and erythema (Biopsied) -- on EGD 05/05/25
Moderately tight pylorus (but able to maneuver through) on EGD 05/05/25
-Patient has had 2 endoscopies within the last 12 months with no revealing findings, also lipase normal
-Abd/Pelvis CT with IV and Oral Contrast -- results noted
-Ultrasound results noted
-Patient initially got NG tube, but then later did not want it, so it was stopped
-No evidence of complete obstruction -- contrast was seen in x-ray further down in the GI tract
-Abdominal x-rays on 05/07/25 and 05/09/25 showed no obstruction
-Continue Low Residue Diet
-Patient initially refused to take Reglan (due to 'stomach twisting' reaction), but is now willing to take Reglan 5mg PO AC
-Enema on 05/04/25
-Bowel regimen in the setting of Carafate (which can cause constipation)
-EGD on 05/05/25 with findings above
-Continue Proton Pump Inhibitor PO daily and Sucralfate 1 gram PO TID for 1 month
-Simethicone as needed for abdominal bloating
-Medication changes: stopped patient's Diltiazem, narcotic pain medications
-Per GI: consider outpatient gastric emptying study (off narcotics and no zofran for 72 hrs). If patient has gastroparesis, would move forward with endoFLIP of the pylorus if still tight consider dilation vs
other (at [place], EndoFLIP is not done) -- Endoflip providers include Susanna Issa, Stephen MilkaErick farrar, Radha Pack
-Stool studies, including Ova and Parasites study, were all negative
-Given pain out of proportion for findings, follow-up Porphobilinogen lab test result
-I communicated via [place] [employer] on 05/07/[address] Becerril, and after my discussion with him, consult/outpatient hematology referral needed only if the porphyria test comes back positive
-Appreciate GI
-Based on my discussion with Dr. Curtis of GI, possibly a spine/back source? Check MRI of the T and L spine. No need for MRI abdomen at this time, and myself, surgeon Dr. Mcarthur and rugby league footballer Dr. Curtis are all in agreement with this that no
MRI abdomen needed at this time: results of MRI T and L spine do not reveal an etiology of patient's abdominal pain
-No AAA on ultrasound and CT
-Unable to do HIDA as CCK is OP testing -- HIDA/CCK test can be done as an outpatient
-Appreciate neurology input on 05/07/25 regarding whether abdominal pain can be related to MS --> no concerns as per neurology, no MS concerns, abdominal gastric issues cannot be related to MS
-If worsening symptoms will consider CTA to check GI vasculature
-Outpatient follow-up with rugby league footballer Dr. Curtis
Dry Mouth
-Possibly from Tizanidine
-Patient says it is only associated with her episodes of abdominal pain, and then the dry mouth goes away on the pain goes away
Constipation
-Continue Miralax
-Continue Senokot-S
Essential Hypertension
Muscle Cramps with Hydrochlorothiazide in the past
-Continue Valsartan 160 mg twice daily
-Propranolol added (can help with both anxiety and blood pressure) -- continue Propranolol at 20 mg BID -- at this dose it is less likely to cause bradycardia, but just prevents tachycardia
-Patient requested cardiology consult given that outpatient e commerce director manages her blood pressure medications and we are stopping Diltiazem as above
-Stop Diltiazem
-Appreciate cardiology
-Blood pressure and heart rate were high on 05/06/25 given patient's significant anxiety -- improved with Valium
Multiple Sclerosis
-Patient follows with Dr. Cosby with [facility]
Fibromyalgia
-Consulted psychiatry given patient's significant pain and anxiety
-Recommendation is for Valium and Gabapentin, both of which have been started
-Continue Gabapentin
-Appreciate psychiatry
History of appendicitis status post laparoscopic appendectomy and drainage of abscess with repair of umbilical hernia in August 2023
Anxiety
-Continue Valium PRN -- per psychiatry, patient can take up to 15 mg per day of Valium, 3 mg ativan; appreciate psychiatry
DVT prophylaxis: SCDs. Lovenox.
Code Status: Full Code
On 05/03/25, I spoke extensively with patient, patient's and patient's daughter, inside patient's room. I answered all of their questions and concerns to satisfaction. I communicated extensively with rugby league footballer and surgeon as well.
On 05/05/25, I spoke extensively with patient, patient's , inside patient's room. I answered all of their questions and concerns to satisfaction.
On 05/09/25, I spoke extensively with patient, patient's , inside patient's room. I answered all of their questions and concerns to satisfaction.
Total time spent today on caring for the patient, including chart review, speaking with and examining the patient, documentation, speaking with patient's nurse and communicating with rugby league footballer, was 80 minutes.
More than 30 minutes spent in discharge including
Final examination of the patient
Summarizing hospital stay
Instructions for continuing care to all relevant caregivers
Preparation of discharge records, prescriptions, and referral forms
Total time spent (in minutes): 120
Anticipated Discharge: Today
Subjective/Interval History
-
Date of Service: May 09, 2025
Patient was seen and examined. She reported her abdominal pain is back today after Carafate stopped yesterday (due to concerns of constipation). She is willing to try Reglan today.
Objective Data
-
Vital Signs:
Vital Signs
Temp Pulse Resp BP Pulse Ox
98.0 F 58 18 121/76 98
05/09/25 07:55 05/09/25 08:50 05/09/25 07:55 05/09/25 08:50 05/09/25 07:55
I&O
05/08/25 05/09/25 05/10/25
06:59 06:59 06:59
Intake Total 520 / 520 1040 / 1040
Output Total 300 / 300
Balance 220 / 220 1040 / 1040
[2025-05-09] MEDS: CARAFATE 1 GRAM PO ×4 (11:12→20:44)
[2025-05-09] MEDS: REGLAN 5 MG PO ×2 (11:14→17:21)
--- NOTE | 2025-05-09 12:45 | W.PN.UPDATE ---
Update Note
Progress Note Update
patient seen chart reviewed. discussed with nursing. at bedside. patient was upset that her carafate was dc'ed and she does not understand exactly why. it has since been restarted. she is hopeful that the improvement she did note will
return with restart of carafate and possible another trial of reglan. she is anxious to go home. overall she does feel better but if feaful of the pain escalating again and finding herself back here. she is + about gabapentin as having started the
process of pain relief. she does use some valium here and i expressed concern to her re wd if she does not have it at home but this is something she has used periodically at home and she does have a scrip for it. psych will sign off at this point.
i did tell her that there was room to increase the gabapentin if needed as she is on a low dose.
--- NOTE | 2025-05-09 14:02 | CM ---
Reviewed the chart notes. Per attending for discharge today. CM continues to be available to patient/family and is monitoring medical plan for needs at discharge.
Plan: Discharge to home today with no needs.
[2025-05-09 15:38] VITALS: BP 86/54
[2025-05-09 16:33] LABS: Urine Character Clear (Clear)
[2025-05-09] MEDS: LOVENOX SC (17:23)
--- NOTE | 2025-05-09 18:54 | W.DCSUMMARY ---
Discharge Summary
Discharge Data
Date of Admission: 05/02/25
Date of Discharge: 05/09/25
Total time spent discharging patient (in min): 120
-
Pending Results: Yes
Additional Pending Results:
Discuss your porphobilinogen and pathology results with outpatient doctor and box maker
Hospital Course
65 y/o female with past medical history of multiple sclerosis, fibromyalgia, anxiety, hypertension, appendicitis status post laparoscopic appendectomy and drainage of abscess with repair of umbilical hernia in August 2023, presented for worsening
epigastric/right upper quadrant abdominal pain and left mid back pain, nausea and weight loss. No fevers or chills. Patient was recently admitted from 04/11/25 to 04/12/25 for dizziness and vomiting, intermittent dysuria, headache and abdominal
pain attributed to multiple sclerosis and migraine. CT abdomen pelvis at that time was unremarkable. She underwent EGD in October or 2024 at [facility] which only showed gastric erythema. She was previously admitted in April 2024 for epigastric pain
attributed to gastritis versus gastroparesis versus ulcer and started on Protonix. Abdominal ultrasound showed no acute intra-abdominal process, but increased hepatic echogenicity most consistent with mild fatty infiltration, and no abdominal aortic
aneurysm. CT Abdomen and Pelvis was done and showed severe distension of the stomach. Patient initially received Dilaudid for pain. There was a concern for bowel obstruction, but abdominal x-ray showed contrast (given during CT imaging) through the
colon. Her abdominal pain seemed to be out of proportion compared to physical exam findings. There was a question of whether this was porphyria and therefore porphyria test was ordered. Mesenteric ischemia was unlikely. Patient did not want the
nasogastric tube as it was causing her discomfort, therefore the nasogastric tube was discontinued. General surgery was consulted as well given her significant pain. General surgery said could consider rare pathologies such as biliary dyskinesia or
Sphincter of Oddi dysfunction.
There was a question of whether a back/spine pathology was contributing to her pain, but MRI thoracolumbar spine did not reveal anything that would cause her abdominal pain.
It was noted that patient had a recent EGD and it was thought to still be highly unlikely any finding in her duodenum that would have caused the gastric distention; it was more likely motility related and patient initially refused any medications
that could potentially help her motility, and on top of that she was on significant narcotics which of course would make motility worse. Later patient said she was okay with staying off narcotics. Patient also initially refused Pantoprazole (took
Pepcid instead), but later took Pantoprazole. Patient received enema. EGD was performed on 05/05/25, and it showed esophagitis with no bleeding likely from NG tube, bilious gastric fluid, bile gastritis, characterized by congestion (edema), erosions
and erythema, and a moderately tight pylorus. Patient was recommended Protonix daily and Carafate (given bile salt gastritis) as well. It was also recommended that patient stop taking Cardizem (as Cardizem could also worsen gastrointestinal
motility); patient mentioned a director of public works manages her blood pressure medications (her blood pressure had been in the 200s systolic in the past), and she requested a cardiology consult which was placed. Patient's Cardizem was replaced with
Propranolol (which would be beneficial for both her significant anxiety and also high blood pressure). Patient's pain improved on Pantoprazole and Carafate, and without narcotics -- Dilaudid was held/stopped. Patient would need outpatient gastric
emptying study, and if patient was found to have gastroparesis, then would move forward with endoFLIP of the pylorus if still tight consider dilation vs other (it was noted that at [facility], EndoFLIP is not done). If the gastric emptying study was
negative, then it would not be unreasonable to pursue HIDA with [facility].
Due to continued pain and severe anxiety episodes in the setting of her fibromyalgia and history of multiple sclerosis, psychiatry and neurology were consulted. Patient was started on Valium and Gabapentin (both could be increased outpatient for
better pain control). If Gabapentin were increased and patient could not tolerate it, then patient could be started on Cymbalta. Neurology mentioned that there was no indication of need for further neurological evaluation, patient recently underwent
neuroimaging which did not reveal additional issues, provide medication for remediation of headache in the form of ondansetron or antiemetic with consideration for the use of rizatriptan in the future and continue vitamin D replacement.
Hospitalist spoke extensively with box maker who recommended Reglan for patient's gastrointestinal motility issues. Hospitalist explained Reglan's side effects to the patient. Patient agreed to try Reglan for the time being.
Patient eventually had pain controlled, and she was okay with discharge home. She would follow-up closely with gastroenterology outpatient, in addition to her other physicians. She would need her gastric emptying study set up soon outpatient.
Discharge Plan
-
Patient Disposition: Home (Routine Discharge)
Discharge Diagnosis/Procedures: Mild colonic diverticulosis on CT Imaging
Constipation
Epigastric pain/belching
Migratory back pain
Abdominal Pain
Severe Stomach Distension
Severe gastrointestinal dysmotility, potentially from patient's Multiple Sclerosis vs. narcotics vs. other
Small hiatal hernia -- on EGD 05/05/25
LA Grade A esophagitis -- on EGD 05/05/25
Bilious gastric fluid -- on EGD 05/05/25
Bile gastritis, characterized by congestion (edema), erosions and erythema (Biopsied) -- on EGD 05/05/25
Moderately tight pylorus (but able to maneuver through) on EGD 05/05/25
Dry Mouth - Possibly from Tizanidine versus nerve dysfunction
Constipation
Essential Hypertension
Muscle Cramps with Hydrochlorothiazide in the past
Multiple Sclerosis
Fibromyalgia
History of appendicitis status post laparoscopic appendectomy and drainage of abscess with repair of umbilical hernia in August 2023
Anxiety

Abdominal Ultrasound Results (as per radiologist's report):
'IMPRESSION:
1. No acute intra-abdominal process identified sonographically.
2. Increased hepatic echogenicity most consistent with mild fatty infiltration.
3. Small right renal cyst without suspicious features.'

MRI Thoracic and Lumbar Spine (as per radiologist's report):
THORACIC SPINE:
The thoracic vertebral body heights are maintained. No suspicious marrow lesion. Mild multilevel degenerative disc space narrowing, disc desiccation, and endplate osteophytes. No spondylolisthesis.
The thoracic spinal cord is normal in signal and morphology.
No abnormal postcontrast enhancement.
Left posterior disc protrusion at T10-T11 causing mild to moderate left neuroforaminal stenosis. No spinal canal stenosis. Smaller disc bulges/protrusions noted elsewhere in the thoracic spine without significant sequela.
LUMBAR SPINE:
The lumbar vertebral body heights are maintained. No suspicious marrow lesion. Mild multilevel degenerative disc space narrowing, disc desiccation, endplate osteophytes. Small Schmorl's nodes at the inferior endplates of L2 on L3 and at the superior
endplate of L4. No spondylolisthesis.
The conus medullaris terminates at the L1 level.
No abnormal postcontrast enhancement.
Small disc bulges from L1 through S1 in conjunction with ligamentum flavum hypertrophy contribute to a mild degree of bilateral neuroforaminal stenosis from L1 through S1. No spinal canal stenosis.
1.3 cm right renal cyst.
IMPRESSION:
No MRI evidence for an acute process in the thoracic spine or lumbar spine.
Chronic mild degenerative changes of the thoracolumbar spine. Left posterior disc protrusion at T10-T11 causing mild to moderate left neuroforaminal stenosis. Smaller disc bulges elsewhere in the thoracic spine and lumbar spine. Mild bilateral
neuroforaminal stenoses from L1 through S1.
Condition: Fair
Diet: Low Residue
Activity: As tolerated
Activity Restrictions/Additional Instructions:
If you have any new concerning symptoms, go to he nearest emergency room immediately.
Contact your primary care provider's office and Dr. Curtis's office for refills of your medications.
Hospitalist will let Dr. Curtis know that you are being discharged from the hospital on 05/09/25.
Follow-up on the result of the Porphobilinogen lab test result from the hospital (you can see the result in the patient portal, or by requesting your hospital lab results records after 1.5-2 weeks from discharge from the hospital -- medical records
office can provide them to you). Discuss the result of this test with your primary care provider.
Consider outpatient gastric emptying study. If patient has gastroparesis, would move forward with endoFLIP of the pylorus if still tight consider dilation vs other (at [facility], EndoFLIP is not done) -- Endoflip providers include Susanna Issa,
Stephen Jarquin, Erick Rosa, Radha Pack -- as discussed by box maker.
Instructions: Polyethylene Glycol 3350, Diazepam, Gabapentin, Metoclopramide, Pantoprazole, Propranolol, Docusate and Senna, Simethicone, Sucralfate, Low-fiber diet
Referrals:
Justin Garibay MD [Active, Cardiology]
Referral Note: Please call for a follow-up appointment if you would like to follow with this practice.
Tha Doe DO [Non-Admitting Privileges, Internal Medicine] - in less than 1 week
Referral Note: Hospitalization Follow-Up
Dominick Aldana DO [Family Provider, Family Practice]
Rufus Mcarthur MD [Active, Surgical]
Referral Note: HIDA/CCK test to be done as an outpatient
Eva Curtis DO [Active, Gastroenterology] - in one to two weeks
Referral Note: Hospitalization Follow-Up
Additional Discharge Medication Instructions: Stop taking your home Valium and start taking the Valium being sent to your pharmacy -- call your primary care provider's office on Monday05/12/25 to request refills of the Valium -- you can have
severe withdrawal (including seizures) if you stop Valium completely without tapering the dose.
Gabapentin 100 mg TID is a new medication to help with your pain.
Metoclopramide (Reglan) is a new medication to help with gastrointestinal motility.
Pantoprazole is a new medication that reduces stomach acid and will help with healing of your esophagus and stomach.
Polyethylene glycol and Sennosides-Docusate are new medications to help with constipation and bowel movements.
Propranolol is a new blood pressure medication that helps with blood pressure and anxiety.
Sucralfate also helps with healing of your stomach.
Simethicone is for stomach bloating.
STOP taking your Diltiazem blood pressure medication, and also STOP taking Tizanidine.
STOP taking ondansetron as the Metoclopramide can increase the risk of QT prolongation of medications that can increase the QTc interval on electrocardiogram (please discuss this with your primary care provider).
YOU SHOULD FOLLOW-UP WITH YOUR PRIMARY CARE PROVIDER ON 05/12/25 AND REVIEW YOUR HOSPITAL DISCHARGE PAPERWORK INCLUDING YOUR DIAGNOSES AND HOSPITAL DISCHARGE MEDICATIONS.
Prescriptions:
New
sucralfate 1 gram Tablet
1 g PO AC Qty: 90 1RF
propranolol 20 mg Tablet
20 mg PO BID Qty: 60 1RF
polyethylene glycol 3350 17 gram Powder In Packet
17 g PO DAILY Qty: 100 1RF
simethicone 80 mg Tablet,Chewable
80 mg PO DAILYPRN PRN (Reason: gas pain/bloat) Qty: 20 0RF
gabapentin 100 mg Capsule
100 mg PO TID Qty: 60 0RF
pantoprazole 40 mg Tablet,Delayed Release (Dr/Ec)
40 mg PO DAILY Qty: 30 1RF
metoclopramide HCl 5 mg Tablet
5 mg PO AC Qty: 90 0RF
sennosides-docusate sodium [Senna Plus] 8.6-50 mg Tablet
1 tab PO BID Qty: 60 1RF
diazepam 5 mg Tablet
5 mg PO TIDPRN PRN (Reason: anxiety) 3 Days Qty: 9 0RF
Continued
valsartan 160 mg Tablet
160 mg PO BID
cyanocobalamin (vitamin B-12) [Vitamin B-12] 1,000 mcg Tablet
1,000 mcg PO DAILY 30 Days Qty: 30 0RF
ascorbic acid (vitamin C) [Vitamin C] 500 mg Tablet
500 mg PO DAILY
Held
slippery elm bark 400 mg Capsule
400 mg PO DAILY
Hold Instructions: Resume on 06/06/25. Discuss with your primary care provider to decide whether or not to resume this medication.
lysine 1,000 mg Tablet
1,000 mg PO DAILY
Hold Instructions: Resume on 06/06/25. Discuss with your primary care provider to decide whether or not to resume this medication.
magnesium oxide 400 mg magnesium Tablet
400 mg PO DAILY
Hold Instructions: Resume on 06/06/25. Discuss with your primary care provider to decide whether or not to resume this medication.
vitamin D3-vitamin K2 125 mcg (5,000 unit)-100 mcg Capsule
1 cap PO DAILY
Hold Instructions: Resume on 05/16/25. Discuss with your primary care provider to decide whether or not to resume this medication.
Dayana
1 cap PO DAILY
Hold Instructions: Resume on 06/06/25. Discuss with your primary care provider to decide whether or not to resume this medication.
calcium carbonate [Tums] 200 mg calcium (500 mg) Tablet,Chewable
200 mg PO BIDPRN PRN (Reason: gerd)
Hold Instructions: Resume on 06/06/25. Discuss with your primary care provider to decide whether or not to resume this medication.
coQ10 (ubiquinol) 100 mg Capsule
100 mg PO DAILY
Hold Instructions: Resume on 06/06/25. Discuss with your primary care provider to decide whether or not to resume this medication.
turmeric 400 mg Capsule
400 mg PO DAILY
Hold Instructions: Resume on 06/06/25. Discuss with your primary care provider to decide whether or not to resume this medication.
Collagen Skin Renewal 30-833.3 mg Tablet
1 tab PO DAILY
Hold Instructions: Resume on 06/06/25. Discuss with your primary care provider to decide whether or not to resume this medication.
marshmallow root 480 mg Capsule
960 mg PO DAILY
Hold Instructions: Resume on 06/06/25. Discuss with your primary care provider to decide whether or not to resume this medication.
L[place] Main
1,800 mg PO DAILY
Hold Instructions: Resume on 06/06/25. Discuss with your primary care provider to decide whether or not to resume this medication.
Tocotrienol
125 mg PO DAILY
Hold Instructions: Resume on 06/06/25. Discuss with your primary care provider to decide whether or not to resume this medication.
Discontinued
tizanidine 4 mg Tablet
4 mg PO Q6HPRN PRN (Reason: spasms)
diltiazem HCl 120 mg Capsule,Extended Release 24hr
120 mg PO DAILY
diazepam [Valium] 10 mg Tablet
10 mg PO DAILYPRN PRN (Reason: anxiety)
ondansetron 4 mg tablet,disintegrating
4 mg PO Q8HPRN PRN (Reason: nausea and vomiting)
Discharge Orders:
Discharge Patient (As Directed); Ordered 05/09/25
Ordered By: Kavin Daily
Discharge Date and Time
Discharge Date/Time: 05/09/25 21:13
Print Language: CROATIAN
[2025-05-09 19:17] VITALS: BP 117/74
--- NOTE | 2025-05-09 20:46 | PTCARENOTE ---
Pt complained of pain of old IV site... pain r/t infiltration pt states. This RN had IV team come look, IV team states that pts arm is okay and is healing, and to put heat application when she goes home. Advised ARTURO Dawn ([place]). No new orders, pt
okay to be D/C.
[2025-05-11 15:34] LABS: 24 Hour Urine Total Volume Random mL; Creatinine, Urine per Volume 256 mg/dL; Porphobilinogen, Urine <1.0 umol/L; Porphobilinogen/Creat Ratio 0.0 (0.0-0.2); Urine Collection Length Random hr
== END 2025-05-09 21:13 | disposition home or self-care (01) | DRG 392 ==
LOC: 2 NORTH 20:54
PROVIDERS: Nurse Practitioner Adult Health; ADMITTING PHYSICIAN Hospitalist; ATTENDING PHYSICIAN Hospitalist; CONSULT PHYSICIAN Internal Medicine; CONSULT PHYSICIAN Internal Medicine Cardiovascular Disease; CONSULT PHYSICIAN Psychiatry & Neurology Neurology; CONSULT PHYSICIAN Psychiatry & Neurology Psychiatry; CONSULT PHYSICIAN Surgery; EMERGENCY PHYSICIAN Emergency Medicine; FAMILY PHYSICIAN Family Medicine
PROC: 0DB68ZX Excision of Stomach, Via Natural or Artificial Opening Endoscopic, Diagnostic (ICD-10-PCS; 2025-05-05)
DX: K29.60 Other gastritis without bleeding (principal); K31.84 Gastroparesis; K21.00 Gastro-esophageal reflux disease with esophagitis, without bleeding; K59.00 Constipation, unspecified; K76.0 Fatty (change of) liver, not elsewhere classified; G35 Multiple sclerosis; I10 Essential (primary) hypertension; M79.7 Fibromyalgia; F41.9 Anxiety disorder, unspecified; K44.9 Diaphragmatic hernia without obstruction or gangrene; I35.1 Nonrheumatic aortic (valve) insufficiency; G43.109 Migraine with aura, not intractable, without status migrainosus; G89.29 Other chronic pain; Z88.0 Allergy status to penicillin; Z87.891 Personal history of nicotine dependence; Z90.49 Acquired absence of other specified parts of digestive tract
CPT/HCPCS: 72157; 72158; 74018; 74177; 76700; 80048; 80053; 81003; 81015; 82977; 83615; 83690; 83735; 84110; 85025; 85027; 85610; 87045; 87046; 87324; 87328; 87329; 87427; 87449; 88305; 88342; 89055; 93005; 96361; 96374; 96375; 96376; 97162; 97165; 99285; A9575; Q9967

== ENCOUNTER → 2025-06-12 13:25 | Outpatient (REF) | payer MEDICARE, OTHER, SELFPAY | LOC: RCS 13:25 | PROVIDERS: ATTENDING PHYSICIAN Nurse Practitioner; FAMILY PHYSICIAN Family Medicine | DX: I10 Essential (primary) hypertension (principal); I35.1 Nonrheumatic aortic (valve) insufficiency | CPT/HCPCS: 93306 ==

== ENCOUNTER → 2025-08-04 09:14 | Outpatient (REF) | payer MEDICARE, OTHER, SELFPAY | LOC: MRI 3T 09:14 | PROVIDERS: ATTENDING PHYSICIAN Nurse Practitioner; FAMILY PHYSICIAN Family Medicine | DX: R93.5 Abnormal findings on diagnostic imaging of other abdominal regions, including retroperitoneum (principal); R10.13 Epigastric pain; K31.89 Other diseases of stomach and duodenum | CPT/HCPCS: 72197; 74183; A9585 ==

== ENCOUNTER 2025-08-18 17:27 | Inpatient (IN) | payer MEDICARE, SELFPAY ==
[2025-08-18 08:59] VITALS: BP 150/94
[2025-08-18] MEDS: ZOFRAN 4 MG IV ×2 (09:49→18:38)
[2025-08-18] MEDS: NSS 1000 IV (09:49)
[2025-08-18] MEDS: DILAUDID 1 MG IV (09:50)
[2025-08-18] MEDS: OMNIPAQUE 50 ML PO (09:52)
[2025-08-18 10:08] LABS: Hematocrit 40.8 % (37.0-47.0); Hemoglobin 14.5 g/dL (12.0-16.0); Mean Corp Hgb Conc. 35.5 g/dL (33.0-37.0); Mean Corpuscular Volume 84.1 fL (81.0-99.0); Nucleated Red Blood Cells % 0 %; Platelet Count 367 10^3/uL (130-400); Red Cell Dist. Width 11.9 % (11.5-14.5)
[2025-08-18 10:16] VITALS: BP 147/81
[2025-08-18 10:21] LABS: ALT (SGPT) 15 U/L (0-35); AST (SGOT) 20 U/L (14-36); Albumin 5.0 g/dl (3.5-5.0); Alkaline Phosphatase 60 U/L (38-126); Blood Urea Nitrogen 14 mg/dl (7-17); Calcium 10.5 mg/dl (8.4-10.2); Carbon Dioxide 24 mmol/L (22-30); Chloride 107 mmol/L (98-107); Glucose 104 mg/dl (70-99); Lipase 149 U/L (23-300); Sodium 138 mmol/L (135-145); Total Protein 8.0 g/dl (6.3-8.2); eGFR > 60.00
[2025-08-18 10:29] VITALS: BMI 23.5
[2025-08-18 10:32] LABS: Troponin I < 0.012 ng/ml
--- NOTE | 2025-08-18 10:39 | ED.GENMED ---
History of Present Illness
General
Chief Complaint: Abdominal Pain
Source: patient and spouse
Exam Limitations: none
Time Seen by Provider: 08/18/25 09:10
History of Present Illness
History of Present Illness:
65-year-old female recurrent abdominal pain. This has been an issue for months. The symptoms all seem to have started after her appendix rupture and abscess. Etiology not totally clear at this time. Does have duodenitis by recent MRI. Also
decreased gastric emptying.
Past History
Past History
ED Past Medical History: Fibromyalgia and Other (migraine/MS ); Negative IDDM
ED Past Surgical History: Appendectomy
Social History
Tobacco: Non-smoker
Alcohol: None
Living: with family
Review of Systems
Review of Systems
All Other Systems: Not applicable
Constitutional: Denies fever
Respiratory: Reports no symptoms
Cardiac: Reports no symptoms
: Reports no symptoms
Phy Exam
Physical Exam
Physical Exam:
GENERAL: Alert and oriented. Nontoxic. But sitting up on the edge of the bed appearing uncomfortable
EYE: Orbits normal.
NECK: Supple, no significant adenopathy.
ENT: Pharynx without erythema
CARDIAC: Regular rate and rhythm without any obvious murmurs.
LUNGS: Clear breath sounds,normal
ABDOMEN: Soft, bowel sounds present. No distention. Mild epigastric tenderness. No rebound or guarding no mass or hernia
NEUROLOGICAL: Alert and oriented , grossly non-focal
SKIN: Warm and dry, no rash or lesion, no discoloration, skin intact.
MUSCULOSKELETAL: No edema,no deformity.Good color
PSYCH: Normal and appropriate interaction.
Course
Orders/Labs/Results
Orders:
Orders
08/18/25 09:22
CT Abd/pelvis Angio W/wo Iv Urgent
Comment:
Reason For Exam: Recurring upper abdominal pain. include oral contr
IV Insert/Care/Rem.- Treatment PRN
0.9% Sodium Chloride 1000 ml [Nss] 1,000 ml IV BOLUS
HYDROmorphone [Dilaudid] 1 mg IV NOW STA
Ondansetron Injectable [Zofran] 4 mg IV NOW STA
08/18/25 09:36
Iohexol [Omnipaque] 50 ml .ROUTE .STK-MED ONE
08/18/25 09:38
Iohexol [Omnipaque] See Protocol PO NOW STA
08/18/25 09:55
Complete Blood Count/With Diff Urgent
Comprehensive Metabolic Panel Urgent
Lipase Urgent
Troponin I Urgent
08/18/25 13:52
HYDROmorphone [Dilaudid] 0.5 mg IV NOW STA
Abnormal Lab Results
08/18/25
09:55
WBC 11.3 H 10^3/uL
(4.8-10.8)
Absolute Neuts (auto) 8.6 H 10^3/uL
(1.4-6.5)
Absolute Monos (auto) 0.7 H 10^3/uL
(0.1-0.6)
Neutrophils % 76.3 H %
(42.2-75.2)
Lymphocytes % 15.7 L %
(20.5-51.1)
Glucose 104 H mg/dl
(70-99)
Calcium 10.5 H mg/dl
(8.4-10.2)
Total Bilirubin 1.6 H mg/dl
(0.2-1.3)
08/18/25 09:55
08/18/25 09:55
Vital Signs
Initial and Last Documented VS:
Initial Vital Signs
Pulse Resp BP Pulse Ox
65 18 150/94 100
08/18/25 08:59 08/18/25 08:59 08/18/25 08:59 08/18/25 08:59
Last Documented Vital Signs
Temp Pulse Resp BP Pulse Ox
98.1 F 53 10 119/74 94
08/18/25 10:40 08/18/25 14:15 08/18/25 14:15 08/18/25 12:00 08/18/25 14:15
MDM/Problems Addressed
Differential Diagnosis Includes:
Recurrent and ongoing abdominal pain of unknown etiology. No definitive diagnosis. Recent MRI shows mild duodenitis. Some decreased gastric emptying. Will get a CT angio to totally rule out ischemic bowel which is unlikely. Add oral contrast to
evaluate emptying. Likely will require admission for pain management and further workup
*Radiology
Radiology exam reviewed: radiology read reviewed (Partial gastric outlet obstruction)
*Pulse Oximetry
SaO2: 95
Oxygen Mode of Delivery: Room air
Patient hypoxic: no
*Critical Care Note
Total Time (30-74mins, 75-104mins- exclusive of procedures): Not Applicable
Data Reviewed
Review of Other/Old Records Reveals: Labs, Records, Radiology Studies, Testing and Discharge Summary
Update Note
Update Note:
Suspect what ever is causing this duodenal inflammation is the primary issue with the partial gastric outlet obstruction as a result issue. Warrants inpatient management and workup
ED Attending Note
-
Portions of this chart may have been created with voice recognition software.� Occasional wrong word or��sound alike� substitutions may have occurred due to the inherent limitations of voice recognition software.
Discharge Plan
Departure
Patient Disposition: Admit
Date of Disposition: 08/18/25
Time of Disposition: 13:19
Presentation/result/management discussed w/ accepting MD/DO: Hospitalist
Discharge Problem:
Intractable epigastric pain, duodenitis, Partial gastric outlet obstruction
Prescriptions:
No Action
valsartan 160 mg Tablet
160 mg PO BID
Dayana
1 cap PO PRN PRN (Reason: constipation)
sucralfate 1 gram Tablet
1 g PO AC Qty: 90 1RF
diazepam 5 mg Tablet
5 mg PO TIDPRN PRN (Reason: anxiety) 3 Days Qty: 9 0RF
Patient Comments:
Patient staes she occasionally takes it once a week
metoclopramide HCl 5 mg tablet
5 mg PO AC
pantoprazole 40 mg tablet,delayed release (DR/EC)
40 mg PO DAILY
gabapentin 100 mg capsule
100 mg PO BID
amlodipine 5 mg tablet
5 mg PO DAILY
propranolol 80 mg tablet
80 mg PO BID
cyanocobalamin (vitamin B-12) [Vitamin B-12] 1,000 mcg tablet
1,000 mcg PO DAILY
Referrals:
Dominick Aldana DO [Family Provider, Family Practice]
Interventions
Interventions:
*General Assessment Last Done: 08/18/25 08:59
*Neglect/Abuse Screening Last Done: 08/18/25 08:59
*ED COVID-19 Vaccine History Last Done: 08/18/25 08:59
*ED Influenza Vaccine History Last Done: 08/18/25 08:59
[facility] Risk Assessment Tool Last Done: 08/18/25 10:22
*Risk Screen - Suicide (C-SSRS) Last Done: 08/18/25 08:59
XK-Rzdhoz-[id number] Assessment Last Done: 08/18/25 10:23
Discharge Date and Time
Print Language: MONGOLIAN
[2025-08-18 10:54] LABS: Potassium 4.3 mmol/L (3.5-5.1)
[2025-08-18 11:00] VITALS: BP 132/74
[2025-08-18 12:00] VITALS: BP 119/74
[2025-08-18] MEDS: DILAUDID 0.5 MG IV ×2 (13:59→18:28)
--- NOTE | 2025-08-18 16:08 | HPS.HSE ---
Addendum entered and electronically signed by Rodrick Valdez MD 08/18/25 16:37:
place ngt
Original Note:
Family Physician
-
Family Physician: Dominick Aldana
Chief Complaint
-
abdominal pain
History of Present Illness
65 F hx of MS, gerd, htn who presents with recurrent abdominal pain, epigastric, ongoing for months, resolved and returned over the weekend with worsening, constant, feels like her stomach is going to explode, having bm, but small hard like 'rabbit
poop'. has associated nausea that improves with zofran. states that she feels like her abdomen is full from the contrast. pain improves with Dilaudid.
Medical History
Past Medical History
Past Medical History: Reports GERD, HTN and Other (MS)
Past Surgical History: Reports Other
Additional Past Surgical History:
Appendectomy with Drainage Intraabdominal Abscess
Umbilical Hernia Repair with Mesh
Social History
Alcohol: None
Drug: None
Family History
Family History: Not pertinent
Allergies / Home Medications
Allergies reflects when Allergies were last updated in [facility].
Home Medications with original date entered in [facility]
Allergy/Medication List:
Allergies
Allergy/AdvReac Type Severity Reaction Status Date / Time
ketorolac (From Toradol) Allergy Nausea / Verified 08/18/25 09:01
Vomiting
penicillin G Allergy Unknown - Verified 08/18/25 09:01
as a child
prochlorperazine (From Allergy causes Verified 08/18/25 09:01
Compazine) Anxiety.
Patient
refuses to
take.
Home Medications
Dayana 1 cap PO PRN PRN constipation 04/11/25
Held on 05/09/25. Instructions: Resume on 06/06/25. Discuss with your primary care provider to decide whether or not to resume this medication.
valsartan 160 mg tablet 160 mg PO BID Blood Pressure 04/11/25
diazepam 5 mg tablet 5 mg PO TIDPRN PRN anxiety 3 days #9 tabs 05/09/25
sucralfate 1 gram tablet 1 g PO AC #90 tabs 05/09/25
amlodipine 5 mg tablet 5 mg PO DAILY Blood Pressure 08/18/25
cyanocobalamin (vitamin B-12) 1,000 mcg tablet (Vitamin B-12) 1,000 mcg PO DAILY Supplement 08/18/25
gabapentin 100 mg capsule 100 mg PO BID Pain 08/18/25
metoclopramide HCl 5 mg tablet 5 mg PO AC N/V 08/18/25
pantoprazole 40 mg tablet,delayed release 40 mg PO DAILY Gastrointestinal Issue 08/18/25
propranolol 80 mg tablet 80 mg PO BID Blood Pressure 08/18/25
Review of Systems
-
A 12 point ROS was completed and negative except as noted: Yes
Physical Exam
Vital Signs
Vital Signs
Temp Pulse Resp BP Pulse Ox
98.1 F 56 15 119/74 98
08/18/25 10:40 08/18/25 16:00 08/18/25 16:00 08/18/25 12:00 08/18/25 16:00
Physical Exam
General: Well Developed, Well Nourished and No Apparent Distress
HEENT: NormoCephalic and Anicteric
Respiratory: Clear
Cardiac: S1/S2 and Regular Rhythm
GI: Soft, Non Distended, Normal Bowel Sounds and Tender (epigastric with some fullness)
Musculoskeletal: No Clubbing and No Cyanosis
Skin: Warm and Dry
Neuro: Awake and AO x 3
Psych: Calm
Laboratory Results
-
08/18/25 09:55
08/18/25 09:55
Laboratory Results
Total Bilirubin 1.6 mg/dl (0.2-1.3) H 08/18/25 09:55
AST 20 U/L (14-36) 08/18/25 09:55
ALT 15 U/L (0-35) 08/18/25 09:55
Alkaline Phosphatase 60 U/L (38-126) 08/18/25 09:55
Troponin I < 0.012 ng/ml 08/18/25 09:55
Lipase 149 U/L (23-300) 08/18/25 09:55
Impression/Plan
-
Intractable abdominal pain
-DDX: pud, gastritis/duodenitis, partial GOO
bid iv ppi
npo
ivf - .45
antiemetics
surgery and gi consult
Essential Hypertension
-Hold HCTZ, norvasc and valsartan
Multiple Sclerosis
-Patient follows with Dr. Cosby with [facility]
Anxiety
-Continue Valium PRN
[2025-08-18 17:30] VITALS: BP 128/81
--- NOTE | 2025-08-18 17:31 | CON.GS ---
Consultation
-
Date/Time Consultation Requested: 08/18/2025 4:30 PM
Date/Time Consultation Performed: 08/18/2025 5 PM
Requesting Provider: Dr. Valdez
Performing Provider: Dr. Mcarthur
Reason for Consultation: Duodenitis
Medical History
-
Chief Complaint: Abdominal pain
History of Present Illness:
This is a 65-year-old female with a history of MS, GERD, Laparoscopic appendectomy for appendicitis in 2023 (Dr. Alegria) who presents to our hospital for evaluation of ongoing and worsening epigastric abdominal pain in the setting of similar
symptoms back in April. At that time general surgery was consulted with concern for possible biliary source of her abdominal pain as it was not still is postprandial. At the time and ultrasound showed no stones and a CT scan showed severe
distention of the stomach with oral contrast. She did have an upper endoscopy done on 05/05/[address] Curtis which showed some LA grade a esophagitis, some mild bile gastritis and a moderately tight pylorus. She was discharged and did have an
outpatient MRI enterography which was notable only for some mild duodenitis.
Today she endorses continued epigastric abdominal pain exacerbated by eating with both liquids and solids, food fear, and corresponding weight loss (20 pounds). She states for a brief time 'sauerkraut' helped her/was tolerable but that recently
even that can set off her abdominal pain. She is taking PPI 40 mg daily, as well as Reglan. She endorses occasional chills but no fever. She denies any shortness of breath, vomiting but does have significant nausea with the abdominal pain. She
denies any changes in urinary and bowel habits, jaundice, icterus, acolic stools.
Past Medical History
Past Medical History: Other (MS, reflux, hypertension)
Past Surgical History: Other (Laparoscopic appendectomy, primary umbilical hernia repair (no mesh))
Social History
Tobacco: Non-Smoker
Alcohol: None
Drug: None
Personal:
Living: With Family
Family History
Family History: Reviewed & Not Pertinent
Allergies / Home Medications
Allergy/AdvReac Type Severity Reaction Status Date / Time
ketorolac (From Toradol) Allergy Nausea / Verified 08/18/25 09:01
Vomiting
penicillin G Allergy Unknown - Verified 08/18/25 09:01
as a child
prochlorperazine (From Allergy causes Verified 08/18/25 09:01
Compazine) Anxiety.
Patient
refuses to
take.
�Medication �Instructions �Recorded �Confirmed �Type
Dayana 1 cap PO PRN PRN constipation 04/11/25 08/18/25 History
Held on 05/09/25.
Instructions: Resume on
06/06/25. Discuss with your
primary care provider to
decide whether or not to
resume this medication.
valsartan 160 mg tablet 160 mg PO BID Blood Pressure 04/11/25 08/18/25 History
diazepam 5 mg tablet 5 mg PO TIDPRN PRN anxiety 3 days 05/09/25 08/18/25 Rx
#9 tabs
sucralfate 1 gram tablet 1 g PO AC #90 tabs 05/09/25 08/18/25 Rx
amlodipine 5 mg tablet 5 mg PO DAILY Blood Pressure 08/18/25 08/18/25 History
cyanocobalamin (vitamin B-12) 1,000 mcg PO DAILY Supplement 08/18/25 08/18/25 History
1,000 mcg tablet (Vitamin B-12)
gabapentin 100 mg capsule 100 mg PO BID Pain 08/18/25 08/18/25 History
metoclopramide HCl 5 mg tablet 5 mg PO AC N/V 08/18/25 08/18/25 History
pantoprazole 40 mg tablet,delayed 40 mg PO DAILY Gastrointestinal 08/18/25 08/18/25 History
release Issue
propranolol 80 mg tablet 80 mg PO BID Blood Pressure 08/18/25 08/18/25 History
Review of Systems
-
A 10 point review of systems was completed, and was negative except as per HPI.
Physical Exam
Vital Signs
Temp Pulse Resp BP Pulse Ox
98.1 F 60 11 119/74 99
08/18/25 10:40 08/18/25 17:00 08/18/25 17:00 08/18/25 12:00 08/18/25 17:00
08/17/25 08/18/25 08/19/25
06:59 06:59 06:59
Actual Weight 70 kg
Body Mass Index (BMI) 23.5
Lab Results
08/18/25 09:55
08/18/25 09:55
WBC 11.3 10^3/uL (4.8-10.8) H 08/18/25 09:55
Hgb 14.5 g/dL (12.0-16.0) 08/18/25 09:55
Hct 40.8 % (37.0-47.0) 08/18/25 09:55
Plt Count 367 10^3/uL (130-400) 08/18/25 09:55
Abs Immat Gran (auto) 0.0 10^3/uL (0-0.05) 08/18/25 09:55
Neutrophils % 76.3 % (42.2-75.2) H 08/18/25 09:55
Physical Exam
General: Well Developed
HEENT: Normocephalic
Respiratory: Non Labored Respirations
GI: Soft and Tender (Minimally tender in the epigastrium)
Neuro: Awake and AO x 3
Data Reviewed
-
CT Scan: Image Personally Visualized and interpreted, Report Reviewed by me, Discussed with Physician, Discussed with Patient and Discussed with Family
Total Time Spent with Patient (in minutes): 30
Assessment / Plan
-
This is a 65-year-old female with medical history of a laparoscopic appendectomy, MS, presents with epigastric abdominal pain likely secondary to poor emptying of her stomach i.e. gastroparesis secondary to her MS. She has had 2 EGD biopsies that
are H. pylori negative and without any other acute underlying pathology. She has also been on both PPI and Reglan without significant symptomatic improvement.
No acute surgical intervention warranted but discussed the spectrum of options available after maxing out medical therapy to which she seems to be nearing here. We discussed briefly endoscopic options such as Botox, balloon dilation and endoscopic
myotomy as well as more invasive options such as a surgical pyloroplasty, gastric stimulator.
For now we will continue gastroparesis workup per GI.
Could consider a neurology consult.
N.p.o. for now, IV fluids. Please place NG tube if patient has further nausea or emesis.
Surgery will follow peripherally, please call with any questions or concerns.
I spent 75 minutes in total for the care of this patient today including direct patient care and counseling, reviewing labs, imaging, coordination of care, as well as documentation.
[2025-08-18 18:19] VITALS: BMI 22.7
[2025-08-18] MEDS: 0.45%NACL 1000 IV (18:22)
[2025-08-18] MEDS: NSS (PRESERVATIVE FREE) IV (19:46)
[2025-08-18] MEDS: PROTONIX IV IV (19:46)
[2025-08-18 23:00] VITALS: BP 129/77
[2025-08-19] MEDS: 0.45%NACL 1000 IV ×2 (04:44→19:20)
--- NOTE | 2025-08-19 06:43 | CON.GI ---
Addendum entered and electronically signed by Ashia Burnette MD 08/19/25 13:49:
I saw and examined the patient.
The BODY JOINER's note was reviewed and I agree with the note.
Comment: This is a 65-year-old female with past medical history as listed below, please refer to the very detailed note below for details regarding her prior workup and prior admissions. She has refractory abdominal pain mostly epigastric area with
extensive workup over the past couple of months and does have evidence of possible partial gastric outlet obstruction and was also admitted at [facility] and was recommended outpatient motility testing including gastric emptying scan and Endoflip. She
also had seen Dr. Ng in the past at [place] and had colonoscopy and endoscopy in February and she has had 3 endoscopies here at [facility] and the last endoscopy was with Dr. Curtis in April and was noted to have esophagitis and retained gastric
fluid with a moderately tight pylorus noted. She did have an NG tube placed also during her prior admission. She has nausea but no vomiting and chronic constipation.This admission she refused the NG tube placement and the CT does show distended
stomach. During her prior admission she was also evaluated by psychiatry and neurology. She was also started on gabapentin for chronic pain. She is also been on Reglan.
Assessment and plan epigastric pain with distended stomach with retained fluid and nausea most likely has gastroparesis and probable pyloric stenosis/spasm. She will need outpatient motility workup, recommended for her to follow-up with [facility] she
was admitted there also in the past. She will most likely need a gastric emptying scan as outpatient and also Endoflip and probable Botox or pyloric dilation depending on the workup. Would only use Reglan for short-term. Continue PPI. She did
have porphyria workup also in the past and was negative and she also recently had an MR enterography which showed duodenitis and was otherwise unremarkable. Doubt mesenteric angina since her CTA was also unremarkable. Would consider Motegrity to
help with her chronic constipation symptoms and probable gastroparesis at the time of DC unable to start inpatient nonformulary here. Will also start her on Xifaxan for probable SIBO. Can start clear liquids and advance diet as tolerated since her
repeat obstruction series from today shows improvement and no distention of stomach and no bowel obstruction.
Original Note:
Consultation
-
Date/Time Consultation Requested: 08/18/25 1600
Date/Time Consultation Performed: 08/19/25 0730
Requesting Provider: Rodrick Valdez MD
Performing Provider: ARTURO Espino, Ashia Burnette MD
Reason for Consultation: abdominal pain, abnormal imaging
Medical History
Chief Complaint / HPI
History of Present Illness:
Pt is a 65yo presents with onset of with hx MS, fibromyalgia, anxiety, migraines with admission in 2023 with acute appendicitis with lap appe and drainage of abscess with repair of umbilical hernia. She has had multiple evaluation since that
time with epigastric pain in 2023 with Excedrin use with stable EGD and CT with concern for central component of symptoms. Evaluation with Dr. Ng and completed EGD and colonoscopy that she recalls erythema in stomach and normal colon. After
that was completed she had ? Campylobacter. This past summer she had 2 UTI's then admitted in March with concerned for sepsis with dizziness, vertigo, vomiting, with concern for MS exacerbation. She was given Reglan and PPI and felt that
exacerbated her symptoms. She was seen by GI in April on return admission with multiple complaints including epigastric pain with squeezing sensation. She had been using Tizanidine for back spasms with wt loss and constipation. She had NGT
placed during admission and also completed EGD with Dr. Curtis with small HH, esophagitis with concern for NGT trauma, bile gastritis, with edema, erosions and erythema, but also noted with moderately tight pylorus. She was recommended PPI,
sucralfate and improved motility to avoid narcotics, Calcium channel blockers, t/c GE scan and if + consider endoflip of pylorus. Pt was given List of provider (-Ssuanna Issa, Stephen Jarquin, Erick Rosa, Radha Pack) for evaluation. - Pt
initially declined Reglan at that time with concern for worsening symptoms with use but then began to take with minimal improvement. Porphyria testing was completed with pain out of proportion of symptoms and noted negative. she admits after
admission she then was hospitalized at [facility] in last April. She completed CT a/p, CT PE and CT lumbar spine study and pt was seen by neurology with noted incidental thyoid nodule and thoracic aortic calcification but no other etiology for
symptoms. Pt was started on Gabapentin, flexeril, lidocaine patch, valium and prednisone. she had further GI follow up in June at [facility] and completed MRE with duodenitis.
Pt now returns with continued abdominal pain. She admits to pain on daily basis over last year. She was due for more testing at [facility] but not scheduled (GE scan, vagus nerve study) but pain was intense and unable to wait. She describes pain
as 10/10 in upper abdomen. Improved with dilaudid and difficutly to say what makes pain worse. She also admits to abnormal stools with pebble like stools and looser stools. She has nausea and difficulty with vomiting. She also admits to some
dysphagia with symptoms. she otherwise denies rectal bleeding.
.
Past Medical History
Past Medical History: HTN, Psychiatric (anxiety ) and Other (MS, fibromyalgia)
Past Surgical History: Appendectomy (with drainage of abdominal abscess) and Other (umbilical hernia with mesh )
Social History
Tobacco: Non-Smoker
Alcohol: None
Drug: None
Personal:
Living: With Family
Employment: Retired
Family History
Family History: Other (mother with hx SIBO)
Allergies / Home Medications
Allergy/AdvReac Type Severity Reaction Status Date / Time
ketorolac (From Toradol) Allergy Nausea / Verified 08/18/25 09:01
Vomiting
penicillin G Allergy Unknown - Verified 08/18/25 09:01
as a child
prochlorperazine (From Allergy causes Verified 08/18/25 09:01
Compazine) Anxiety.
Patient
refuses to
take.
�Medication �Instructions �Recorded
Dayana 1 cap PO PRN PRN constipation 04/11/25
Held on 05/09/25.
Instructions: Resume on
06/06/25. Discuss with your
primary care provider to
decide whether or not to
resume this medication.
valsartan 160 mg tablet 160 mg PO BID Blood Pressure 04/11/25
diazepam 5 mg tablet 5 mg PO TIDPRN PRN anxiety 3 days 05/09/25
#9 tabs
sucralfate 1 gram tablet 1 g PO AC #90 tabs 05/09/25
amlodipine 5 mg tablet 5 mg PO DAILY Blood Pressure 08/18/25
cyanocobalamin (vitamin B-12) 1,000 mcg PO DAILY Supplement 08/18/25
1,000 mcg tablet (Vitamin B-12)
gabapentin 100 mg capsule 100 mg PO BID Pain 08/18/25
metoclopramide HCl 5 mg tablet 5 mg PO AC N/V 08/18/25
pantoprazole 40 mg tablet,delayed 40 mg PO DAILY Gastrointestinal 08/18/25
release Issue
propranolol 80 mg tablet 80 mg PO BID Blood Pressure 08/18/25
Review of Systems
-
History Source: Patient
Constitutional: Reports Weight Loss ( 20 lbs ), Fatigue and Other (hot flashes )
EENT: Reports Other (felling of mouth filling up a time with nausea )
Abdomen/GI: Reports Abdominal Pain, Nausea, Constipated and Other (dysphagia )
: Reports Frequency and Urgency
Musculoskeletal: Reports No Symptoms
Neurological: Reports Weakness
Endocrine: Reports No Symptoms
Hematologic/Lymphatic: Reports No Symptoms
Vital Signs
Temp Pulse Resp BP Pulse Ox
98.2 F 54 18 129/77 98
08/18/25 23:00 08/18/25 23:00 08/18/25 23:00 08/18/25 23:00 08/18/25 23:00
Physical Exam
Exam
General: Other (mild distress with pain with rocking and sitting at side of bed )
HEENT: Normocephalic
Respiratory: Clear
Cardiac: Regular Rhythm
GI: Soft, Non Distended and Tender (epigastric pain )
Musculoskeletal: No Clubbing and No Cyanosis
Skin: Warm and Dry
Neuro: Awake, Alert and AO x 3
Psych: Other (cooperative with pain and conversant )
Results
WBC 11.3 10^3/uL (4.8-10.8) H 08/18/25 09:55
Hgb 14.5 g/dL (12.0-16.0) 08/18/25 09:55
Hct 40.8 % (37.0-47.0) 08/18/25 09:55
MCV 84.1 fL (81.0-99.0) 08/18/25 09:55
Plt Count 367 10^3/uL (130-400) 08/18/25 09:55
Absolute Neuts (auto) 8.6 10^3/uL (1.4-6.5) H 08/18/25 09:55
Sodium 138 mmol/L (135-145) 08/18/25 09:55
Potassium 4.3 mmol/L (3.5-5.1) 08/18/25 09:55
Chloride 107 mmol/L (98-107) 08/18/25 09:55
Carbon Dioxide 24 mmol/L (22-30) 08/18/25 09:55
BUN 14 mg/dl (7-17) 08/18/25 09:55
Creatinine 0.8 mg/dL (0.6-1.0) 08/18/25 09:55
Calcium 10.5 mg/dl (8.4-10.2) H 08/18/25 09:55
Total Bilirubin 1.6 mg/dl (0.2-1.3) H 08/18/25 09:55
AST 20 U/L (14-36) 08/18/25 09:55
ALT 15 U/L (0-35) 08/18/25 09:55
Alkaline Phosphatase 60 U/L (38-126) 08/18/25 09:55
Lipase 149 U/L (23-300) 08/18/25 09:55
Diagnostic Image Results:
08/18/25 CT angio with and without contrast
Majority of oral contrast is seen within the stomach with only small volume oral contrast seen in unremarkable proximal small bowel. Cannot exclude partial obstruction at the level of the duodenum (recent history of duodenitis) and cannot exclude
gastric outlet obstruction.
No intestinal obstruction, free air or findings to suggest intestinal pneumatosis.
Subcentimeter low-attenuation right lobe hepatic lesion too small to characterize. Mild diffuse fatty liver again suspected.
08/14/25 MR enterography
Findings suggesting mild duodenitis. No MR evidence of additional inflammatory changes of the bowel.
Moderate diffuse hepatic steatosis.
04/[address] [facility] [address] Abdomen and Pelvis was performed and showed mild mucosal hyperemia of the gastric antrum suggest gastritis. No severe inflammation. No gastric outlet obstruction. Remainder of the GI tract structures appear unremarkable.
Probable hepatic steatosis. ent.
04/2025 [facility] CTPE was performed and negative for pulmonary embolism. CT lumbar spine recon showed no findings to suggest acute traumatic injury to the lumbar spine.
05/09/25 CR Abdomen - 1 View
1. No radiographic evidence for bowel obstruction.
2. Moderate amount of fecal material in the ascending colon.
05/07/25 Abd X Ray Unremarkable abdomen
05/03/25 Abd X ray Nasogastric tube with the tip in the stomach. Contrast material has now passed into the colon. No residual contrast material in the stomach. Nonobstructive bowel gas pattern.
05/02/25 US abdomen
1. No acute intra-abdominal process identified sonographically.
2. Increased hepatic echogenicity most consistent with mild fatty infiltration.
3. Small right renal cyst without suspicious features.
04/11/25 CT Abd/pel Without Iv Or Oral
1. No acute findings.
2. Incidental findings detailed above -- Mild multilevel disc disease within the lumbar spine.
10/04/24 CT Abd/pelvis W Iv Cont
No CT evidence for an acute process in the abdomen or pelvis. Moderate volume colonic stool.
05/15/24 CT Abd/pel W Iv And Oral Contr
No acute abnormality throughout the abdomen and pelvis.
Subcentimeter low-attenuation right lobe hepatic lesion too small to characterize, unchanged.
Small simple right renal cysts.
Prior appendectomy.
No intestinal obstruction, free air or gross focal pericolonic inflammatory changes.
Prior GI Procedures:
EGD:[facility] 04/2024 - Normal esophagus.
- Erythematous mucosa in the antrum. Biopsied.
- Normal examined duodenum.
bx non specific inflammation, neg H pylori
EGD 12/2024 Dr. Ng- erythema stomach per patient
Colonoscopy: 12/2024 with recalls as normal per patient
EGD: 05/05/25 [facility]
- Small hiatal hernia.
- LA Grade A esophagitis with no bleeding likely from the NGTube.
- Bilious gastric fluid. Fluid removed.
- Bile gastritis, characterized by congestion (edema), erosions and
erythema. Biopsied.
- The pylorus was moderately tight but able to maneuver through.
Normal examined duodenum.
Assessment / Plan
-
Pt is a 65yo presents with onset of with hx MS, fibromyalgia, anxiety, migraines with admission in 2023 with acute appendicitis with lap appe and drainage of abscess with repair of umbilical hernia. She has had ongoing upper abdominal pain with
nausea and constipation for last year with multiple admission and testing with multiple EGD/colon, CT, MRE, CTE, spinal imaging, and eval with GI and neurology with continued symptoms and unclear etiology.. She has also had evaluation at [facility]
inpatient but not completed OP follow up. She returns with recurrent abdominal pain improved with Dilaudid.
-ongoing severe upper abdominal pain
-tight pylorus on EGD
-duodenitis noted on recent MRE
-retained contrast in stomach on CTA on admission
- constipation
-leukocytosis- improved
-anxiety
-wt loss
other medical problems:
-MS
-hx appe with drainage of abscess/umbilical hernia repair 08/2023
-fibromyalgia
-migraines
- hx Campylobacter
PLAN:
Etiology of pain related to gastroparesis with some retained contrast in stomach, motility disorder, tight pylorus as noted on prior EGD vs other
cont pain control per hospitalist team
with concern for motility disorder will add Xifaxan with risk of SIBO
hold on EGD as has completed 3 EGD in past year
t/c Motegrity trial on discharge as unable to get here during admission
cont PPI
will resume Carafate
ok for simethicone PRN
check EKG prior to restart of reglan
clear diet then small portions as tolerated
if tolerating clears add supplement daily with wt loss
discussed need for OP follow up at [facility] for further testing with GE scan, vagus nerve study and eval for endoflip
Pt was recommended follow up with Susanna Issa, Stephen Jarquin, Erick Rosa, Radha Pack last admission in April and has not scheduled- reinforced with spouse to complete
updated spouse all questions answered
-
-
Thank you for consultation and allowing me to participate in the patient's care. Please call the construction consultant GI physician during the after hours with any questions or concerns.
[2025-08-19 07:05] VITALS: BP 138/79
[2025-08-19] MEDS: ZOFRAN 4 MG IV (07:27)
[2025-08-19] MEDS: DILAUDID 0.5 MG IV ×3 (07:27→17:36)
[2025-08-19] MEDS: NSS (PRESERVATIVE FREE) IV ×2 (07:35→19:32)
[2025-08-19] MEDS: PROTONIX IV IV ×2 (07:36→19:32)
[2025-08-19 07:58] LABS: Hematocrit 37.4 % (37.0-47.0); Hemoglobin 13.1 g/dL (12.0-16.0); Mean Corp Hgb Conc. 35.0 g/dL (33.0-37.0); Mean Corpuscular Volume 85.0 fL (81.0-99.0); Platelet Count 311 10^3/uL (130-400); Red Cell Dist. Width 12.0 % (11.5-14.5)
[2025-08-19 08:27] LABS: Blood Urea Nitrogen 13 mg/dl (7-17); Calcium 9.3 mg/dl (8.4-10.2); Carbon Dioxide 26 mmol/L (22-30); Chloride 104 mmol/L (98-107); Estimated Creatinine Clearance 71 ml/min; Glucose 82 mg/dl (70-99); Potassium 3.9 mmol/L (3.5-5.1); Sodium 137 mmol/L (135-145); eGFR > 60.00
--- NOTE | 2025-08-19 10:40 | W.PN.HOSP.TC ---
Addendum entered and electronically signed by Rodrick Valdez MD 08/19/25 15:18:
Obstruction series
Oral contrast administered at time of CT of preceding day now seen throughout nondistended large bowel.
GI started CLD, adat slowly if tolerating diet
Original Note:
Today's Communication/Plan
-
Assessment / Plan
Assessment / Plan
Intractable abdominal pain
Ddx: pud, gastritis/duodenitis, partial GOO, gastroparesis vs sibo
bid iv ppi
cld per gi
ivf - .45
antiemetics
analgesics
ekg, if qtc is fine can start reglan
surgery no ngt/no op management
gi start xifaxan, follow up with [facility] for advanced procedures such as flip
-?GE studying
t/c Motegrity trial on discharge as unable to get here during admission
will resume Carafate
ok for simethicone PRN
Essential Hypertension
-Hold HCTZ, norvasc and valsartan
Multiple Sclerosis
-Patient follows with Dr. Cosby with [facility]
Anxiety
-Continue Valium PRN
Anticipated Discharge: > 48 hours
Subjective/Interval History
-
Date of Service: August 19, 2025
seen and examined. still having abdominal pain. without nv. scared to have food but does admit to dry mouth
wants ice chips which she has at bedside
Objective Data
-
Labs:
Laboratory Results
08/19/25
06:55
WBC 7.6
Hgb 13.1
Hct 37.4
Plt Count 311
Sodium 137
Potassium 3.9
Chloride 104
Carbon Dioxide 26
BUN 13
Creatinine 0.8
Glucose 82
Calcium 9.3
Vital Signs:
Vital Signs
Temp Pulse Resp BP Pulse Ox
98 F 64 18 138/79 96
08/19/25 07:05 08/19/25 07:05 08/19/25 07:05 08/19/25 07:05 08/19/25 07:05
I&O
08/18/25 08/19/25 08/20/25
06:59 06:59 06:59
Intake Total 1200 / 1200
Balance 1200 / 1200
Physical Exam
-
General: Well Nourished, No Apparent Distress, Pain and Other (laying in position)
HEENT: Normocephalic, Atraumatic and Moist Mucous Membranes
Respiratory: Clear to Auscultation
Cardiac: Regular Rhythm and S1/S2
GI: Soft, Nondistended, Normal Bowel Sounds and Tender (epigastric)
Musculoskeletal: No Clubbing, No Cyanosis and No Edema
Skin: Warm and Dry
Neuro: Awake and AO x 3
Psych: Calm
--- NOTE | 2025-08-19 11:56 | PTCARENOTE ---
Assumed care of pt from previous nurse. Pt with discomfort to abdomen, Dilaudid provided with positive results. Pt diet advanced to clears, will follow up with how she tolerates. Pt call mcgrath is within reach, pt rings jasmin. will cont to monitor. No
noted n/v
[2025-08-19] MEDS: CARAFATE 1 GRAM PO ×3 (12:41→21:25)
--- NOTE | 2025-08-19 13:58 | CM ---
Initial assessment completed. Patient is a 65 F hx of MS, gerd, htn who presents with recurrent abdominal pain, epigastric, ongoing for months.
Patient resides w/ her significant other in a 2STH, 2 steps to enter. Full flight of stairs to bedroom and bathroom. Patient uses RW, cane to ambulate, and uses w/c for MS flares. Independent w/ ADLs and personal care. Denies SNF/HC hx.
Address, point of contact and insurance verified
PCP: Dominick Aldana
Pharmacy: [facility]
Plan: Home, no needs anticipated
[2025-08-19 15:05] VITALS: BP 126/71
[2025-08-19 16:34] VITALS: BP 165/102
[2025-08-19 16:38] LABS: Glucose - Point of Care 78 mg/dl (70-99)
--- NOTE | 2025-08-19 17:09 | W.PN.UPDATE ---
Update Note
Progress Note Update
Stroke alert was called at 1635 this afternoon when patient reported central vision loss with significant posterior headache. I was immediately available at the bedside.
AFVSS. Systolic blood pressure near 170 mmHg, was normotensive today preceding her headache. NIHSS 1 per nursing
Patient hospitalized with gastroenteritis, developed headache today with subsequent loss of central vision. Photophobia +. States that she did have a previous occurrence of visual loss with previous migraine however that was not recently and she
is unable to recall if headache at that time was similar to this episode.
Neurologic exam completed at the bedside:
- Bilateral central vision loss with reduced peripheral discriminatory capacity
- Remainder of cranial nerves intact
- Muscle motor strength 5/5 to all 4 extremities
- No sensory deficits noted within peripheral dermatomes nor trigeminal dermatomes
- Reflexes intact, WNL
Was taken for stat CT head which was unremarkable, no signs of ICH or transcortical infarction.
Discussed with neurologist at [facility]. Suspicion very high for migraine with aura. No indication for TNK
Plan:
- Order Fioricet 2 tabs now, consider migraine cocktail though patient reluctant with possible ADR to Toradol
- Continue to monitor NIHSS and neurochecks
- Consider MRI brain without contrast if not improving after migraine treatment
Patient's family updated at the bedside
[2025-08-19 17:14] LABS: Hematocrit 38.5 % (37.0-47.0); Hemoglobin 13.6 g/dL (12.0-16.0); Mean Corp Hgb Conc. 35.3 g/dL (33.0-37.0); Mean Corpuscular Volume 84.6 fL (81.0-99.0); Platelet Count 343 10^3/uL (130-400); Red Cell Dist. Width 12.0 % (11.5-14.5)
[2025-08-19 17:20] LABS: APTT 28.4 Sec (23.4-35.0); INR 1.10; PT 14.3 Sec (11.4-14.6)
[2025-08-19 17:21] LABS: ALT (SGPT) 15 U/L (0-35); AST (SGOT) 24 U/L (14-36); Albumin 4.9 g/dl (3.5-5.0); Alkaline Phosphatase 61 U/L (38-126); Blood Urea Nitrogen 15 mg/dl (7-17); Calcium 9.8 mg/dl (8.4-10.2); Carbon Dioxide 22 mmol/L (22-30); Chloride 102 mmol/L (98-107); Estimated Creatinine Clearance 81 ml/min; Glucose 79 mg/dl (70-99); Potassium 4.0 mmol/L (3.5-5.1); Sodium 135 mmol/L (135-145); Total Protein 7.6 g/dl (6.3-8.2); eGFR > 60.00
[2025-08-19] MEDS: XIFAXAN 550 MG PO ×2 (17:35→21:25)
--- NOTE | 2025-08-19 18:19 | PTCARENOTE ---
Stroke alert called for pt due to visual changes, no other deficits noted. NIH 2, pt sent to CT scan, feels this is a migraine, pt requesting excedrin migraine profiled, ordered and profiled. will provide. Pt with no return to baseline at this
time. Ice packs on the back of head, no new orders .will cont to monitor.
[2025-08-19] MEDS: NON-FORMULARY ITEM 1 UNIT PO (18:32)
[2025-08-19] MEDS: PROTONIX IV 40 MG IV (19:36)
[2025-08-19] MEDS: NSS (PRESERVATIVE FREE) 10 ML IV (19:36)
[2025-08-19 23:03] VITALS: BP 128/76
[2025-08-20] MEDS: DILAUDID 0.5 MG IV ×3 (03:52→20:37)
[2025-08-20] MEDS: 0.45%NACL 1000 IV (03:53)
[2025-08-20] MEDS: ZOFRAN 4 MG IV ×2 (03:58→20:37)
[2025-08-20 07:05] VITALS: BP 130/80
[2025-08-20] MEDS: XIFAXAN 550 MG PO ×3 (07:59→22:36)
[2025-08-20] MEDS: CARAFATE 1 GRAM PO ×4 (07:59→22:36)
[2025-08-20] MEDS: PROTONIX IV 40 MG IV ×2 (08:02→20:39)
[2025-08-20] MEDS: NSS (PRESERVATIVE FREE) 10 ML IV ×2 (08:02→20:38)
[2025-08-20 08:22] LABS: Hematocrit 35.1 % (37.0-47.0); Hemoglobin 12.4 g/dL (12.0-16.0); Mean Corp Hgb Conc. 35.3 g/dL (33.0-37.0); Mean Corpuscular Volume 84.6 fL (81.0-99.0); Platelet Count 288 10^3/uL (130-400); Red Cell Dist. Width 12.2 % (11.5-14.5)
[2025-08-20 09:17] LABS: Blood Urea Nitrogen 12 mg/dl (7-17); Calcium 9.4 mg/dl (8.4-10.2); Carbon Dioxide 27 mmol/L (22-30); Chloride 105 mmol/L (98-107); Estimated Creatinine Clearance 71 ml/min; Glucose 91 mg/dl (70-99); Potassium 4.1 mmol/L (3.5-5.1); Sodium 138 mmol/L (135-145); eGFR > 60.00
--- NOTE | 2025-08-20 09:41 | W.PN.GI.CBS2 ---
Addendum entered and electronically signed by ARTURO Mcginnis 08/20/25 11:55:
also discussed holding reglan and narcotics prior to testing
Addendum entered and electronically signed by ARTURO Mcginnis 08/20/25 11:55:
script sent for motegrity to pharmacy on file. Reviewed side effects with patient and spouse and hand out given. Pt will consider if she wants to proceed with treatment. Advised to hold til after GE scan 08/22.
Addendum entered and electronically signed by Ashia Burnette MD 08/20/25 11:15:
Okay to DC home from a GI perspective and follow-up with Dr. Curtis and [facility]. Will sign off and will be available as needed.
Addendum entered and electronically signed by Ashia Burnette MD 08/20/25 11:14:
I saw and examined the patient.
The CAR DROPPER's note was reviewed and I agree with the note.
Comment: Noted events from yesterday she had a stroke alert and had a CT head which was negative and symptoms were thought to be related to migraine with aura and improved with NSAIDs. Her nausea and abdominal pain though have improved and she is
tolerating p.o. intake. Had a lengthy discussion with the patient and her at bedside will get a gastric emptying 4-hour study at [facility] and follow-up with the [facility]. may need Endoflip also and based on the results may need a
Botox or pyloric dilation. In the meantime I told her to eat small frequent meals with low-fat and low residue and protein supplements twice a day. If Motegrity approved could DC the Reglan and hopefully symptoms improve with Motegrity. Continue
Xifaxan for 14 days for possible SIBO.
Addendum entered and electronically signed by ARTURO Mcginnis 08/20/25 10:09:
I sent message though [facility] portal to Dr. Graves and Dr. Rosa to expidite appt.
Original Note:
Today's Communication / Plan
-
Etiology of pain related to gastroparesis with some retained contrast in stomach, motility disorder, tight pylorus as noted on prior EGD vs other, doubt mesenteric angina since her CTA was also unremarkable, neg porpheria work up
cont pain control per hospitalist team
cont Xifaxan with risk of SIBO-- discussed cost may be issue after discharge
holding on EGD as improving and completed several over last year
t/c Motegrity trial on discharge as unable to get here during admission as not on formulary
cont PPI, Carafate, simethicone, and reglan PRN as EKG with stable QTC
advance to low residue diet, discussed small portions, supplement BID
pt given 4 hour GE scan slip to complete OP after discharge at [facility]-- spouse working on set up
s/p neuro and psych eval on prior admissions
discussed need for OP follow up at [facility] for further testing with GE scan, vagus nerve study and eval for endoflip
Pt was recommended follow up with [facility], Stephen Jarquin, Erick Rosa, Radha Pack last admission in April and has not scheduled- -- spouse has attempted to call yesterday
updated pt and spouse all questions answered, will try to reach out to [facility] for expediting work up but most testing is outpatient
updated nursing staff
Assessment / Plan
-
Pt is a 65yo presents with onset of with hx MS, fibromyalgia, anxiety, migraines with admission in 2023 with acute appendicitis with lap appe and drainage of abscess with repair of umbilical hernia. She has had ongoing upper abdominal pain with
nausea and constipation for last year with multiple admission and testing with multiple EGD/colon, CT, MRE, CTE, spinal imaging, and eval with GI and neurology with continued symptoms and unclear etiology.. She has also had evaluation at [facility]
inpatient but not completed OP follow up. She returns with recurrent abdominal pain improved with Dilaudid.
-ongoing severe upper abdominal pain
-tight pylorus on EGD
-duodenitis noted on recent MRE
-retained contrast in stomach on CTA on admission
- constipation
-leukocytosis- improved
-anxiety
-wt loss
other medical problems:
-MS
-hx appe with drainage of abscess/umbilical hernia repair 08/2023
-fibromyalgia
-migraines
- hx Campylobacter
PLAN:
Etiology of pain related to gastroparesis with some retained contrast in stomach, motility disorder, tight pylorus as noted on prior EGD vs other, doubt mesenteric angina since her CTA was also unremarkable, neg porpheria work up
cont pain control per hospitalist team
cont Xifaxan with risk of SIBO-- discussed cost may be issue after discharge
holding on EGD as improving and completed several over last year
t/c Motegrity trial on discharge as unable to get here during admission as not on formulary
cont PPI, Carafate, simethicone, and reglan PRN as EKG with stable QTC
advance to low residue diet, discussed small portions, supplement BID
pt given 4 hour GE scan slip to complete OP after discharge at [facility]-- spouse working on set up
s/p neuro and psych eval on prior admissions
discussed need for OP follow up at [facility] for further testing with GE scan, vagus nerve study and eval for endoflip
Pt was recommended follow up with [facility], Stephen Jarquin, Erick Rosa, Radha Pack last admission in April and has not scheduled- -- spouse has attempted to call yesterday
updated pt and spouse all questions answered, will try to reach out to [facility] for expediting work up but most testing is outpatient
updated nursing staff
Subjective
Subjective
Date of Service: August 20, 2025
Pt with some improvement with abdominal pain and able to take some potato soup overnight-- no stools recorded, s/p stroke alert last PM with visual issues with concern for migraine
Objective
Data Reviewed
Laboratory Data:
Laboratory Results
08/20/25 08:09
08/20/25 08:09
Laboratory Results
PT 14.3 Sec (11.4-14.6) 08/19/25 16:38
INR 1.10 08/19/25 16:38
APTT 28.4 Sec (23.4-35.0) 08/19/25 16:38
Total Bilirubin 1.6 mg/dl (0.2-1.3) H 08/19/25 16:38
AST 24 U/L (14-36) 08/19/25 16:38
ALT 15 U/L (0-35) 08/19/25 16:38
Alkaline Phosphatase 61 U/L (38-126) 08/19/25 16:38
Lipase 149 U/L (23-300) 08/18/25 09:55
Vital Signs and I&O:
Vital Signs
Temp Pulse Resp BP Pulse Ox
98.1 F 64 16 130/80 98
08/20/25 07:05 08/20/25 07:05 08/20/25 07:05 08/20/25 07:05 08/20/25 07:05
I&O
08/19/25 08/20/25 08/21/25
06:59 06:59 06:59
Intake Total 1200 / 1200 2340 / 2340
Balance 1200 / 1200 2340 / 2340
Physical Exam
Physical Exam
HEENT: Anicteric and Moist mucous membranes
Cardiology: Normal Sinus Rhythm
Pulmonary: Clear
GI: Soft, Non Distended and Tender (mild but improved from admission )
Extremities: No Edema
Neuro: Non Focal (minimal anxiety and conversant and cooperative for exam)
--- NOTE | 2025-08-20 11:14 | W.PN.HOSP.TC ---
Today's Communication/Plan
-
monitor vitals
see plan
cw xifaxan
GI for motegrity
monitor sx on diet
Restart propranolol
Patient refusing gabapentin
hopeful dc tomorrow
discussed with spouse
patient has GE study at [facility] monday
Assessment / Plan
Assessment / Plan
General: Well Nourished, No Apparent Distress, Pain and Other (laying in position)
HEENT: Normocephalic, Atraumatic and Moist Mucous Membranes
Respiratory: Clear to Auscultation
Cardiac: Regular Rhythm and S1/S2
GI: Soft, Nondistended, Normal Bowel Sounds and Tender (epigastric)
Musculoskeletal: No Clubbing, No Cyanosis and No Edema
Skin: Warm and Dry
Neuro: Awake and AO x 3
Psych: Calm
Intractable abdominal pain
Ddx: pud, gastritis/duodenitis, partial GOO, gastroparesis vs sibo
bid iv ppi
cld per gi
ivf - .45
antiemetics
analgesics
Motegrity per GI. If does go on Motegrity then will DC Reglan
surgery no ngt/no op management
gi start xifaxan, follow up with [facility] for advanced procedures such as flip
Gastric emptying starting at [facility]
t/c Motegrity trial on discharge as unable to get here during admission
will resume Carafate
ok for simethicone PRN
eat small frequent meals with low-fat and low residue and protein supplements twice a day
Stroke alert called 08/19 for change in vision
CT neg
Appear to be secondary to migraine, now resolved
took axcedrin
Essential Hypertension
-Hold HCTZ, norvasc and valsartan
Restart propranolol
Multiple Sclerosis
-Patient follows with Dr. Cosby with [facility]
Anxiety
-Continue Valium PRN
History of fibromyalgia
History of history of constipation
DVT prophylaxis
lovenox
Full code
I spent a total of 52 minutes with the patient or on the floor. More than 50% of this time involved counseling and coordination of care.
Anticipated Discharge: Within 24 hours
Subjective/Interval History
-
Date of Service: August 20, 2025
still has some discomfort
Objective Data
-
Labs:
Laboratory Results
08/20/25
08:09
WBC 6.0
Hgb 12.4
Hct 35.1 L
Plt Count 288
Sodium 138
Potassium 4.1
Chloride 105
Carbon Dioxide 27
BUN 12
Creatinine 0.8
Glucose 91
Calcium 9.4
Vital Signs:
Vital Signs
Temp Pulse Resp BP Pulse Ox
98.1 F 64 16 130/80 98
08/20/25 07:05 08/20/25 07:05 08/20/25 07:05 08/20/25 07:05 08/20/25 07:05
I&O
08/19/25 08/20/25 08/21/25
06:59 06:59 06:59
Intake Total 1200 / 1200 2340 / 2340
Balance 1200 / 1200 2340 / 2340
--- NOTE | 2025-08-20 12:57 | PTCARENOTE ---
Assumed care of pt from previous nurse. Pt provided dilaudid for pain to abdomen with positive results. Pt diet changed to low residue, will monitor for tolerance. Pt call [facility] is within reach, pt rings jasmin. will cont to monitor.
[2025-08-20 15:05] VITALS: BP 104/56
[2025-08-20] MEDS: FLUSH (NSS) 4 FLUSH IV (20:37)
[2025-08-20] MEDS: INDERAL 80 MG PO (20:40)
[2025-08-20 23:08] VITALS: BP 136/76
[2025-08-21 07:00] VITALS: BP 139/76
[2025-08-21 07:25] LABS: Hematocrit 37.2 % (37.0-47.0); Hemoglobin 13.0 g/dL (12.0-16.0); Mean Corp Hgb Conc. 34.9 g/dL (33.0-37.0); Mean Corpuscular Volume 86.9 fL (81.0-99.0); Platelet Count 299 10^3/uL (130-400); Red Cell Dist. Width 12.1 % (11.5-14.5)
[2025-08-21 07:59] LABS: Blood Urea Nitrogen 14 mg/dl (7-17); Calcium 9.7 mg/dl (8.4-10.2); Carbon Dioxide 29 mmol/L (22-30); Chloride 104 mmol/L (98-107); Estimated Creatinine Clearance 71 ml/min; Glucose 92 mg/dl (70-99); Potassium 4.3 mmol/L (3.5-5.1); Sodium 138 mmol/L (135-145); eGFR > 60.00
[2025-08-21] MEDS: PROTONIX IV 40 MG IV (08:06)
[2025-08-21] MEDS: NSS (PRESERVATIVE FREE) 10 ML IV (08:06)
[2025-08-21] MEDS: CARAFATE 1 GRAM PO ×2 (08:38→12:50)
[2025-08-21] MEDS: XIFAXAN 550 MG PO ×2 (08:38→16:27)
[2025-08-21] MEDS: VITAMIN B-12 1000 MCG PO (08:38)
[2025-08-21] MEDS: INDERAL 80 MG PO (08:38)
--- NOTE | 2025-08-21 10:11 | W.PN.HOSP.TC ---
Today's Communication/Plan
-
Monitor vital signs see plan
Discharge today after evening dose of rifaximin
Discussed with spouse
Patient has gastric emptying study scheduled at [facility] Tomorrow
f/u GI outpatient
she is aware to hold reglan,motegrity prior to study
Time of discharge 38 minutes
Assessment / Plan
Assessment / Plan
General: Well Nourished, No Apparent Distress
HEENT: Normocephalic, Atraumatic and Moist Mucous Membranes
Respiratory: Clear to Auscultation
Cardiac: Regular Rhythm and S1/S2
GI: Soft, Nondistended, Normal Bowel Sounds and Tender (epigastric)
Musculoskeletal: No Edema
Neuro: Awake and AO x 3
Psych: Calm
Intractable abdominal pain
Ddx: pud, gastritis/duodenitis, partial GOO, gastroparesis vs sibo
bid ppi
Now on low residue diet. GI discussed with patient regarding low-fat and low residue with eating small frequent meals.
ivf - .45
antiemetics
analgesics
Motegrity per GI. GI sent prescription from [facility]. If patient does take Motegrity then she is aware that she needs to stop Reglan. If any issues with Motegrity then patient is aware to call GI
surgery no ngt/no op management
gi start xifaxan,14-day total treatment. follow up with [facility] for advanced procedures such as flip
Gastric emptying study at [facility]
resume Carafate
ok for simethicone PRN
eat small frequent meals with low-fat and low residue and protein supplements twice a day
holding reglan and narcotics prior to testing per GI. Gastric emptying study at [facility] 08/22
Stroke alert called 08/19 for change in vision
CT neg
Appear to be secondary to migraine, now resolved
took excedrin
Essential Hypertension
-Hold HCTZ, norvasc and valsartan
Restart propranolol
Multiple Sclerosis
-Patient follows with Dr. Cosby with [facility]
Anxiety
-Continue Valium PRN
History of fibromyalgia
History of history of constipation
DVT prophylaxis
lovenox
Full code
Anticipated Discharge: Today
Subjective/Interval History
-
Date of Service: August 21, 2025
Still has some symptoms
Objective Data
-
Labs:
Laboratory Results
08/21/25
06:58
WBC 7.7
Hgb 13.0
Hct 37.2
Plt Count 299
Sodium 138
Potassium 4.3
Chloride 104
Carbon Dioxide 29
BUN 14
Creatinine 0.8
Glucose 92
Calcium 9.7
Vital Signs:
Vital Signs
Temp Pulse Resp BP Pulse Ox
98.2 F 56 16 139/76 97
08/21/25 07:00 08/21/25 08:38 08/21/25 07:00 08/21/25 08:38 08/21/25 07:00
I&O
08/20/25 08/21/25 08/22/25
06:59 06:59 06:59
Intake Total 2340 / 2340 1200 / 1200
Balance 2340 / 2340 1200 / 1200
--- NOTE | 2025-08-21 10:28 | W.DCSUMMARY ---
Discharge Summary
Discharge Data
Date of Admission: 08/18/25
Date of Discharge: 08/21/25
-
Pending Results: No
Hospital Course
65-year-old female with past medical show essential hypertension, multiple sclerosis, anxiety, fibromyalgia, history of constipation, GERD. Appendectomy for appendicitis, migraine came to the hospital with persistent abdominal pain and nausea.
Patient was seen by surgery and GI, she was hospitalized. Patient's symptoms appeared to be secondary to gastroparesis. GI recommended gastroparesis study which was scheduled at [facility] on 08/22/2025. While patient was in the hospital GI also
recommended rifaximin along with possible trial of Motegrity which was prescribed by GI pharmacy. Patient symptoms continue to improve over time and she was able to tolerate low residue diet however she still has some symptoms for which she was
instructed to follow-up with outpatient GI and physicians at [facility]. Patient was discharged on 08/21 with instructions to follow-up with all her physicians outpatient.
Discharge Plan
-
Patient Disposition: Home (Routine Discharge)
Discharge Diagnosis/Procedures: Nausea and abdominal pain
Suspect gastroparesis
Migraine
Condition: Fair
Diet: Low Fat, Low Residue and Other diet
Additional Diets: small frequent meals with low-fat and low residue and protein supplements twice a day
Activity: No restrictions
Bathing Restrictions: None
Others Tests: arrange for follow up to discuss endoflip with one of the following providers Susanna Issa, Stephen Jarquin, Erick Rosa, Radha Pack
follow up at [facility] for 4 hour gastric emptying test--- slip given to spouse
hold Reglan, narcotics and Motegrity prior to testing
call GI office if cost issue with Xifaxan or Motegrity [phone]
Referrals:
Dominick Aldana DO [Family Provider, Family Practice] - in less than 1 week
Eva Curtis DO [Active, Gastroenterology]
Prescriptions:
New
prucalopride [Motegrity] 2 mg tablet
2 mg PO DAILY Qty: 1 0RF
Xifaxan 550 mg Tablet
550 mg PO TID 12 Days Qty: 36 0RF
simethicone 80 mg Tablet,Chewable
80 mg PO QIDPRN PRN (Reason: gas) Qty: 30 0RF
ondansetron 4 mg tablet,disintegrating
4 mg PO Q8H PRN (Reason: nausea and vomiting) 5 Days Qty: 15 0RF
Continued
Dayana
1 cap PO PRN PRN (Reason: constipation)
diazepam 5 mg Tablet
5 mg PO TIDPRN PRN (Reason: anxiety) 3 Days Qty: 9 0RF
Patient Comments:
Patient staes she occasionally takes it once a week
propranolol 80 mg tablet
80 mg PO BID
cyanocobalamin (vitamin B-12) [Vitamin B-12] 1,000 mcg tablet
1,000 mcg PO DAILY
sucralfate 1 gram tablet
1 g PO AC
Changed
pantoprazole 40 mg tablet,delayed release (DR/EC)
40 mg PO BID Qty: 0 0RF
Held
valsartan 160 mg Tablet
160 mg PO BID
Hold Instructions: Restart when blood pressure is greater than 140/90
metoclopramide HCl 5 mg tablet
5 mg PO AC
Hold Instructions: Can restart if not on Motegrity after the gastroparesis study
gabapentin 100 mg capsule
100 mg PO BID
Hold Instructions: Can restart if okay with the physician
amlodipine 5 mg tablet
5 mg PO DAILY
Hold Instructions: Restart when blood pressure is greater than 140/90
Discharge Orders:
Discharge Patient (As Directed); Ordered 08/21/25
Ordered By: Cong Guzman
Discharge Date and Time
Print Language: YORUBA
[2025-08-21 15:00] VITALS: BP 139/84
--- NOTE | 2025-08-21 15:27 | CM ---
CM met with Maribel and her SO to discuss discharge/provide IMM. IMM signed, placed in chart. Pt provided with a copy.
Plan: Discharge to home; pt has an appointment at [facility] tomorrow.
--- NOTE | 2025-08-21 17:18 | PTCARENOTE ---
patient was received in bed with bilateral eyes closed, breathing normally and appeared comfortable. patient was easily aroused to sound and touch. patient did verbalize discomfort but refused any pain medication offered stating that she would
notify nurse if she wanted her medication. patient did receive all her scheduled medication without any difficulty and was able to tolerate small portions of her meals. patient's discharge instructions reviewed with patient and spouse. all concerns
and questions were addressed. all of patient's personal belongings were collected and packed. home medication was provided at discharge as well.
== END 2025-08-21 17:44 | disposition home or self-care (01) | DRG 382 ==
LOC: 4 WEST ACU 17:27
PROVIDERS: ADMITTING PHYSICIAN Hospitalist; ATTENDING PHYSICIAN Internal Medicine; CONSULT PHYSICIAN Surgery; EMERGENCY PHYSICIAN Emergency Medicine; FAMILY PHYSICIAN Family Medicine; OTHER PHYSICIAN Internal Medicine Gastroenterology
DX: K31.1 Adult hypertrophic pyloric stenosis (principal); K29.80 Duodenitis without bleeding; I10 Essential (primary) hypertension; G35.D Multiple sclerosis, unspecified; F41.9 Anxiety disorder, unspecified; K31.84 Gastroparesis; G43.909 Migraine, unspecified, not intractable, without status migrainosus; G89.29 Other chronic pain; M79.7 Fibromyalgia; Z79.899 Other long term (current) drug therapy
CPT/HCPCS: 70450; 74018; 74174; 80048; 80053; 82962; 83690; 84484; 85025; 85027; 85610; 85730; 93005; 96374; 96376; 99285; Q9967